=== PATIENT | male | born 1950 | race Caucasian/White ===

== ENCOUNTER 2021-11-03 10:26 | Observation (INO) | payer OTHER ==
--- NOTE | 2021-10-29 09:08 | RAD REPORT ---
EXAM DESCRIPTION: RAD - Chest Pa And Lat (2 Views) - 10/29/2021 9:01 am CLINICAL HISTORY: Pre op pending knee arthroplasty Chest pain. COMPARISON: CHEST PA AND LAT 2 VIEW dated 10/27/2011 FINDINGS: The lungs are emphysematous but clear. The heart is upper limit of normal in size. No disp laced fractures. IMPRESSION: COPD.
[2021-10-29 10:03] LABS: Absolute Lymphocytes (CBC) 0.5 K/uL (0.7-4.9); Hematocrit 41.5 % (39.6-49.0); Lymphocytes % 6.8 % (15.3-44.8); MPV 7.6 fL (7.6-11.3); RBC Red Blood Cell Count 4.77 M/uL (4.33-5.43)
[2021-10-29 10:05] LABS: Protime INR 0.88
[2021-10-29 10:13] LABS: Urine Appearance CLEAR (Clear); Urine Bilirubin NEGATIVE (Negative); Urine Blood NEGATIVE (Negative); Urine Color YELLOW (Yellow); Urine Glucose NEGATIVE (Negative); Urine Microscopic Reflex NO UMIC; Urine Protein NEGATIVE (Negative); Urine Specific Gravity 1.025 (1.005-1.030); Urine Urobilinogen 0.2 mg/dL (0.2-1.0); Urine pH 6.5 (5.0-7.0)
[2021-10-29 10:15] LABS: Albumin 3.4 g/dL (3.4-5.0); Bilirubin Total 0.4 mg/dL (0.2-1.0); Potassium 4.4 mmol/L (3.5-5.1); Protein, Total 6.6 g/dL (6.4-8.2)
--- NOTE | 2021-10-29 15:27 | EKG ---
Test Date: 2021-10-29 Test Time: 09:05:07 [employer]: GITA MEASUREMENT RESULTS: Intervals: Rate: 54 MS: 170 QRSD: 68 QT: 394 QTc: 373 [place]: P: 67 MS: 170 QRS: 15 T: 65 INTERPRETIVE STATEMENTS: Sinus bradycardia Low voltage QRS Borderline ECG No previous ECG available for comparison Electronically Signed On 10-29-21 15:26:45 CDT by Emeterio Fitzgerald
[~2021-11-03 10:26] MED LIST: FENTANYL CITR 100 MCG/2 ML ONE; KETAMINE HCL 500 MG/5 ML VIAL ONE; LIDOCAINE 2% MPF 5 ML VIAL ONE; MIDAZOLAM HCL 2 MG/2 ML INJ ONE; NS 0.9% VIAL 10 ML ONE; propofoL 200 MG/20 ML VIAL IV ONE
[2021-11-03] MEDS ORDERED: GABAPENTIN 100 MG CAP ONE (10:45)
[2021-11-03] MEDS ORDERED: CELECOXIB 100 MG CAPSULE ONE (10:45)
[2021-11-03] MEDS ORDERED: Oxycodone HCl/Acetaminophen 1 TAB TAB ONE (10:46)
[2021-11-03] MEDS ORDERED: Ringers Lactate 1,000 ML IV ONE ×2 (10:46→15:08)
[2021-11-03] MEDS ORDERED: ACETAMINOPHEN 500 MG TAB ONE (10:46)
[2021-11-03] MEDS ORDERED: BUPIVACAINE 0.5% Inj,MDV 50 mL VIAL ONE (11:12)
[2021-11-03] MEDS ORDERED: dexAMETHasone 4 MG/ML VIAL ONE ×2 (11:12→13:45)
[2021-11-03] MEDS ORDERED: BUPIVACAINE 0.25% PF 10 ML VIAL ONE (11:12)
[2021-11-03] MEDS ORDERED: LIDOCAINE 1% MPF 5 ML VIAL ONE (11:12)
[2021-11-03] MEDS ORDERED: HYDROMORPHONE HCL 1 MG/ML INJ ONE (11:13)
[2021-11-03] MEDS: CEFAZOLIN 2 GM IN 0.9% NACL 2 GM/100 ML BAG ONE ×2 (12:24→13:20)
[2021-11-03] MEDS: TRANEXAMIC ACID 1,000 MG/10 ML VIAL IV ONE ×5 (12:24→15:27)
[2021-11-03] MEDS ORDERED: ONDANSETRON 4 MG/2 ML VIAL IV PRN (15:15)
[2021-11-03] MEDS ORDERED: DOCUSATE NA 100 MG CAP PO PRN (15:15)
--- NOTE | 2021-11-03 15:21 | P.BOP ---
Preoperative diagnosis: left knee arthritis Postoperative diagnosis: same Primary procedure: left TKA Estimated blood loss: 100 ccs Anesthesia: General Transferred to: Recovery Room Condition: Good
[2021-11-03] MEDS: MEPERIDINE HCL 25 MG/ML SYR ONE ×2 (16:01→16:40)
--- OUTSIDE RECORDS SUMMARY | 2021-11-03 16:32 | XMS REPORT | Continuity of Care Document ---
:1950 Author Organization [facility] t Address [address] [place] [address] Care Team Providers Name Role Phone NICOLA BLEDSOE Attending Clinician Unavailable Nicola Bledsoe MD Attending Clinician Boubacar Tamez CRNA Attending Clinician Chuck ENRIQUE Attending Clinician Pob, Lab Main Attending Clinician Unavailable Doctor Unassigned, Name Attending Clinician Unavailable Eagle Buckley MD Attending Clinician Class, Pre Op Attending Clinician Unavailable Eagle BUCKLEY Attending Clinician Unavailable MARTHA Attending Clinician Unavailable NICOLA BLEDSOE Admitting Clinician Unavailable Nicola Bledsoe MD Admitting Clinician Payers Payer Name Policy Type Policy Number Effective Date Expiration Date Dylan weathers MEDICARE PART A [id number] 2013 \\T\\ B 00:00:00 [employer] PPO I [id number] 2014 00:00:00 Problems Condition Condition Condition Status Onset Resolution Last Treating Co mments Source Name Details Category Date Date Treatment Clinician Date Arthritis Arthritis Disease Active Uni vers of right of right 6-23 ity of knee knee 00:00: [address] No known No known Disease Unive rs active active ity of problems problems [facility] Allergies, Adverse Reactions, Alerts Allergy Allergy Status Severity Reaction(s) Onset Inactive Treating Comm ents Source Name Type Date Date Clinician NO KNOWN Drug Active Univers ALLERGIE Class ity of S [facility] Social History Social Habit Start Date Stop Date Quantity Comments Source Exposure to Not sure [facility] (event) Branch Tobacco use and 2020-11-04 2020-11-04 Never used Universit y of exposure 00:00:00 00:00:00 [facility] Alcohol intake 2020-11-04 2020-11-04 Current drinker of Un iversity of 00:00:00 00:00:00 alcohol (finding) [facility] Comment 2017-11-08 2017-11-08 Occasional Drinker U niversity of 00:00:00 00:00:00 [facility] Sex Ass[birth year] Universit y of 00:00:00 00:00:00 [facility] Smoking Status Start Date Stop Date Source Former smoker 2020-11-04 00:00:00 2020-11-04 00:00:00 Universi ty of [facility] Never smoker [facility] Medications Ordered Filled Start Stop Current Ordering Indication Dosage Frequency Signature Comments Components Source Medication Medication Date Date Medication? Clinician (SIG) Name Name leah Yes 2{capsu Take 2 Univ ers root 6-24 le} capsules ity of extract 500 21:05: [place] mouth [place] mg Cap 21 daily. Medical Branch acetaminoph Yes 1300mg Take 1,300 Univers en (TYLENOL 6-24 mg by ity of ARTHRITIS 21:05: mouth 3 [place] PAIN) 650 21 (three) Medical mg CR times Branch tablet daily. multivitami Yes 1{tbl} Take 1 Un ilene n, 6-24 tablet by ity of [place]-minerals 21:05: mouth [place] (COMPLETE 21 daily. Medical MULTIVITAMI Branch N) tablet budesonide- Yes 2{puff} Inhale 2 Univers formoterol 6-24 Puffs 2 ity of 160-4.5 21:05: (two) [place] mcg/actuati 21 times Medical on inhaler daily. Branch tiotropium Yes 18ug Inhale 18 Un ilene (SPIRIVA 6-24 mcg daily. ity o f WITH 21:05: [place] HANDIHALER) 21 Medical 18 mcg Branch inhalation losartan 50 Yes 50mg Take 50 mg Univers mg tablet 6-24 by mouth ity of 21:05: daily. [place] 21 Medical Branch hydroCHLORO Yes 12.5mg Take 12.5 Univers thiazide 25 6-24 mg by ity of mg tablet 21:05: mouth [place] 21 daily. Medical Branch tamsulosin Yes .4mg Take 0.4 Uni vers 0.4 mg 24 6-24 mg by ity of hr capsule 21:05: mouth [place] 21 daily. Medical Branch atorvastati Yes 20mg Take 20 mg Univers n 20 mg 6-24 by mouth ity of tablet 21:05: at [place] 21 bedtime. Medical Branch finasteride Yes 5mg Take 5 mg U nivers 5 mg tablet 6-24 by mouth ity of 21:05: daily. [place] [address] Medical Branch Cholecalcif Yes 400U Take 400 Un ilene edgar, 6-24 Units by ity of Vitamin D3, 21:05: mouth [place] (VITAMIN 21 daily. Medical D3) 400 Branch unit capsule vitamin Yes 500ug Take 500 Unive rs B-12 6-24 mcg by ity of (VITAMIN 21:05: mouth [place] B-12) 500 21 daily. Medical mcg tablet Branch fluticasone Yes Inhale. Uni vers -umeclidin- 6-24 ity of vilanter 21:05: [place] (TRELEGY 21 Medical ELLIPTA) Branch 100-62.5-25 mcg DsDv albuterol Yes 2{puff} Inhale 2 U nivers 90 6-24 Puffs ity of mcg/actuati 21:05: every 6 [place] as on inhaler 21 (six) Medical hours as Branch needed for Wheezing or Shortness of Breath. furosemide Yes 20mg Take 20 mg U nivers 20 mg 6-24 by mouth ity of tablet 21:05: daily. [place] Medical Branch spironolact Yes 25mg Take 25 mg Univers one 25 mg 6-24 by mouth ity of tablet 21:05: daily. [place] [address] Medical Branch turmeric Yes 2{capsu Take 2 Univ ers root 6-24 le} capsules ity of extract 500 21:05: by mouth [place] mg Cap 21 daily. Medical Branch acetaminoph Yes 1300mg Take 1,300 Univers en (TYLENOL 6-24 mg by ity of ARTHRITIS 21:05: mouth 3 [place] PAIN) 650 21 (three) Medical mg CR times Branch tablet daily. multivitami Yes 1{tbl} Take 1 Un ilene n, 6-24 tablet by ity of [place]-minerals 21:05: mouth [place] (COMPLETE 21 daily. Medical MULTIVITAMI Branch N) tablet budesonide- Yes 2{puff} Inhale 2 Univers formoterol 6-24 Puffs 2 ity of 160-4.5 21:05: (two) [place] mcg/actuati 21 times Medical on inhaler daily. Branch tiotropium Yes 18ug Inhale 18 Un ilene (SPIRIVA 6-24 mcg daily. ity o f WITH 21:05: [place] HANDIHALER) 21 Medical 18 mcg Branch inhalation losartan 50 Yes 50mg Take 50 mg Univers mg tablet 6-24 by mouth ity of 21:05: daily. [place] Medical Branch hydroCHLORO Yes 12.5mg Take 12.5 Univers thiazide 25 6-24 mg by ity of mg tablet 21:05: mouth [place] 21 daily. Medical Branch tamsulosin Yes .4mg Take 0.4 Uni vers 0.4 mg 24 6-24 mg by ity of hr capsule 21:05: mouth [place] 21 daily. Medical Branch atorvastati Yes 20mg Take 20 mg Univers n 20 mg 6-24 by mouth ity of tablet 21:05: at [place] 21 bedtime. Medical Branch finasteride Yes 5mg Take 5 mg U nivers 5 mg tablet 6-24 by mouth ity of 21:05: daily. [place] 21 Medical Branch Cholecalcif Yes 400U Take 400 Un liene edgar, 6-24 Units by ity of Vitamin D3, 21:05: mouth [place] (VITAMIN 21 daily. Medical D3) 400 Branch unit capsule vitamin Yes 500ug Take 500 Unive rs B-12 6-24 mcg by ity of (VITAMIN 21:05: mouth [place] B-12) 500 21 daily. Medical mcg tablet Branch fluticasone Yes Inhale. Uni vers -umeclidin- 6-24 ity of vilanter 21:05: [place] (TRELEGY 21 Medical ELLIPTA) Branch 100-62.5-25 mcg DsDv albuterol Yes 2{puff} Inhale 2 U nivers 90 6-24 Puffs ity of mcg/actuati 21:05: every 6 [place] on inhaler 21 (six) Medical hours as Branch needed for Wheezing or Shortness of Breath. furosemide Yes 20mg Take 20 mg U nivers 20 mg 6-24 by mouth ity of tablet 21:05: daily. [address] Branch spironolact Yes 25mg Take 25 mg Univers one 25 mg 6-24 by mouth ity of tablet 21:05: daily. [address] docusate Yes 100mg 100 mg, Unive rs (COLACE) 6-24 Oral, ity of capsule 100 01:00: Q12H, [place] mg 00 First dose Medical on Tue Branch 11/05/20 at 2000, Until Discontinu ed, Routine docusate Yes 100mg 100 mg, Unive rs (COLACE) 6-24 Oral, ity of capsule 100 01:00: Q12H, [place] mg 00 First dose Medical on Tue Branch 11/05/20 at 2000, Until Discontinu ed, Routine enoxaparin 2020- No 30mg 30 mg, Univ ers (LOVENOX) 11-06 Subcutaneo ity of injection 01:00: 00:59 us, Q12H, [place] 30 mg 00 :00 56 doses, Medical First dose Branch on Tue11/05/20 at 1999, Last dose on Tue12/03/20 at 0800, Routine enoxaparin 2020- No 30mg 30 mg, Univ ers (LOVENOX) 11-06- Subcutaneo ity of injection 01:00: 00:59 us, Q12H, [place] 30 mg 00 :00 56 doses, Medical First dose Branch on Tue11/05/20 at 1999, Last dose on Tue12/03/20 at 0800, Routine ondansetron Yes 4mg 4 mg, Slow Univers (ZOFRAN 11-05 IV Push, ity of (PF)) 15:07: Q6HPRN, [place] injection 4 40 Starting Medi светлана mg Tue Branch 11/05/20 at 1007, Until Discontinu ed, Routine, Nausea and Vomiting (N/V) ondansetron 2020-0 Yes 4mg 4 mg, Slow Univers (ZOFRAN 6-23 IV Push, ity of (PF)) 15:07: Q6HPRN, [place] injection 4 40 Starting Medi светлана mg Wed Branch 11/05/20 at 1007, Until Discontinu ed, Routine, Nausea and Vomiting (N/V) diphenhydrA 2020-0 Yes 25mg 25 mg, Univ ers MINE 6-23 Oral, ity of (BENADRYL) 15:06: Q4HPRN, [place] tablet 25 37 Starting Medica l mg Wed Branch 11/05/20 at 1006, Until Discontinu ed, Routine, Itching diphenhydrA 2020-0 Yes 25mg 25 mg, Univ ers MINE 6-23 Oral, ity of (BENADRYL) 15:06: Q4HPRN, [place] tablet 25 37 Starting Medica l mg Wed Branch 11/05/20 at 1006, Until Discontinu ed, Routine, Itching HYDROcodone 2020-0 Yes 1{tbl} 1 tablet, Univers -acetaminop 6-23 Oral, ity of hen (NORCO) 15:02: Q4HPRN, [place] 10-325 mg 32 Starting Medica l tablet 1 Wed Branch tablet 11/05/20 at 1002, Until Discontinu ed, Routine, Pain (scale 7-10) HYDROcodone 2020-0 Yes 1{tbl} 1 tablet, Univers -acetaminop 6-23 Oral, ity of hen (NORCO) 15:02: Q4HPRN, [place] 10-325 mg 32 Starting Medica l tablet 1 Wed Branch tablet 11/05/20 at 1002, Until Discontinu ed, Routine, Pain (scale 7-10) HYDROcodone 2020-0 Yes 1{tbl} 1 tablet, Univers -acetaminop 6-23 Oral, ity of hen (NORCO 15:02: Q6HPRN, [place] 5) 5-325 mg 29 Starting Medi светлана tablet 1 Wed Branch tablet 11/05/20 at 1002, Until Discontinu ed, Routine, Pain (scale 4-6) HYDROcodone 2020-0 Yes 1{tbl} 1 tablet, Univers -acetaminop 6-23 Oral, ity of hen (NORCO 15:02: Q6HPRN, [place] 5) 5-325 mg 29 Starting [facility] светлана tablet 1 Tue Branch tablet 11/05/20 at 1002, Until Discontinu ed, Routine, Pain (scale 4-6) ondansetron 2020- No Slow IV Un ilene (ZOFRAN 11-05 Push, ONCE ity o f (PF)) 14:33: 15:04 INTRA [place] injection 00 :20 PROCEDURE, Medi светлана Starting Branch Tue11/05/20 at 0933, Until Tue11/05/20 at 1004, Routine, Intra-op sodium Yes PRN, Univers chloride 11-05 Starting ity of 0.9 % 13:42: Wed [place] irrigation 00 11/05/20 at Med ical solution 0842, Branch Until Discontinu ed, Intra-op sodium Yes PRN, Univers chloride 11-05 Starting ity of 0.9 % 13:42: Wed [place] irrigation 00 11/05/20 at Med ical solution 0842, Branch Until Discontinu ed, Intra-op HYDROmorphO 2020- No Intravenou Univers ne 11-05 06-23 s, ONCE ity of (DILAUDID) 13:20: 15:04 INTRA [place] injection 00 :20 PROCEDURE, Medi светлана Starting Branch Tue11/05/20 at 0820, Until Tue11/05/20 at 1004, Routine, Intra-op dexamethaso 2020- No Intravenou Univers ne 11-05- s, ONCE ity of (DECADRON 12:49: 15:04 INTRA [place] PHOSPHATE) 00 :20 PROCEDURE, Med ical injection Starting Branch Tue11/05/20 at 0749, Until Tue11/05/20 at 1004, Routine, Intra-op ceFAZolin 2020- No IV Univers (ANCEF) 11-05 Piggyback, ity o f injection 12:47: 15:04 ONCE INTRA [place] 00 :20 PROCEDURE, Medical Starting Branch Tue11/05/20 at 0747, Until Tue11/05/20 at 1004, ADRIANNE, Intra-op ePHEDrine 2020- No Slow IV Univ ers 25 mg/5 mL 6-23 06-23 Push, ONCE it y of (5 mg/mL) 12:46: 15:04 INTRA [place] syringe 00 :20 PROCEDURE, Medica l Starting Branch 11/05/20 at 0746, Until 11/05/20 at 1004, Routine, Intra-op lidocaine 2020- No Intravenou U nivers 1% 11-05 s, ONCE ity of (XYLOCAINE) 12:39: 15:04 INTRA [place] 100 mg/10 00 :20 PROCEDURE, Medi светлана mL (1 %) Starting Branch injection 11/05/20 at 0739, Until 11/05/20 at 1004, Routine, Intra-op propofoL IV 2020- No Intravenou Univers infusion 11-05 s, ONCE ity of 12:39: 15:04 INTRA [place] 00 :20 PROCEDURE, Medical Starting Branch 11/05/20 at 0739, Until 11/05/20 at 1004, Routine, Intra-op FENTanyl PF 2020- No Intravenou Univers (SUBLIMAZE 11-05 s, ONCE ity o f (PF)) 12:39: 15:04 INTRA [place] injection 00 :20 PROCEDURE, Medi светлана Starting Branch 11/05/20 at 0739, Until Tue11/05/20 at 1004, Routine, Intra-op lactated 2020- No IV Univers ringers IV 11-05 Infusion, ity of infusion 12:30: 15:04 CONTINUOUS [place] 00 :20 PRN, Medical Starting Branch 11/05/20 at 0730, Until 11/05/20 at 1004, Routine, Intra-op midazolam 2020- No IV Push, Uni vers (VERSED) 11-05 ONCE INTRA ity of injection 12:20: 15:04 PROCEDURE, [place] 00 :20 Starting Medical [facility] Branch 11/05/20 at 0720, Until Tue11/05/20 at 1004, Routine, Intra-op acetaminoph 2020- No 1000mg 1,000 mg, Univers en ADULT 11-05 IV ity of (OFIRMEV) 12:00: 12:27 Infusion, [place] injection 00 :00 Administer Medi светлана 1,000 mg over 15 Branch Minutes, ONCE, 1 dose, 11/05/20 at 0700, Routine, DSU Pre-op
Indication : Perioperat frieda Patient oxyCODONE-a 2020-2020- No 2{tbl} 2 tablet, Univers cetaminophe 11-05 Oral, ity of n 12:00: 12:08 ONCE, 1 [place] (PERCOCET) 00 :00 dose, Wed Medi светлана 5-325 mg 11/05/20 at Branc h per tablet 0700, 2 tablet Routine, DSU Pre-op celecoxib 2020- No 400mg 400 mg, Uni vers (CELEBREX) 11-05 Oral, ity of capsule 400 12:00: 12:08 ONCE, 1 [place] mg 00 :00 dose, [facility] Medical 11/05/20 at Branch 0700, Routine, DSU Pre-op gabapentin 2020- No 300mg 300 mg, Un ilene (NEURONTIN) 11-05 Oral, ity of capsule 300 12:00: 12:08 ONCE, 1 [place] mg 00 :00 dose, [facility] Medical 11/05/20 at Branch 0700, Routine, DSU Pre-op acetaminoph 2020- No 1000mg 1,000 mg, Univers en ADULT 11-05 IV ity of (OFIRMEV) 12:00: 12:27 Infusion, [place] injection 00 :00 Administer Medi светлана 1,000 mg over 15 Branch Minutes, ONCE, 1 dose, 11/05/20 at 0700, Routine, DSU Pre-op
Indication : Perioperat frieda Patient oxyCODONE-a 2020- No 2{tbl} 2 tablet, Univers cetaminophe 11-05 Oral, ity of n 12:00: 12:08 ONCE, 1 [place] (PERCOCET) 00 :00 dose, Wed Medi светлана 5-325 mg 11/05/20 at Branc h per tablet 0700, 2 tablet Routine, DSU Pre-op celecoxib 2020- No 400mg 400 mg, Uni vers (CELEBREX) 11-05 Oral, ity of capsule 400 12:00: 12:08 ONCE, 1 [place] mg 00 :00 dose, Tue Medical 11/05/20 at Branch 0700, Routine, DSU Pre-op gabapentin 2020- No 300mg 300 mg, Un ilene (NEURONTIN) 11-05 Oral, ity of capsule 300 12:00: 12:08 ONCE, 1 [place] mg 00 :00 dose, Tue Medical 11/05/20 at Branch 0700, Routine, DSU Pre-op turmeric Yes 2{capsu Take 2 Univ ers root 6-23 le} capsules ity of extract 500 11:43: by mouth [place] mg Cap 35 daily. Medical Branch acetaminoph Yes 1300mg Take 1,300 Univers en (TYLENOL 6-23 mg by ity of ARTHRITIS 11:43: mouth 3 [place] PAIN) 650 35 (three) Medical mg CR times Branch tablet daily. multivitami Yes 1{tbl} Take 1 Un ilene n, 6-23 tablet by ity of [place]-minerals 11:43: mouth [place] (COMPLETE 35 daily. Medical MULTIVITAMI Branch N) tablet budesonide- Yes 2{puff} Inhale 2 Univers formoterol 6-23 Puffs 2 ity of 160-4.5 11:43: (two) [place] mcg/actuati 35 times Medical on inhaler daily. Branch tiotropium Yes 18ug Inhale 18 Un ilene (SPIRIVA 6-23 mcg daily. ity o f WITH 11:43: [place] HANDIHALER) 35 Medical 18 mcg Branch inhalation losartan 50 Yes 50mg Take 50 mg Univers mg tablet 6-23 by mouth ity of 11:43: daily. [place] 35 Medical Branch hydroCHLORO Yes 12.5mg Take 12.5 Univers thiazide 25 6-23 mg by ity of mg tablet 11:43: mouth [place] 35 daily. Medical Branch tamsulosin Yes .4mg Take 0.4 Uni vers 0.4 mg 24 6-23 mg by ity of hr capsule 11:43: mouth [place] 35 daily. Medical Branch atorvastati Yes 20mg Take 20 mg Univers n 20 mg 6-23 by mouth ity of tablet 11:43: at [place] [address] bedtime. Medical Branch finasteride Yes 5mg Take 5 mg U nivers 5 mg tablet 6-23 by mouth ity of 11:43: daily. [place] [address] Medical Branch Cholecalcif Yes 400U Take 400 Un ilene edgar, 6-23 Units by ity of Vitamin D3, 11:43: mouth [place] (VITAMIN 35 daily. Medical D3) 400 Branch unit capsule vitamin Yes 500ug Take 500 Unive rs B-12 6-23 mcg by ity of (VITAMIN 11:43: mouth [place] B-12) 500 35 daily. Medical mcg tablet Branch fluticasone Yes Inhale. Uni vers -umeclidin- 6-23 ity of vilanter 11:43: [place] (TRELEGY 35 Medical ELLIPTA) Branch 100-62.5-25 mcg DsDv albuterol Yes 2{puff} Inhale 2 U nivers 90 6-23 Puffs ity of mcg/actuati 11:43: every 6 [place] as on inhaler 35 (six) Medical hours as Branch needed for Wheezing or Shortness of Breath. furosemide Yes 20mg Take 20 mg U nivers 20 mg 6-23 by mouth ity of tablet 11:43: daily. [address] Branch spironolact Yes 25mg Take 25 mg Univers one 25 mg 6-23 by mouth ity of tablet 11:43: daily. [address] Branch clopidogrel 2020- No 75mg Take 75 mg Univers 75 mg 6-04 11-22 by mouth ity of tablet 16:56: 00:00 daily. [place] 26 :00 [facility] Branch clopidogrel 2020- No 75mg Take 75 mg Univers 75 mg 6-22 -22 by mouth ity of tablet 16:56: 00:00 daily. [place] 26 :00 Medical Branch turmeric Yes 2{capsu Take 2 Univ ers root 6-16 le} capsules ity of extract 500 13:39: by mouth [place] mg Cap 27 daily. Medical Branch acetaminoph Yes 1300mg Take 1,300 Univers en (TYLENOL 6-16 mg by ity of ARTHRITIS 13:39: mouth 3 [place] PAIN) 650 27 (three) Medical mg CR times Branch tablet daily. multivitami Yes 1{tbl} Take 1 Un ilene n, 6-16 tablet by ity of tx-minerals 13:39: mouth [place] (COMPLETE 27 daily. Medical MULTIVITAMI Branch N) tablet budesonide- Yes 2{puff} Inhale 2 Univers formoterol 6-16 Puffs 2 ity of 160-4.5 13:39: (two) [place] mcg/actuati 27 times Medical on inhaler daily. Branch tiotropium Yes 18ug Inhale 18 Un ilene (SPIRIVA 6-16 mcg daily. ity o f WITH 13:39: [place] HANDIHALER) 27 Medical 18 mcg Branch inhalation losartan 50 Yes 50mg Take 50 mg Univers mg tablet 6-16 by mouth ity of 13:39: daily. [place] [address] Medical Branch hydroCHLORO Yes 12.5mg Take 12.5 Univers thiazide 25 6-16 mg by ity of mg tablet 13:39: mouth [place] 27 daily. Medical Branch tamsulosin Yes .4mg Take 0.4 Uni vers 0.4 mg 24 6-16 mg by ity of hr capsule 13:39: mouth [place] 27 daily. Medical Branch atorvastati Yes 20mg Take 20 mg Univers n 20 mg 6-16 by mouth ity of tablet 13:39: at [place] [address] bedtime. Medical Branch finasteride Yes 5mg Take 5 mg U nivers 5 mg tablet 6-16 by mouth ity of 13:39: daily. [place] [address] Medical Branch clopidogrel Yes 75mg Take 75 mg Univers 75 mg 6-16 by mouth ity of tablet 13:39: daily. [place] [address] Medical Branch Cholecalcif Yes 400U Take 400 Un ilene edgar, 6-16 Units by ity of Vitamin D3, 13:39: mouth [place] (VITAMIN 27 daily. Medical D3) 400 Branch unit capsule vitamin Yes 500ug Take 500 Unive rs B-12 6-16 mcg by ity of (VITAMIN 13:39: mouth [place] B-12) 500 27 daily. Medical mcg tablet Branch fluticasone Yes Inhale. Uni vers -umeclidin- 6-16 ity of vilanter 13:39: [place] (TRELEGY 27 Medical ELLIPTA) Branch 100-62.5-25 mcg DsDv albuterol Yes 2{puff} Inhale 2 U nivers 90 6-16 Puffs ity of mcg/actuati 13:39: every 6 [place] as on inhaler 27 (six) Medical hours as Branch needed for Wheezing or Shortness of Breath. furosemide Yes 20mg Take 20 mg U nivers 20 mg 6-16 by mouth ity of tablet 13:39: daily. [place] [address] Medical Branch spironolact Yes 25mg Take 25 mg Univers one 25 mg 6-16 by mouth ity of tablet 13:39: daily. [place] [address] Medical Branch turmeric Yes 2{capsu Take 2 Univ ers root 6-16 le} capsules ity of extract 500 13:39: by mouth [place] mg Cap 27 daily. Medical Branch acetaminoph Yes 1300mg Take 1,300 Univers en (TYLENOL 6-16 mg by ity of ARTHRITIS 13:39: mouth 3 [place] PAIN) 650 27 (three) Medical mg CR times Branch tablet daily. multivitami Yes 1{tbl} Take 1 Un ilene n, 6-16 tablet by ity of [place]-minerals 13:39: mouth [place] (COMPLETE 27 daily. Medical MULTIVITAMI Branch N) tablet budesonide- Yes 2{puff} Inhale 2 Univers formoterol 6-16 Puffs 2 ity of 160-4.5 13:39: (two) [place] mcg/actuati 27 times Medical on inhaler daily. Branch tiotropium Yes 18ug Inhale 18 Un ilene (SPIRIVA 6-16 mcg daily. ity o f WITH 13:39: [place] HANDIHALER) 27 Medical 18 mcg Branch inhalation losartan 50 Yes 50mg Take 50 mg Univers mg tablet 6-16 by mouth ity of 13:39: daily. [place] [address] Medical Branch hydroCHLORO Yes 12.5mg Take 12.5 Univers thiazide 25 6-16 mg by ity of mg tablet 13:39: mouth [place] 27 daily. Medical Branch tamsulosin Yes .4mg Take 0.4 Uni vers 0.4 mg 24 6-16 mg by ity of hr capsule 13:39: mouth [place] 27 daily. Medical Branch atorvastati Yes 20mg Take 20 mg Univers n 20 mg 6-16 by mouth ity of tablet 13:39: at [place] 27 bedtime. Medical Branch finasteride Yes 5mg Take 5 mg U nivers 5 mg tablet 6-16 by mouth ity of 13:39: daily. [place] [address] Medical Branch clopidogrel Yes 75mg Take 75 mg Univers 75 mg 6-16 by mouth ity of tablet 13:39: daily. [place] [address] Medical Branch Cholecalcif Yes 400U Take 400 Un ilene edgar, 6-16 Units by ity of Vitamin D3, 13:39: mouth [place] (VITAMIN 27 daily. Medical D3) 400 Branch unit capsule vitamin Yes 500ug Take 500 Unive rs B-12 6-16 mcg by ity of (VITAMIN 13:39: mouth [place] B-12) 500 27 daily. Medical mcg tablet Branch fluticasone Yes Inhale. Uni vers -umeclidin- 6-16 ity of vilanter 13:39: [place] (TRELEGY 27 Medical ELLIPTA) Branch 100-62.5-25 mcg DsDv albuterol Yes 2{puff} Inhale 2 U nivers 90 6-16 Puffs ity of mcg/actuati 13:39: every 6 [place] on inhaler 27 (six) Medical hours as Branch needed for Wheezing or Shortness of Breath. furosemide Yes 20mg Take 20 mg U nivers 20 mg 6-16 by mouth ity of tablet 13:39: daily. [address] Branch spironolact Yes 25mg Take 25 mg Univers one 25 mg 6-16 by mouth ity of tablet 13:39: daily. [place] [address] Medical Branch turmeric Yes 2{capsu Take 2 Univ ers root 6-16 le} capsules ity of extract 500 13:39: by mouth [place] mg Cap 27 daily. Medical Branch acetaminoph Yes 1300mg Take 1,300 Univers en (TYLENOL 6-16 mg by ity of ARTHRITIS 13:39: mouth 3 [place] PAIN) 650 27 (three) Medical mg CR times Branch tablet daily. multivitami Yes 1{tbl} Take 1 Un ilene n, 6-16 tablet by ity of [place]-minerals 13:39: mouth [place] (COMPLETE 27 daily. Medical MULTIVITAMI Branch N) tablet budesonide- Yes 2{puff} Inhale 2 Univers formoterol 6-16 Puffs 2 ity of 160-4.5 13:39: (two) [place] mcg/actuati 27 times Medical on inhaler daily. Branch tiotropium Yes 18ug Inhale 18 Un ilene (SPIRIVA 6-16 mcg daily. ity o f WITH 13:39: [place] HANDIHALER) 27 Medical 18 mcg Branch inhalation losartan 50 Yes 50mg Take 50 mg Univers mg tablet 6-16 by mouth ity of 13:39: daily. [place] [address] Medical Branch hydroCHLORO Yes 12.5mg Take 12.5 Univers thiazide 25 6-16 mg by ity of mg tablet 13:39: mouth [place] 27 daily. Medical Branch tamsulosin Yes .4mg Take 0.4 Uni vers 0.4 mg 24 6-16 mg by ity of hr capsule 13:39: mouth [place] 27 daily. Medical Branch atorvastati Yes 20mg Take 20 mg Univers n 20 mg 6-16 by mouth ity of tablet 13:39: at [place] 27 bedtime. Medical Branch finasteride Yes 5mg Take 5 mg U nivers 5 mg tablet 6-16 by mouth ity of 13:39: daily. [place] [address] Medical Branch clopidogrel Yes 75mg Take 75 mg Univers 75 mg 6-16 by mouth ity of tablet 13:39: daily. [place] [address] Medical Branch Cholecalcif Yes 400U Take 400 Un ilene edgar, 6-16 Units by ity of Vitamin D3, 13:39: mouth [place] (VITAMIN 27 daily. Medical D3) 400 Branch unit capsule vitamin Yes 500ug Take 500 Unive rs B-12 6-16 mcg by ity of (VITAMIN 13:39: mouth [place] B-12) 500 27 daily. Medical mcg tablet Branch fluticasone Yes Inhale. Uni vers -umeclidin- 6-16 ity of vilanter 13:39: [place] (TRELEGY 27 Medical ELLIPTA) Branch 100-62.5-25 mcg DsDv albuterol Yes 2{puff} Inhale 2 U nivers 90 6-16 Puffs ity of mcg/actuati 13:39: every 6 [place] as on inhaler 27 (six) Medical hours as Branch needed for Wheezing or Shortness of Breath. furosemide Yes 20mg Take 20 mg U nivers 20 mg 6-16 by mouth ity of tablet 13:39: daily. [address] Branch spironolact Yes 25mg Take 25 mg Univers one 25 mg 6-16 by mouth ity of tablet 13:39: daily. [address] FENTanyl PF Yes Epidural, U nivers (SUBLIMAZE -16 ONCE INTRA ity of (PF)) 12:25: PROCEDURE, [place] injection 00 Starting Medica l Wed Branch 10/29/20 at 0725, Until Discontinu ed, Routine, Intra-op lactated 2020- No 1000mL at 42 Unive rs ringers IV 10-29 mL/hr, ity of infusion 12:15: 12:14 1,000 mL, [place] 1,000 mL 00 :00 IV Medical Infusion, Branch ONCE, 1 dose, 10/29/20 at 0715, Routine, DSU Pre-op gabapentin 2020- No 300mg 300 mg, Un ilene (NEURONTIN) 10-29 Oral, ONCE i ty of capsule 300 12:00: 11:45 TOMORROW, [place] mg 00 :00 1 dose, Medical Wed Branch 10/29/20 at 0700, Routine, DSU Pre-op oxyCODONE-a 2020- No 2{tbl} 2 tablet, Univers cetaminophe 10-29 Oral, ONCE i ty of n 12:00: 11:45 TOMORROW, [place] (PERCOCET) 00 :00 1 dose, Medica l 5-325 mg Wed Branch per tablet 10/29/20 at 2 tablet 0700, Routine, DSU Pre-op celecoxib 2020- No 400mg 400 mg, Uni vers (CELEBREX) 10-29 Oral, ONCE it y of capsule 400 12:00: 11:45 TOMORROW, [place] mg 00 :00 1 dose, Medical Wed Branch 10/29/20 at 0700, Routine, DSU Pre-op turmeric 2017- Yes 2{capsu Take 2 Univ ers root 6-27 le} capsules ity of extract 500 16:10: by mouth [place] mg Cap 44 daily. Medical Branch acetaminoph Yes 1300mg Take 1,300 Univers en (TYLENOL 6-27 mg by ity of ARTHRITIS 16:10: mouth 3 [place] PAIN) 650 44 (three) Medical mg CR times Branch tablet daily. multivitami Yes 1{tbl} Take 1 Un ilene n, 6-27 tablet by ity of [place]-minerals 16:10: mouth [place] (COMPLETE 44 daily. Medical MULTIVITAMI Branch N) tablet budesonide- Yes 2{puff} Inhale 2 Univers formoterol 6-27 Puffs 2 ity of 160-4.5 16:10: (two) [place] mcg/actuati 44 times Medical on inhaler daily. Branch tiotropium Yes 18ug Inhale 18 Un ilene (SPIRIVA 6-27 mcg daily. ity o f WITH 16:10: [place] HANDIHALER) 44 Medical 18 mcg Branch inhalation losartan 50 Yes 50mg Take 50 mg Univers mg tablet 6-27 by mouth ity of 16:10: daily. [place] [address] Medical Branch hydroCHLORO Yes 12.5mg Take 12.5 Univers thiazide 25 6-27 mg by ity of mg tablet 16:10: mouth [place] 44 daily. Medical Branch tamsulosin Yes .4mg Take 0.4 Uni vers 0.4 mg 24 6-27 mg by ity of hr capsule 16:10: mouth [place] 44 daily. Medical Branch atorvastati Yes 20mg Take 20 mg Univers n 20 mg 6-27 by mouth ity of tablet 16:10: at [place] 44 bedtime. Medical Branch finasteride Yes 5mg Take 5 mg U nivers 5 mg tablet 6-27 by mouth ity of 16:10: daily. [place] [address] Medical Branch clopidogrel 2017- Yes 75mg Take 75 mg Univers 75 mg 6-27 by mouth ity of tablet 16:10: daily. [place] [address] Medical Branch Cholecalcif Yes 400U Take 400 Un ilene edgar, 6-27 Units by ity of Vitamin D3, 16:10: mouth [place] (VITAMIN 44 daily. Medical D3) 400 Branch unit capsule vitamin 2018 Yes 500ug Take 500 Unive rs B-12 6-27 mcg by ity of (VITAMIN 16:10: mouth [place] B-12) 500 44 daily. Medical mcg tablet Branch turmeric Yes 2{capsu Take 2 Univ ers root 6-27 le} capsules ity of extract 500 16:10: by [place] mg Cap 44 daily. Medical Branch acetaminoph Yes 1300mg Take 1,300 Univers en (TYLENOL 6-27 mg by ity of ARTHRITIS 16:10: mouth 3 [place] PAIN) 650 44 (three) Medical mg CR times Branch tablet daily. multivitami Yes 1{tbl} Take 1 Un ilene n, 6-27 tablet by ity of [place]-minerals 16:10: mouth [place] (COMPLETE 44 daily. Medical MULTIVITAMI Branch N) tablet budesonide- Yes 2{puff} Inhale 2 Univers formoterol 6-27 Puffs 2 ity of 160-4.5 16:10: (two) [place] mcg/actuati 44 times Medical on inhaler daily. Branch tiotropium Yes 18ug Inhale 18 Un ilene (SPIRIVA 6-27 mcg daily. ity o f WITH 16:10: [place] HANDIHALER) 44 Medical 18 mcg Branch inhalation losartan 50 Yes 50mg Take 50 mg Univers mg tablet 6-27 by mouth ity of 16:10: daily. [place] 44 Medical Branch hydroCHLORO Yes 12.5mg Take 12.5 Univers thiazide 25 6-27 mg by ity of mg tablet 16:10: mouth [place] 44 daily. Medical Branch tamsulosin Yes .4mg Take 0.4 Uni vers 0.4 mg 24 6-27 mg by ity of hr capsule 16:10: mouth [place] 44 daily. Medical Branch atorvastati Yes 20mg Take 20 mg Univers n 20 mg 6-27 by mouth ity of tablet 16:10: at [place] 44 bedtime. Medical Branch finasteride Yes 5mg Take 5 mg U nivers 5 mg tablet 6-27 by mouth ity of 16:10: daily. [place] [address] Medical Branch clopidogrel 0 Yes 75mg Take 75 mg Univers 75 mg 6-27 by mouth ity of tablet 16:10: daily. [place] [address] Medical Branch Cholecalcif 0 Yes 400U Take 400 Un ilene edgar, 6-27 Units by ity of Vitamin D3, 16:10: mouth [place] (VITAMIN 44 daily. Medical D3) 400 Branch unit capsule vitamin 2018 Yes 500ug Take 500 Unive rs B-12 6-27 mcg by ity of (VITAMIN 16:10: mouth [place] B-12) 500 44 daily. Medical mcg tablet Branch turmeric Yes 2{capsu Take 2 Univ ers root 6-27 le} capsules ity of extract 500 16:10: by [place] mg Cap 44 daily. Medical Branch acetaminoph Yes 1300mg Take 1,300 Univers en (TYLENOL 6-27 mg by ity of ARTHRITIS 16:10: mouth 3 [place] PAIN) 650 44 (three) Medical mg CR times Branch tablet daily. multivitami Yes 1{tbl} Take 1 Un ilene n, 6-27 tablet by ity of [place]-minerals 16:10: mouth [place] (COMPLETE 44 daily. Medical MULTIVITAMI Branch N) tablet budesonide- Yes 2{puff} Inhale 2 Univers formoterol 6-27 Puffs 2 ity of 160-4.5 16:10: (two) [place] mcg/actuati 44 times Medical on inhaler daily. Branch tiotropium Yes 18ug Inhale 18 Un ilene (SPIRIVA 6-27 mcg daily. ity o f WITH 16:10: [place] HANDIHALER) 44 Medical 18 mcg Branch inhalation losartan 50 Yes 50mg Take 50 mg Univers mg tablet 6-27 by mouth ity of 16:10: daily. [place] [address] Medical Branch hydroCHLORO 0 Yes 12.5mg Take 12.5 Univers thiazide 25 6-27 mg by ity of mg tablet 16:10: mouth [place] 44 daily. Medical Branch tamsulosin Yes .4mg Take 0.4 Uni vers 0.4 mg 24 6-27 mg by ity of hr capsule 16:10: mouth [place] 44 daily. Medical Branch atorvastati Yes 20mg Take 20 mg Univers n 20 mg 6-27 by mouth ity of tablet 16:10: at [place] 44 bedtime. Medical Branch finasteride Yes 5mg Take 5 mg U nivers 5 mg tablet 6-27 by mouth ity of 16:10: daily. [place] [address] Medical Branch clopidogrel Yes 75mg Take 75 mg Univers 75 mg 6-27 by mouth ity of tablet 16:10: daily. [place] [address] Medical Branch Cholecalcif Yes 400U Take 400 Un ilene edgar, 6-27 Units by ity of Vitamin D3, 16:10: mouth [place] (VITAMIN 44 daily. Medical D3) 400 Branch unit capsule vitamin 2018- Yes 500ug Take 500 Unive rs B-12 6-27 mcg by ity of (VITAMIN 16:10: mouth [place] B-12) 500 44 daily. Medical mcg tablet Branch turmeric Yes 2{capsu Take 2 Univ ers root 6-27 le} capsules ity of extract 500 16:10: by mouth [place] mg Cap 44 daily. Medical Branch acetaminoph Yes 1300mg Take 1,300 Univers en (TYLENOL 6-27 mg by ity of ARTHRITIS 16:10: mouth 3 [place] PAIN) 650 44 (three) Medical mg CR times Branch tablet daily. multivitami Yes 1{tbl} Take 1 Un ilene n, 6-27 tablet by ity of [place]-minerals 16:10: mouth [place] (COMPLETE 44 daily. Medical MULTIVITAMI Branch N) tablet budesonide- Yes 2{puff} Inhale 2 Univers formoterol 6-27 Puffs 2 ity of 160-4.5 16:10: (two) [place] mcg/actuati 44 times Medical on inhaler daily. Branch tiotropium Yes 18ug Inhale 18 Un ilene (SPIRIVA 6-27 mcg daily. ity o f WITH 16:10: [place] HANDIHALER) 44 Medical 18 mcg Branch inhalation losartan 50 Yes 50mg Take 50 mg Univers mg tablet 6-27 by mouth ity of 16:10: daily. [place] [address] Medical Branch hydroCHLORO Yes 12.5mg Take 12.5 Univers thiazide 25 6-27 mg by ity of mg tablet 16:10: mouth [place] 44 daily. Medical Branch tamsulosin Yes .4mg Take 0.4 Uni vers 0.4 mg 24 6-27 mg by ity of hr capsule 16:10: mouth [place] 44 daily. Medical Branch atorvastati Yes 20mg Take 20 mg Univers n 20 mg 6-27 by mouth ity of tablet 16:10: at [place] 44 bedtime. Medical Branch finasteride Yes 5mg Take 5 mg U nivers 5 mg tablet 6-27 by mouth ity of 16:10: daily. [place] [address] Medical Branch clopidogrel Yes 75mg Take 75 mg Univers 75 mg 6-27 by mouth ity of tablet 16:10: daily. [place] [address] Medical Branch Cholecalcif Yes 400U Take 400 Un ilene edgar, 6-27 Units by ity of Vitamin D3, 16:10: mouth [place] (VITAMIN 44 daily. Medical D3) 400 Branch unit capsule vitamin Yes 500ug Take 500 Unive rs B-12 6-27 mcg by ity of (VITAMIN 16:10: mouth [place] B-12) 500 44 daily. Medical mcg tablet Branch Immunizations Ordered Filled Immunization Date Status Comments [facility] e Immunization Name Name Influenza Virus 2020-01-19 Completed Universit y of Vaccine 00:00:00 [facility] Influenza Virus 2020-01-19 Completed Universit y of Vaccine 00:00:00 [facility] Influenza Virus 2020-01-19 Completed Universit y of Vaccine 00:00:00 [facility] Influenza Virus 2019-01-29 Completed Universit y of Vaccine 00:00:00 [facility] Pneumococcal 13 2019-01-29 Completed Universit y of Conjugate, PCV13 00:00:00 [facility] dical (Prevnar 13) [place] Influenza Virus 2019-01-29 Completed Universit y of Vaccine 00:00:00 [facility] Pneumococcal 13 2019-01-29 Completed Universit y of Conjugate, PCV13 00:00:00 [facility] dical (Prevnar 13) [place] Influenza Virus 2019-01-29 Completed Universit y of Vaccine 00:00:00 [facility] Pneumococcal 13 2019-01-29 Completed Universit y of Conjugate, PCV13 00:00:00 [facility] dical (Prevnar 13) [place] TDAP 2017-04-04 Completed University 00:00:00 [facility] TDAP 2017-04-04 Completed University of 00:00:00 [facility] TDAP 2017-04-04 Completed University of 00:00:00 [facility] Influenza High Dose 2015-02-07 Completed Unive rsity of 00:00:00 [facility] Influenza High Dose 2015-02-07 Completed Unive rsity of 00:00:00 [facility] Influenza High Dose 2015-02-07 Completed Unive rsity of 00:00:00 [facility] Zoster(Zostavax)( 2014-05-17 Completed Unive rsity of ingles) 00:00:00 [facility] Zoster(Zostavax)( 2014-05-17 Completed Unive rsity of ingles) 00:00:00 [facility] Zoster(Zostavax)( 2014-05-17 Completed Unive rsity of ingles) 00:00:00 [facility] Vital Signs Vital Name Observation Time Observation Value Comments Source Systolic blood 2020-11-06 16:25:00 129 mm[Hg] Univer sity of pressure [facility] Diastolic blood 2020-11-06 16:25:00 55 mm[Hg] Unive rsity of pressure [facility] Heart rate 2020-11-06 16:25:00 57 /[facility] 2020-11-06 16:25:00 36.56 Tricia [facility] Res[facility] rate 2020-11-06 16:25:00 20 /min [facility] Oxygen saturation in 2020-11-06 16:25:00 95 /min University of Arterial blood by [facility] [place] [facility] Pulse oximetry Branch Body weight 2020-11-04 18:08:00 113.4 kg Universi ty [facility] BMI 2020-11-04 18:08:00 34.87 kg/m2 [facility] Oxygen saturation in 2020-11-05 15:37:00 94 /min University of Arterial blood by [facility] [place] [facility] Pulse oximetry Branch Systolic blood 2020-11-05 15:34:00 133 mm[Hg] Univer sity of pressure [facility] Diastolic blood 2020-11-05 15:34:00 75 mm[Hg] Unive rsity of pressure [facility] Heart rate 2020-11-05 15:34:00 72 /min Universi ty [facility] [place] [facility] Respiratory rate 2020-11-05 15:34:00 19 /min Univ ersity of [place] [facility] Body temperature 2020-11-05 15:08:00 36.72 Tricia Univ ersity of [place] [facility] Body weight 2020-11-04 18:08:00 113.4 kg Universi ty [facility] [place] [facility] BMI 2020-11-04 18:08:00 34.87 kg/m2 Universi ty [facility] [place] [facility] Respiratory rate 2020-11-05 14:52:00 20 /min Univ ersity of [place] [facility] Systolic blood 2020-10-29 11:52:00 155 mm[Hg] Univer sity of pressure [place] [facility] Diastolic blood 2020-10-29 11:52:00 78 mm[Hg] Unive rsity of pressure [place] [facility] Heart rate 2020-10-29 11:52:00 63 /min Universi ty [facility] [place] [facility] Body temperature 2020-10-29 11:52:00 36.83 Tricia Univ ersity of [place] [facility] Respiratory rate 2020-10-29 11:52:00 16 /min Univ ersity of [place] [facility] Oxygen saturation in 2020-10-29 11:52:00 94 /min University of Arterial blood by [employer] Pulse oximetry Branch Body height 2020-10-28 15:45:00 180.3 cm Universi ty [facility] [place] [facility] Body weight 2020-10-28 15:45:00 113.399 kg Universi ty of [place] [facility] BMI 2020-10-28 15:45:00 34.87 kg/m2 Universi ty [facility] [place] [facility] Systolic blood 2020-10-29 11:52:00 155 mm[Hg] Univer sity of pressure [place] [facility] Diastolic blood 2020-10-29 11:52:00 78 mm[Hg] Unive rsity of pressure [place] [facility] Heart rate 2020-10-29 11:52:00 63 /min Universi ty [facility] [place] [facility] Body temperature 2020-10-29 11:52:00 36.83 Tricia Univ ersity of [place] [facility] Respiratory rate 2020-10-29 11:52:00 16 /min Univ ersity of [place] [facility] Oxygen saturation in 2020-10-29 11:52:00 94 /min University of Arterial blood by [employer] Pulse oximetry Branch Body height 2020-10-28 15:45:00 180.3 cm [facility] Body weight 2020-10-28 15:45:00 113.399 kg [facility] BMI 2020-10-28 15:45:00 34.87 kg/m2 [facility] Procedures Procedure Date / Time Performing Clinician Source Performed CBC WITH DIFF 2020-11-06 08:55:00 Raúl Bledsoe [facility] CBC WITH DIFF 2020-11-06 08:55:00 Raúl Bledsoe [facility] INTUBATION 2020-11-05 13:20:38 [facility] NERVE BLOCK 2020-11-05 12:55:52 [facility] TOTAL KNEE ARTHROPLASTY 2020-11-05 12:15:00 [facility] 2020-11-05 12:15:00 [facility] 2020-11-05 12:05:00 Raúl Bledsoe [facility] HB ABO GROUPING 2020-11-05 12:05:00 Raúl Bledsoe [facility] ABORH CONFIRMATION 2020-10-29 13:46:00 Doctor Unasscaro, [facility] HB ABO GROUPING 2020-10-29 11:50:00 Raúl Bledsoe [facility] HB ABO GROUPING 2020-10-29 11:50:00 Raúl Bledsoe [facility] DSU PRE-OP 2020-10-28 05:01:00 Doctor Unassigned, [facility] Name [facility] DSU PRE-OP 2020-10-28 05:01:00 Doctor Unassigned, [facility] Name [facility] EKG-12 LEAD 2020-10-27 17:30:39 Doctor Unasscaro, [facility] Name [facility] XR CHEST 2 VW 2020-10-27 16:52:01 Raúl Bledsoe [facility] XR CHEST 2 VW 2020-10-27 16:52:01 Raúl Bledsoe [facility] CBC WITH DIFF 2020-10-27 16:41:00 Emperatriz Buckley [facility] URINALYSIS 2020-10-27 16:41:00 Emperatriz Buckley [facility] CBC WITH DIFF 2020-10-27 16:41:00 Emperatriz Buckley [facility] COMP. METABOLIC PANEL 2020-10-27 16:41:00 Emperatriz Buckley [facility] ([id number]) Medical Branch URINALYSIS 2020-10-27 16:41:00 Emperatriz Buckley [facility] PROTHROMBIN TIME / INR 2020-10-27 16:41:00 Emperatriz Buckley [facility] ACTIVATED PARTIAL THRMPLAS 2020-10-27 16:41:00 Emperatriz Buckley [facility] NO SHOW OR MISSED 2020-10-27 16:24:34 Doctor Saúl, [facility] APPOINTMENT POLICY [place] [facility] ACKNOWLEDGEMENT [facility] PATIENT FINANCIAL 2020-10-27 16:24:17 Doctor Saúl, [facility] POLICY [place] [facility] NOTICE OF BILLING 2020-10-27 16:24:03 Doctor Saúl, [facility] PRACTICES FOR MEDICARE [place] [facility] PATIENTS CONSENT/REFUSAL FOR 2020-10-27 16:23:48 Doctor Saúl, [facility] DIAGNOSIS AND TREATMENT [place] [facility] ASSIGNMENT OF BENEFITS 2020-10-27 16:23:32 Doctor Saúl, [facility] [place] [facility] ASSIGNMENT OF BENEFITS 2020-10-27 16:23:32 Doctor Saúl, [facility] [place] [facility] PHYSICIAN ORDERS 2020-10-27 05:01:00 Doctor Saúl, [facility] [place] [facility] Encounters Start End Encounter Admission Attending Care Care Encounter Source Date/Time Date/Time Type Type Clinicians Facility Department ID 2021-10-16 [facility] [id number] Common 08:17:01 [facility] 2021-03-16 Outpatient [facility] [id number] Univers 02:53:47 RAÚL foreman [facility] 2021-03-16 Outpatient [facility] [id number] Univers 01:15:51 RAÚL foreman [facility] 2020-11-05 2020-11-06 [facility] [id number] Univers 06:43:00 15:35:00 Encounter Raúl Robertson [id number] [place]2.686 [place] [id number] Medi светлана 081 Branch 2020-11-05 2020-11-05 Surgery [facility] 1.2.840.114 [id number] Univers 07:30:00 10:37:00 Raúl Robertson 350.1.13.10 [place] [id number] [facility] 020 [place] 2020-11-05 2020-11-05 Anesthesia Janie Tamez [facility] 1.2.840 .114 [id number] Univers 07:30:00 10:04:00 Event GretamariolaTd priest 350.1.13.1 0 [place] 4[place] [id number] [facility] 020 [place] 2020-11-04 2020-11-04 Outpatient R [facility] [id number] Univers 15:15:00 15:15:00 [id number] ity of [facility] 2020-11-04 2020-11-[address] [facility] [id number] Univers 15:15:00 15:15:00 RAÚL jennyjacqueline [facility] 2020-10-29 2020-10-29 Anesthesia Sea Tamez2.840.4 [id number] Univers 08:43:02 08:43:02 Event Janie Priest [id number] ity of 3.104.2.7 [place] .3.648436 Medica l .8 Branch 2020-10-29 2020-10-29 [place] [id number] Univers 06:37:00 08:13:00 Encounter Raúl Petersen [id number] ity of 3.104.2.7 [place] .3.798956 Medica l .8 [place] 2020-10-28 2020-10-28 Outpatient R [facility] [id number] Univers 13:15:00 13:15:00 [id number] ity of [facility] 2020-10-28 2020-10-28 [facility] [id number] Univers 13:15:00 13:15:00 RAÚL ity [facility] 2020-10-28 2020-10-28 Travel 1.2.840.1 [id number] [id number] Univers 00:00:00 00:00:00 [id number] 350.1.13.10 ity of 3.104.2.7 4.2.7.3.698 [place] .3.275405 084.8 Medica l .8 [place] 2020-10-27 2020-10-27 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 2 [id number] Univers 11:24:25 11:39:25 Visit Povandana, [facility] Lab Main 59512.1.1 ity of 3.104.2.7 [place] .3.970018 Medica l .8 [place] 2020-10-27 2020-10-27 [facility], 1.2.840.2 [id number] Univers 09:15:00 11:24:00 Encounter Raúl Petersen [id number] ity of 3.104.2.7 [place] .[id number] Medica l .8 [place] 2020-10-27 2020-10-27 Orders Doctor 1.2.840.5 [id number] [facility] 00:00:00 00:00:00 Only Unassigned, 66390.1.1 ity of [place] 3.104.2.7 [place] .3.630309 Medica l .8 Branch 2020-10-27 2020-10-27 Travel 1.2.840.1 [id number] [id number] Univers 00:00:00 00:00:00 [id number] 350.1.13.10 ity of 3.104.2.7 4.2.7.3.698 [place] .3.860472 084.8 Medica l .8 [place] 2020-10-09 2020-10-09 Ancillary Emperatriz Buckley 1.2.840.1 [id number] Univers 13:52:39 15:27:42 Visit Class, [place] [id number] ity of 3.104.2.7 [place] .3.384005 Medica l .8 [place] 2020-10-09 2020-10-09 Outpatient Barbie BUCKLEY, [facility] [id number] Univers 13:00:00 13:00:00 EMPERATRIZ ity of [facility] 2020-07-13 2020-07-13 Outpatient MARTHA [facility] [id number] [place] 00:00:00 00:00:[address] 2020-06-22 2020-06-22 Outpatient [facility] [id number] [place] 00:00:00 00:00:[address] Results Test Description Test Time Test Comments Results Result Comments Source CBC with Differential 2020-11-06 09:14:00 Test Item Value Reference Range Interpretation Comme nts WBC (test code = 6690-2) See_Comment [A utomated message] The system which ge nerated this result transmit daysi reference range: 4.20 - 1 0.70 10*3/?L. The reference r ale was not used to interpr et this result as normal/abnor mal. RBC (test code = 789-8) See_Comment L [Au tomated message] The system which ge nerated this result transmit daysi reference range: 4.26 - 5 .52 10*6/?L. The reference r ale was not used to interpr et this result as normal/abnor mal. HGB (test code = 718-7) 12.2 g/dL 12.2-16.4 HCT (test code = 4544-3) 37.6 % 38.4-49.3 L MCV (test code = 787-2) 92.2 fL 81.7-95.6 MCH (test code = 785-6) 29.9 pg 26.1-32.7 MCHC (test code = 786-4) 32.4 g/dL 31.2-35.0 RDW-SD (test code = 01575-1) 47.2 fL 38.5-51.6 RDW-CV (test code = 788-0) 14.0 % 12.1-15.4 PLT (test code = 777-3) See_Comment [Au tomated message] The system which ge nerated this result transmit daysi reference range: 150 - 32 8 10*3/?L. The reference range was not used to interpret th is result as normal/abnormal . MPV (test code = 84619-4) 9.8 fL 9.8-13.0 NRBC/100 WBC (test code = See_Comment [ Automated message] The [id number]) system which ge nerated this result transmit daysi reference range: 0.0 - 10 .0 /100 WBCs. The reference r ale was not used to interpr et this result as normal/abnor mal. NRBC x10^3 (test code = <0.01 See_Comment [Au tomated message] The [id number]) system which ge nerated this result transmit daysi reference range: 10*3/?L. The reference range was not u sed to interpret this result as normal/abnormal . GRAN MAT (NEUT) % (test code 81.7 % = 770-8) IMM GRAN % (test code = 0.60 % [id number]) LYMPH % (test code = 736-9) 6.6 % MONO % (test code = 5905-5) 10.8 % EOS % (test code = 713-8) 0.2 % BASO % (test code = 706-2) 0.1 % GRAN MAT x10^3(ANC) (test 7.10 10*3/uL 1.99-6.95 H code = 4621648971) IMM GRAN x10^3 (test code = 0.05 10*3/uL 0.00-0.06 [id number]) LYMPH x10^3 (test code = 0.57 10*3/uL 1.09-3.23 L 731-0) MONO x10^3 (test code = 0.94 10*3/uL 0.36-1.02 742-7) EOS x10^3 (test code = <0.03 0.06-0.53 L 711-2) BASO x10^3 (test code = <0.03 0.01-0.09 704-7) Lab Interpretation (test Abnormal code = 95773-8) [facility] with [id number] 09:14:00 Test Item Value Reference Range Interpretation Comments WBC (test code = See_Comment [Automated 9490-2) message] The sy stem which generated this result transmitted reference range : 4.20 - 10.70 10*3/?L. The reference range was not used to interpret this result as normal/abnormal . RBC (test code = See_Comment L [Automated 259-8) message] The sy stem which generated this result transmitted reference range : 4.26 - 5.52 10*6/?L. The reference range was not used to interpret this result as normal/abnormal . HGB (test code = 12.2 g/dL 12.2-16.4 718-7) HCT (test code = 37.6 % 38.4-49.3 L 4544-3) MCV (test code = 92.2 fL 81.7-95.6 787-2) MCH (test code = 29.9 pg 26.1-32.7 785-6) MCHC (test code = 32.4 g/dL 31.2-35.0 786-4) RDW-SD (test code = 47.2 fL 38.5-51.6 42148-6) RDW-CV (test code = 14.0 % 12.1-15.4 788-0) PLT (test code = See_Comment [Automated 777-3) message] The sy stem which generated this result transmitted reference range : 150 - 328 10*3/ ?L. The reference r ale was not used to interpret this result as normal/abnormal . MPV (test code = 9.8 fL 9.8-13.0 37663-9) NRBC/100 WBC (test See_Comment [Automat ed code = [id number]) message] The system which generated this result transmitted reference range : 0.0 - 10.0 /100 WBCs. The refer ence range was not u sed to interpret th is result as normal/abnormal . NRBC x10^3 (test code <0.01 See_Comment [Auto mated = [id number]) message] The s ystem which generated this result transmitted reference range : 10*3/?L. The reference range was not used to interpret this result as normal/abnormal . GRAN MAT (NEUT) % 81.7 % (test code = 770-8) IMM GRAN % (test code 0.60 % = 0469329406) LYMPH % (test code = 6.6 % 736-9) MONO % (test code = 10.8 % 5905-5) EOS % (test code = 0.2 % 713-8) BASO % (test code = 0.1 % 706-2) GRAN MAT x10^3(ANC) 7.10 10*3/uL 1.99-6.95 H (test code = 2858453169) IMM GRAN x10^3 (test 0.05 10*3/uL 0.00-0.06 code = 9238782642) LYMPH x10^3 (test code 0.57 10*3/uL 1.09-3.23 L = 731-0) MONO x10^3 (test code 0.94 10*3/uL 0.36-1.02 = 742-7) EOS x10^3 (test code = <0.03 0.06-0.53 L 711-2) BASO x10^3 (test code <0.03 0.01-0.09 = 704-7) Lab Interpretation Abnormal (test code = 95726-8) [facility] 13:20:38Duc Malcolm CRNA ? ? 11/05/2020 ?8:21 AMIntubationUrgency: elective Airway not difficult General Information and Staff Patient location during procedure: ORResident/INGREDIENT HANDLER: Duc Malcolm CRNAPerformed: resident/INGREDIENT HANDLER Indications and Patient ConditionIndications for airway management: anesthesiaSpontaneous Ventilation: absentSedation level: deepPreoxygenated: yesPatient position: sniffingMILS maintained throughoutMask difficulty assessment: 0 - not attempted Final Airway DetailsFinal airway type: supraglottic airway Successful airway: classic (igel)Size 5 Additional CommentsDry intactUnShannon Medical Center SouthNerve [id number] 12:55:52Td Woods MD ? ? 11/05/2020 ?7:59 AM Nerve Block Procedure: Femoral Nerve Block and Other Peripheral Nerve Patient Location: HoldingLaterality: RightSurgical Anesthesia: no Start Time: 11/05/2020 7:15 AMEnd Time: 11/05/2020 7:56 AMPost Op Pain Management requested by surgeon per surgical: H&P, OR Posting and Progress NoteAnesthesiologist: Td Woods MDPreanesthetic timeout completed prior to procedure: patient identified,IV checked, site marked, risks and benefits discussed, surg ical consent, monitors and equipment checked, pre-op evaluation, timeout performedInformed consent obtained patient wishes to proceed: yesSterile Prep/Drape: YesMonitoring: continuous pulse ox, blood pressure and ECGInjection Technique: single-shotNeedle Type: StimuplexNeedle Gauge: 22 GNeedle Length: 3.5Number of Attempts: 1Motor response present at (mA): 0.3Technique: Stimulating needle, Ultrasoundguided, Negative aspiration and Intermittent aspiration during injectionSensory Effect: AdequateEvents: No paresthesia on incremental injection, Negative Aspiration, Patient tolerated procedure well, Lo светлана anesthetic solution visualized around nerve and No symptoms of intraneural or IV injection Medications Given: Regional:EPI 1:200K Sedation:Midazolam 1 mg Additional Notes:Right Adductor canal block and 5 cc around the tibial nerve placed and seen with ultrasound Total 0f 35 cc 0. 5 % Ropivacaine with 1:200,000 Epi used in both blocks - 30 cc Adductor and 5 cc tibial nerveUnShannon Medical Center SouthType and Screen - ONCE [id number] 12:46:02 Test Item Value Reference Range Interpretation Comments ABO & RH (test code O Positive Performe d at [facility] = 20) Laboratory [facility] [place], [place] [address]Toll Free: [phone] A No. [id number] IAT (test code = Negative Performed a t [facility] 1185) Laboratory [facility] [place], [place] [address]Toll Free: [phone] A No. [id number] [facility] and Screen - ONCE [id number] 12:46:02 Test Item Value Reference Range Interpretation Comments ABO & RH (test code O Positive Performe d at [facility] = 20) Laboratory [facility] [place], [place] [address]Toll Free: [phone] A No. [id number] IAT (test code = Negative Performed a t [facility] 1185) Laboratory [facility] [place], [place] [address]Toll Free: [phone] A No. [id number] [facility] CenterABORH [id number] 13:52:25 Test Item Value Reference Range Interpretation Comments ABO & RH (test code O Positive Performe d at [facility] = 20) Laboratory [facility] [place], [place] [address]Toll Free: [phone] A No. [id number] [facility] and Screen - ONCE [id number] 12:49:48 Test Item Value Reference Range Interpretation Comments ABO & RH (test code O Positive Performe d at [facility] = 20) Laboratory [facility] [address] [place] [address]Kcvy Free: [phone] A No. [id number] IAT (test code = Negative Performed a t [facility] 1185) Laboratory [facility] [place], [place] [id number] Free: [phone] A No. [id number] [facility] CenterType [facility] - ONCE [id number] 12:49:48 Test Item Value Reference Range Interpretation Comments ABO & RH (test code O Positive Performe d at [facility] = 20) Laboratory [facility] [place] [phone] Free: [phone] A No. [id number] IAT (test code = Negative Performed a t [facility] 1185) Laboratory [facility] [place] [address]Ftqk Free: [phone] A No. [id number] [facility] CenterXR CHEST 2 [id number] 20:50:491. 1.5 cm nodule in the left upper lobe. CT scan of the chest isrecommended for further evaluation2.COPD and changes of prior granulomatous infection. CHEST 2 VIEWS: HISTORY:Preop TECHNIQUE:: ?PA and lateral views of the chest are obtained. COMPARISON: None FINDINGS: Approximately 1.5 cm nodule is present in the left upper lobe. In additioncalcified scattered granulomas are seen in both lungs. Lungsare slightly hyperinflated. Heart size is normal. Calcifications areseen in the aortic arch. No pleural effusion is present. Changes ofspondylosis are seen in the thoracic spine. [facility], Radiant Results Inft User - 10/27/2020 3:51 PM CDT CHEST2 VIEWS:HISTORY:PreopTECHNIQUE:: PA and lateral views of the chest are obtained.COMPARISON: NoneFINDINGS:Approximately 1.5 cm nodule is present in the left upper lobe. In additioncalcified scattered granulomas are seen in both lungs.Lungs are slightly hyperinflated. Heart size is normal. Calcifications areseen in the aortic arch. No pleural effusion is present. Changes ofspondylosis are seen in the thoracic spine.IMPRESSION1. 1.5 cm nodule in the left upper lobe. CT scan of the chest isrecommended for further evaluation2. COPD and changes of prior granulomatous infection.[facility]XR [facility]ST 2 [id number] 20:50:491. 1.5 cm nodule in the left upper lobe. CT scan of the chest isrecommended for further evaluation2.COPD and changes of prior granulomatous infection. CHEST 2 VIEWS: HISTORY:Preop TECHNIQUE:: ?PA and lateral views of the chest are obtained. COMPARISON: None FINDINGS: Approximately 1.5 cm nodule is present in the left upper lobe. In additioncalcified scattered granulomas are seen in both lungs. Lungsare slightly hyperinflated. Heart size is normal. Calcifications areseen in the aortic arch. No pleural effusion is present. Changes ofspondylosis are seen in the thoracic spine. [facility], Radiant Results Inft User - 10/27/2020 3:51 PM CDT CHEST2 VIEWS:HISTORY:PreopTECHNIQUE:: PA and lateral views of the chest are obtained.COMPARISON: NoneFINDINGS:Approximately 1.5 cm nodule is present in the left upper lobe. In additioncalcified scattered granulomas are seen in both lungs.Lungs are slightly hyperinflated. Heart size is normal. Calcifications areseen in the aortic arch. No pleural effusion is present. Changes ofspondylosis are seen in the thoracic spine.IMPRESSION1. 1.5 cm nodule in the left upper lobe. CT scan of the chest isrecommended for further evaluation2. COPD and changes of prior granulomatous infection.[facility] CenterCOMP. METABOLIC PANEL ([id number])2020-10-27 18:25:10 Test Item Value Reference Range Interpretation Comments NA (test code = 138 mmol/L 135-145 4578324883) K (test code = 4.4 mmol/L 3.5-5.0 2552865606) CL (test code = 105 mmol/L 98-108 2796111300) CO2 TOTAL (test code = 25 mmol/L 23-31 6840029895) AGAP (test code = 2-16 5636245020) BUN (test code = 19 mg/dL 7-23 7510958844) GLUCOSE (test code = 113 mg/dL 70-110 H 6208685553) CREATININE (test code = 0.96 mg/dL 0.60-1.25 8203050127) TOTAL BILI (test code = 0.5 mg/dL 0.1-1.1 9499691172) CALCIUM (test code = 10.0 mg/dL 8.6-10.6 8487916748) T PROTEIN (test code = 6.6 g/dL 6.3-8.2 0180372179) ALBUMIN (test code = 4.2 g/dL 3.5-5.0 3208797891) ALK PHOS (test code = 102 U/L 34-122 5935436913) ALTv (test code = 37 U/L 5-50 1742-6) AST(SGOT) (test code = 27 U/L 13-40 3526413274) eGFR (test code = mL/min/1.73m2 1918686101) DONALDO (test code = DONALDO) Association of Glomerular Filtration Rate (GFR) and Staging of Kidney Disease* + --+ --+ ------+| GFR (mL/min/1.73 m2) ?| With Kidney Damage ?| ?Without Kidney Damage+ --------+ --------+ +| ?>90 ?| ?Stage one ?| ? Normal ?+ ---+ ---+ -------+| ?60-89 ?| ?Stage two ?| ? Decreased GFR ? + --+ --+ ------+| ?30-59 ?| ?Stage three ?| ? Stage three ? + --+ --+ ------+| ?15-29 ?| ?Stage four ? | ? Stage four ?+ ---+ ---+ -------+| ?<15 (or dialysis) ? ?| ?Stage five ? | ? Stage five ?+ ---+ ---+ -------+ *Each stage assumes the associated GFR level has been in effect for at least three months. ?Stages 1 to 5, with or without kidney disease, indicate chronic kidney disease. Notes: Determination of stages one and two (with eGFR >59mL/min/1.73 m2) requires estimation of kidney damage for at least three months as defined by structural or functional abnormalities of the kidney, manifested by either:Pathological abnormalities or Markers of kidney damage (including abnormalities in the composition of the blood or urine or abnormalities in imaging tests). Lab Interpretation Abnormal (test code = 10225-6) [facility] CenterACTIVATED PARTIAL THRMPLAS [id number] 17:24:38 Test Item Value Reference Range Interpretation Comments APTT Patient (test See_Comment [Automat ed code = 3173-2) message] The system which generated this result transmitted reference range : 23 - 38 Seconds . The reference range was not used to interpr et this result as normal/abnormal . DONALDO (test code = DONALDO) The [facility] patient population mean normal value for aPTT is 30 seconds. Lab Interpretation Normal (test code = 31650-9) [facility] CenterPROTHROMBIN TIME / [id number] 17:22:41 Test Item Value Reference Range Interpretation Comments PROTIME PATIENT (test See_Comment [Auto mated message] code = 5964-2) The system wh ich generated this result transmitted ref erence range: 12.0 - 1 4.7 Seconds. The re ference range was not u sed to interpret this result as normal/abnor mal. INR (test code = 6301-6) Nor mal INR <1.1; Warfarin Therap eutic range 2.0 to 3. 0 or 2.5 to 3.5, dep ending upon the indica tions. Lab Interpretation (test Normal code = 21798-6) [facility] CenterURINALYSIS2021-06-14 17:16:23 Test Item Value Reference Range Interpretation Comments APPEARANCE (test code = Clear Clear 4014330782) COLOR (test code = Yellow Yellow 5863197011) PH (test code = 4.8-8.0 1620493024) SP GRAVITY (test code = 1.003-1.030 7126554601) GLU U QUAL (test code = Normal Normal 2791999411) BLOOD (test code = Negative Negative 1176521565) KETONES (test code = Negative Negative 0834741675) PROTEIN (test code = Negative Negative 2887-8) UROBILIN (test code = Normal Normal 2059183540) BILIRUBIN (test code = Negative Negative 6092328922) NITRITE (test code = Negative Negative 3047074492) LEUK KEESHA (test code = Negative Negative 1429626606) RBC/HPF (test code = <1 See_Comment [Autom ated message] 7653656082) The system [employer] generated this result transmitted ref erence range: 0 - 3 HP F. The reference range was not used to int erpret this result as normal/abnormal . WBC/HPF (test code = <1 See_Comment [Autom ated message] 5666098122) The system [employer] generated this result transmitted ref erence range: 0 - 5 HP F. The reference range was not used to int erpret this result as normal/abnormal . BACTERIA (test code = Negative Negative 7336586946) MUCOUS (test code = Slight Negative LPF A 3372529233) HYAL CAST (test code = See_Comment [Aut omated message] 1691274079) The system [employer] generated this result transmitted ref erence range: <=2 LPF. The reference range was not used to int erpret this result as normal/abnormal . Lab Interpretation (test Abnormal code = 35264-7) [facility] CenterURINALYSIS2021-[facility]-14 17:16:23 Test Item Value Reference Range Interpretation Comments APPEARANCE (test code = Clear Clear 4834562697) COLOR (test code = Yellow Yellow 6449138228) PH (test code = 4.8-8.0 2681258881) SP GRAVITY (test code = 1.003-1.030 6017891990) GLU U QUAL (test code = Normal Normal 7859716968) BLOOD (test code = Negative Negative 0550233249) KETONES (test code = Negative Negative 0343369030) PROTEIN (test code = Negative Negative 2887-8) UROBILIN (test code = Normal Normal 1966611409) BILIRUBIN (test code = Negative Negative 6154392899) NITRITE (test code = Negative Negative 5917306126) LEUK KEESHA (test code = Negative Negative 7060099647) RBC/HPF (test code = <1 See_Comment [Autom ated message] 8272097683) The system [employer] generated this result transmitted ref erence range: 0 - 3 HP F. The reference range was not used to int erpret this result as normal/abnormal . WBC/HPF (test code = <1 See_Comment [Autom ated message] 4967511093) The system [employer] generated this result transmitted ref erence range: 0 - 5 HP F. The reference range was not used to int erpret this result as normal/abnormal . BACTERIA (test code = Negative Negative 2944636829) MUCOUS (test code = Slight Negative LPF A 8034922026) HYAL CAST (test code = See_Comment [Aut omated message] 4332181098) The system [employer] generated this result transmitted ref erence range: <=2 LPF. The reference range was not used to int erpret this result as normal/abnormal . Lab Interpretation (test Abnormal code = 57919-8) [facility] WITH [id number] 16:45:17 Test Item Value Reference Range Interpretation Comments WBC (test code = See_Comment [Automated 6690-2) message] The sy stem which generated this result transmitted reference range : 4.20 - 10.70 10*3/?L. The reference range was not used to interpret this result as normal/abnormal . RBC (test code = See_Comment [Automated 789-8) message] The sy stem which generated this result transmitted reference range : 4.26 - 5.52 10*6/?L. The reference range was not used to interpret this result as normal/abnormal . HGB (test code = 13.8 g/dL 12.2-16.4 718-7) HCT (test code = 42.7 % 38.4-49.3 4544-3) MCV (test code = 90.9 fL 81.7-95.6 787-2) MCH (test code = 29.4 pg 26.1-32.7 785-6) MCHC (test code = 32.3 g/dL 31.2-35.0 786-4) RDW-SD (test code = 45.5 fL 38.5-51.6 43865-6) RDW-CV (test code = 13.8 % 12.1-15.4 788-0) PLT (test code = See_Comment [Automated 777-3) message] The sy stem which generated this result transmitted reference range : 150 - 328 10*3/ ?L. The reference r ale was not used to interpret this result as normal/abnormal . MPV (test code = 9.0 fL 9.8-13.0 L 97288-0) NRBC/100 WBC (test See_Comment [Automat ed code = 6093668551) message] The system which generated this result transmitted reference range : 0.0 - 10.0 /100 WBCs. The refer ence range was not u sed to interpret th is result as normal/abnormal . NRBC x10^3 (test code <0.01 See_Comment [Auto mated = 5506602206) message] The s ystem which generated this result transmitted reference range : 10*3/?L. The reference range was not used to interpret this result as normal/abnormal . GRAN MAT (NEUT) % 71.5 % (test code = 770-8) IMM GRAN % (test code 0.40 % = 9213485056) LYMPH % (test code = 13.2 % 736-9) MONO % (test code = 10.7 % 5905-5) EOS % (test code = 3.8 % 713-8) BASO % (test code = 0.4 % 706-2) GRAN MAT x10^3(ANC) 3.95 10*3/uL 1.99-6.95 (test code = 8540574197) IMM GRAN x10^3 (test <0.03 0.00-0.06 code = 6120648677) LYMPH x10^3 (test code 0.73 10*3/uL 1.09-3.23 L = 731-0) MONO x10^3 (test code 0.59 10*3/uL 0.36-1.02 = 742-7) EOS x10^3 (test code = 0.21 10*3/uL 0.06-0.53 711-2) BASO x10^3 (test code <0.03 0.01-0.09 = 704-7) Lab Interpretation Abnormal (test code = 48675-1) [facility] WITH [id number] 16:45:17 Test Item Value Reference Range Interpretation Comments WBC (test code = See_Comment [Automated 6690-2) message] The sy stem which generated this result transmitted reference range : 4.20 - 10.70 10*3/?L. The reference range was not used to interpret this result as normal/abnormal . RBC (test code = See_Comment [Automated 789-8) message] The sy stem which generated this result transmitted reference range : 4.26 - 5.52 10*6/?L. The reference range was not used to interpret this result as normal/abnormal . HGB (test code = 13.8 g/dL 12.2-16.4 718-7) HCT (test code = 42.7 % 38.4-49.3 4544-3) MCV (test code = 90.9 fL 81.7-95.6 787-2) MCH (test code = 29.4 pg 26.1-32.7 785-6) MCHC (test code = 32.3 g/dL 31.2-35.0 786-4) RDW-SD (test code = 45.5 fL 38.5-51.6 32173-1) RDW-CV (test code = 13.8 % 12.1-15.4 788-0) PLT (test code = See_Comment [Automated 777-3) message] The sy stem which generated this result transmitted reference range : 150 - 328 10*3/ ?L. The reference r ale was not used to interpret this result as normal/abnormal . MPV (test code = 9.0 fL 9.8-13.0 L 71580-7) NRBC/100 WBC (test See_Comment [Automat ed code = 1742653107) message] The system which generated this result transmitted reference range : 0.0 - 10.0 /100 WBCs. The refer ence range was not u sed to interpret th is result as normal/abnormal . NRBC x10^3 (test code <0.01 See_Comment [Auto mated = 6715433452) message] The s ystem which generated this result transmitted reference range : 10*3/?L. The reference range was not used to interpret this result as normal/abnormal . GRAN MAT (NEUT) % 71.5 % (test code = 770-8) IMM GRAN % (test code 0.40 % = 4772577847) LYMPH % (test code = 13.2 % 736-9) MONO % (test code = 10.7 % 5905-5) EOS % (test code = 3.8 % 713-8) BASO % (test code = 0.4 % 706-2) GRAN MAT x10^3(ANC) 3.95 10*3/uL 1.99-6.95 (test code = 8522261674) IMM GRAN x10^3 (test <0.03 0.00-0.06 code = 3516173043) LYMPH x10^3 (test code 0.73 10*3/uL 1.09-3.23 L = 731-0) MONO x10^3 (test code 0.59 10*3/uL 0.36-1.02 = 742-7) EOS x10^3 (test code = 0.21 10*3/uL 0.06-0.53 711-2) BASO x10^3 (test code <0.03 0.01-0.09 = 704-7) Lab Interpretation Abnormal (test code = 09692-7) [facility] CenterProthrombin Time and [id number] 10:18:34 Test Item Value Reference Range Interpretation Comments Prothrombin Time (test code = 10.4 seconds 9.8-13.4 Prothrombin Time) INR (test code = INR) 0.9 ratio 0.6-1.2 Partial Thromboplastin [id number] 10:18:34 Test Item Value Reference Range Interpretation Comments Partial Thromboplastin Time 38.50 seconds 24.39-37.25 H (test code = Partial Thromboplastin Time) Comprehensive Metabolic [id number] 09:44:04 Test Item Value Reference Range Interpretation Comments Sodium Level (test code = Sodium 141.0 mmol/L 135.0-145.0 Level) Potassium Level (test code = 4.5 mmol/L 3.5-5.1 Potassium Level) Chloride Level (test code = 104 mmol/L 98-105 Chloride Level) CO2 (test code = CO2) 25 mmol/L 22-29 Anion Gap (test code = Anion 12 mmol/L 7-16 Gap) BUN (test code = BUN) 17.50 mg/dL 8.00-23.00 Creatinine Level (test code = 1.00 mg/dL 0.70-1.20 Creatinine Level) BUN/Creat Ratio (test code = 18 N BUN/Creat Ratio) Glucose Level (test code = 109 mg/dL 70-115 Glucose Level) Calcium Level (test code = 9.4 mg/dL 8.3-10.5 Calcium Level) Alk Phos (test code = Alk Phos) 109 U/L 40-129 Bilirubin Total (test code = 0.5 mg/dL 0.1-0.9 Bilirubin Total) Albumin Level (test code = 4.2 g/dL 3.5-5.2 Albumin Level) Protein Total (test code = 6.4 g/dL 6.4-8.3 Protein Total) ALT (test code = ALT) 33 U/L 1-41 AST (test code = AST) 24 U/L 1-40 Globulin (test code = Globulin) 2.2 g/dL 2.9-3.1 L A/G Ratio (test code = A/G 1.9 ratio N Ratio) Comprehensive Metabolic [id number] 09:44:04 Test Item Value Reference Range Interpretation Comments Sodium Level (test 141.0 mmol/L 135.0-145.0 code = Sodium Level) Potassium Level 4.5 mmol/L 3.5-5.1 (test code = Potassium Level) Chloride Level (test 104 mmol/L 98-105 code = Chloride Level) CO2 (test code = 25 mmol/L 22-29 CO2) Anion Gap (test code 12 mmol/L 7-16 = Anion Gap) BUN (test code = 17.50 mg/dL 8.00-23.00 BUN) Creatinine Level 1.00 mg/dL 0.70-1.20 (test code = Creatinine Level) BUN/Creat Ratio 18 N (test code = BUN/Creat Ratio) Glucose Level (test 109 mg/dL 70-115 code = Glucose Level) Calcium Level (test 9.4 mg/dL 8.3-10.5 code = Calcium Level) Alk Phos (test code 109 U/L 40-129 = Alk Phos) Bilirubin Total 0.5 mg/dL 0.1-0.9 (test code = Bilirubin Total) Albumin Level (test 4.2 g/dL 3.5-5.2 code = Albumin Level) Protein Total (test 6.4 g/dL 6.4-8.3 code = Protein Total) ALT (test code = 33 U/L 1-41 ALT) AST (test code = 24 U/L 1-40 AST) Globulin (test code 2.2 g/dL 2.9-3.1 L = Globulin) A/G Ratio (test code 1.9 ratio N = A/G Ratio) eGFR AA (test code = >60 N eGFR (e stimated eGFR AA) mL/min/1.73 m2 Glomerular Filtration Rate ) is an estimated va lue, calculated from the patient's serum creatinine usin g the MDRD equation. It is NOT the patient 's actual GFR. The eGFR provides a more clinically usef ul measure of kidn ey disease than se rum creatinine alone.This calculation shanae es sex and race in to account, if the information is provided. If th e race is not provided, and t he patient is -Michelle n, multiply by 1.2 12. If sex is not provided, and t he patient is fema le, multiply by 0.7 42. Results for pat ients <18 years of ag e have not been validated by th e MDRD study and should be interpreted wit h caution. eGFR R esult Interpretation: eGFR > or = 60 is in the Normal RangeeGF R < 60 may mean kid kit diseaseeGFR < 1 5 may mean kidney failure Rang es recommended by the National Kidney Foundation, http://nkdep.ni h.gov Comprehensive Metabolic [id number] 09:44:04 Test Item Value Reference Range Interpretation Comments Sodium Level (test 141.0 mmol/L 135.0-145.0 code = Sodium Level) Potassium Level 4.5 mmol/L 3.5-5.1 (test code = Potassium Level) Chloride Level (test 104 mmol/L 98-105 code = Chloride Level) CO2 (test code = 25 mmol/L 22-29 CO2) Anion Gap (test code 12 mmol/L 7-16 = Anion Gap) BUN (test code = 17.50 mg/dL 8.00-23.00 BUN) Creatinine Level 1.00 mg/dL 0.70-1.20 (test code = Creatinine Level) BUN/Creat Ratio 18 N (test code = BUN/Creat Ratio) Glucose Level (test 109 mg/dL 70-115 code = Glucose Level) Calcium Level (test 9.4 mg/dL 8.3-10.5 code = Calcium Level) Alk Phos (test code 109 U/L 40-129 = Alk Phos) Bilirubin Total 0.5 mg/dL 0.1-0.9 (test code = Bilirubin Total) Albumin Level (test 4.2 g/dL 3.5-5.2 code = Albumin Level) Protein Total (test 6.4 g/dL 6.4-8.3 code = Protein Total) ALT (test code = 33 U/L 1-41 ALT) AST (test code = 24 U/L 1-40 AST) Globulin (test code 2.2 g/dL 2.9-3.1 L = Globulin) A/G Ratio (test code 1.9 ratio N = A/G Ratio) eGFR AA (test code = >60 N eGFR (e stimated eGFR AA) mL/min/1.73 m2 Glomerular Filtration Rate ) is an estimated va lue, calculated from the patient's serum creatinine usin g the MDRD equation. It is NOT the patient 's actual GFR. The eGFR provides a more clinically usef ul measure of kidn ey disease than se rum creatinine alone.This calculation shanae es sex and race in to account, if the information is provided. If th e race is not provided, and t he patient is -Michelle n, multiply by 1.2 12. If sex is not provided, and t he patient is fema le, multiply by 0.7 42. Results for pat ients <18 years of ag e have not been validated by th e MDRD study and should be interpreted wit h caution. eGFR R esult Interpretation: eGFR > or = 60 is in the Normal RangeeGF R < 60 may mean kid kit diseaseeGFR < 1 5 may mean kidney failure Rang es recommended by the National Kidney Foundation, http://nkdep.ni h.gov eGFR Non-AA (test >60.00 N eGFR (spencer mated code = eGFR Non-AA) mL/min/1.73 m2 Glomer ular Filtration Rate ) is an estimated va lue, calculated from the patient's serum creatinine usin g the MDRD equation. It is NOT the patient 's actual GFR. The eGFR provides a more clinically usef ul measure of kidn ey disease than se rum creatinine alone.This calculation shanae es sex and race in to account, if the information is provided. If th e race is not provided, and t he patient is -Michelle n, multiply by 1.2 12. If sex is not provided, and t he patient is fema le, multiply by 0.7 42. Results for pat ients <18 years of ag e have not been validated by th e MDRD study and should be interpreted wit h caution. eGFR R esult Interpretation: eGFR > or = 60 is in the Normal RangeeGF R < 60 may mean kid kit diseaseeGFR < 1 5 may mean kidney failure Rang es recommended by the [employer], http://nkdep.ni h.gov Automated [id number] 09:17:58 Test Item Value Reference Range Interpretation Comments Neutro Auto (test code = Neutro 73.6 % 36.0-70.0 H Auto) Lymph Auto (test code = Lymph Auto) 13.3 % 12.0-44.0 [place] Auto (test code = [place] Auto) 9.5 % 0.0-11.0 Eos, Auto (test code = Eos, Auto) 2.9 % 0.0-7.0 Basophil Auto (test code = Basophil 0.4 % 0.0-2.0 Auto) Neutro Absolute (test code = Neutro 5.5 x10 1.6-7.4 Absolute) Lymph Absolute (test code = Lymph 1.00 x10 .50-4.60 Absolute) [place] Absolute (test code = [place] .71 x10 .00-1.20 Absolute) Eos Absolute (test code = Eos 0.22 x10 0.00-0.74 Absolute) Baso Absolute (test code = Baso 0.03 x10 0.00-0.21 Absolute) IG [id number] 09:17:58 Test Item Value Reference Range Interpretation Comments IG (test code = IG) 0.3 % 0.0-5.0 IG Abs (test code = IG Abs) 0 x10 N Complete Blood Count with [id number] 09:17:57 Test Item Value Reference Range Interpretation Comments WBC (test code = WBC) 7.5 x10 4.4-10.5 RBC (test code = RBC) 5.32 x10 4.10-5.70 Hgb (test code = Hgb) 15.9 g/dL 13.4-17.4 MCV (test code = MCV) 89.70 fL 80.00-100.00 Hct (test code = Hct) 47.7 % 38.7-52.0 MCHC (test code = 33.30 g/dL 32.00-37.50 MCHC) MCH (test code = MCH) 29.9 pg 27.0-32.5 RDW CV (test code = 13.2 % 11.5-14.5 RDW CV) Platelets (test code = 209.0 x10 140.0-440.0 Platelets) MPV (test code = MPV) 9.5 fL N Slide Review (test Auto Auto Result cr eated by code = Slide Review) GL_SJM_ SLIDE_REV_AUTO nRBC (test code = 0 N nRBC) NRBC Abs (test code = 0.00 x10 N NRBC Abs) IPF (test code = IPF) 0 % N"
[2021-11-03] MEDS ORDERED: HYDRALAZINE HCL 20 MG/ML VIAL IV PRN (17:10)
--- NOTE | 2021-11-03 17:10 | P.CNS ---
Date of Consult: 11/03/21 Reason for Consult: Medical management Requesting Physician: Raúl Bledsoe Chief Complaint: Left knee arthroplasty History of Present Illness: 71-year-old male with history of hypertension, COPD on Trelegy elliptica, follows with Dr. Shepherd, CAD status post PCI last was 2009, diastolic CHF on chronic Lasix presented due to worsening left knee pain and electively scheduled for surgery. Patient underwent surgery today which was uneventful. No postop PRBC required. Hospitalist team consulted for medical management. 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 He has some mild wheezing. He any cough, fever or dizziness. Allergies No Known Allergies Allergy (Verified 11/03/21 11:02) Home Medications: Abiraterone Acetate [Zytiga] 500 mg PO DAILY 10/29/21 Albuterol Sulfate 1.25 mg IH PRN 10/29/21 Ascorbic Acid [Vitamin C] 1,000 mg PO DAILY 10/29/21 Atorvastatin Calcium [Lipitor] 10 mg PO BEDTIME 10/29/21 Calcium Carbonate/Vitamin D3 [Calcium 500 + Vit D 200 Caplet] 1 each PO BID 10/29/21 Cholecalciferol (Vitamin D3) [Vitamin D 5,000 Iu Cap] 5,000 unit PO BID 10/29/21 Clopidogrel Bisulfate [Plavix] 75 mg PO DAILY 10/29/21 Cyanocobalamin (Vitamin B-12) [Vitamin B-12] 5,000 mcg PO EVERY 7TH DAY 10/29/21 Fluticasone Propionate [Flovent Diskus] 1 puff IH DAILY 10/29/21 Fluticasone/Umeclidin/Vilanter [Trelegy Ellipta 100-62.5-25] 1 puff IH DAILY 10/29/21 Furosemide [Lasix] 20 mg PO DAILY 10/29/21 Losartan Potassium [Cozaar] 50 mg PO BID 10/29/21 Multivit-Min/FA/Lycopen/Lutein [Men 50 Plus Multivitamin Tab] 1 each PO DAILY 10/29/21 Naproxen Sodium 220 mg PO BID 10/29/21 Spironolactone [Aldactone] 25 mg PO DAILY 10/29/21 Tamsulosin [Flomax] 0.4 mg PO BEDTIME 10/29/21 Turmeric Root Extract [Turmeric Curcumin] 1 cap PO BID 10/29/21 Zinc 50 mg PO DAILY 10/29/21 predniSONE [Deltasone] 5 mg PO DAILY 10/29/21 - Past Medical/Surgical History Diabetic: No -: hypertension -: copd -: sleep apnea -: arthritis -: prostate cancer -: left kidney donated -: angina -: removal left kidney for donation -: cholecystectomy -: right knee replacement -: wisdom teeth -: stents x4 or 5 heart - Family History Father Medical History: Heart disease, Lung disease Notes: emphyzema Mother Medical History: GI disease - Social History Smoking Status: Former smoker Smoking therapy provided: No Alcohol use: Yes CD- Drugs: No Caffeine use: Yes Place of Residence: Home Review of Systems Musculoskeletal: Leg Pain Physical Examination Temp Pulse Resp BP Pulse Ox 97.3 F 63 18 138/65 11/03/21 16:48 11/03/21 16:48 11/03/21 16:48 11/03/21 16:48 General: Alert, In no apparent distress, Oriented x3, Obese HEENT: Atraumatic, Normocephalic Neck: Supple, 2+ carotid pulse no bruit, JVD not distended Respiratory: Diminished, Expiratory wheezes (mild) Cardiovascular: No edema, Normal pulses, Regular rate/rhythm, Normal S1 S2 Gastrointestinal: Normal bowel sounds, Soft and benign, Non-distended Musculoskeletal: No clubbing, No swelling, Other (dsg left knee) Neurological: Normal speech, Sensation intact, Cranial nerves 3-12 intact Physician Review: Patient Assessed, Agree with Above Assessment and Plan Physician Review Additional Text: Impression Status post left knee arthroplasty COPD with mild exacerbation Hypertension History of CADstatus post PCI History of diastolic CHF Plan We will start duo nebs every 6 scheduled doses Continue gentle IV fluid to reduce rate to avoid fluid overload Continue pain management Obtain serial set of cardiac enzymes Obtain CBC for postop hemoglobin, target hemoglobin of greater than 8 since underlining CAD Avoid hypotension Continue anticoagulation per surgical team Monitor H&H and electrolyte Appreciate this consult, will follow along
[2021-11-03 17:31] VITALS: BMI 34.8
[2021-11-03] MEDS: ALBUTEROL 2.5 MG/3 ML NEB SOL NEB SCH (19:59)
[2021-11-03] MEDS: IPRATROPIUM BROM 0.5MG/2.5ML NEB SCH (19:59)
[2021-11-03] MEDS: CEFAZOLIN 1 GM in NA CHLORIDE 0.9% 50 ML IVPB SCH (20:43)
[2021-11-03] MEDS: HYDROCODONE/APAP 7.5/325 MG TAB PO PRN (22:35)
--- NOTE | 2021-11-03 22:57 | OP ---
Date of Procedure: 11/03/2021 Surgeon: Raúl Bledsoe MD Preoperative Diagnosis: Left knee severe degenerative joint disease. Postoperative Diagnosis: Left knee severe degenerative joint disease. Procedure: Left total knee arthroplasty using the [employer] Drive[employer]guard system Estimated Blood Loss: 100 cc. Complications: There were no complications. Indication For Operation: Mr. Quezada is a 71-year-old gentleman, who was seen in the past for his righ t knee. He had the severe arthritis in that knee and underwent total knee arthroplasty and did well. Unfortunately, his left knee despite conservative care is continued to bother him significantly winter ugh that he request total knee arthroplasty and x-ray do show severe arthritic changes of the left kn ee. Risks, benefits, and alternative methods of treatments had been discussed with the patient. He states he understands things as presented and all of his questions have been answered. Description Of Procedure: The patient has a block placed in the holding area and then taken to the o perating room where general anesthesia was easily obtained by anesthesia staff. Following this, a we ll-padded tourniquet was placed on the superior left thigh. The left lower extremity was then preppe d and draped in the usual sterile fashion for arthroplasty. After this, the leg was then elevated ge ntly, exsanguinated, and tourniquet was raised. A standard anterior incision was taken down carefull y to skin and soft tissues with meticulous hemostasis being maintained using Bovie electrocautery. T his leads to the appropriate level, which is gently spread, exposing the extensor mechanism. The sup erior medial portion of the patella was marked and a standard medial parapatellar arthrotomy was then undertaken. As this has been undertaken, the fairly large loose body fell to the knee. After this, the medial meniscus was removed and the knee has been brought into flexion with eversion of the frankel lla. The lateral meniscus was removed. The multiple osteophytes were removed from the patella as we ll as from the femur to allow for better visualization. After this, the intramedullary alignment candy de was used. The distal cut was made. It was incised to size 70. The remainder of the femoral cuts were then made. Attention was then turned to the tibia and the anterior cruciate and posterior cruc iate ligaments were resected. Tibia was brought forward. After this a tibial cut was then made yandy boo the tibial guide in standard fashion. The knee was then trialed and was found to come to full exte nsion and full flexion and stable to varus and valgus stress with good flexion and extension gaps. T he patella was then calipered and cut. The trial patellar button was in place. It did glide concent rically within the groove with no sign of maltracking. The trial components were then removed and th e box was cut for the posterior stabilized component. This was done without difficulty and the tibia was punched and the bone plug was placed and the surfaces were prepped for cementation. After this, all of the components with the exception of the tibial polyethylene are cemented with a trial polyet hylene for the tibia was being used as a spacer while the cement hardens. All unsupported cement was removed. After this, this was then jet lavaged. This was brought through full range of motion to f ound again to come to full extension with full flexion with equal flexion and extension gaps. No sig n of any instability. Patella tracks very well. The final polyethylene was then chosen and the lock ing bar was in place on the tibial tray. Locking bar was closed. It was again irrigated and the ext ensor mechanism was then reapproximated using heavy Ethibond sutures. This was followed by irrigatio n and closure of the skin using Vicryl sutures followed by allegra. /NORBERT Voice ID: [id number] Report ID: [id number]
[2021-11-04] MEDS: IPRATROPIUM BROM 0.5MG/2.5ML NEB SCH ×3 (01:54→14:18)
[2021-11-04] MEDS: ALBUTEROL 2.5 MG/3 ML NEB SOL NEB SCH ×3 (01:55→14:18)
[2021-11-04] MEDS: CEFAZOLIN 1 GM in NA CHLORIDE 0.9% 50 ML IVPB SCH ×2 (05:26→11:55)
[2021-11-04] MEDS ORDERED: ENOXAPARIN 30 MG/0.3 ML SQ SCH (06:00)
[2021-11-04 06:04] LABS: Absolute Lymphocytes (CBC) 0.4 K/uL (0.7-4.9); Hematocrit 35.7 % (39.6-49.0); Lymphocytes % 3.6 % (15.3-44.8); MPV 7.4 fL (7.6-11.3); RBC Red Blood Cell Count 4.03 M/uL (4.33-5.43)
[2021-11-04 06:21] LABS: Albumin 2.7 g/dL (3.4-5.0); Bilirubin Total 0.3 mg/dL (0.2-1.0); Magnesium 2.1 mg/dL (1.8-2.4); Potassium 4.1 mmol/L (3.5-5.1); Protein, Total 5.4 g/dL (6.4-8.2)
[2021-11-04] MEDS: HYDROCODONE/APAP 7.5/325 MG TAB PO PRN ×2 (08:06→11:54)
--- NOTE | 2021-11-04 08:35 | P.CNS ---
Date of Consult: 11/04/21 Reason for Consult: COPD Chief Complaint: Left knee arthroplasty History of Present Illness: Patient is 71 years of age well-known to [facility] history of severe COPD admitted for a left knee replacement doing well possible discharge today he does take trilogy and prednisone 10 at home requesting nebulizers Allergies No Known Allergies Allergy (Verified 11/03/21 11:02) Home Medications: Abiraterone Acetate [Zytiga] 500 mg PO DAILY 10/29/21 Ascorbic Acid [Vitamin C] 1,000 mg PO DAILY 10/29/21 Atorvastatin Calcium [Lipitor] 10 mg PO BEDTIME 10/29/21 Calcium Carbonate/Vitamin D3 [Calcium 500 + Vit D 200 Caplet] 1 each PO BID 10/29/21 Cholecalciferol (Vitamin D3) [Vitamin D 5,000 Iu Cap] 5,000 unit PO BID 10/29/21 Clopidogrel Bisulfate [Plavix] 75 mg PO DAILY 10/29/21 Cyanocobalamin (Vitamin B-12) [Vitamin B-12] 5,000 mcg PO EVERY 7TH DAY 10/29/21 Fluticasone Propionate [Flovent Diskus] 1 puff IH DAILY 10/29/21 Fluticasone/Umeclidin/Vilanter [Trelegy Ellipta 100-62.5-25] 1 puff IH DAILY Furosemide [Lasix] 20 mg PO DAILY 10/29/21 Losartan Potassium [Cozaar] 50 mg PO BID 10/29/21 Multivit-Min/FA/Lycopen/Lutein [Men 50 Plus Multivitamin Tab] 1 each PO DAILY 10/29/21 Naproxen Sodium 220 mg PO BID 10/29/21 Spironolactone [Aldactone] 25 mg PO DAILY 10/29/21 Tamsulosin [Flomax] 0.4 mg PO BEDTIME 10/29/21 Turmeric Root Extract [Turmeric Curcumin] 1 cap PO BID 10/29/21 Zinc 50 mg PO DAILY 10/29/21 predniSONE [Deltasone] 5 mg PO DAILY 10/29/21 Albuterol Sulfate 1.25 mg IH Q6HP PRN 30 Days vial.neb 11/04/21 - Past Medical/Surgical History Diabetic: No -: hypertension -: copd -: sleep apnea -: arthritis -: prostate cancer -: left kidney donated -: angina -: removal left kidney for donation -: cholecystectomy -: right knee replacement -: wisdom teeth -: stents x4 or 5 heart - Family History Father Medical History: Heart disease, Lung disease Notes: emphyzema Mother Medical History: GI disease - Social History Smoking Status: Former smoker Alcohol use: Yes CD- Drugs: No Caffeine use: Yes Place of Residence: Home Review of Systems General: Weakness Respiratory: Shortness of Breath Musculoskeletal: Leg Pain Physical Examination Temp Pulse Resp BP Pulse Ox 97.0 F 52 18 133/57 L 98 11/04/21 04:00 11/04/21 04:00 11/04/21 08:06 11/04/21 04:00 11/04/21 08:06 General: Alert, In no apparent distress, Oriented x3 Respiratory: Clear to auscultation bilaterally, Diminished Cardiovascular: No edema, Normal pulses Laboratory Data (last 24 hrs) 11/04/21 17:15: Magnesium Cancelled 11/04/21 05:55: Sodium 141, Potassium 4.1, BUN 16, Creatinine 1.35 H, Glucose 190 H, Magnesium 2.1, Total Bilirubin 0.3, AST 10 L, ALT 22, Alkaline Phosphatase 92 11/04/21 05:55: WBC 10.1 D, Hgb 12.0 L, Hct 35.7 L, Plt Count 181 D 11/03/21 18:38: Magnesium 2.3 - Problems (1) COPD (chronic obstructive pulmonary disease) Current Visit: Yes Status: Acute Plan: Patient is 71 years of age with a history of severe COPD admitted with left knee replacement doing well takes Trelegy 100 mcg at home in addition to Flovent 100 mcg patient gets his medications from [facility] requesting a nebulizer and use of as needed basis also takes a prednisone history of prostate cancer on treatment labs reviewed stable for discharge vital signs stable Qualifiers: Emphysema type: unspecified
[2021-11-04 08:47] VITALS: O2SAT 91
[2021-11-04] MEDS ORDERED: GUAIFENESIN 600 MG SA TAB PO SCH (12:49)
--- NOTE | 2021-11-04 12:54 | P.PN ---
Subjective Date of Service: 11/04/21 Chief Complaint: Left knee arthroplasty Subjective: C/O voiced (Some mild wheezing overnight. On scheduled duo nebs. Evaluated by pulmonary this morning), Working w/ PT, Doing well Physical Examination - Vital Signs Temperature: 97.1 F Blood Pressure: 119/54 Pulse: 65 Respirations: 30 Pulse Ox (%): 93 - Studies Laboratory Data (last 24 hrs) 11/04/21 17:15: Magnesium Cancelled 11/04/21 05:55: Sodium 141, Potassium 4.1, BUN 16, Creatinine 1.35 H, Glucose 190 H, Magnesium 2.1, Total Bilirubin 0.3, AST 10 L, ALT 22, Alkaline Phosphatase 92 11/04/21 05:55: WBC 10.1 D, Hgb 12.0 L, Hct 35.7 L, Plt Count 181 D 11/03/21 18:38: Magnesium 2.3 Assessment And Plan - Current Problems (Diagnosis) (1) Left knee pain Current Visit: Yes Status: Acute (2) COPD (chronic obstructive pulmonary disease) Current Visit: Yes Status: Acute Qualifiers: Emphysema type: unspecified Physician Review: Patient Assessed, Agree with Above Assessment and Plan Physician Review Additional Text: 11/04/21 12:53 General: Alert, In no apparent distress, Oriented x3, Obese HEENT: Atraumatic, Normocephalic Neck: Supple, 2+ carotid pulse no bruit, JVD not distended Respiratory: Diminished, minimal expiratory wheeze Cardiovascular: No edema, Normal pulses, Regular rate/rhythm, Normal S1 S2 Gastrointestinal: Normal bowel sounds, Soft and benign, Non-distended Musculoskeletal: Burke wrap over left knee Neurological: Normal speech, Sensation intact, Cranial nerves 3-12 intact Physician Review: Patient Assessed, Agree with Above Assessment and Plan Physician Review Additional Text: Impression/plan Status post left knee replacement Hypertension COPD with mild exacerbation Diabetes mellitus Plan Glucose remained controlled Continuously sliding scale with Accu-Cheks we will add guaifenesin for cough symptom relief Appreciate pulmonary evaluation, home prescription for Proventil given Continue scheduled duo nebs while inpatient Continue pain regimen Discharge planning per orthopedics Time Spent Managing PTS Care (In Minutes): 35
--- NOTE | 2021-11-04 14:43 | P.DS ---
Admission Date: 11/03/21 Discharge Date: 11/04/21 Disposition: ROUTINE DISCHARGE Discharge Condition: FAIR Reason for Admission: Left knee arthroplasty - Problems (1) Left knee pain Current Visit: Yes Status: Acute (2) COPD (chronic obstructive pulmonary disease) Current Visit: Yes Status: Acute Qualifiers: Emphysema type: unspecified Brief History of Present Illness: 71-year-old male with history of hypertension, COPD on Trelegy elliptica, follows with Dr. Shepherd, CAD status post PCI last was 2009, diastolic CHF on chronic Lasix presented due to worsening left knee pain and electively scheduled for surgery. Patient underwent surgery today which was uneventful. No postop PRBC required. Hospitalist team consulted for medical management. Patient is in the recovery room, he denies any symptoms cefepime, he is on NAPPER TENDER pump. He has some mild wheezing. He any cough, fever or dizziness. Hospital Course: Patient admitted and underwent left total knee arthroplasty . Procedure was uncomplicated. Patient recovered well. He had mild wheezing immediately postsurgery pain which improved with as needed duo nebs. He was evaluated by pulmonary and recommended Proventil as needed. Postop hemoglobin and follow-up hemoglobin remained stable. Patient is ambulatory with PT. He will be discharged home today and to follow-up with Dr. Bledsoe in 1 week Vital Signs/Physical Exam: Temp Pulse Resp BP Pulse Ox 97.1 F 65 30 H 119/54 L 93 11/04/21 12:54 11/04/21 12:54 11/04/21 12:54 11/04/21 12:54 11/04/21 12:54 General: Alert, In no apparent distress, Oriented x3 HEENT: Atraumatic, Normocephalic Neck: Supple, 2+ carotid pulse no bruit Respiratory: Clear to auscultation bilaterally, Normal air movement Cardiovascular: Normal pulses, Regular rate/rhythm, Normal S1 S2 Gastrointestinal: Normal bowel sounds, Soft and benign, Non-distended Musculoskeletal: Other (Burke wrap over left knee) Neurological: Normal speech, Sensation intact, Cranial nerves 3-12 intact Laboratory Data at Discharge: WBC 10.1 K/uL (4.3-10.9) D 11/04/21 05:55 Hgb 12.0 g/dL (13.6-17.9) L 11/04/21 05:55 Hct 35.7 % (39.6-49.0) L 11/04/21 05:55 Plt Count 181 K/uL (152-406) D 11/04/21 05:55 PT 9.7 SECONDS (9.5-12.5) 10/29/21 08:46 INR 0.88 10/29/21 08:46 APTT 33.1 SECONDS (24.3-36.9) 10/29/21 08:46 Sodium 141 mmol/L (136-145) 11/04/21 05:55 Potassium 4.1 mmol/L (3.5-5.1) 11/04/21 05:55 BUN 16 mg/dL (7-18) 11/04/21 05:55 Creatinine 1.35 mg/dL (0.55-1.3) H 11/04/21 05:55 Glucose 190 mg/dL (74-106) H 11/04/21 05:55 Magnesium Cancelled 11/04/21 17:15 Total Bilirubin 0.3 mg/dL (0.2-1.0) 11/04/21 05:55 AST 10 U/L (15-37) L 11/04/21 05:55 ALT 22 U/L (12-78) 11/04/21 05:55 Alkaline Phosphatase 92 U/L (45-117) 11/04/21 05:55 Home Medications: Abiraterone Acetate [Zytiga] 500 mg PO DAILY 10/29/21 Ascorbic Acid [Vitamin C] 1,000 mg PO DAILY 10/29/21 Atorvastatin Calcium [Lipitor] 10 mg PO BEDTIME 10/29/21 Calcium Carbonate/Vitamin D3 [Calcium 500 + Vit D 200 Caplet] 1 each PO BID 10/29/21 Cholecalciferol (Vitamin D3) [Vitamin D 5,000 Iu Cap] 5,000 unit PO BID 10/29/21 Clopidogrel Bisulfate [Plavix] 75 mg PO DAILY 10/29/21 Cyanocobalamin (Vitamin B-12) [Vitamin B-12] 5,000 mcg PO EVERY 7TH DAY 10/29/21 Fluticasone Propionate [Flovent Diskus] 1 puff IH DAILY 10/29/21 Fluticasone/Umeclidin/Vilanter [Trelegy Ellipta 100-62.5-25] 1 puff IH DAILY 10/29/21 Furosemide [Lasix] 20 mg PO DAILY 10/29/21 Losartan Potassium [Cozaar] 50 mg PO BID 10/29/21 Multivit-Min/FA/Lycopen/Lutein [Men 50 Plus Multivitamin Tab] 1 each PO DAILY 10/29/21 Naproxen Sodium 220 mg PO BID 10/29/21 Spironolactone [Aldactone] 25 mg PO DAILY 10/29/21 Tamsulosin [Flomax] 0.4 mg PO BEDTIME 10/29/21 Turmeric Root Extract [Turmeric Curcumin] 1 cap PO BID 10/29/21 Zinc 50 mg PO DAILY 10/29/21 predniSONE [Deltasone] 5 mg PO DAILY 10/29/21 Albuterol Sulfate 1.25 mg IH Q6HP PRN 30 Days vial.neb 11/04/21 New Medications: Albuterol Sulfate 1.25 mg IH Q6HP PRN 30 Days vial.neb PRN Reason: sob Physician Discharge Instructions: Continue previous home medication Pain medicine per orthopedics Diet: ADA Activity: Ad nasim Followup: Raúl Bledsoe MD [ACTIVE - CAN ADMIT] - 1 Week Time spent managing pt's care (in minutes): 35
[2021-11-04 16:20] VITALS: BP 155/69; TEMP 97.2
== END 2021-11-04 16:50 | disposition home or self-care (01) ==
LOC: OR 10:26 → 2ND 15:16
PROVIDERS: ADMIT Orthopaedic Surgery; ATTEND Orthopaedic Surgery
PROC: 0SRD069 Replacement of Left Knee Joint with Oxidized Zirconium on Polyethylene Synthetic Substitute, Cemented, Open Approach (ICD-10-PCS; principal; 2021-11-03 10:00)
DX: M17.12 Unilateral primary osteoarthritis, left knee (principal); J44.1 Chronic obstructive pulmonary disease with (acute) exacerbation; I11.0 Hypertensive heart disease with heart failure; I50.30 Unspecified diastolic (congestive) heart failure; E11.9 Type 2 diabetes mellitus without complications; I25.10 Atherosclerotic heart disease of native coronary artery without angina pectoris; G47.30 Sleep apnea, unspecified; Z79.02 Long term (current) use of antithrombotics/antiplatelets; Z79.899 Other long term (current) drug therapy; Z96.651 Presence of right artificial knee joint; Z87.891 Personal history of nicotine dependence; Z85.46 Personal history of malignant neoplasm of prostate; Z95.5 Presence of coronary angioplasty implant and graft; Z90.49 Acquired absence of other specified parts of digestive tract; Z90.5 Acquired absence of kidney; Z83.6 Family history of other diseases of the respiratory system; Z82.49 Family history of ischemic heart disease and other diseases of the circulatory system; Z83.79 Family history of other diseases of the digestive system
CPT/HCPCS: 93005; 85025 ×2; 36415 ×2; 86900; 83735 ×2; 86850; 85610; 86901; 82947; 88304; 88311; 85730; 81003; 84484; 80053 ×2; 71046; 97110; 97116 ×2; 97139; 97161; 97530; 94010 ×2; 94640; 27447; U0002; J2704; J1100 ×2; J1650; J2250; J3010; J2175; J1170; J0690 ×4; J7120 ×2; G0378

== ENCOUNTER 2021-11-06 00:11 | Emergency (ER) | payer OTHER ==
--- OUTSIDE RECORDS SUMMARY | 2021-11-06 00:18 | XMS REPORT | Continuity of Care Document ---
:1950 Author Organization [facility] t Address [address] [place] [address] Care Team Providers Name Role Phone NICOLA [...] Expiration Date Dylan weathers MEDICARE PART A [id number] 2013 \\T\\ B 00:00:00 [employer] PPO I [id number] 2014 00:00:00 Problems Condition Condition Condition Status Onset Resolution Last Treating Co mments Source Name Details Category Date Date Treatment Clinician Date Arthritis Arthritis Disease Active Uni vers of right of right 6-23 ity of knee knee 00:00: [address] No known No known Disease Unive rs active active ity of problems problems [facility] Allergies, Adverse Reactions, Alerts Allergy Allergy Status Severity Reaction(s) Onset Inactive Treating Comm ents Source Name Type Date Date Clinician NO KNOWN Drug Active Univers ALLERGIE Class ity of S [facility] Social History Social Habit Start Date Stop Date Quantity Comments Source Exposure to Not sure University [facility]-CoV-2 [facility] (event) Branch Tobacco use and 2020-11-04 2020-11-04 Never used Universit y of exposure 00:00:00 00:00:00 [facility] Alcohol intake 2020-11-04 2020-11-04 Current drinker of Un iversity of 00:00:00 00:00:00 alcohol (finding) [facility] Comment 2017-11-08 2017-11-08 Occasional Drinker U niversity of 00:00:00 00:00:00 [facility] Sex Ass[birth year] At [birth year] Universit y of 00:00:00 00:00:00 [facility] Smoking Status Start Date Stop Date Source Former smoker 2020-11-04 00:00:00 2020-11-04 00:00:00 Universi ty of [facility] Never smoker [facility] Medications Ordered Filled Start Stop Current Ordering [...] 6-24 by mouth ity of 21:05: daily. [place] 21 Medical Branch hydroCHLORO Yes 12.5mg Take [...] 6-24 by mouth ity of 21:05: daily. [place] [address] Medical Branch Cholecalcif Yes 400U Take 400 [...] vers -umeclidin- 6-24 ity of vilanter 21:05: [place] (TRELEGY 21 Medical ELLIPTA) Branch 100-62.5-25 mcg DsDv albuterol Yes 2{puff} Inhale 2 U nivers 90 6-24 Puffs ity of mcg/actuati 21:05: every 6 [place] as on inhaler 21 (six) Medical hours as Branch needed for Wheezing or Shortness of Breath. furosemide Yes 20mg Take 20 mg U nivers 20 mg 6-24 by mouth ity of tablet 21:05: daily. [place] [facility] spironolact Yes 25mg Take 25 mg Univers one 25 mg 6-24 by mouth ity of tablet 21:05: daily. [place] [address] Medical Branch turmeric Yes 2{capsu Take 2 [...] 6-24 by mouth ity of 21:05: daily. [place] [facility] hydroCHLORO Yes 12.5mg Take 12.5 [...] 6-24 by mouth ity of 21:05: daily. [place] 21 Medical Branch Cholecalcif Yes 400U Take [...] vers -umeclidin- 6-24 ity of vilanter 21:05: [place] (TRELEGY 21 Medical ELLIPTA) Branch 100-62.5-25 mcg DsDv albuterol Yes 2{puff} Inhale 2 U nivers 90 6-24 Puffs ity of mcg/actuati 21:05: every 6 [place] as on inhaler 21 (six) Medical hours as Branch needed for Wheezing or Shortness of Breath. furosemide Yes 20mg Take 20 mg U nivers 20 mg 6-24 by mouth ity of tablet 21:05: daily. [address] Branch spironolact Yes 25mg Take 25 mg Univers one 25 mg 6-24 by mouth ity of tablet 21:05: daily. [address] docusate Yes 100mg 100 mg, Unive [...] [place] 5) 5-325 mg 29 Starting [facility] светлана tablet 1 Tue Branch tablet [...] PROCEDURE, [place] 00 :20 Starting Medical [facility] Branch 11/05/20 at 0720, Until Tue11/05/20 at [...] ity of n 12:00: 12:08 ONCE, 1 [place] (PERCOCET) 00 :00 dose, Wed Medi светлана 5-325 mg 11/05/20 at Branc h per tablet 0700, 2 tablet Routine, DSU Pre-op celecoxib 2020- No 400mg 400 mg, Uni vers (CELEBREX) 11-05 Oral, ity of capsule 400 12:00: 12:08 [place]CE, 1 [place] mg 00 :00 dose, [facility] Medical 11/05/20 at Branch 0700, Routine, DSU Pre-op gabapentin 2020- No 300mg 300 mg, Un ilene (NEURONTIN) 11-05 Oral, ity of capsule 300 12:00: 12:08 ONCE, 1 [place] mg 00 :00 dose, [facility] Medical 11/05/20 at Branch 0700, Routine, DSU [...] by mouth ity of tablet 11:43: at [place] [address] bedtime. Medical Branch finasteride Yes 5mg Take 5 mg U nivers 5 mg tablet 6-23 by mouth ity of 11:43: daily. [place] [address] Medical Branch Cholecalcif Yes 400U Take 400 [...] vers -umeclidin- 6-23 ity of vilanter 11:43: [place] (TRELEGY 35 Medical ELLIPTA) Branch 100-62.5-25 mcg DsDv albuterol Yes 2{puff} Inhale 2 U nivers 90 6-23 Puffs ity of mcg/actuati 11:43: every 6 [place] as on inhaler 35 (six) Medical hours as Branch needed for Wheezing or Shortness of Breath. furosemide Yes 20mg Take 20 mg U nivers 20 mg 6-23 by mouth ity of tablet 11:43: daily. [address] Branch spironolact Yes 25mg Take 25 mg Univers one 25 mg 6-23 by mouth ity of tablet 11:43: daily. [address] Branch clopidogrel 2020- No 75mg Take 75 mg Univers 75 mg 6-04 11-22 by mouth ity of tablet 16:56: 00:00 daily. [place] 26 :00 [facility] Branch clopidogrel 2020- No 75mg Take 75 mg Univers 75 mg 6-22 -22 by mouth ity of tablet 16:56: 00:00 daily. [place] 26 :00 Medical Branch turmeric Yes 2{capsu [...] 6-16 by mouth ity of 13:39: daily. [place] [address] Medical Branch hydroCHLORO Yes 12.5mg Take 12.5 Univers thiazide 25 6-16 mg by ity of mg tablet 13:39: mouth [place] 27 daily. Medical Branch tamsulosin Yes .4mg Take 0.4 Uni vers 0.4 mg 24 6-16 mg by ity of hr capsule 13:39: mouth [place] 27 daily. Medical Branch atorvastati Yes 20mg Take 20 mg Univers n 20 mg 6-16 by mouth ity of tablet 13:39: at [place] [address] bedtime. Medical Branch finasteride Yes 5mg Take 5 mg U nivers 5 mg tablet 6-16 by mouth ity of 13:39: daily. [place] [address] Medical Branch clopidogrel Yes 75mg Take 75 mg Univers 75 mg 6-16 by mouth ity of tablet 13:39: daily. [place] [address] Medical Branch Cholecalcif Yes 400U Take 400 [...] vers -umeclidin- 6-16 ity of vilanter 13:39: [place] (TRELEGY 27 Medical ELLIPTA) Branch 100-62.5-25 mcg DsDv albuterol Yes 2{puff} Inhale 2 U nivers 90 6-16 Puffs ity of mcg/actuati 13:39: every 6 [place] as on inhaler 27 (six) Medical hours as Branch needed for Wheezing or Shortness of Breath. furosemide Yes 20mg Take 20 mg U nivers 20 mg 6-16 by mouth ity of tablet 13:39: daily. [place] [address] Medical Branch spironolact Yes 25mg Take 25 mg Univers one 25 mg 6-16 by mouth ity of tablet 13:39: daily. [place] [address] Medical Branch turmeric Yes 2{capsu Take 2 [...] 6-16 by mouth ity of 13:39: daily. [place] [address] Medical Branch hydroCHLORO Yes 12.5mg Take 12.5 [...] 6-16 by mouth ity of 13:39: daily. [place] [address] Medical Branch clopidogrel Yes 75mg Take 75 mg Univers 75 mg 6-16 by mouth ity of tablet 13:39: daily. [place] [address] Medical Branch Cholecalcif Yes 400U Take 400 [...] vers -umeclidin- 6-16 ity of vilanter 13:39: [place] (TRELEGY 27 Medical ELLIPTA) Branch 100-62.5-25 mcg DsDv albuterol Yes 2{puff} Inhale 2 U nivers 90 6-16 Puffs ity of mcg/actuati 13:39: every 6 [place] as on inhaler 27 (six) Medical hours as Branch needed for Wheezing or Shortness of Breath. furosemide Yes 20mg Take 20 mg U nivers 20 mg 6-16 by mouth ity of tablet 13:39: daily. [address] Branch spironolact Yes 25mg Take 25 mg Univers one 25 mg 6-16 by mouth ity of tablet 13:39: daily. [place] [address] Medical Branch turmeric Yes 2{capsu Take 2 [...] 6-16 by mouth ity of 13:39: daily. [place] [address] Medical Branch hydroCHLORO Yes 12.5mg Take 12.5 [...] 6-16 by mouth ity of 13:39: daily. [place] [address] Medical Branch clopidogrel Yes 75mg Take 75 mg Univers 75 mg 6-16 by mouth ity of tablet 13:39: daily. [place] [address] Medical Branch Cholecalcif Yes 400U Take 400 [...] vers -umeclidin- 6-16 ity of vilanter 13:39: [place] (TRELEGY 27 Medical ELLIPTA) Branch 100-62.5-25 mcg DsDv albuterol Yes 2{puff} Inhale 2 U nivers 90 6-16 Puffs ity of mcg/actuati 13:39: every 6 [place] as on inhaler 27 (six) Medical hours as Branch needed for Wheezing or Shortness of Breath. furosemide Yes 20mg Take 20 mg U nivers 20 mg 6-16 by mouth ity of tablet 13:39: daily. [address] Branch spironolact Yes 25mg Take 25 mg Univers one 25 mg 6-16 by mouth ity of tablet 13:39: daily. [address] FENTanyl PF Yes Epidural, U nivers (SUBLIMAZE -16 ONCE INTRA ity of (PF)) 12:25: PROCEDURE, [place] injection 00 Starting Medica l Wed Branch [...] ty of capsule 300 12:00: 11:45 TOMORROW, [place] mg 00 :00 1 dose, Medical Wed Branch 10/29/20 at 0700, Routine, DSU Pre-op oxyCODONE-a 2020- No 2{tbl} 2 tablet, Univers cetaminophe 10-29 Oral, ONCE i ty of n 12:00: 11:45 TOMORROW, [place] (PERCOCET) 00 :00 1 dose, Medica l [...] 6-27 by mouth ity of 16:10: daily. [place] [address] Medical Branch hydroCHLORO Yes 12.5mg Take 12.5 [...] 6-27 by mouth ity of 16:10: daily. [place] [address] Medical Branch clopidogrel 2017- Yes 75mg Take 75 mg Univers 75 mg 6-27 by mouth ity of tablet 16:10: daily. [place] [address] Medical Branch Cholecalcif Yes 400U Take 400 [...] 6-27 by mouth ity of 16:10: daily. [place] 44 Medical Branch hydroCHLORO Yes 12.5mg Take [...] 6-27 by mouth ity of 16:10: daily. [place] [address] Medical Branch clopidogrel 0 Yes 75mg Take 75 mg Univers 75 mg 6-27 by mouth ity of tablet 16:10: daily. [place] [address] Medical Branch Cholecalcif 0 Yes 400U Take [...] 6-27 by mouth ity of 16:10: daily. [place] [address] Medical Branch hydroCHLORO 0 Yes 12.5mg Take [...] 6-27 by mouth ity of 16:10: daily. [place] [address] Medical Branch clopidogrel Yes 75mg Take 75 mg Univers 75 mg 6-27 by mouth ity of tablet 16:10: daily. [place] [address] Medical Branch Cholecalcif Yes 400U Take 400 [...] 6-27 by mouth ity of 16:10: daily. [place] [address] Medical Branch hydroCHLORO Yes 12.5mg Take 12.5 [...] 6-27 by mouth ity of 16:10: daily. [place] [address] Medical Branch clopidogrel Yes 75mg Take 75 mg Univers 75 mg 6-27 by mouth ity of tablet 16:10: daily. [place] [address] Medical Branch Cholecalcif Yes 400U Take 400 [...] 2020-01-19 Completed Universit y of Vaccine 00:00:00 [facility] Influenza Virus 2020-01-19 Completed Universit y of Vaccine 00:00:00 [facility] Influenza Virus 2020-01-19 Completed Universit y of Vaccine 00:00:00 [facility] Influenza Virus 2019-01-29 Completed Universit y of Vaccine 00:00:00 [facility] Pneumococcal 13 2019-01-29 Completed Universit y of Conjugate, PCV13 00:00:00 [facility] dical (Prevnar 13) [place] Influenza Virus 2019-01-29 Completed Universit y of Vaccine 00:00:00 [facility] Pneumococcal 13 2019-01-29 Completed Universit y of Conjugate, PCV13 00:00:00 [facility] dical (Prevnar 13) [place] Influenza Virus 2019-01-29 Completed Universit y of Vaccine 00:00:00 [facility] Pneumococcal 13 2019-01-29 Completed Universit y of Conjugate, PCV13 00:00:00 [facility] dical (Prevnar 13) [place] TDAP 2017-04-04 Completed University 00:00:00 [facility] TDAP 2017-04-04 Completed University of 00:00:00 [facility] TDAP 2017-04-04 Completed University of 00:00:00 [facility] Influenza High Dose 2015-02-07 Completed Unive rsity of 00:00:00 [facility] Influenza High Dose 2015-02-07 Completed Unive rsity of 00:00:00 [facility] Influenza High Dose 2015-02-07 Completed Unive rsity of 00:00:00 [facility] Zoster(Zostavax)( 2014-05-17 Completed Unive rsity of ingles) 00:00:00 [facility] Zoster(Zostavax)( 2014-05-17 Completed Unive rsity of ingles) 00:00:00 [facility] Zoster(Zostavax)( 2014-05-17 Completed Unive rsity of ingles) 00:00:00 [facility] Vital Signs Vital Name Observation Time Observation Value Comments Source Systolic blood 2020-11-06 16:25:00 129 mm[Hg] Univer sity of pressure [facility] Diastolic blood 2020-11-06 16:25:00 55 mm[Hg] Unive rsity of pressure [facility] Heart rate 2020-11-06 16:25:00 57 /min [facility] Body temperature 2020-11-06 16:25:00 36.56 Tricia [facility] 2020-11-06 16:25:00 20 /min [facility] Oxygen saturation in 2020-11-06 16:25:00 95 /min University of Arterial blood by [facility] Pulse oximetry Branch Body weight 2020-11-04 18:08:00 113.4 kg Universi ty [facility] BMI 2020-11-04 18:08:00 34.87 kg/m2 [facility] Oxygen saturation in 2020-11-05 15:37:00 94 /min University of Arterial blood by [facility] Pulse oximetry Branch Systolic blood 2020-11-05 15:34:00 133 mm[Hg] Univer sity of pressure [facility] Diastolic blood 2020-11-05 15:34:00 75 mm[Hg] Unive rsity of pressure [facility] Heart rate 2020-11-05 15:34:00 72 /min Universi ty of [place] [facility] Respiratory rate 2020-11-05 15:34:00 19 /min Univ ersity of [place] [facility] Body temperature 2020-11-05 15:08:00 36.72 Tricia Univ ersity of [place] [facility] Body weight 2020-11-04 18:08:00 113.4 kg Universi ty of [place] [facility] BMI 2020-11-04 18:08:00 34.87 kg/m2 Universi ty of [place] [facility] Respiratory rate 2020-11-05 14:52:00 20 /min Univ ersity of [place] [facility] Systolic blood 2020-10-29 11:52:00 155 mm[Hg] Univer sity of pressure [place] [facility] Diastolic blood 2020-10-29 11:52:00 78 mm[Hg] Unive rsity of pressure [place] [facility] Heart rate 2020-10-29 11:52:00 63 /min Universi ty of [place] [facility] Body temperature 2020-10-29 11:52:00 36.83 Tricia Univ ersity of [place] [facility] Respiratory rate 2020-10-29 11:52:00 16 /min Univ ersity of [place] [facility] Oxygen saturation in 2020-10-29 11:52:00 94 /min University of Arterial blood by [employer] Pulse oximetry Branch Body height 2020-10-28 15:45:00 180.3 cm Universi ty of [place] [facility] Body weight 2020-10-28 15:45:00 113.399 kg Universi ty of [place] [facility] BMI 2020-10-28 15:45:00 34.87 kg/m2 Universi ty of [place] [facility] Systolic blood 2020-10-29 11:52:00 155 mm[Hg] Univer sity of pressure [place] [facility] Diastolic blood 2020-10-29 11:52:00 78 mm[Hg] Unive rsity of pressure [place] [facility] Heart rate 2020-10-29 11:52:00 63 /min Universi ty of [place] [facility] Body temperature 2020-10-29 11:52:00 36.83 Tricia Univ ersity of [place] [facility] Respiratory rate 2020-10-29 11:52:00 16 /min Univ ersity of [place] [facility] Oxygen saturation in 2020-10-29 11:52:00 94 /min University of Arterial blood by [employer] Pulse oximetry Branch Body height 2020-10-28 15:45:00 180.3 cm [facility] Body weight 2020-10-28 15:45:00 113.399 kg [facility] BMI 2020-10-28 15:45:00 34.87 kg/m2 [facility] Procedures Procedure Date / Time Performing Clinician Source Performed CBC WITH DIFF 2020-11-06 08:55:00 Raúl Bledsoe [facility] CBC WITH DIFF 2020-11-06 08:55:00 Raúl Bledsoe [facility] INTUBATION 2020-11-05 13:20:[facility] 2020-11-05 12:55:52 Td [place] [facility] TOTAL KNEE ARTHROPLASTY 2020-11-05 12:15:00 [facility] 2020-11-05 12:15:00 [facility] 2020-11-05 12:05:00 Raúl Bledsoe [facility] HB ABO GROUPING 2020-11-05 12:05:00 Raúl Bledsoe [facility] ABORH CONFIRMATION 2020-10-29 13:46:00 Doctor Unasscaro, [facility] HB ABO GROUPING 2020-10-29 11:50:00 Raúl Bledsoe [facility] HB ABO GROUPING 2020-10-29 11:50:00 Raúl Bledsoe [facility] DSU PRE-OP 2020-10-28 05:01:00 Doctor Unassigned, [facility] Name [facility] DSU PRE-OP 2020-10-28 05:01:00 Doctor Unassigned, [facility] Name [facility] EKG-12 LEAD 2020-10-27 17:30:39 Doctor Unasscaro, [facility] Name [facility] XR CHEST 2 VW 2020-10-27 16:52:01 Raúl Bledsoe [facility] XR CHEST 2 VW 2020-10-27 16:52:01 Raúl Bledsoe [facility] CBC WITH DIFF 2020-10-27 16:41:00 Emperatriz Buckley [facility] URINALYSIS 2020-10-27 16:41:00 Emperatriz Buckley [facility] CBC WITH DIFF 2020-10-27 16:41:00 Emperatriz Buckley [facility] COMP. METABOLIC PANEL 2020-10-27 16:41:00 Emperatriz Buckley [facility] ([id number]) Medical Branch URINALYSIS 2020-10-27 16:41:00 Emperatriz Buckley [facility] PROTHROMBIN TIME / INR 2020-10-27 16:41:00 Emperatriz Buckley [facility] ACTIVATED PARTIAL THRMPLAS 2020-10-27 16:41:00 Emperatriz Buckley [facility] NO SHOW OR MISSED 2020-10-27 16:24:34 Doctor Saúl, [facility] APPOINTMENT POLICY [place] [facility] ACKNOWLEDGEMENT [facility] PATIENT FINANCIAL 2020-10-27 16:24:17 Doctor Saúl, [facility] POLICY [place] [facility] NOTICE OF BILLING 2020-10-27 16:24:03 Doctor Saúl, [facility] PRACTICES FOR MEDICARE [place] [facility] PATIENTS CONSENT/REFUSAL FOR 2020-10-27 16:23:48 Doctor Saúl, [facility] DIAGNOSIS AND TREATMENT [place] [facility] ASSIGNMENT OF BENEFITS 2020-10-27 16:23:32 Doctor Saúl, [facility] ASSIGNMENT OF BENEFITS 2020-10-27 16:23:32 Doctor Saúl, [facility] PHYSICIAN ORDERS 2020-10-27 05:01:00 Doctor Saúl, [facility] [place] [facility] Encounters Start End Encounter Admission Attending Care Care Encounter Source Date/Time Date/Time Type Type Clinicians Facility Department ID 2021-10-16 [facility] [id number] Common 08:17:01 [facility] 2021-03-16 Outpatient R [facility] SOR [id number] Univers 02:53:47 RAÚL foreman [facility] 2021-03-16 Outpatient R [facility] SOR [id number] Univers 01:15:51 RAÚL foreman [facility] 2020-11-05 2020-11-06 [facility] [id number] Univers 06:43:00 15:35:00 Encounter Raúl Robertson [id number] ity of [place] [id number] Medi светлана 081 Branch 2020-11-05 2020-11-05 Surgery [facility] 1.2.840.114 [id number] Univers 07:30:00 10:37:00 Raúl Robertson 350.1.13.10 ity [place]2.[place] [id number] [facility] 020 [place] 2020-11-05 2020-11-05 Anesthesia Janie Tamez [facility] 1.2.840 .114 [id number] Univers 07:30:00 10:04:00 Event GretamariolaTd priest 350.1.13.1 0 ity [place] 4[place] [id number] [facility] 020 [place] 2020-11-04 2020-11-04 Outpatient R [facility] [id number] Univers 15:15:00 15:15:00 [id number] ity of [facility] 2020-11-04 2020-11-04 Outpatient R [facility] [id number] Univers 15:15:00 15:15:00 RAÚL jennyjacqueline [facility] 2020-10-29 2020-10-29 Anesthesia Sea Tamez2.840.2 [id number] Univers 08:43:02 08:43:02 Event Janie Priest [id number] ity of 3.104.2.7 [place] .3.388454 Medica l .8 Branch 2020-10-29 2020-10-29 [place] [id number] Univers 06:37:00 08:13:00 Encounter Raúl Petersen [id number] ity of 3.104.2.7 [place] .3.004242 Medica l .8 [place] 2020-10-28 2020-10-28 Outpatient R [facility] [id number] Univers 13:15:00 13:15:00 [id number] ity of [facility] 2020-10-28 2020-10-28 [facility] [id number] Univers 13:15:00 13:15:00 RAÚL ity [facility] 2020-10-28 2020-10-28 Travel 1.2.840.1 [id number] [id number] Univers 00:00:00 00:00:00 [id number] 350.1.13.10 ity of 3.104.2.7 4.[place].7.3.698 [place] .[id number] 084.8 Medica l .8 [place] 2020-10-27 2020-10-27 [facility] Ladi, 1.2.840.9 [id number] Univers 11:25:01 23:59:00 Encounter Raúl Petersen [id number] ity of 3.104.2.7 [place] .[id number] Medica l .8 [place] 2020-10-27 2020-10-27 Outpatient R [facility] [id number] Univers 12:30:00 12:30:00 [id number] ity of [facility] 2020-10-27 2020-10-27 [facility] [id number] Univers 12:30:00 12:30:00 RAÚL itjacqueline [facility] 2020-10-27 2020-10-27 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 0 [id number] Univers 11:24:25 11:39:25 Visit Povandana, [facility] Lab Main 93165.1.1 ity of 3.104.2.7 [place] .3.766407 Medica l .8 [place] 2020-10-27 2020-10-27 [facility], 1.2.840.5 [id number] Univers 09:15:00 11:24:00 Encounter Raúl Petersen [id number] ity of 3.104.2.7 [place] .[id number] Medica l .8 [place] 2020-10-27 2020-10-27 Orders Doctor 1.2.840.6 [id number] [facility] 00:00:00 00:00:00 Only Unassigned, 70279.1.1 ity of [place] 3.104.2.7 [place] .3.786298 Medica l .8 Branch 2020-10-27 2020-10-27 Travel 1.2.840.1 [id number] Univers 00:00:00 00:00:00 [id number] 350.1.13.10 ity of 3.104.2.7 4.2.7.3.698 [place] .3.117521 084.8 Medica l .8 [place] 2020-10-09 2020-10-09 Ancillary Emperatriz Buckley 1.2.840.1 [id number] Univers 13:52:39 15:27:42 Visit Class, Adc-[place] Pre Op 39623.1.1 ity of 3.104.2.7 [place] .3.545616 Medica l .8 [place] 2020-10-09 2020-10-09 Outpatient Barbie BUCKLEY, [facility] [id number] Univers 13:00:00 13:00:00 EMPERATRIZ ity of [facility] 2020-07-13 2020-07-13 Outpatient MARTHA [facility] [id number] [address] [place] 00:00:00 00:00:[address] 2020-06-22 2020-06-22 Outpatient [facility] [id number] [place] 00:00:00 00:00:[address] Results [...] 32.4 g/dL 31.2-35.0 RDW-SD (test code = 72863-7) 47.2 fL 38.5-51.6 RDW-CV (test code = 788-0) 14.0 % 12.1-15.4 PLT (test code = 777-3) See_Comment [Au tomated message] The system which ge nerated this result transmit daysi reference range: 150 - 32 8 10*3/?L. The reference range was not used to interpret th is result as normal/abnormal . MPV (test code = 11098-7) 9.8 fL 9.8-13.0 NRBC/100 WBC (test code = See_Comment [ Automated message] The [id number]) system which ge nerated this result transmit daysi reference range: 0.0 - 10 .0 /100 WBCs. The reference r ale was not used to interpr et this result as normal/abnor mal. NRBC x10^3 (test code = <0.01 See_Comment [Au tomated message] The [id number]) system which ge nerated this result transmit daysi reference range: 10*3/?L. The reference range was not u sed to interpret this result as normal/abnormal . GRAN MAT (NEUT) % (test code 81.7 % = 770-8) IMM GRAN % (test code = 0.60 % [id number]) LYMPH % (test code = 736-9) 6.6 % MONO % (test code = 5905-5) 10.8 % EOS % (test code = 713-8) 0.2 % BASO % (test code = 706-2) 0.1 % GRAN MAT x10^3(ANC) (test 7.10 10*3/uL 1.99-6.95 H code = 9400398544) IMM GRAN x10^3 (test code = 0.05 10*3/uL 0.00-0.06 [id number]) LYMPH x10^3 (test code = 0.57 10*3/uL 1.09-3.23 L 731-0) MONO x10^3 (test code = 0.94 10*3/uL 0.36-1.02 742-7) EOS x10^3 (test code = <0.03 0.06-0.53 L 711-2) BASO x10^3 (test code = <0.03 0.01-0.09 704-7) Lab Interpretation (test Abnormal code = 06174-7) [facility] with [id number] 09:14:00 Test Item Value Reference Range Interpretation Comments WBC (test code = See_Comment [Automated 7990-2) message] The sy stem which generated this result transmitted reference range : 4.20 - 10.70 10*3/?L. The reference range was not used to interpret this result as normal/abnormal . RBC (test code = See_Comment L [Automated 349-8) message] The sy stem which generated this [...] RDW-SD (test code = 47.2 fL 38.5-51.6 82303-2) RDW-CV (test code = 14.0 % 12.1-15.4 788-0) PLT (test code = See_Comment [Automated 777-3) message] The sy stem which generated this result transmitted reference range : 150 - 328 10*3/ ?L. The reference r ale was not used to interpret this result as normal/abnormal . MPV (test code = 9.8 fL 9.8-13.0 82309-0) NRBC/100 WBC (test See_Comment [Automat ed code = 3155385269) message] The system which generated this result transmitted reference range : 0.0 - 10.0 /100 WBCs. The refer ence range was not u sed to interpret th is result as normal/abnormal . NRBC x10^3 (test code <0.01 See_Comment [Auto mated = 1675880906) message] The s ystem which generated this result transmitted reference range : 10*3/?L. The reference range was not used to interpret this result as normal/abnormal . GRAN MAT (NEUT) % 81.7 % (test code = 770-8) IMM GRAN % (test code 0.60 % = 9898006712) LYMPH % (test code = 6.6 % 736-9) MONO % (test code = 10.8 % 5905-5) EOS % (test code = 0.2 % 713-8) BASO % (test code = 0.1 % 706-2) GRAN MAT x10^3(ANC) 7.10 10*3/uL 1.99-6.95 H (test code = 8436831352) IMM GRAN x10^3 (test 0.05 10*3/uL 0.00-0.06 code = 2715324829) LYMPH x10^3 (test code 0.57 10*3/uL 1.09-3.23 L = 731-0) MONO x10^3 (test code 0.94 10*3/uL 0.36-1.02 = 742-7) EOS x10^3 (test code = <0.03 0.06-0.53 L 711-2) BASO x10^3 (test code <0.03 0.01-0.09 = 704-7) Lab Interpretation Abnormal (test code = 63630-5) [facility] 13:20:38Duc Malcolm CRNA ? ? 11/05/2020 ?8:21 AMIntubationUrgency: elective Airway not difficult General Information and Staff Patient location during procedure: ORResident/LINING STAMPER: Duc Malcolm CRNAPerformed: resident/LINING STAMPER Indications and Patient ConditionIndications for airway management: anesthesiaSpontaneous Ventilation: absentSedation level: deepPreoxygenated: yesPatient position: sniffingMILS maintained throughoutMask difficulty assessment: 0 - not attempted Final Airway DetailsFinal airway type: supraglottic airway Successful airway: classic (igel)Size 5 Additional CommentsDry intactUnSt. Luke's Baptist HospitalNerve [id number] 12:55:52Td Woods MD ? ? 11/05/2020 ?7:59 [...] 30 cc Adductor and 5 cc tibial nerveUnSt. Luke's Baptist HospitalType and Screen - ONCE [id number] 12:46:02 Test Item Value Reference Range Interpretation Comments ABO & RH (test code O Positive Performe d at [facility] = 20) Laboratory [facility] [place], [place] [address]Toll Free: [phone] A No. [id number] IAT (test code = Negative Performed a t [facility] 1185) Laboratory [facility] [place], [place] [address]Toll Free: [phone] A No. [id number] [facility] and Screen - ONCE [id number] 12:46:02 Test Item Value Reference Range Interpretation Comments ABO & RH (test code O Positive Performe d at [facility] = 20) Laboratory [facility] [place], [place] [address]Toll Free: [phone] A No. [id number] IAT (test code = Negative Performed a t [facility] 1185) Laboratory [facility] [place], [place] [address]Toll Free: [phone] A No. [id number] [facility] HospitalABORH [id number] 13:52:25 Test Item Value Reference Range Interpretation Comments ABO & RH (test code O Positive Performe d at [facility] = 20) Laboratory [facility] [place], [place] [address]Toll Free: [phone] A No. [id number] [facility] and Screen - ONCE [id number] 12:49:48 Test Item Value Reference Range Interpretation Comments ABO & RH (test code O Positive Performe d at [facility] = 20) Laboratory [facility] [place] [phone] Free: [phone] A No. [id number] IAT (test code = Negative Performed a t [facility] 1185) Laboratory [facility] [place], [place] [id number] Free: [phone] A No. [id number] [facility] HospitalType and Screen - ONCE [id number] 12:49:48 Test Item Value Reference Range Interpretation Comments ABO & RH (test code O Positive Performe d at [facility] = 20) Laboratory [facility] [place] [phone] Free: [phone] A No. [id number] IAT (test code = Negative Performed a t [facility] 1185) Laboratory [facility] [place] [address]Fqpd Free: [phone] A No. [id number] [facility] HospitalXR CHEST 2 [id number] 20:50:491. 1.5 cm nodule in the left [...] ofspondylosis are seen in the thoracic spine. [facility], Radiant Results Inft User - 10/27/2020 3:51 [...] evaluation2. COPD and changes of prior granulomatous infection.[facility] HospitalXR CHEST 2 [id number] 20:50:491. 1.5 cm nodule in the left [...] ofspondylosis are seen in the thoracic spine. [facility], Radiant Results Inft User - 10/27/2020 3:51 [...] evaluation2. COPD and changes of prior granulomatous infection.[facility] HospitalCOMP. METABOLIC PANEL (30482)2020-10-27 18:25:10 Test Item Value Reference Range Interpretation Comments NA (test code = 138 mmol/L 135-145 8150712741) K (test code = 4.4 mmol/L 3.5-5.0 5008385641) CL (test code = 105 mmol/L 98-108 6947925525) CO2 TOTAL (test code = 25 mmol/L 23-31 5059077367) AGAP (test code = 2-16 3889094586) BUN (test code = 19 mg/dL 7-23 0912563086) GLUCOSE (test code = 113 mg/dL 70-110 H 1272662152) CREATININE (test code = 0.96 mg/dL 0.60-1.25 6568995434) TOTAL BILI (test code = 0.5 mg/dL 0.1-1.6 5056195894) CALCIUM (test code = 10.0 mg/dL 8.6-10.6 5677187077) T PROTEIN (test code = 6.6 g/dL 6.3-8.2 1688452291) ALBUMIN (test code = 4.2 g/dL 3.5-5.0 6132467938) ALK PHOS (test code = 102 U/L 34-122 1751485012) ALTv (test code = 37 U/L 5-50 1742-6) AST(SGOT) (test code = 27 U/L 13-40 2295253043) eGFR (test code = mL/min/1.73m2 3065954887) DONALDO (test code = DONALDO) Association of [...] tests). Lab Interpretation Abnormal (test code = 69551-1) [facility] HospitalACTIVATED PARTIAL THRMPLAS [id number] 17:24:38 Test Item Value Reference Range Interpretation Comments APTT Patient (test See_Comment [Automat ed code = 3173-2) message] The system which generated this result transmitted reference range : 23 - 38 Seconds . The reference range was not used to interpr et this result as normal/abnormal . DONALDO (test code = DONALDO) The [facility] patient population mean normal value for aPTT is 30 seconds. Lab Interpretation Normal (test code = 30946-4) [facility] HospitalPROTHROMBIN TIME / [id number] 17:22:41 Test Item Value Reference Range Interpretation [...] tions. Lab Interpretation (test Normal code = 98245-5) [facility] HospitalURINALYSIS2021-06-14 17:16:23 Test Item Value Reference Range Interpretation Comments APPEARANCE (test code = Clear Clear 7173268696) COLOR (test code = Yellow Yellow 3670296478) PH (test code = 4.8-8.0 3725996558) SP GRAVITY (test code = 1.003-1.030 3054320060) GLU U QUAL (test code = Normal Normal 5343422994) BLOOD (test code = Negative Negative 2006084352) KETONES (test code = Negative Negative 0039429980) PROTEIN (test code = Negative Negative 2887-8) UROBILIN (test code = Normal Normal 2650796413) BILIRUBIN (test code = Negative Negative 7018625979) NITRITE (test code = Negative Negative 4036982706) LEUK KEESHA (test code = Negative Negative 9413919376) RBC/HPF (test code = <1 See_Comment [Autom ated message] 7653146028) The system [employer] generated this result transmitted ref erence range: 0 - 3 HP F. The reference range was not used to int erpret this result as normal/abnormal . WBC/HPF (test code = <1 See_Comment [Autom ated message] 2325286918) The system [employer] generated this result transmitted ref erence range: 0 - 5 HP F. The reference range was not used to int erpret this result as normal/abnormal . BACTERIA (test code = Negative Negative 6745663143) MUCOUS (test code = Slight Negative LPF A 9348300133) HYAL CAST (test code = See_Comment [Aut omated message] 9145848205) The system [employer] generated this result transmitted ref erence range: <=2 LPF. The reference range was not used to int erpret this result as normal/abnormal . Lab Interpretation (test Abnormal code = 91518-2) [facility] HospitalURINALYSIS2021-06-14 17:16:23 Test Item Value Reference Range Interpretation Comments APPEARANCE (test code = Clear Clear 8166818762) COLOR (test code = Yellow Yellow 0919182808) PH (test code = 4.8-8.0 7803380135) SP GRAVITY (test code = 1.003-1.030 9612127597) GLU U QUAL (test code = Normal Normal 0773813068) BLOOD (test code = Negative Negative 1143434629) KETONES (test code = Negative Negative 2588457235) PROTEIN (test code = Negative Negative 2887-8) UROBILIN (test code = Normal Normal 4261599614) BILIRUBIN (test code = Negative Negative 3589604085) NITRITE (test code = Negative Negative 1116470787) LEUK KEESHA (test code = Negative Negative 1185270717) RBC/HPF (test code = <1 See_Comment [Autom ated message] 4436848269) The system [employer] generated this result transmitted ref erence range: 0 - 3 HP F. The reference range was not used to int erpret this result as normal/abnormal . WBC/HPF (test code = <1 See_Comment [Autom ated message] 9570637618) The system [employer] generated this result transmitted ref erence range: 0 - 5 HP F. The reference range was not used to int erpret this result as normal/abnormal . BACTERIA (test code = Negative Negative 7892395938) MUCOUS (test code = Slight Negative LPF A 5199221659) HYAL CAST (test code = See_Comment [Aut omated message] 6709688083) The system [employer] h generated this result transmitted ref erence range: <=2 LPF. The reference range was not used to int erpret this result as normal/abnormal . Lab Interpretation (test Abnormal code = 05635-0) [facility] WITH [id number] 16:45:17 Test Item Value Reference Range Interpretation [...] RDW-SD (test code = 45.5 fL 38.5-51.6 04051-0) RDW-CV (test code = 13.8 % 12.1-15.4 788-0) PLT (test code = See_Comment [Automated 777-3) message] The sy stem which generated this result transmitted reference range : 150 - 328 10*3/ ?L. The reference r ale was not used to interpret this result as normal/abnormal . MPV (test code = 9.0 fL 9.8-13.0 L 68683-0) NRBC/100 WBC (test See_Comment [Automat ed code = 7388955870) message] The system which generated this result transmitted reference range : 0.0 - 10.0 /100 WBCs. The refer ence range was not u sed to interpret th is result as normal/abnormal . NRBC x10^3 (test code <0.01 See_Comment [Auto mated = 7754680078) message] The s ystem which generated this result transmitted reference range : 10*3/?L. The reference range was not used to interpret this result as normal/abnormal . GRAN MAT (NEUT) % 71.5 % (test code = 770-8) IMM GRAN % (test code 0.40 % = 4819234867) LYMPH % (test code = 13.2 % 736-9) MONO % (test code = 10.7 % 5905-5) EOS % (test code = 3.8 % 713-8) BASO % (test code = 0.4 % 706-2) GRAN MAT x10^3(ANC) 3.95 10*3/uL 1.99-6.95 (test code = 5842262129) IMM GRAN x10^3 (test <0.03 0.00-0.06 code = 7946055712) LYMPH x10^3 (test code 0.73 10*3/uL 1.09-3.23 L = 731-0) MONO x10^3 (test code 0.59 10*3/uL 0.36-1.02 = 742-7) EOS x10^3 (test code = 0.21 10*3/uL 0.06-0.53 711-2) BASO x10^3 (test code <0.03 0.01-0.09 = 704-7) Lab Interpretation Abnormal (test code = 66633-8) [facility] WITH [id number] 16:45:17 Test Item Value Reference Range Interpretation [...] RDW-SD (test code = 45.5 fL 38.5-51.6 87423-4) RDW-CV (test code = 13.8 % 12.1-15.4 788-0) PLT (test code = See_Comment [Automated 777-3) message] The sy stem which generated this result transmitted reference range : 150 - 328 10*3/ ?L. The reference r ale was not used to interpret this result as normal/abnormal . MPV (test code = 9.0 fL 9.8-13.0 L 01067-4) NRBC/100 WBC (test See_Comment [Automat ed code = 1667774664) message] The system which generated this result transmitted reference range : 0.0 - 10.0 /100 WBCs. The refer ence range was not u sed to interpret th is result as normal/abnormal . NRBC x10^3 (test code <0.01 See_Comment [Auto mated = 1285434930) message] The s ystem which generated this result transmitted reference range : 10*3/?L. The reference range was not used to interpret this result as normal/abnormal . GRAN MAT (NEUT) % 71.5 % (test code = 770-8) IMM GRAN % (test code 0.40 % = 8387786644) LYMPH % (test code = 13.2 % 736-9) MONO % (test code = 10.7 % 5905-5) EOS % (test code = 3.8 % 713-8) BASO % (test code = 0.4 % 706-2) GRAN MAT x10^3(ANC) 3.95 10*3/uL 1.99-6.95 (test code = 0362890056) IMM GRAN x10^3 (test <0.03 0.00-0.06 code = 0746923991) LYMPH x10^3 (test code 0.73 10*3/uL 1.09-3.23 L = 731-0) MONO x10^3 (test code 0.59 10*3/uL 0.36-1.02 = 742-7) EOS x10^3 (test code = 0.21 10*3/uL 0.06-0.53 711-2) BASO x10^3 (test code <0.03 0.01-0.09 = 704-7) Lab Interpretation Abnormal (test code = 40925-9) [facility] HospitalProthrombin Time and [id number] 10:18:34 Test Item Value Reference Range Interpretation Comments Prothrombin Time (test code = 10.4 seconds 9.8-13.4 Prothrombin Time) INR (test code = INR) 0.9 ratio 0.6-1.2 Partial Thromboplastin [id number] 10:18:34 Test Item Value Reference Range Interpretation Comments Partial Thromboplastin Time 38.50 seconds 24.39-37.25 H (test code = Partial Thromboplastin Time) [facility] [id number] 09:44:04 Test Item Value Reference Range Interpretation [...] A/G 1.9 ratio N Ratio) [facility] [id number] 09:44:04 Test Item Value Reference Range Interpretation [...] [employer], http://nkdep.ni h.gov Comprehensive Metabolic [id number] 09:44:04 Test Item Value Reference Range Interpretation [...] the National [employer], http://nkdep.ni h.gov Automated Iwvttakdhvmv8990-43-92 09:17:58 Test Item Value Reference Range Interpretation Comments Neutro Auto (test code = Neutro 73.6 % 36.0-70.0 H Auto) Lymph Auto (test code = Lymph Auto) 13.3 % 12.0-44.0 Citrus Auto (test code = Citrus Auto) 9.5 % 0.0-11.0 Eos, Auto (test code = Eos, Auto) 2.9 % 0.0-7.0 Basophil Auto (test code = Basophil 0.4 % 0.0-2.0 Auto) Neutro Absolute (test code = Neutro 5.5 x10 1.6-7.4 Absolute) Lymph Absolute (test code = Lymph 1.00 x10 .50-4.60 Absolute) Citrus Absolute (test code = Citrus .71 x10 .00-1.20 Absolute) Eos Absolute (test code = Eos 0.22 x10 0.00-0.74 Absolute) Baso Absolute (test code = Baso 0.03 x10 0.00-0.21 Absolute) IG [id number] 09:17:58 Test Item Value Reference Range Interpretation Comments IG (test code = IG) 0.3 % 0.0-5.0 IG Abs (test code = IG Abs) 0 x10 N Complete Blood Count with [id number] 09:17:57 Test Item Value Reference Range Interpretation [...]
--- NOTE | 2021-11-06 01:34 | ER ---
Nurse's Notes [facility] Norm Name: Patel Quezada Age: 71 yrs Sex: Male : 1950 Arrival Date: 11/06/2021 Time: 00:13 Bed 18 Private MD: Diagnosis: Postprocedural hemorrhage of a musculoskeletal structure following other procedure-left knee;COPD/ Chronic obstructive pulmonary disease, unspecified Presentation: 11/06 00:24 Chief complaint: Patient states: Left knee replacement done here by Dr. Bledsoe on lp1 11/03/21; Reports doing physical therapy today; Has now noticed blood that has soaked through dressing to left knee. Coronavirus screen: At this time, the client does not indicate any symptoms associated with coronavirus-19. Ebola Screen: No symptoms or risks identified at this time. Risk Assessment: Do you want to hurt yourself or someone else? Patient reports no desire to harm self or others. 00:24 Method Of Arrival: Ambulatory lp1 00:45 Initial Sepsis Screen: Does the patient meet any 2 criteria? No. Patient's initial ll3 sepsis screen is negative. Does the patient have a suspected source of infection? No. Patient's initial sepsis screen is negative. Onset of symptoms was November 05, 2021. 00:45 Acuity: JANET 3 ll3 00:45 Activity prior to arrival: Physical therapy in AM. ll3 Triage Assessment: 00:30 General: Appears comfortable, Behavior is calm, cooperative. Pain: Denies pain. Neuro: ll3 Level of Consciousness is awake, alert, obeys commands, Oriented to person, place, time, situation. Respiratory: Respiratory effort is even, unlabored, Respiratory pattern is regular, symmetrical. Derm: Wound noted left knee Red drainage noted Denies pain. Musculoskeletal: Circulation, motion, and sensation intact. Reports Total knee replacement on tuesday. Historical: - Allergies: 00:48 No Known Allergies; ll3 - PMHx: 00:48 COPD; Hypertensive disorder; Hypercholesterolemia; ll3 - PSHx: 00:48 Replacement of total knee joint; Right and Left; Cholecystectomy; Left Kidney removed; ll3 - Immunization history:: Client reports receiving the 2nd dose of the Covid vaccine. - Social history:: Smoking status: Patient denies any tobacco usage or history of. - Family history:: not pertinent. Screenin:52 Abuse screen: Denies threats or abuse. Nutritional screening: No deficits noted. ll3 Tuberculosis screening: No symptoms or risk factors identified. 01:42 Fall Risk No fall in past 12 months (0 pts). No secondary diagnosis (0 pts). No IV (0 ll3 pts). Ambulatory Aid- Crutches/Cane/Walker (15 pts). Gait- Normal/Bed Rest/Wheelchair (0 pts) Mental Status- Oriented to own ability (0 pts). Total Lopez Fall Scale indicates No Risk (0-24 pts). Assessment: 00:30 General: See triage assessment. ll3 01:42 Reassessment: No changes from previously documented assessment. Patient and/or family ll3 updated on plan of care and expected duration. Pain level reassessed. Patient is alert, oriented x 3, equal unlabored respirations, skin warm/dry/pink. Vital Signs: 00:45 BP 144 / 68; Pulse 65; Resp 18; Temp 98.3(O); Pulse Ox 97% on R/A; Weight 113.4 kg (R); ll3 Height 5 ft. 11 in. (180.34 cm) (R); Pain 0/10; 01:42 BP 145 / 59; Pulse 61; Resp 18; Pulse Ox 96% on R/A; ll3 00:45 Body Mass Index 34.87 (113.40 kg, 180.34 cm) ll3 ED Course: 00:13 Patient arrived in ED. as 00:21 Ramos Fair MD is Attending Physician. effie 00:30 Arm band placed on Patient placed in an exam room, on a stretcher, on pulse oximetry. ll3 00:45 Orlando Weeks RN is Primary Nurse. ll3 00:47 Triage completed. ll3 00:52 Patient has correct armband on for positive identification. Bed in low position. Call 3 light in reach. Side rails up X 1. 01:30 Raúl Bledsoe MD is Referral Physician. effie 01:42 No provider procedures requiring assistance completed. Patient did not have IV access ll3 during this emergency room visit. Administered Medications: No medications were administered Medication: 01:42 VIS not applicable for this client. ll3 Outcome: 01:34 Discharge ordered by . effie 01:42 Discharged to home ambulatory. ll3 01:42 Condition: stable 01:42 Discharge instructions given to patient, Instructed on discharge instructions, follow up and referral plans. Demonstrated understanding of instructions, follow-up care. 01:43 Patient left the ED. ll3 Signatures: Ramos Fair MD MD cha Martinez, Amelia as Pena, Laura, RN RN lp1 Orlando Weeks RN RN ll3 Corrections: (The following items were deleted from the chart) 00:50 00:48 PMHx: Chronic obstructive lung disease; ll3 ll3
--- NOTE | 2021-11-06 01:34 | EDPHYS ---
Physician Documentation [facility] Name: Patel Quezada Age: 71 yrs Sex: Male : 1950 Arrival Date: 11/06/2021 Time: 00:13 Bed 18 Private MD: Ramos Burks HPI: 11/06 00:54 This 71 yrs old Male presents to ER via Ambulatory with complaints of Post effie Surgical Bleeding. 00:54 The patient presents with bleeding. The complaints affect the left knee. Context: The effie problem was sustained at home. Onset: The symptoms/episode began/occurred this morning. Modifying factors: The symptoms are alleviated by nothing. the symptoms are aggravated by nothing. Treatment prior to arrival includes: no previous treatment. The patient has not experienced similar symptoms in the past. Historical: - Allergies: 00:48 No Known Allergies; ll3 - PMHx: 00:48 COPD; Hypertensive disorder; Hypercholesterolemia; ll3 - PSHx: 00:48 Replacement of total knee joint; Right and Left; Cholecystectomy; Left Kidney removed; ll3 - Immunization history:: Client reports receiving the 2nd dose of the Covid vaccine. - Social history:: Smoking status: Patient denies any tobacco usage or history of. - Family history:: not pertinent. ROS: 00:54 Constitutional: Negative for fever, chills, and weight loss, Eyes: Negative for injury, effie pain, redness, and discharge, ENT: Negative for injury, pain, and discharge, Neck: Negative for injury, pain, and swelling, Cardiovascular: Negative for chest pain, palpitations, and edema, Respiratory: Negative for shortness of breath, cough, wheezing, and pleuritic chest pain, Abdomen/GI: Negative for abdominal pain, nausea, vomiting, diarrhea, and constipation, Back: Negative for injury and pain, : Negative for injury, bleeding, discharge, and swelling, Skin: Negative for injury, rash, and discoloration, Neuro: Negative for headache, weakness, numbness, tingling, and seizure, Psych: Negative for depression, anxiety, suicide ideation, homicidal ideation, and hallucinations, Allergy/Immunology: Negative for hives, rash, and allergies, Endocrine: Negative for neck swelling, polydipsia, polyuria, polyphagia, and marked weight changes. 00:54 MS/extremity: Positive for bleeding under bandage. Exam: 00:54 Constitutional: This is a well developed, well nourished patient who is awake, alert, effie and in no acute distress. Head/Face: Normocephalic, atraumatic. Eyes: Pupils equal round and reactive to light, extra-ocular motions intact. Lids and lashes normal. Conjunctiva and sclera are non-icteric and not injected. Cornea within normal limits. Periorbital areas with no swelling, redness, or edema. ENT: Nares patent. No nasal discharge, no septal abnormalities noted. Tympanic membranes are normal and external auditory canals are clear. Oropharynx with no redness, swelling, or masses, exudates, or evidence of obstruction, uvula midline. Mucous membranes moist. Neck: Trachea midline, no thyromegaly or masses palpated, and no cervical lymphadenopathy. Supple, full range of motion without nuchal rigidity, or vertebral point tenderness. No Meningismus. Chest/axilla: Normal chest wall appearance and motion. Nontender with no deformity. No lesions are appreciated. Cardiovascular: Regular rate and rhythm with a normal S1 and S2. No gallops, murmurs, or rubs. Normal PMI, no JVD. No pulse deficits. Respiratory: Lungs have equal breath sounds bilaterally, clear to auscultation and percussion. No rales, rhonchi or wheezes noted. No increased work of breathing, no retractions or nasal flaring. Abdomen/GI: Soft, non-tender, with normal bowel sounds. No distension or tympany. No guarding or rebound. No evidence of tenderness throughout. Back: No spinal tenderness. No costovertebral tenderness. Full range of motion. Male : Normal genitalia with no discharge or lesions. Skin: Warm, dry with normal turgor. Normal color with no rashes, no lesions, and no evidence of cellulitis. Neuro: Awake and alert, GCS 15, oriented to person, place, time, and situation. Cranial nerves II-XII grossly intact. Motor strength 5/5 in all extremities. Sensory grossly intact. Cerebellar exam normal. Normal gait. Psych: Awake, alert, with orientation to person, place and time. Behavior, mood, and affect are within normal limits. 00:54 Musculoskeletal/extremity: ROM: full active range of motion, full passive range of motion, Circulation is intact in all extremities. Sensation intact. Compartment Syndrome exam of affected extremity: Joints: All joints appear normal with full range of motion. DVT Exam: negative Homans' sign noted on exam, no appreciated bluish discoloration, pain, swelling, tenderness, erythema, increased warmth, that is mild, of the left leg. Vital Signs: 00:45 BP 144 / 68; Pulse 65; Resp 18; Temp 98.3(O); Pulse Ox 97% on R/A; Weight 113.4 kg (R); ll3 Height 5 ft. 11 in. (180.34 cm) (R); Pain 0/10; 01:42 BP 145 / 59; Pulse 61; Resp 18; Pulse Ox 96% on R/A; ll3 00:45 Body Mass Index 34.87 (113.40 kg, 180.34 cm) ll3 MDM: 00:21 Patient medically screened. effie 00:59 Differential diagnosis: contusion, tendonitis. Data reviewed: vital signs, nurses effie notes. Data interpreted: monitor technician: rate is 65 beats/min, rhythm is regular, Pulse oximetry: on room air is 97 %. Test interpretation: by ED physician or midlevel provider:. Counseling: I had a detailed discussion with the patient and/or guardian regarding: the historical points, exam findings, and any diagnostic results supporting the discharge/admit diagnosis, the need for outpatient follow up, for definitive care, a orthopedic surgeon. Administered Medications: No medications were administered Disposition Summary: 11/06/21 01:34 Discharge Ordered Location: Home effie Problem: new effie Symptoms: have improved effie Condition: Stable effie Diagnosis - Postprocedural hemorrhage of a musculoskeletal structure following other procedure effie - left knee - COPD/ Chronic obstructive pulmonary disease, unspecified effie Followup: effie - With: Private Physician - When: 2 - 3 days - Reason: Recheck today's complaints, Continuance of care, Re-evaluation by your physician Followup: effie - With: Raúl Bledsoe MD - When: 2 - 3 days - Reason: Recheck today's complaints, Continuance of care, Re-evaluation by your physician Discharge Instructions: - Discharge Summary Sheet effie - Chronic Bronchitis, Adult effie - Wound Care, Adult effie - Sutures, [place], or Adhesive Wound Closure, [id number] effie - Chronic Obstructive Pulmonary Disease effie Forms: - Medication Reconciliation Form effie - Thank You Letter effie - Antibiotic Education effie - Prescription Opioid Use effie Signatures: Ramos Fair MD MD cha Loubet, Lynsea RN RN ll3 Corrections: (The following items were deleted from the chart) 00:50 00:48 PMHx: Chronic obstructive lung disease; ll3 ll3
[2021-11-06 03:23] VITALS: TEMP 98.3
[2021-11-06 03:31] VITALS: BP 145/59; O2SAT 96
== END 2021-11-06 01:43 | disposition home or self-care (01) ==
LOC: ER 00:11
DX: M96.831 Postprocedural hemorrhage of a musculoskeletal structure following other procedure (principal); J44.9 Chronic obstructive pulmonary disease, unspecified; Z96.652 Presence of left artificial knee joint; I10 Essential (primary) hypertension
CPT/HCPCS: 99283

== ENCOUNTER 2022-03-28 04:31 | Emergency (ER) | payer OTHER ==
--- OUTSIDE RECORDS SUMMARY | 2022-03-28 04:37 | XMS REPORT | Continuity of Care Document ---
:1950 Author Organization [facility] t Address [address] [place] [address] Dr. Rodriguez. [address] [place] [address] Care Team Providers Name Role Phone Asked, No Pcp Primary Care Physician Unavailable RAÚL BLEDSOE Attending Clinician Unavailable Raúl Bledsoe MD Attending Clinician [phone] Janie Tamez CRNA Attending Clinician Td Woods MD Attending Clinician Pob, [facility] Main Attending Clinician Unavailable Doctor Unassigned, [place] Attending Clinician Unavailable Emperatriz Buckley MD Attending Clinician Class, [facility] Pre Op Attending Clinician Unavailable EMPERATRIZ BUCKLEY Attending Clinician Unavailable FADI THOMAS Attending Clinician Unavailable RAÚL BLEDSOE Admitting Clinician Unavailable Raúl Bledsoe MD Admitting Clinician [phone] Payers Payer Name Policy Type Policy Number Effective Date Expiration Date S ource MEDICARE PART A [id number] 2013 \\T\\ B 00:00:00 [employer] PPO I [id number] 2014 00:00:00 Problems Condition Condition Condition Status Onset Resolution Last Treating Co mments Source Name Details Category Date Date Treatment Clinician Date Arthritis Arthritis Disease Active Uni vers of right of right 11-05 ity of knee knee 00:00: [address] No known No known Disease Unive rs active active ity of problems problems [facility] Allergies, Adverse Reactions, Alerts Allergy Allergy Status Severity Reaction(s) Onset Inactive Treating Comm ents Source Name Type Date Date Clinician NO KNOWN Drug Active Univers ALLERGIE Class ity of S [facility] Social History Social Habit Start Date Stop Date Quantity Comments Source Exposure to Not sure University of SARS-CoV-2 [place] [facility] (event) Branch Tobacco use and 2020-11-04 2020-11-04 Never used Universit y of exposure 00:00:00 00:00:00 [facility] Alcohol intake 2020-11-04 2020-11-04 Current drinker of Un iversity of 00:00:00 00:00:00 alcohol (finding) [facility] edical [place] Alcohol Comment 2017-11-08 2017-11-08 Occasional Drinker U niversity of 00:00:00 00:00:00 [facility] Sex Ass[birth year] At [birth year] [facility] 00:00[facility]00 [facility] Smoking Status Start Date Stop Date Source Tobacco smoking [facility] consumption unknown Former smoker 2020-11-04 00:00:00 2020-11-04 [facility] [place] 00:00:00 [facility] Never smoker [facility] [place] [facility] Medications Ordered Filled Start Stop Current Ordering Indication Dosage Frequency Signature Comments Components Source Medication Medication Date Date Medication? Clinician (SIG) Name Name turmeric Yes 2{capsu Take 2 Univ ers [...] 6-24 by mouth ity of 21:05: daily. [place] [address] Medical Branch hydroCHLORO Yes 12.5mg Take 12.5 [...] by mouth ity of tablet 21:05: at [place] [address] bedtime. Medical Branch finasteride Yes 5mg Take 5 mg U nivers 5 mg tablet 6-24 by mouth ity of 21:05: daily. [place] [address] Medical Branch Cholecalcif Yes 400U Take 400 [...] vers -umeclidin- 6-24 ity of vilanter 21:05: [place] (TRELEGY 21 Medical ELLIPTA) Branch 100-62.5-25 mcg DsDv albuterol Yes 2{puff} Inhale 2 U nivers 90 6-24 Puffs ity of mcg/actuati 21:05: every 6 [place] as on inhaler 21 (six) Medical hours as Branch needed for Wheezing or Shortness of Breath. furosemide Yes 20mg Take 20 mg U nivers 20 mg 6-24 by mouth ity of tablet 21:05: daily. [place] [address] Medical Branch spironolact Yes 25mg Take 25 mg Univers one 25 mg 6-24 by mouth ity of tablet 21:05: daily. [place] [address] Medical Branch turmeric Yes 2{capsu Take 2 [...] 6-24 by mouth ity of 21:05: daily. [place] 21 Medical Branch hydroCHLORO Yes 12.5mg Take [...] 6-24 by mouth ity of 21:05: daily. Medical Branch Cholecalcif Yes 400U Take 400 [...] vers -umeclidin- 6-24 ity of vilanter 21:05: [place] (TRELEGY 21 Medical ELLIPTA) Branch 100-62.5-25 mcg DsDv albuterol Yes 2{puff} Inhale 2 U nivers 90 6-24 Puffs ity of mcg/actuati 21:05: every 6 [place] as on inhaler 21 (six) Medical hours as Branch needed for Wheezing or Shortness of Breath. furosemide Yes 20mg Take 20 mg U nivers 20 mg 6-24 by mouth ity of tablet 21:05: daily. [place] [address] Medical Branch spironolact Yes 25mg Take 25 mg Univers one 25 mg 6-24 by mouth ity of tablet 21:05: daily. [address] Branch docusate Yes 100mg 100 mg, Unive rs (COLACE) 6-24 Oral, ity of capsule 100 01:00: Q12H, [place] mg 00 First dose Medical on Tue Branch 11/05/20 at 1999, Until Discontinu ed, Routine docusate Yes 100mg 100 mg, Unive rs (COLACE) 6-24 Oral, ity of capsule 100 01:00: Q12H, [place] mg 00 First dose Medical on Tue Branch 11/05/20 at 1999, Until Discontinu ed, Routine enoxaparin 2020- No [...] IV Push, ity of (PF)) 15:07: Q6HPRN, [place] injection 4 40 Starting Medi светлана mg Wed Branch 11/05/20 at 1007, Until Discontinu ed, Routine, Nausea and Vomiting (N/V) ondansetron 2020-0 Yes 4mg 4 mg, Slow Univers (ZOFRAN 6-23 IV Push, ity of (PF)) 15:07: Q6HPRN [place] injection 4 40 Starting Medi светлана mg Wed Branch 11/05/20 at 1007, Until Discontinu ed, Routine, Nausea and Vomiting (N/V) diphenhydrA 1-0 Yes 25mg 25 mg, Univ ers MINE 6-23 Oral, ity of (BENADRYL) 15:06: Q4HPRN, [place] tablet 25 37 Starting Medica l mg Wed Branch 11/05/20 at 1006, Until Discontinu ed, Routine, Itching diphenhydrA 1-0 Yes 25mg 25 mg, Univ ers MINE [...] Discontinu ed, Routine, Pain (scale 7-10) HYDROcodone 1-0 Yes 1{tbl} 1 tablet, Univers -acetaminop 6-23 Oral, ity of hen (NORCO 15:02: Q6HPRN, [place] 5) 5-325 mg 29 Starting Medi светлана tablet 1 Wed Branch tablet 11/05/20 at 1002, Until Discontinu ed, Routine, Pain (scale 4-6) HYDROcodone Yes 1{tbl} 1 tablet, Univers -acetaminop 11-05 Oral, ity of hen (NORCO 15:02: Q6HPRN, [place] 5) 5-325 mg 29 Starting Medi светлана tablet 1 Tue [place] tablet 11/05/20 at 1002, Until Discontinu ed, Routine, Pain (scale 4-6) ondansetron 2020- No Slow IV Un ilene (ZOFRAN 11-05 Push, ONCE ity o f (PF)) 14:33: 15:04 INTRA [place] injection 00 :20 PROCEDURE, Medi светлана Starting Branch Tue11/05/20 at 0933, Until Tue11/05/20 at 1004, Routine, Intra-op sodium 0 Yes PRN, Univers chloride 11-05 Starting ity of 0.9 % 13:42: Wed [place] irrigation 00 11/05/20 at Med ical solution 0842, [place] Until Discontinu ed, Intra-op sodium 0 Yes PRN, Univers chloride 11-05 Starting ity of 0.9 % 13:42: Wed [place] irrigation 00 11/05/20 at Med ical solution 0842, [place] Until Discontinu ed, Intra-op HYDROmorphO 2020- No Intravenou Univers ne 11-05 06-23 s, ONCE ity of (DILAUDID) 13:20: 15:04 INTRA [place] injection 00 :20 PROCEDURE, Medi светлана Starting Branch Tue11/05/20 at 0820, Until Tue11/05/20 at 1004, Routine, Intra-op dexamethaso 2020- No Intravenou Univers ne 11-05 06-23 s, ONCE ity of (DECADRON 12:49: 15:04 INTRA [place] PHOSPHATE) 00 :20 PROCEDURE, Med ical injection Starting Branch Tue11/05/20 at 0749, Until Tue11/05/20 at 1004, Routine, Intra-op ceFAZolin 2020- No IV Univers (ANCEF) 11-05 Piggyback, ity o f injection 12:47: 15:04 ONCE INTRA [place] 00 :20 PROCEDURE, Medical Starting Branch 11/05/20 at 0747, Until 11/05/20 at 1004, ADRIANNE, Intra-op ePHEDrine 2020- No Slow IV Univ ers 25 mg/5 mL 11-05 Push, ONCE it y of (5 mg/mL) [...] PROCEDURE, [place] 00 :20 Starting Medical Wed Branch 11/05/20 at 0720, Until 6/23/21 at 1004, Routine, Intra-op acetaminoph 2020- No 1000mg 1,000 mg, Univers en ADULT 11-05 IV ity of ([facility]) 12:00: 12:27 [place]fusion, [place] injection 00 :00 Administer Medi светлана 1,000 mg over 15 Branch Minutes, ONCE, 1 dose, 11/05/20 at 0700, Routine, DSU Pre-op
Indication : Perioperat frieda Patient oxyCODONE-a 2020- No 2{tbl} 2 tablet, Univers cetaminophe 11-05 Oral, ity of n 12:00: 12:08 ONCE, 1 [place] (PERCOCET) 00 :00 dose, Wed Medi светлана 5-325 mg 11/05/20 at Bran h per tablet 0700, 2 tablet Routine, DSU Pre-op celecoxib 2020- No 400mg 400 mg, Uni vers (CELEBREX) 11-05 Oral, ity of capsule 400 12:00: 12:08 ONCE, 1 [place] mg 00 :00 dose, Wed Medical 11/05/20 at Branch 0700, Routine, DSU Pre-op gabapentin 2020- No 300mg 300 mg, Un ilene (NEURONTIN) 11-05 Oral, ity of capsule 300 12:00: 12:08 ONCE, 1 [place] mg 00 :00 dose, Wed Medical 11/05/20 at Branch 0700, Routine, DSU Pre-op acetaminoph 2020- No 1000mg 1,000 mg, Univers en ADULT 11-05 IV ity of ([facility]) 12:00: 12:27 [place]fusion, [place] injection 00 :00 Administer Medi светлана 1,000 mg over 15 Branch Minutes, ONCE, 1 dose, Tue11/05/20 at 0700, Routine, DSU Pre-op
Indication : Perioperat frieda Patient oxyCODONE-a 2020- No 2{tbl} 2 tablet, Univers cetaminophe 11-05 Oral, ity of n 12:00: 12:08 ONCE, 1 [place] (PERCOCET) 00 :00 dose, Wed Medi светлана 5-325 mg 11/05/20 at [facility] h per tablet 0700, 2 tablet Routine, [...] by mouth ity of tablet 11:43: at [place] [address] bedtime. Medical Branch finasteride Yes 5mg Take 5 mg U nivers 5 mg tablet 6-23 by mouth ity of 11:43: daily. [place] [address] Medical Branch Cholecalcif Yes 400U Take 400 [...] vers -umeclidin- 6-23 ity of vilanter 11:43: [place] (TRELEGY 35 Medical ELLIPTA) Branch 100-62.5-25 mcg DsDv albuterol Yes 2{puff} Inhale 2 U nivers 90 6-23 Puffs ity of mcg/actuati 11:43: every 6 [place] as on inhaler 35 (six) Medical hours as Branch needed for Wheezing or Shortness of Breath. furosemide Yes 20mg Take 20 mg U nivers 20 mg 6-23 by mouth ity of tablet 11:43: daily. [address] Branch spironolact Yes 25mg Take 25 mg Univers one 25 mg 6-23 by mouth ity of tablet 11:43: daily. [address] Branch clopidogrel 2020- No 75mg Take 75 mg Univers 75 mg 6-04 11-22 by mouth ity of tablet 16:56: 00:00 daily. [place] :00 [facility] Branch clopidogrel 2020- No 75mg Take 75 mg Univers 75 mg 6-22 by mouth ity of tablet 16:56: 00:00 daily. [place] :00 Medical Branch turmeric Yes 2{capsu Take [...] 6-16 by mouth ity of 13:39: daily. [place] [address] Medical Branch hydroCHLORO Yes 12.5mg Take 12.5 [...] 6-16 by mouth ity of 13:39: daily. [place] [address] Medical Branch clopidogrel Yes 75mg Take 75 mg Univers 75 mg 6-16 by mouth ity of tablet 13:39: daily. [place] [address] Medical Branch Cholecalcif Yes 400U Take 400 [...] vers -umeclidin- 6-16 ity of vilanter 13:39: [place] (TRELEGY 27 Medical ELLIPTA) Branch 100-62.5-25 mcg DsDv albuterol Yes 2{puff} Inhale 2 U nivers 90 6-16 Puffs ity of mcg/actuati 13:39: every 6 [place] as on inhaler 27 (six) Medical hours as Branch needed for Wheezing or Shortness of Breath. furosemide Yes 20mg Take 20 mg U nivers 20 mg 6-16 by mouth ity of tablet 13:39: daily. [place] [address] Medical Branch spironolact Yes 25mg Take 25 mg Univers one 25 mg 6-16 by mouth ity of tablet 13:39: daily. [place] [address] Medical Branch turmeric Yes 2{capsu Take 2 [...] 6-16 by mouth ity of 13:39: daily. [place] [address] Medical Branch hydroCHLORO Yes 12.5mg Take 12.5 Univers thiazide 25 6-16 mg by ity of mg tablet 13:39: mouth [place] [address] daily. Medical Branch tamsulosin Yes .4mg Take 0.4 Uni vers 0.4 mg 24 6-16 mg by ity of hr capsule 13:39: mouth [place] 27 daily. Medical Branch atorvastati Yes 20mg Take 20 mg Univers n 20 mg 6-16 by mouth ity of tablet 13:39: at [place] [address] bedtime. Medical Branch finasteride Yes 5mg Take 5 mg U nivers 5 mg tablet 6-16 by mouth ity of 13:39: daily. [place] [address] Medical Branch clopidogrel Yes 75mg Take 75 mg Univers 75 mg 6-16 by mouth ity of tablet 13:39: daily. [place] [address] Medical Branch Cholecalcif Yes 400U Take 400 [...] vers -umeclidin- 6-16 ity of vilanter 13:39: [place] (TRELEGY 27 Medical ELLIPTA) Branch 100-62.5-25 mcg DsDv albuterol Yes 2{puff} Inhale 2 U nivers 90 6-16 Puffs ity of mcg/actuati 13:39: every 6 [place] as on inhaler 27 (six) Medical hours as Branch needed for Wheezing or Shortness of Breath. furosemide Yes 20mg Take 20 mg U nivers 20 mg 6-16 by mouth ity of tablet 13:39: daily. [place] [address] Medical Branch spironolact Yes 25mg Take 25 mg Univers one 25 mg 6-16 by mouth ity of tablet 13:39: daily. [place] [address] Medical Branch turmeric Yes 2{capsu Take 2 [...] 6-16 by mouth ity of 13:39: daily. [place] [address] Medical Branch hydroCHLORO Yes 12.5mg Take 12.5 [...] 6-16 by mouth ity of 13:39: daily. [place] [address] Medical Branch clopidogrel Yes 75mg Take 75 mg Univers 75 mg 6-16 by mouth ity of tablet 13:39: daily. [place] [address] Medical Branch Cholecalcif Yes 400U Take 400 Un ilene edgar, 6-16 Units by ity of Vitamin D3, 13:39: mouth [place] (VITAMIN 27 daily. Medical D3) 400 Branch unit capsule vitamin Yes 500ug Take 500 Unive rs B-12 6-16 mcg by ity of (VITAMIN 13:39: mouth [place] B-12) 500 27 daily. Medical mcg tablet Branch fluticasone Yes Inhale. Uni vers -umeclidin- 6-16 ity of vilanter 13:39: [place] (TRELEGY 27 Medical ELLIPTA) Branch 100-62.5-25 mcg DsDv albuterol Yes 2{puff} Inhale 2 U nivers 90 6-16 Puffs ity of mcg/actuati 13:39: every 6 [place] as on inhaler 27 (six) Medical hours as Branch needed for Wheezing or Shortness of Breath. furosemide Yes 20mg Take 20 mg U nivers 20 mg 6-16 by mouth ity of tablet 13:39: daily. [address] Branch spironolact Yes 25mg Take 25 mg Univers one 25 mg 6-16 by mouth ity of tablet 13:39: daily. [address] Branch FENTanyl PF Yes Epidural, U nivers (SUBLIMAZE -16 ONCE INTRA ity of (PF)) 12:25: PROCEDURE, [place] injection 00 Starting Medica l Wed Branch [...] ty of capsule 300 12:00: 11:45 TOMORROW, [place] mg 00 :00 1 dose, Medical Wed Branch 10/29/20 at 0700, Routine, DSU Pre-op oxyCODONE-a 2020- No 2{tbl} 2 tablet, Univers cetaminophe 10-29 Oral, ONCE i ty of n 12:00: 11:45 TOMORROW, [place] (PERCOCET) 00 :00 1 dose, Medica l 5-325 mg Wed Branch per tablet 10/29/20 at 2 tablet 0700, Routine, DSU Pre-op celecoxib 2020-0 2020- No 400mg 400 mg, Uni vers [...] Medical 18 mcg Branch inhalation losartan 50 2017- Yes 50mg Take 50 mg Univers mg tablet 6-27 by mouth ity of 16:10: daily. [place] 44 Medical Branch hydroCHLORO 2017- Yes 12.5mg Take 12.5 Univers thiazide 25 [...] 6-27 by mouth ity of 16:10: daily. [place] [address] Medical Branch clopidogrel Yes 75mg Take 75 mg Univers 75 mg 6-27 by mouth ity of tablet 16:10: daily. [place] [address] Medical Branch Cholecalcif 0 Yes 400U Take [...] 6-27 by mouth ity of 16:10: daily. [place] [address] Medical Branch hydroCHLORO Yes 12.5mg Take 12.5 [...] 6-27 by mouth ity of 16:10: daily. [place] [address] Medical Branch clopidogrel Yes 75mg Take 75 mg Univers 75 mg 6-27 by mouth ity of tablet 16:10: daily. [place] [address] Medical Branch Cholecalcif Yes 400U Take 400 [...] 6-27 by mouth ity of 16:10: daily. [place] [address] Medical Branch hydroCHLORO Yes 12.5mg Take 12.5 [...] 6-27 by mouth ity of 16:10: daily. [place] [address] Medical Branch clopidogrel 0 Yes 75mg Take 75 mg Univers 75 mg 6-27 by mouth ity of tablet 16:10: daily. [place] [address] Medical Branch Cholecalcif Yes 400U Take 400 [...] 6-27 by mouth ity of 16:10: daily. [place] [address] Medical Branch hydroCHLORO 2018- Yes 12.5mg Take 12.5 Univers thiazide 25 6-27 mg by ity of mg tablet 16:10: mouth [place] 44 daily. Medical Branch tamsulosin 2018-0 Yes .4mg Take 0.4 Uni vers 0.4 mg 24 6-27 mg by ity of hr capsule 16:10: mouth [place] 44 daily. Medical Branch atorvastati Yes 20mg Take 20 mg Univers n 20 mg 6-27 by mouth ity of tablet 16:10: at [place] 44 bedtime. Medical Branch finasteride 2018-0 Yes 5mg Take 5 mg U nivers 5 mg tablet 6-27 by mouth ity of 16:10: daily. [place] [address] Medical Branch clopidogrel Yes 75mg Take 75 mg Univers 75 mg 6-27 by mouth ity of tablet 16:10: daily. [place] [address] Medical Branch Cholecalcif Yes 400U Take 400 Un ilene edgar, 6-27 Units by ity of Vitamin D3, 16:10: mouth [place] (VITAMIN 44 daily. Medical D3) 400 Branch unit capsule vitamin Yes 500ug Take 500 Unive rs B-12 6-27 mcg by ity of (VITAMIN 16:10: mouth [place] B-12) 500 44 daily. Medical mcg tablet Branch Immunizations Ordered Filled Immunization Date Status Comments [facility] e Immunization Name Name [facility] COVID-19 2020-07-13 Completed [facility] MRNA VACCINATION 00:00:00 [facility] COVID-19 2020-06-22 Completed [facility] MRNA VACCINATION 00:00:00 [facility] Influenza Virus 2020-01-19 Completed Universit y of Vaccine 00:00:00 [facility] Influenza Virus 2020-01-19 Completed Universit y of Vaccine 00:00:00 [facility] Influenza Virus 2020-01-19 Completed Universit y of Vaccine 00:00:00 [facility] Influenza Virus 2019-01-29 Completed Universit y of Vaccine 00:00:00 [facility] Pneumococcal 13 2019-01-29 Completed Universit y of Conjugate, PCV13 00:00:[address] [facility] dical (Prevnar 13) [place] Influenza Virus 2019-01-29 Completed Universit y of Vaccine 00:00:00 [facility] Pneumococcal 13 2019-01-29 Completed Universit y of Conjugate, PCV13 00:00:[address] [facility] dical (Prevnar 13) Branch Influenza Virus 2019-01-29 Completed Universit y of Vaccine 00:00:00 [facility] Pneumococcal 13 2019-01-29 Completed Universit y of Conjugate, PCV13 00:00:[address] [facility] dical (Prevnar 13) Branch TDAP 2017-04-04 Completed University of 00:00:00 [facility] TDAP 2017-04-04 Completed University of 00:00:00 [facility] TDAP 2017-04-04 Completed University of 00:00:00 [facility] Influenza High Dose 2015-02-07 Completed Unive rsity of 00:00:00 [facility] Influenza High Dose 2015-02-07 Completed Unive rsity of 00:00:00 [facility] Influenza High Dose 2015-02-07 Completed Unive rsity of 00:00:00 [facility] Zoster(Zostavax)( 2014-05-17 Completed Unive rsity of ingles) 00:00:00 [facility] Zoster(Zostavax)( 2014-05-17 Completed Unive rsity of ingles) 00:00:00 [facility] Zoster(Zostavax)( 2014-05-17 Completed Unive rsity of ingles) 00:00:00 [facility] Vital Signs Vital Name Observation Time Observation Value Comments Source Systolic blood 2020-11-06 16:25:00 129 mm[Hg] Univer sity of pressure [facility] Diastolic blood 2020-11-06 16:25:00 55 mm[Hg] Unive rsity of pressure [facility] Heart rate 2020-11-06 16:25:00 57 /min [facility] Body temperature 2020-11-06 16:25:00 36.56 Tricia [facility] [place] [facility] 2020-11-06 16:25:00 20 /min [facility] [place] [facility] Oxygen saturation in 2020-11-06 16:25:00 95 /min [facility] Arterial blood by [facility] Pulse oximetry Branch Body weight 2020-11-04 18:08:00 113.4 kg [facility] BMI 2020-11-04 18:08:00 34.87 kg/m2 [facility] Oxygen saturation in 2020-11-05 15:37:00 94 /min University of Arterial blood by [facility] Pulse oximetry Branch Systolic blood 2020-11-05 15:34:00 133 mm[Hg] Univer sity of pressure [place] [facility] Diastolic blood 2020-11-05 15:34:00 75 mm[Hg] Unive rsity of pressure [place] [facility] Heart rate 2020-11-05 15:34:00 72 /min Universi ty of [place] [facility] Respiratory rate 2020-11-05 15:34:00 19 /min Univ ersity of [place] [facility] Body temperature 2020-11-05 15:08:00 36.72 Tricia Univ ersity of [place] [facility] Body weight 2020-11-04 18:08:00 113.4 kg Universi ty of [place] [facility] BMI 2020-11-04 18:08:00 34.87 kg/m2 Universi ty of [place] [facility] Respiratory rate 2020-11-05 14:52:00 20 /min Univ ersity of [place] [facility] Systolic blood 2020-10-29 11:52:00 155 mm[Hg] Univer sity of pressure [place] [facility] Diastolic blood 2020-10-29 11:52:00 78 mm[Hg] Unive rsity of pressure [place] [facility] Heart rate 2020-10-29 11:52:00 63 /min Universi ty of [place] [facility] Body temperature 2020-10-29 11:52:00 36.83 Tricia Univ ersity of [place] [facility] Respiratory rate 2020-10-29 11:52:00 16 /min Univ ersity of [place] [facility] Oxygen saturation in 2020-10-29 11:52:00 94 /min University of Arterial blood by [facility] Pulse oximetry Branch Body height 2020-10-28 15:45:00 180.3 cm Universi ty of [place] [facility] Body weight 2020-10-28 15:45:00 113.399 kg Universi ty of [place] [facility] BMI 2020-10-28 15:45:00 34.87 kg/m2 Universi ty of [place] [facility] Systolic blood 2020-10-29 11:52:00 155 mm[Hg] Univer sity of pressure [place] [facility] Diastolic blood 2020-10-29 11:52:00 78 mm[Hg] Unive rsity of pressure [place] [facility] Heart rate 2020-10-29 11:52:00 63 /min [facility] Body temperature 2020-10-29 11:52:00 36.83 Tricia [facility] Respiratory rate 2020-10-29 11:52:00 16 /min [facility] Oxygen saturation in 2020-10-29 11:52:00 94 /min [facility] blood by [facility] Pulse oximetry Branch Body height 2020-10-28 15:45:00 180.3 cm [facility] Body weight 2020-10-28 15:45:00 113.399 kg [facility] BMI 2020-10-28 15:45:00 34.87 kg/m2 [facility] Procedures Procedure Date / Time Performing Clinician Source Performed CBC WITH DIFF 2020-11-06 08:55:00 Raúl Bledsoe [facility] CBC WITH DIFF 2020-11-06 08:55:00 Raúl Bledsoe [facility] INTUBATION 2020-11-05 13:20:38 Yun [facility] NERVE BLOCK 2020-11-05 12:55:52 Td Woods [facility] TOTAL KNEE ARTHROPLASTY 2020-11-05 12:15:00 Raúl Bledsoe Un [facility] TOTAL KNEE ARTHROPLASTY 2020-11-05 12:15:00 Raúl Bledsoe Un [facility] HB ABO GROUPING 2020-11-05 12:05:00 Raúl Bledsoe [facility] HB ABO GROUPING 2020-11-05 12:05:00 Raúl Bledsoe [facility] ABORH CONFIRMATION 2020-10-29 13:46:00 Doctor Unasscaro, [facility] HB ABO GROUPING 2020-10-29 11:50:00 Raúl Bledsoe [facility] HB ABO GROUPING 2020-10-29 11:50:00 Raúl Bledsoe [facility] DSU PRE-OP 2020-10-28 05:01:00 Doctor Unassigned, [facility] [place] [facility] DSU PRE-OP 2020-10-28 05:01:00 Doctor Saúl [facility] [place] [facility] EKG-12 LEAD 2020-10-27 17:30:39 Doctor Saúl [facility] [place] [facility] XR CHEST 2 VW 2020-10-27 16:52:01 Ladi [facility] XR CHEST 2 VW 2020-10-27 16:52:01 Raúl Bledsoe [facility] CBC WITH DIFF 2020-10-27 16:41:00 Emperatriz Buckley [facility] URINALYSIS 2020-10-27 16:41:00 Emperatriz Buckley [facility] CBC WITH DIFF 2020-10-27 16:41:00 Emperatriz Buckley [facility] COMP. METABOLIC PANEL 2020-10-27 16:41:00 Emperatriz Buckley [facility] ([id number]) Medical [place] URINALYSIS 2020-10-27 16:41:00 Emperatriz Buckley [facility] PROTHROMBIN TIME / INR 2020-10-27 16:41:[address] [facility] ACTIVATED PARTIAL THRMPLAS 2020-10-27 16:41:00 Emperatriz Buckley [facility] NO SHOW OR MISSED 2020-10-27 16:24:34 Doctor H[place], [facility] APPOINTMENT POLICY [place] [facility] h ACKNOWLEDGEMENT [facility] PATIENT FINANCIAL 2020-10-27 16:24:17 Doctor Saúl, [facility] POLICY [place] [facility] NOTICE OF BILLING 2020-10-27 16:24:03 Doctor Gó[place]sharp [place], [facility] PRACTICES FOR MEDICARE [place] [facility] PATIENTS CONSENT/REFUSAL FOR 2020-10-27 16:23:48 Doctor Saúl [facility] DIAGNOSIS AND TREATMENT [place] [facility] Branch ASSIGNMENT OF BENEFITS 2020-10-27 16:23:32 Doctor Hays, [facility] [place] [facility] ASSIGNMENT OF BENEFITS 2020-10-27 16:23:32 Doctor Saúl [facility] PHYSICIAN ORDERS 2020-10-27 05:01:00 Doctor Unassigned, [facility] Name Medical [place] Plan of Care Planned Activity Planned Date Details Comments Source Future Scheduled 2022-03-22 COVID-19 VACCINE (3 - Me [facility] Test 12:45:43 Booster for Pfizer series) [code = COVID-19 VACCINE (3 - Booster for Pfizer series)] Future Scheduled 2022-03-22 INFLUENZA VACCINE Method [facility] Test 12:45:43 [code = INFLUENZA VACCINE] Future Scheduled 2022-03-22 HEPATITIS B VACCINES Met [facility] Test 12:45:43 (1 of 3 - 3-dose series) [code = HEPATITIS B VACCINES (1 of 3 - 3-dose series)] Future Scheduled 2022-03-22 COLONOSCOPY SCREENING [facility] Test 12:45:43 [code = COLONOSCOPY SCREENING] Future Scheduled 2022-03-22 SHINGLES VACCINES (1 Met [facility] Test 12:45:43 of 2) [code = SHINGLES VACCINES (1 of 2)] Future Scheduled 2022-03-22 65+ [facility]AL [facility] 12:45:43 VACCINE (1 - PCV) [code = 65+ PNEUMOCOCCAL VACCINE (1 - PCV)] Encounters Start End Encounter Admission Attending Care Care Encounter Source Date/Time Date/Time Type Type Clinicians Facility Department ID 2022-01-15 Outpatient [facility] [id number] Common 08:53:02 [facility] 2021-12-23 Outpatient [facility] [id number] Common 14:20:03 [facility] 2021-12-16 [facility] [id number] Common 09:26:02 [facility] 2021-11-23 Out[facility] [id number] Common 15:21:02 [facility] 2021-10-16 Outpatient [facility] [id number] Common 08:17:01 [facility] 2021-03-16 Outpatient Barbie [facility]SOE [facility] [id number] Univers 02:53:47 RAÚL foreman [facility] 2021-03-16 Outpatient [facility] [id number] Univers 01:15:51 RA[facility]L [facility] 2020-11-05 2020-11-06 [facility] 1.2.840.114 [id number] Univers 06:43:00 15:35:00 Encounter Raúl [place] 350.1.13.10 [place] [id number] [facility] 081 [place] 2020-11-05 2020-11-05 Surgery [facility] 1.2.840.114 [id number] Univers 07:30:00 10:37:00 Raúl Robertson 350.1.13.10 [place] [id number] [facility] 020 [place] 2020-11-05 2020-11-05 Anesthesia Janie Tamez [facility] 1.2.840 .114 [id number] Univers 07:30:00 10:04:00 Event Td Woods 350.1.13.1 0 [place] [id number] [facility] 020 [place] 2020-11-04 2020-11-04 Outpatient [facility] [id number] Univers 15:15:00 15:15:00 RAÚL foreman [facility] 2020-10-29 2020-10-29 Anesthesia Dashawn 1.2.840.7 [id number] Univers 08:43:02 08:43:02 Event Janei Hamlin 87461.1.1 ity of 3.104.2.7 [place] .3.411940 Medica l .8 [place] 2020-10-29 2020-10-29 [facility] 1.2.840.1 [id number] Univers 06:37:00 08:13:00 Encounter Raúl Petersen 45358.1.1 ity of 3.104.2.7 [place] .3.652952 Medica l .8 [place] 2020-10-28 2020-10-28 [facility] [id number] Univers 13:15:00 13:15:00 RAÚL foreman [facility] 2020-10-28 2020-10-28 Travel 1.2.840.1 1.2.685.404 [id number] Univers 00:00:00 00:00:00 64199.1.1 350.1.13.10 ity of 3.104.2.7 [place].3.698 [place] .3.087092 084.8 Medica l .8 [place] 2020-10-27 2020-10-27 [facility], 1.2.840.6 [id number] Univers 11:25:01 23:59:00 Encounter Raúl Petersen 24774.1.1 ity of 3.104.2.7 [place] .3.732795 Medica l .8 [place] 2020-10-27 2020-10-27 [facility] [id number] Univers 12:30:00 12:30:00 RAÚL foreman [facility] 2020-10-27 2020-10-27 Mathematics Faculty Member Raúl 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 2 [id number] Univers 11:24:25 11:39:25 Visit Leah B[facility] 82977.1.1 ity of 3.104.2.7 [place] .3.077294 Medica l .8 [place] 2020-10-27 2020-10-27 [facility], 1.2.840.7 [id number] Univers 09:15:00 11:24:00 Encounter Raúl Petersen 13567.1.1 ity of 3.104.2.7 [place] .3.277508 Medica l .8 [place] 2020-10-27 2020-10-27 Travel 1.2.840.1 1.2.256.507 [id number] Univers 00:00:00 00:00:00 21216.1.1 350.1.13.10 ity of 3.104.2.7 4[place].7.3.698 [place] .3.658606 084.8 Medica l .8 Branch 2020-10-27 2020-10-27 Orders Doctor 1.2.840.3 [id number] [facility] 00:00:00 00:00:00 Only Unassigned, 79570.1.1 ity of [place] 3.104.2.7 [place] .3.944405 Medica l .8 Branch 2020-10-09 2020-10-09 Ancillary Emperatriz [place] 1.2.840.1 [id number] [facility] 13:52:39 15:27:42 Visit Class, Adc-Tka Pre Op 94000.1.1 ity of 3.104.2.7 [place] .3.477921 Medica l .8 Branch 2020-10-09 2020-10-09 Outpatient Barbie BUCKLEY, [facility] [id number] [facility] 13:00:00 13:00:00 EMPERATRIZ [facility] 2020-07-13 2020-07-13 Outpatient MARTHA, [facility] [id number] [place] [address] 00:00:00 00:00:00 [address] 2020-06-22 2020-06-22 Outpatient [facility] [id number] [place] [address] 00:00:00 00:00:[address] Results [...] 32.4 g/dL 31.2-35.0 RDW-SD (test code = 86880-7) 47.2 fL 38.5-51.6 RDW-CV (test code = 788-0) 14.0 % 12.1-15.4 PLT (test code = 777-3) See_Comment [Au tomated message] The system which ge nerated this result transmit daysi reference range: 150 - 32 8 10*3/?L. The reference range was not used to interpret th is result as normal/abnormal . MPV (test code = 57639-5) 9.8 fL 9.8-13.0 NRBC/100 WBC (test code = See_Comment [ Automated message] The 7395008378) system which ge nerated this result transmit daysi reference range: 0.0 - 10 .0 /100 WBCs. The reference r ale was not used to interpr et this result as normal/abnor mal. NRBC x10^3 (test code = <0.01 See_Comment [Au tomated message] The 9702702676) system which ge nerated this result transmit daysi reference range: 10*3/?L. The reference range was not u sed to interpret this result as normal/abnormal . GRAN MAT (NEUT) % (test code 81.7 % = 770-8) IMM GRAN % (test code = 0.60 % 4198742439) LYMPH % (test code = 736-9) 6.6 % MONO % (test code = 5905-5) 10.8 % EOS % (test code = 713-8) 0.2 % BASO % (test code = 706-2) 0.1 % GRAN MAT x10^3(ANC) (test 7.10 10*3/uL 1.99-6.95 H code = 3963995667) IMM GRAN x10^3 (test code = 0.05 10*3/uL 0.00-0.06 2017341990) LYMPH x10^3 (test code = 0.57 10*3/uL 1.09-3.23 L 731-0) MONO x10^3 (test code = 0.94 10*3/uL 0.36-1.02 742-7) EOS x10^3 (test code = <0.03 0.06-0.53 L 711-2) BASO x10^3 (test code = <0.03 0.01-0.09 704-7) Lab Interpretation (test Abnormal code = 00087-5) [facility] with [id number] 09:14:00 Test Item Value Reference Range Interpretation Comments WBC (test code = See_Comment [Automated 6690-2) message] The sy stem which generated this result transmitted reference range : 4.20 - 10.70 10*3/?L. The reference range was not used to interpret this result as normal/abnormal . RBC (test code = See_Comment L [Automated 789-8) message] The sy stem which [...] RDW-SD (test code = 47.2 fL 38.5-51.6 77756-3) RDW-CV (test code = 14.0 % 12.1-15.4 788-0) PLT (test code = See_Comment [Automated 777-3) message] The sy stem which generated this result transmitted reference range : 150 - 328 10*3/ ?L. The reference r ale was not used to interpret this result as normal/abnormal . MPV (test code = 9.8 fL 9.8-13.0 53355-8) NRBC/100 WBC (test See_Comment [Automat ed code = 6478563381) message] The system which generated this result transmitted reference range : 0.0 - 10.0 /100 WBCs. The refer ence range was not u sed to interpret th is result as normal/abnormal . NRBC x10^3 (test code <0.01 See_Comment [Auto mated = 8214179499) message] The s ystem which generated this result transmitted reference range : 10*3/?L. The reference range was not used to interpret this result as normal/abnormal . GRAN MAT (NEUT) % 81.7 % (test code = 770-8) IMM GRAN % (test code 0.60 % = 6554708468) LYMPH % (test code = 6.6 % 736-9) MONO % (test code = 10.8 % 5905-5) EOS % (test code = 0.2 % 713-8) BASO % (test code = 0.1 % 706-2) GRAN MAT x10^3(ANC) 7.10 10*3/uL 1.99-6.95 H (test code = 5426913038) IMM GRAN x10^3 (test 0.05 10*3/uL 0.00-0.06 code = 3706818550) LYMPH x10^3 (test code 0.57 10*3/uL 1.09-3.23 L = 731-0) MONO x10^3 (test code 0.94 10*3/uL 0.36-1.02 = 742-7) EOS x10^3 (test code = <0.03 0.06-0.53 L 711-2) BASO x10^3 (test code <0.03 0.01-0.09 = 704-7) Lab Interpretation Abnormal (test code = 79044-3) [facility] 13:20:38Duc Malcolm CRNA ? ? 11/05/2020 ?8:21 AMIntubationUrgency: elective Airway not difficult General Information and Staff Patient location during procedure: ORResident/POWER REACTOR SUPERVISOR: Duc Malcolm CRNAPerformed: resident/POWER REACTOR SUPERVISOR Indications and Patient ConditionIndications for airway management: anesthesiaSpontaneous Ventilation: absentSedation level: deepPreoxygenated: yesPatient position: sniffingMILS maintainedthroughoutMask difficulty assessment: 0 - not attempted Final Airway DetailsFinal airway type: supraglottic airway Successful airway: classic (igel)Size [address] Baptist HospitalNerve Hacdt3269-73-20 12:55:52Td Woods MD ? ? 11/05/2020 ?7:59 [...] checked, site marked, risks and benefits discussed, surgical consent, monitors and equipment checked, pre-op evaluation, timeout performedInformed consent obtained patient wishes to proceed: yesSterile Prep/Drape: YesMonitoring: continuous pulse ox, blood pressure and ECGInjection Technique: single-shotNeedle Type: StimuplexNeedle Gauge: 22 GNeedle Length: 3 .5Number of Attempts: 1Motor response present at (mA): 0.3Technique: Stimulating needle, Ultrasound guided, Negative aspiration and Intermittent aspiration during injectionSensory Effect: AdequateEvents: No paresthesia on incremental injection, Negative Aspiration, Patient tolerated procedure well, Local anesthetic solution visualized around nerve and No symptoms of intraneural or IV injection Medications Given: Regional:EPI 1:200K Sedation:Midazolam 1 mg Additional Notes:Right Adductor canal block and 5 cc around the tibial nerve placed and seen with ultrasound Total 0f 35 cc 0. 5 % Ropivacaine with 1:200,000 Epi used in both blocks - 30 cc Adductor and [address] Baptist HospitalType and Screen - ONCE [id number] 12:46:02 Test Item Value Reference Range Interpretation Comments ABO & RH (test code O Positive Performe d at NDMB = 20) [facility] [address] [place] [address]Wlad Free: [phone] A No. [id number] IAT (test code = Negative Performed a t [facility] 1185) Laboratory [facility] [place] [address]Toll Free: [phone] A No. [id number] [facility] and Screen - ONCE [id number] 12:46:02 Test Item Value Reference Range Interpretation Comments ABO & RH (test code O Positive Performe d at [facility] = 20) Laboratory [facility] [address] [place], [place] [address]Toll Free: [phone] A No. [id number] IAT (test code = Negative Performed a t [facility] 1185) Laboratory [facility] Blood [place] [address]Toll Free: [phone] A No. [id number] [facility] CampusABORH [id number] 13:52:25 Test Item Value Reference Range Interpretation Comments ABO & RH (test code O Positive Performe d at [facility] = 20) Laboratory [facility] [place] [address]Toll Free: [phone] A No. [id number] [facility] and Screen - ONCE [id number] 12:49:48 Test Item Value Reference Range Interpretation Comments ABO & RH (test code O Positive Performe d at [facility] = 20) Laboratory [facility] [place] [address]Toll Free: [phone] A No. [id number] IAT (test code = Negative Performed a t [facility] 1185) Laboratory [facility] [address] [place], [place] [address]Toll Free: [phone] A No. [id number] [facility] and Screen - ONCE [id number] 12:49:48 Test Item Value Reference Range Interpretation Comments ABO & RH (test code O Positive Performe d at [facility] = 20) Laboratory [facility] [address] [place], [place] [address]Mkhs Free: [phone] A No. [id number] IAT (test code = Negative Performed a t [facility] 1185) [facility] [address] [place], [place] [address]Yuzo Free: [phone] A No. [id number] [facility] CampusXR CHEST 2 [id number] 20:50:491. 1.5 cm nodule in the left [...] ofspondylosis are seen in the thoracic spine. [facility], Radiant Results Inft User - 10/27/2020 3:51 PM CDT CHEST 2 VIEWS:HISTORY:PreopTECHNIQUE:: PA and lateral views of the [...] evaluation2. COPD and changes of prior granulomatous infection.[facility] CHEST 2 [id number] 20:50:491. 1.5 cm nodule in the left [...] ofspondylosis are seen in the thoracic spine. [facility], Radiant Results Inft User - 10/27/2020 3:51 PM CDT CHEST 2 VIEWS:HISTORY:PreopTECHNIQUE:: PA and lateral views of the [...] evaluation2. COPD and changes of prior granulomatous infection.[facility] CampusCOMP. METABOLIC PANEL (76145)2020-10-27 18:25:10 Test Item Value Reference Range Interpretation Comments NA (test code = 138 mmol/L 135-145 0667452350) K (test code = 4.4 mmol/L 3.5-5.0 8927205239) CL (test code = 105 mmol/L 98-108 3283071535) CO2 TOTAL (test code = 25 mmol/L 23-31 4547980486) AGAP (test code = 2-16 1837515565) BUN (test code = 19 mg/dL 7-23 4673801805) GLUCOSE (test code = 113 mg/dL 70-110 H 2592942411) CREATININE (test code = 0.96 mg/dL 0.60-1.25 6375155563) TOTAL BILI (test code = 0.5 mg/dL 0.1-1.1 0305017511) CALCIUM (test code = 10.0 mg/dL 8.6-10.6 7345543095) T PROTEIN (test code = 6.6 g/dL 6.3-8.2 7775593538) ALBUMIN (test code = 4.2 g/dL 3.5-5.0 7755596544) ALK PHOS (test code = 102 U/L 34-122 1028546354) ALTv (test code = 37 U/L 5-50 1742-6) AST(SGOT) (test code = 27 U/L 13-40 9547075617) eGFR (test code = mL/min/1.73m2 7610262505) DONALDO (test code = DONALDO) Association of [...] tests). Lab Interpretation Abnormal (test code = 68741-7) [facility] CampusACTIVATED PARTIAL THRMPLAS [id number] 17:24:38 Test Item Value Reference Range Interpretation Comments APTT Patient (test See_Comment [Automat ed code = 3173-2) message] The system which generated this result transmitted reference range : 23 - 38 Seconds . The reference range was not used to interpr et this result as normal/abnormal . DONALDO (test code = DONALDO) The [facility] patient population mean normal value for aPTT is 30 seconds. Lab Interpretation Normal (test code = 95477-9) [facility] CampusPROTHROMBIN TIME / [id number] 17:22:41 Test Item Value Reference Range Interpretation Comments PROTIME PATIENT (test See_Comment [Auto mated message] code = 5964-2) The system [employer] generated this result transmitted ref erence range: 12.0 - 1 4.7 Seconds. The re ference range was not u sed to interpret this result as normal/abnor mal. INR (test code = 6301-6) Nor mal INR <1.1; Warfarin Therap eutic range 2.0 to 3. 0 or 2.5 to 3.5, dep ending upon the indica tions. Lab Interpretation (test Normal code = 88193-4) [facility] CampusURINALYSIS2021-06-14 17:16:23 Test Item Value Reference Range Interpretation Comments APPEARANCE (test code = Clear Clear 2278806924) COLOR (test code = Yellow Yellow 4300757744) PH (test code = 4.8-8.0 4976842395) SP GRAVITY (test code = 1.003-1.030 4391837068) GLU U QUAL (test code = Normal Normal 7406018489) BLOOD (test code = Negative Negative 4917555285) KETONES (test code = Negative Negative 8012562630) PROTEIN (test code = Negative Negative 2887-8) UROBILIN (test code = Normal Normal 0321020189) BILIRUBIN (test code = Negative Negative 8954301301) NITRITE (test code = Negative Negative 7216525521) LEUK KEESHA (test code = Negative Negative 2661645582) RBC/HPF (test code = <1 See_Comment [Autom ated message] 4984853485) The system PromoJam generated this result transmitted ref erence range: 0 - 3 HP F. The reference range was not used to int erpret this result as normal/abnormal . WBC/HPF (test code = <1 See_Comment [Autom ated message] 3070196722) The system [employer] generated this result transmitted ref erence range: 0 - 5 HP F. The reference range was not used to int erpret this result as normal/abnormal . BACTERIA (test code = Negative Negative 9074041179) MUCOUS (test code = Slight Negative LPF A 6719855912) HYAL CAST (test code = See_Comment [Aut omated message] 4096209626) The system [employer] generated this result transmitted ref erence range: <=2 LPF. The reference range was not used to int erpret this result as normal/abnormal . Lab Interpretation (test Abnormal code = 46117-0) [facility]URINALYSIS2021-06-14 17:16:23 Test Item Value Reference Range Interpretation Comments APPEARANCE (test code = Clear Clear 5026991545) COLOR (test code = Yellow Yellow 4661600113) PH (test code = 4.8-8.0 5288524109) SP GRAVITY (test code = 1.003-1.030 6163692647) GLU U QUAL (test code = Normal Normal 4515786175) BLOOD (test code = Negative Negative 2333562436) KETONES (test code = Negative Negative 4999717795) PROTEIN (test code = Negative Negative 2887-8) UROBILIN (test code = Normal Normal 9879164307) BILIRUBIN (test code = Negative Negative 1652041383) NITRITE (test code = Negative Negative 7223828527) LEUK KEESHA (test code = Negative Negative 8162008428) RBC/HPF (test code = <1 See_Comment [Autom ated message] 9598847337) The system [employer] generated this result transmitted ref erence range: 0 - 3 HP F. The reference range was not used to int erpret this result as normal/abnormal . WBC/HPF (test code = <1 See_Comment [Autom ated message] 9272403050) The system [employer] generated this result transmitted ref erence range: 0 - 5 HP F. The reference range was not used to int erpret this result as normal/abnormal . BACTERIA (test code = Negative Negative 3178778230) MUCOUS (test code = Slight Negative LPF A 6774338483) HYAL CAST (test code = See_Comment [Aut omated message] 6926626732) The system [employer] generated this result transmitted ref erence range: <=2 LPF. The reference range was not used to int erpret this result as normal/abnormal . Lab Interpretation (test Abnormal code = 66997-5) [facility]CB WITH [id number] 16:45:17 Test Item Value Reference Range Interpretation [...] RDW-SD (test code = 45.5 fL 38.5-51.6 90669-9) RDW-CV (test code = 13.8 % 12.1-15.4 788-0) PLT (test code = See_Comment [Automated 777-3) message] The sy stem which generated this result transmitted reference range : 150 - 328 10*3/ ?L. The reference r ale was not used to interpret this result as normal/abnormal . MPV (test code = 9.0 fL 9.8-13.0 L 36901-5) NRBC/100 WBC (test See_Comment [Automat ed code = 6164436532) message] The system which generated this result transmitted reference range : 0.0 - 10.0 /100 WBCs. The refer ence range was not u sed to interpret th is result as normal/abnormal . NRBC x10^3 (test code <0.01 See_Comment [Auto mated = 4349785885) message] The s ystem which generated this result transmitted reference range : 10*3/?L. The reference range was not used to interpret this result as normal/abnormal . GRAN MAT (NEUT) % 71.5 % (test code = 266-8) IMM GRAN % (test code 0.40 % = 9261069298) LYMPH % (test code = 13.2 % 736-9) MONO % (test code = 10.7 % 5905-5) EOS % (test code = 3.8 % 713-8) BASO % (test code = 0.4 % 706-2) GRAN MAT x10^3(ANC) 3.95 10*3/uL 1.99-6.95 (test code = 1833492818) IMM GRAN x10^3 (test <0.03 0.00-0.06 code = 0703781807) LYMPH x10^3 (test code 0.73 10*3/uL 1.09-3.23 L = 731-0) MONO x10^3 (test code 0.59 10*3/uL 0.36-1.02 = 742-7) EOS x10^3 (test code = 0.21 10*3/uL 0.06-0.53 711-2) BASO x10^3 (test code <0.03 0.01-0.09 = 704-7) Lab Interpretation Abnormal (test code = 28126-5) [facility] WITH [id number] 16:45:17 Test Item Value Reference Range Interpretation Comments WBC (test code = See_Comment [Automated 1890-2) message] The sy stem which generated this result transmitted reference range : 4.20 - 10.70 10*3/?L. The reference range was not used to interpret this result as normal/abnormal . RBC (test code = See_Comment [Automated 586-8) message] The sy stem which generated this [...] RDW-SD (test code = 45.5 fL 38.5-51.6 84006-2) RDW-CV (test code = 13.8 % 12.1-15.4 788-0) PLT (test code = See_Comment [Automated 777-3) message] The sy stem which generated this result transmitted reference range : 150 - 328 10*3/ ?L. The reference r ale was not used to interpret this result as normal/abnormal . MPV (test code = 9.0 fL 9.8-13.0 L 47804-3) NRBC/100 WBC (test See_Comment [Automat ed code = 0966027043) message] The system which generated this result transmitted reference range : 0.0 - 10.0 /100 WBCs. The refer ence range was not u sed to interpret th is result as normal/abnormal . NRBC x10^3 (test code <0.01 See_Comment [Auto mated = 1686826665) message] The s ystem which generated this result transmitted reference range : 10*3/?L. The reference range was not used to interpret this result as normal/abnormal . GRAN MAT (NEUT) % 71.5 % (test code = 770-8) IMM GRAN % (test code 0.40 % = 6002655481) LYMPH % (test code = 13.2 % 736-9) MONO % (test code = 10.7 % 5905-5) EOS % (test code = 3.8 % 713-8) BASO % (test code = 0.4 % 706-2) GRAN MAT x10^3(ANC) 3.95 10*3/uL 1.99-6.95 (test code = 2390727475) IMM GRAN x10^3 (test <0.03 0.00-0.06 code = 3058424269) LYMPH x10^3 (test code 0.73 10*3/uL 1.09-3.23 L = 731-0) MONO x10^3 (test code 0.59 10*3/uL 0.36-1.02 = 742-7) EOS x10^3 (test code = 0.21 10*3/uL 0.06-0.53 711-2) BASO x10^3 (test code <0.03 0.01-0.09 = 704-7) Lab Interpretation Abnormal (test code = 47347-3) [facility] CampusProthrombin Time and [id number] 10:18:34 Test Item Value Reference Range Interpretation Comments Prothrombin Time (test code = 10.4 seconds 9.8-13.4 Prothrombin Time) INR (test code = INR) 0.9 ratio 0.6-1.2 Partial Thromboplastin [id number] 10:18:34 Test Item Value Reference Range Interpretation Comments Partial Thromboplastin Time 38.50 seconds 24.39-37.25 H (test code = Partial Thromboplastin Time) [facility] [id number] 09:44:04 Test Item Value Reference Range Interpretation [...] A/G 1.9 ratio N Ratio) [facility] [id number] 09:44:04 Test Item Value Reference Range Interpretation [...] ag e have not been validated by e MDRD study and should be interpreted wit h caution. eGFR R esult Interpretation: eGFR > or = 60 is in the Normal RangeeGF R < 60 may mean kid kit diseaseeGFR < 1 5 may mean kidney failure Rang es recommended by the [employer], http://nkdep.ni h.gov Comprehensive [facility] [id number] 09:44:04 Test Item Value Reference Range Interpretation [...] ag e have not been validated by [facility] MDRD study and should be interpreted wit [...] ag e have not been validated by [facility] MDRD study and should be interpreted wit h caution. eGFR R esult Interpretation: eGFR > or = 60 is in the Normal RangeeGF R < 60 may mean kid kit diseaseeGFR < 1 5 may mean kidney failure Rang es recommended by the [employer], http://nkdep.ni h.gov Automated [id number] 09:17:58 Test Item Value Reference Range Interpretation Comments Neutro Auto (test code = Neutro 73.6 % 36.0-70.0 H Auto) Lymph Auto (test code = Lymph Auto) 13.3 % 12.0-44.0 Cecil Auto (test code = Cecil Auto) 9.5 % 0.0-11.0 Eos, Auto (test code = Eos, Auto) 2.9 % 0.0-7.0 Basophil Auto (test code = Basophil 0.4 % 0.0-2.0 Auto) Neutro Absolute (test code = Neutro 5.5 x10 1.6-7.4 Absolute) Lymph Absolute (test code = Lymph 1.00 x10 .50-4.60 Absolute) Cecil Absolute (test code = Cecil .71 x10 .00-1.20 Absolute) Eos Absolute (test code = Eos 0.22 x10 0.00-0.74 Absolute) Baso Absolute (test code = Baso 0.03 x10 0.00-0.21 Absolute) IG [id number] 09:17:58 Test Item Value Reference Range Interpretation Comments IG (test code = IG) 0.3 % 0.0-5.0 IG Abs (test code = IG Abs) 0 x10 N Complete Blood Count with [id number] 09:17:57 Test Item Value Reference Range Interpretation [...]
[2022-03-28 05:37] LABS: Urine Blood 3+ (Negative); Urine Glucose Negative (Negative); Urine Protein 2+ (Negative); Urine Specific Gravity 1.025 (1.005-1.030); Urine pH 6.5 (5.0-7.0)
[2022-03-28 05:55] LABS: Specific Gravity 1.019 (1.005-1.030); Urine Bacteria <20 /HPF (<20); Urine Bilirubin NEGATIVE (Negative); Urine Blood 3+ (OVER) (Negative); Urine Clarity Turbid (Clear); Urine Color Light-Orange (Yellow); Urine Glucose NEGATIVE (Negative); Urine Protein TRACE (Negative); Urine RBC >50 /HPF (None Seen); Urine Urobilinogen Normal (Normal); Urine pH 6.5 (5.0-7.0)
--- NOTE | 2022-03-28 06:10 | ER ---
Nurse's Notes [facility] Name: Patel Quezada Age: 72 yrs Sex: Male : 1950 Arrival Date: 03/28/2022 Time: 04:34 Bed 14 Private MD: Diagnosis: Gross hematuria Presentation: 03/28 04:49 Chief complaint: Patient states: he woke up this morning to urinate and there was blood bb in his urine and again before he came to the ED. Coronavirus screen: Client presents with at least one sign or symptom that may indicate coronavirus-19. Ebola Screen: No symptoms or risks identified at this time. Initial Sepsis Screen: Does the patient meet any 2 criteria? No. Patient's initial sepsis screen is negative. Does the patient have a suspected source of infection? No. Patient's initial sepsis screen is negative. Risk Assessment: Do you want to hurt yourself or someone else? Patient reports no desire to harm self or others. Onset of symptoms was March 28, 2022. 04:49 Method Of Arrival: Ambulatory bb 04:49 Acuity: JANET 3 bb Triage Assessment: 05:00 General: Appears in no apparent distress. Behavior is appropriate for age. Pain: Denies ke1 pain. Historical: - Allergies: 04:52 No Known Allergies; bb - Home Meds: 04:52 Trelegy Ellipta inhalation [Active]; Proair [Active]; Zytiga oral [Active]; Prednisone bb Oral [Active]; trelstar [Active]; turmeric (bulk) miscellaneous [Active]; Naproxen Oral [Active]; multivitamin oral [Active]; losartan oral [Active]; tamsulosin oral [Active]; atorvastatin oral [Active]; Plavix Oral [Active]; Furosemide Oral [Active]; calcium 500 / Vitamin D 200 [Active]; Spironolactone Oral [Active]; B12 [Active]; D3 [Active]; C [Active]; Zinc Sulfate Oral [Active]; - PMHx: 04:52 COPD; Hypercholesterolemia; Hypertensive disorder; Prostate Cancer; bb - PSHx: 04:52 Cholecystectomy; Left kidney removed; Replacement of total knee joint; Right and Left; bb - Immunization history:: Pfizer x 4. - Social history:: Smoking status: Patient/guardian denies using tobacco, but has a distant history of tobacco abuse. Screenin:00 Abuse screen: Denies threats or abuse. Nutritional screening: No deficits noted. ke1 Tuberculosis screening: No symptoms or risk factors identified. Fall Risk None identified. Assessment: 06:00 Reassessment: No changes from previously documented assessment. Patient is alert, ke1 oriented x 3, equal unlabored respirations, skin warm/dry/pink. Vital Signs: 04:49 BP 144 / 79; Pulse 92; Resp 89; Temp 98.1(O); Pulse Ox 92% on R/A; Weight 110.68 kg bb (R); Height 5 ft. 11 in. (180.34 cm) (R); Pain 0/10; 06:17 BP 136 / 62; Pulse 84; Resp 17; Temp 98; Pulse Ox 94% on R/A; ke1 04:49 Body Mass Index 34.03 (110.68 kg, 180.34 cm) ED Course: 04:34 Patient arrived in ED. bp1 04:36 Jordan Gould DO is Attending Physician. ms3 04:51 Triage completed. bb 04:52 Arm band placed on Patient placed in an exam room, on a stretcher, on pulse oximetry. bb 04:57 Ventura Caruso, LAURYN is Primary Nurse. ke1 05:00 Bed in low position. Call light in reach. Side rails up X 1. ke1 05:34 Urinalysis Sent. ke1 06:09 Javier Nunez MD is Referral Physician. ms3 06:18 No provider procedures requiring assistance completed. Patient did not have IV access ke1 during this emergency room visit. Administered Medications: No medications were administered Medication: 06:18 VIS not applicable for this client. ke1 Outcome: 06:09 Discharge ordered by . ms3 06:18 Discharged to home ambulatory. ke1 06:18 Condition: good 06:18 Discharge instructions given to patient. 06:18 Patient left the ED. ke1 Signatures: Dorota Cox RN RN bb Jordan Gould DO DO ms3 Concepción Ernandez bp1 Ventura Caruso RN RN ke1
--- NOTE | 2022-03-28 06:10 | EDPHYS ---
Physician Documentation [facility] Name: Patel Quezada Age: 72 yrs Sex: Male : 1950 Arrival Date: 03/28/2022 Time: 04:34 Bed 14 Private MD: ED Physician Jordan Gould HPI: 03/28 04:54 This 72 yrs old Male presents to ER via Ambulatory with complaints of Blood in Urine. ms3 04:54 The patient presents with urinary symptoms, Hematuria. Onset: The symptoms/episode ms3 began/occurred just prior to arrival. Modifying factors: The symptoms are alleviated by nothing, the symptoms are aggravated by nothing. Associated signs and symptoms: Pertinent positives: hematuria, Pertinent negatives: abdominal pain, diarrhea, dysuria, fever. Severity of symptoms: At their worst the symptoms were moderate, in the emergency department the symptoms are unchanged, a " 0" out of "10". Historical: - Allergies: 04:52 No Known Allergies; bb - Home Meds: 04:52 Trelegy Ellipta inhalation [Active]; Proair [Active]; Zytiga oral [Active]; Prednisone bb Oral [Active]; trelstar [Active]; turmeric (bulk) miscellaneous [Active]; Naproxen Oral [Active]; multivitamin oral [Active]; losartan oral [Active]; tamsulosin oral [Active]; atorvastatin oral [Active]; Plavix Oral [Active]; Furosemide Oral [Active]; calcium 500 / Vitamin D 200 [Active]; Spironolactone Oral [Active]; B12 [Active]; D3 [Active]; C [Active]; Zinc Sulfate Oral [Active]; - PMHx: 04:52 COPD; Hypercholesterolemia; Hypertensive disorder; Prostate Cancer; bb - PSHx: 04:52 Cholecystectomy; Left kidney removed; Replacement of total knee joint; Right and Left; bb - Immunization history:: Pfizer x 4. - Social history:: Smoking status: Patient/guardian denies using tobacco, but has a distant history of tobacco abuse. ROS: 04:54 Constitutional: Negative for fever, and chills. Neck: Negative for injury, pain, and ms3 swelling, Cardiovascular: Negative for chest pain, and palpitations. Respiratory: Negative for shortness of breath, cough, wheezing, and pleuritic chest pain, Abdomen/GI: Negative for abdominal pain, nausea, vomiting, diarrhea, and constipation. 04:54 : Positive for hematuria, Negative for urinary frequency, burning with urination, penile discharge, penile pain, testicular pain 04:54 All other systems are negative. Exam: 04:54 Constitutional: This is a well developed, well nourished patient who is awake, alert, ms3 and in no acute distress. Head/Face: Normocephalic, atraumatic. Neck: Trachea midline, no cervical lymphadenopathy. Supple, full range of motion without nuchal rigidity, or vertebral point tenderness. No Meningismus. Chest/axilla: Normal chest wall appearance and motion. Nontender with no deformity. Cardiovascular: Regular rate and rhythm with a normal S1 and S2. No gallops, murmurs, or rubs. Normal PMI, no JVD. No pulse deficits. Respiratory: Lungs have equal breath sounds bilaterally, clear to auscultation and percussion. No rales, rhonchi or wheezes noted. No increased work of breathing, no retractions or nasal flaring. Abdomen/GI: Soft, non-tender, with normal bowel sounds. No distension or tympany. No guarding or rebound. No evidence of tenderness throughout. Skin: Warm, dry with normal turgor. Normal color with no rashes, no lesions, and no evidence of cellulitis. MS/ Extremity: Pulses equal, no cyanosis. Neurovascular intact. Full, normal range of motion. Vital Signs: 04:49 BP 144 / 79; Pulse 92; Resp 89; Temp 98.1(O); Pulse Ox 92% on R/A; Weight 110.68 kg bb (R); Height 5 ft. 11 in. (180.34 cm) (R); Pain 0/10; 06:17 BP 136 / 62; Pulse 84; Resp 17; Temp 98; Pulse Ox 94% on R/A; ke1 04:49 Body Mass Index 34.03 (110.68 kg, 180.34 cm) bb MDM: 04:53 Patient medically screened. ms3 04:54 Differential diagnosis: UTI, urinary retention, Hematuria. ms3 06:10 Data reviewed: vital signs, nurses notes, lab test result(s), and as a result, I will ms3 discharge patient. Counseling: I had a detailed discussion with the patient and/or guardian regarding: the historical points, exam findings, and any diagnostic results supporting the discharge/admit diagnosis, lab results, the need for outpatient follow up, to return to the emergency department if symptoms worsen or persist or if there are any questions or concerns that arise at home. Special discussion: I discussed with the patient/guardian in detail that at this point there is no indication for admission to the hospital. It is understood, however, that if the symptoms persist or worsen the patient needs to return immediately for re-evaluation. ED course: Discussed urinalysis results with patient. Patient to follow-up with his urologist in 2 to 3 days. Patient understands agrees with plan. All questions were answered. Patient's hematuria improved while in the emergency department. Discussed return precautions to include urinary retention, worsening symptoms, or any other concerns.. 03/28 04:54 Order name: Urinalysis; Complete Time: 06:02 ms3 03/28 05:37 Order name: Urine Dipstick-Ancillary; Complete Time: 05:52 EDMS 03/28 04:54 Order name: Urine Dipstick-Ancillary (obtain specimen); Complete Time: 05:34 ms3 Administered Medications: No medications were administered Disposition Summary: 03/28/22 06:09 Discharge Ordered Location: Home ms3 Condition: Stable ms3 Diagnosis - Gross hematuria ms3 Followup: ms3 - With: Javier Nunez MD - When: 2 - 3 days - Reason: Discharge Instructions: - Discharge Summary Sheet ms3 - Hematuria, Adult ms3 Forms: - Medication Reconciliation Form ms3 - Thank You Letter ms3 - Antibiotic Education ms3 - Prescription Opioid Use ms3 Signatures: Dispatcher [employer] Dorota Ayers, RN RN Jordan Perez DO DO ms3
[2022-03-28 06:24] VITALS: BP 136/62; TEMP 98; O2SAT 94
== END 2022-03-28 06:18 | disposition home or self-care (01) ==
LOC: ER 04:31
DX: R31.0 Gross hematuria (principal); I10 Essential (primary) hypertension; J44.9 Chronic obstructive pulmonary disease, unspecified; Z79.01 Long term (current) use of anticoagulants
CPT/HCPCS: 81001; 81003; 99283

== ENCOUNTER 2022-06-23 13:43 | Inpatient (IN) | payer OTHER ==
--- OUTSIDE RECORDS SUMMARY | 2022-06-23 13:49 | XMS REPORT | Continuity of Care Document ---
:1950 Author Organization [facility] t Address [address] [place] [address] Care Team Providers Name Role Phone Asked, No Pcp Primary Care Physician Unavailable RAÚL BLEDSOE Attending Clinician Unavailable Raúl Bledsoe MD Attending Clinician [phone] Janie Tamez CRNA Attending Clinician Td Woods MD Attending Clinician Po, [facility] Main Attending Clinician Unavailable Doctor Unassigned, Ragland Attending Clinician Unavailable Emperatriz Buckley MD Attending Clinician Class, [facility] Pre Op Attending Clinician Unavailable EMPERATRIZ BUCKLEY Attending Clinician Unavailable FADI THOMAS Attending Clinician Unavailable RAÚL BLEDSOE Admitting Clinician Unavailable Raúl Bledsoe MD Admitting Clinician Payers Payer Name Policy Type Policy Number Effective Date Expiration Date S ource MEDICARE PART A [id number] 2013 \\T\\ B 00:00:00 [employer] PPO I [id number] 2014 00:00:00 Problems Condition Condition Condition Status Onset Resolution Last Treating Co mments Source Name Details Category Date Date Treatment Clinician Date Arthritis Arthritis Disease Active Uni vers of right of right 6- ity of knee knee 00:00: [address] No known No known Disease Unive rs active active ity of problems problems [facility] Age Age Problem Common related related Spirit osteoporos osteoporos - [facility] is is [facility] Obesity Obesity Problem Common Spirit - [facility] Essential Essential Problem Com mon hypertensi (primary) Spi rit on hypertensi - [facility] on [facility] Age-relate Age-relate Problem C ommon d d Spirit osteoporos osteoporos - [facility] is is without [facility] pathologic Medica [facility] al Center fracture Malignant CA of Problem Common tumor of prostate [facility] prostate - [facility] [id number] S/P Problem Common radiation Spirit therapy - [facility] [id number] Gross Problem Common hematuria Spirit [facility] [id number] [place], [place] [id number] joint, Spirit knee, left - [facility] [id number] Primary Problem Comm on osteoarthr Spirit itis of [facility] left knee [facility] [id number] 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 - [facility] replacemen [facility] [id number] Androgen Problem Comm on deprivatio Spirit n therapy - [facility] Allergies, Adverse Reactions, Alerts Allergy Allergy Status Severity Reaction(s) Onset Inactive Treating Comm ents Source Name Type Date Date Clinician NO KNOWN Drug Active Univers ALLERGIE Class ity of S [facility] Social History Social Habit Start Date Stop Date Quantity Comments Source Exposure to Not sure University of SARS-CoV-2 [facility] (event) Branch History of Common Spirit - Tobacco Use [facility] Tobacco use and 2020-11-04 2020-11-04 Never used Universit y of exposure 00:00:00 00:00:00 [facility] Alcohol intake 2020-11-04 2020-11-04 Current drinker of Un iversity of 00:00:00 00:00:00 alcohol (finding) [facility] Alcohol Comment 2017-11-08 2017-11-08 Occasional Drinker U niversity of 00:00:00 00:00:00 [facility] Sex Ass[birth year] At [birth year] Religion 00:00:00 00:00:00 Hospital Smoking Status Start Date Stop Date Source Tobacco smoking Religion Hospit al consumption unknown Former Smoker 2022-06-16 00:00:00 2022-06-16 [facility] Never smoker [facility] Branch Medications Ordered Filled Start Stop Current Ordering Indication Dosage Frequency Signature Comments Components Source Medication Medication Date Date Medication? Clinician (SIG) Name Name HYDROcodone HYDROcodone No 1{table HYDROcodon -Acetaminop -Acetaminop 6-22 t_as_ne e-Acetamin hen 7.5-325 hen 7.5-325 00:00: eded} ophen MG MG 00 7.5-325 MG Xarelto 10 Xarelto 10 No 1{table QD Xarelto 10 MG MG 6-08 t} MG 00:00: 00 turmeric Yes 2{capsu Take 2 Univ ers [...] 6-24 by mouth ity of 21:05: daily. [place] [address] Medical Branch Cholecalcif Yes 400U Take 400 [...] by mouth ity of tablet 21:05: daily. [place] [address] Medical Branch spironolact Yes 25mg Take 25 mg Univers one 25 mg 6-24 by mouth ity of tablet 21:05: daily. [place] [address] Medical Branch turmeric Yes 2{capsu Take 2 [...] mcg daily. ity o f WITH 21:05: [place] HANDIHALER) 21 Medical 18 mcg Branch inhalation [...] by mouth ity of tablet 21:05: at [place] 21 bedtime. Medical Branch finasteride Yes 5mg Take 5 mg U nivers 5 mg tablet 6-24 by mouth ity of 21:05: daily. [place] [facility] Branch Cholecalcif Yes 400U Take 400 [...] for Wheezing or Shortness of Breath. furosemide 0 Yes 20mg Take 20 mg U nivers 20 mg 6-24 by mouth ity of tablet 21:05: daily. [address] Branch spironolact 0 Yes 25mg Take 25 mg Univers one 25 mg 6-24 by mouth ity of tablet 21:05: daily. [address] Branch docusate 0 Yes 100mg 100 mg, Unive rs (COLACE) [...] Medical First dose Branch on Tue11/05/20 at 2000, Last dose on Tue12/03/20 at 0800, Routine enoxaparin 2020- No 30mg 30 mg, Univ ers (LOVENOX) 11-06 Subcutaneo ity of injection 01:00: 00:59 [place], Q12H, [place] 30 mg 00 :00 56 doses, Medical First dose Branch on Tue11/05/20 at 1999, Last dose on Tue12/03/20 at 0800, Routine ondansetron 0 Yes 4mg 4 mg, Slow Univers (ZOFRAN [...] 15:04 INTRA [place] injection 00 :20 PROCEDURE, [facility] светлана Starting Branch 11/05/20 at 0933, Until Tue11/05/20 at 1004, Routine, [...] HYDROmorphO 2020- No Intravenou Univers ne 11-05 s, ONCE ity of (DILAUDID) 13:20: 15:04 INTRA [place] injection 00 :20 PROCEDURE, [facility] Starting Branch Tue11/05/20 at 0820, Until Tue11/05/20 at 1004, Routine, Intra-op dexamethaso 2020- No Intravenou Univers ne 11-05 s, ONCE ity of (DECADRON 12:49: 15:04 [...] 00 :20 PROCEDURE, Medica l Starting Branch 11/05/21 at 0746, Until 11/05/20 at 1004, Routine, Intra-op lidocaine 2020- No Intravenou U nivers 1% 11-05 s, ONCE ity of (XYLOCAINE) 12:39: 15:04 [place]TRA [place] mg/10 00 :20 PROCEDURE, Medi светлана mL (1 %) Starting Branch injection 11/05/20 at 0739, Until Tue11/05/20 at 1004, Routine, Intra-op propofoL IV 2020- No Intravenou Univers infusion 11-05 s, ONCE ity of 12:39: 15:04 INTRA [place] 00 :20 PROCEDURE, Medical Starting Branch 11/05/20 at 0739, Until Tue11/05/20 at 1004, Routine, Intra-op FENTanyl PF 2020- [...] Medical Wed Branch 11/05/20 at 0720, Until 11/05/20 at 1004, Routine, Intra-op acetaminoph 2020- No [...] 1 [place] mg 00 :00 dose, [facility] Medical 11/05/20 at Branch 0700, Routine, DSU Pre-op gabapentin No 300mg 300 mg, Un ilene (NEURONTIN) 11-05 Oral, ity of capsule 300 12:00: 12:08 ONCE, 1 [place] mg 00 :00 dose, [facility] Medical 11/05/20 at Branch 0700, Routine, DSU Pre-op acetaminoph No 1000mg 1,000 mg, Univers en ADULT 11-05 IV ity of (OFIRMEV) 12:00: 12:27 Infusion, [place] injection 00 :00 Administer Medi светлана 1,000 mg over 15 Branch Minutes, ONCE, 1 dose, 11/05/20 at 0700, Routine, DSU Pre-op
Indication : Perioperat frieda Patient oxyCODONE-a No 2{tbl} 2 tablet, Univers cetaminophe 11-05 Oral, ity of n 12:00: 12:08 ONCE, 1 [place] (PERCOCET) 00 :00 dose, Wed Medi светлана 5-325 mg 11/05/20 at Branc h per tablet 0700, 2 tablet Routine, DSU Pre-op celecoxib No 400mg 400 mg, Uni vers (CELEBREX) 11-05 Oral, ity of capsule 400 12:00: 12:08 ONCE, 1 [place] mg 00 :00 dose, [facility] Medical 11/05/20 at Branch 0700, Routine, DSU Pre-op gabapentin 2020- No 300mg 300 mg, Un ilene (NEURONTIN) 6- 06-23 Oral, ity of capsule 300 12:00: 12:08 [...] by mouth ity of tablet 11:43: at [place] 35 bedtime. Medical Branch finasteride Yes 5mg Take 5 mg U nivers 5 mg tablet 6-23 by mouth ity of 11:43: daily. [address] Branch Cholecalcif Yes 400U Take 400 Un ilene edgar, 6-23 Units by ity of Vitamin D3, 11:43: mouth [place] (VITAMIN 35 daily. Medical D3) 400 Branch [...] by mouth ity of tablet 11:43: daily. [address] Branch spironolact Yes 25mg Take 25 mg Univers one 25 mg 6-23 by mouth ity of tablet 11:43: daily. [address] clopidogrel 2020- No 75mg Take 75 mg Univers 75 mg 6-04 11-22 by mouth ity of tablet 16:56: 00:00 daily. [place] 26 :00 [facility] clopidogrel 2020- No 75mg Take 75 mg Univers 75 mg -04 11-22 by mouth ity of tablet 16:56: 00:00 daily. [place] 26 :00 [facility] Branch turmeric Yes 2{capsu Take 2 Univ [...] mcg daily. ity o f WITH 13:39: [place] HANDIHALER) Medical 18 mcg Branch inhalation losartan 50 Yes 50mg Take 50 mg Univers mg tablet 6-16 by mouth ity of 13:39: daily. [place] [address] Medical Branch hydroCHLORO Yes 12.5mg Take 12.5 Univers thiazide 25 6-16 mg by ity of mg tablet 13:39: mouth [place] 27 daily. Medical Branch tamsulosin Yes .4mg Take 0.4 Uni vers 0.4 mg 24 6-16 mg by ity of hr capsule 13:39: mouth [place] daily. Medical Branch atorvastati Yes 20mg Take 20 mg Univers n 20 mg 6-16 by mouth ity of tablet 13:39: at [place] bedtime. Medical Branch finasteride Yes 5mg Take 5 mg U nivers 5 mg tablet 6-16 by mouth ity of 13:39: daily. [place] [address] Medical Branch clopidogrel Yes 75mg Take 75 mg Univers 75 mg 6-16 by mouth ity of tablet 13:39: daily. [place] [address] Medical Branch Cholecalcif Yes 400U Take 400 [...] by mouth ity of tablet 13:39: daily. [place] [address] Medical Branch spironolact Yes 25mg Take 25 mg Univers one 25 mg 6-16 by mouth ity of tablet 13:39: daily. [place] [address] Medical Branch turmeric Yes 2{capsu Take 2 [...] 6-16 by mouth ity of 13:39: daily. [place] [address] Medical Branch hydroCHLORO Yes 12.5mg Take 12.5 [...] 6-16 by mouth ity of 13:39: daily. [address] Branch clopidogrel Yes 75mg Take 75 mg Univers 75 mg 6-16 by mouth ity of tablet 13:39: daily. [place] [address] Medical Branch Cholecalcif Yes 400U Take 400 [...] by mouth ity of tablet 13:39: daily. [address] Branch spironolact Yes 25mg Take 25 mg Univers one 25 mg 6-16 by mouth ity of tablet 13:39: daily. [address] Branch turmeric Yes 2{capsu Take 2 Univ [...] mcg daily. ity o f WITH 13:39: [place] HANDIHALER) 27 Medical 18 mcg Branch inhalation losartan 50 Yes 50mg Take 50 mg Univers mg tablet 6-16 by mouth ity of 13:39: daily. [place] [address] Medical Branch hydroCHLORO Yes 12.5mg Take 12.5 Univers thiazide 25 6-16 mg by ity of mg tablet 13:39: mouth [place] 27 daily. Medical Branch tamsulosin Yes .4mg Take 0.4 Uni vers 0.4 mg 24 6-16 mg by ity of hr capsule 13:39: mouth [place] [address] daily. Medical Branch atorvastati Yes 20mg Take 20 mg Univers n 20 mg 6-16 by mouth ity of tablet 13:39: at [place] [address] bedtime. Medical Branch finasteride Yes 5mg Take 5 mg U nivers 5 mg tablet 6-16 by mouth ity of 13:39: daily. [place] [address] Medical Branch clopidogrel Yes 75mg Take 75 mg Univers 75 mg 6-16 by mouth ity of tablet 13:39: daily. [place] [address] Medical Branch Cholecalcif Yes 400U Take 400 [...] by mouth ity of tablet 13:39: daily. [address] Branch spironolact Yes 25mg Take 25 mg Univers one 25 mg 6-16 by mouth ity of tablet 13:39: daily. [address] FENTanyl PF Yes Epidural, U nivers (SUBLIMAZE -16 ONCE INTRA ity of (PF)) 12:25: PROCEDURE, [place] injection 00 Starting Medica l [facility] Branch 10/29/20 at 0725, Until Discontinu ed, Routine, Intra-op lactated 2020- No 1000mL at 42 Unive rs ringers IV 10-29 mL/hr, ity of infusion 12:15: 12:14 1,000 mL, [place] 1,000 mL 00 :00 IV Medical Infusion, Branch ONCE, 1 dose, [facility] 10/29/20 at 0715, Routine, DSU Pre-op gabapentin 2020- No 300mg 300 mg, Un ilene (NEURONTIN) 10-29 Oral, ONCE i ty of capsule 300 12:00: 11:45 TOMORROW, [place] mg 00 :00 1 dose, Medical Wed Branch 10/29/20 at 0700, Routine, DSU Pre-op oxyCODONE-a 2020- No 2{tbl} 2 tablet, Univers cetaminophe 10-29 Oral, ONCE i ty of n 12:00: 11:45 TOMORROW, [place] (PERCOCET) 00 :00 1 dose, Medica l 5-325 mg Wed Branch per tablet 10/29/20 at 2 tablet 0700, Routine, DSU Pre-op celecoxib 2020- No 400mg 400 mg, Uni vers (CELEBREX) 10-29 Oral, ONCE it y of capsule 400 12:00: 11:45 TOMORROW, [place] mg 00 :00 1 dose, Medical Wed Branch 10/29/20 at 0700, Routine, DSU Pre-op turmeric Yes 2{capsu [...] 6-27 by mouth ity of 16:10: daily. [place] [address] Medical Branch hydroCHLORO Yes 12.5mg Take 12.5 Univers thiazide 25 6-27 mg by ity of mg tablet 16:10: mouth [place] 44 daily. Medical Branch tamsulosin Yes .4mg Take 0.4 Uni vers 0.4 mg 24 6-27 mg by ity of hr capsule 16:10: mouth [place] 44 daily. Medical Branch atorvastati Yes 20mg Take 20 mg Univers n 20 mg 6-27 by mouth ity of tablet 16:10: at [place] 44 bedtime. Medical Branch finasteride Yes 5mg Take 5 mg U nivers 5 mg tablet 6-27 by mouth ity of 16:10: daily. [place] [address] Medical Branch clopidogrel Yes 75mg Take 75 mg Univers 75 mg 6-27 by mouth ity of tablet 16:10: daily. [place] [address] Medical Branch Cholecalcif Yes 400U Take 400 [...] 6-27 by mouth ity of 16:10: daily. [place] [address] Medical Branch hydroCHLORO Yes 12.5mg Take 12.5 Univers thiazide 25 6-27 mg by ity of mg tablet 16:10: mouth [place] 44 daily. Medical Branch tamsulosin Yes .4mg Take 0.4 Uni vers 0.4 mg 24 6-27 mg by ity of hr capsule 16:10: mouth [place] 44 daily. Medical Branch atorvastati 0 Yes 20mg Take 20 mg Univers n 20 mg 6-27 by mouth ity of tablet 16:10: at [place] 44 bedtime. Medical Branch finasteride 0 Yes 5mg Take 5 mg U nivers 5 mg tablet 6-27 by mouth ity of 16:10: daily. [place] [address] Medical Branch clopidogrel 2017-0 Yes 75mg Take 75 mg Univers 75 mg 6-27 by mouth ity of tablet 16:10: daily. [place] [address] Medical Branch Cholecalcif Yes 400U Take 400 [...] by ity of hr capsule 16:10: mouth [place] 44 daily. Medical Branch atorvastati Yes 20mg Take 20 mg Univers n 20 mg 6-27 by mouth ity of tablet 16:10: at [place] 44 bedtime. Medical Branch finasteride 2018-0 Yes 5mg Take 5 mg U nivers 5 mg tablet 6-27 by mouth ity of 16:10: daily. [place] [address] Medical Branch clopidogrel Yes 75mg Take 75 mg Univers 75 mg 6-27 by mouth ity of tablet 16:10: daily. [place] [address] Medical Branch Cholecalcif 0 Yes 400U Take [...] 6-27 by mouth ity of 16:10: daily. [place] [address] Medical Branch hydroCHLORO Yes 12.5mg Take 12.5 [...] by mouth ity of tablet 16:10: at [place] [address] bedtime. Medical Branch finasteride Yes 5mg Take 5 mg U nivers 5 mg tablet 6-27 by mouth ity of 16:10: daily. [place] [address] Medical Branch clopidogrel Yes 75mg Take 75 mg Univers 75 mg 6-27 by mouth ity of tablet 16:10: daily. [place] [address] Medical Branch Cholecalcif Yes 400U Take 400 Un ilene edgar, 6-27 Units by ity of Vitamin D3, 16:10: mouth [place] (VITAMIN 44 daily. Medical D3) 400 Branch unit capsule vitamin Yes 500ug Take 500 Unive rs B-12 6-27 mcg by ity of (VITAMIN 16:10: mouth [place] B-12) 500 44 daily. Medical mcg tablet Branch Calcium Calcium No Calcium hydroCHLORO hydroCHLORO No hydroCHLOR thiazide thiazide Othiazide B12 Folate B12 Folate No B12 Folate Spironolact Spironolact No Spironolac one one tone Naproxen Naproxen No Naproxen ProAir HFA ProAir HFA No ProAir HFA predniSONE predniSONE No predniSONE Trelegy Trelegy No Trelegy Ellipta Ellipta Ellipta Vitamin D3 Vitamin D3 No Vitamin D3 Atorvastati Atorvastati No Atorvastat n Calcium n Calcium in Calcium Trelstar Trelstar No Trelstar Vitamin C Vitamin C No Vitamin C Turmeric Turmeric No Turmeric Tamsulosin Tamsulosin No Tamsulosin HCl HCl HCl Clopidogrel Clopidogrel No Clopidogre Bisulfate Bisulfate l Bisulfate Zytiga Zytiga No Zytiga Zinc Zinc No Zinc Losartan Losartan No Losartan Potassium Potassium Potassium Furosemide Furosemide No Furosemide Immunizations Ordered Filled Immunization Date Status Comments Sour e Immunization Name Name MirificeID-19 2020-07-13 Completed Religion MRNA VACCINATION 00:00:00 [facility] COVID-19 2020-07-13 Completed Religion MRNA VACCINATION 00:00:00 [facility] COVID-19 2020-06-22 Completed Religion MRNA VACCINATION 00:00:00 [facility] COVID-19 2020-06-22 Completed Religion MRNA VACCINATION 00:00:00 [facility] Influenza Virus 2020-01-19 Completed Universit y of Vaccine 00:00:00 [facility] Influenza Virus 2020-01-19 Completed Universit y of Vaccine 00:00:00 [facility] Influenza Virus 2020-01-19 Completed Universit y of Vaccine 00:00:00 [facility] Influenza Virus 2019-01-29 Completed Universit y of Vaccine 00:00:00 [facility] Pneumococcal 13 2019-01-29 Completed Universit y of Conjugate, PCV13 00:00:00 [facility] dical (Prevnar 13) Branch Influenza Virus 2019-01-29 Completed Universit y of Vaccine 00:00:00 [facility] Pneumococcal 13 2019-01-29 Completed Universit y of Conjugate, PCV13 00:00:00 [facility] dical (Prevnar 13) Branch Influenza Virus 2019-01-29 Completed Universit y of Vaccine 00:00:00 [facility] Pneumococcal 13 2019-01-29 Completed Universit y of Conjugate, PCV13 00:00:00 [facility] dical (Prevnar 13) [place] TDAP 2017-04-04 Completed University of 00:00:00 [facility] TDAP 2017-04-04 Completed University of 00:00:00 [facility] TDAP 2017-04-04 Completed University of 00:00:00 [facility] Influenza High Dose 2015-02-07 Completed Unive rsity of 00:00:00 [facility] Influenza High Dose 2015-02-07 Completed Unive rsity of 00:00:00 [facility] Influenza High Dose 2015-02-07 Completed Unive rsity of 00:00:00 [facility] Zoster(Zostavax)( 2014-05-17 Completed Unive rsity of ingles) 00:00:00 [facility] Zoster(Zostavax)( 2014-05-17 Completed Unive rsity of ingles) 00:00:00 [facility] Zoster(Zostavax)( 2014-05-17 Completed Unive rsity of ingles) 00:00:00 [facility] Vital Signs Vital Name Observation Time Observation Value Comments Source height 2022-06-16 15:15:00 71 [in_i] [facility] weight 2022-06-16 15:15:00 258 [lb_av] [facility] temperature 2022-06-16 15:15:00 97.8 [degF] [facility] - [facility] bmi 2022-06-16 15:15:00 35.98 kg/m2 [facility] - [facility] oximetry 2022-06-16 15:15:00 93 % [facility] - [facility] respiratory rate 2022-06-16 15:15:00 18 /min Comm on Spirit - [facility] blood pressure 2022-06-16 15:15:00 155 mm[Hg] [facility] - systolic [facility] blood pressure 2022-06-16 15:15:00 72 mm[Hg] [facility] - diastolic [facility] Systolic blood 2020-11-06 16:25:00 129 mm[Hg] Univer sity of [facility] Diastolic blood 2020-11-06 16:25:00 55 mm[Hg] Unive rsity of [facility] Heart rate 2020-11-06 16:25:00 57 /min Universi ty [facility] Body temperature 2020-11-06 16:25:00 36.56 Tricia Univ ersity of [facility] Respiratory rate 2020-11-06 16:25:00 20 /min Univ ersity of [facility] Oxygen saturation in 2020-11-06 16:25:00 95 /min University of Arterial blood by [facility] Pulse oximetry Branch Body weight 2020-11-04 18:08:00 113.4 kg Universi ty [facility] BMI 2020-11-04 18:08:00 34.87 kg/m2 Universi ty [facility] Oxygen saturation in 2020-11-05 15:37:00 94 /min University of Arterial blood by [facility] Pulse oximetry Branch Systolic blood 2020-11-05 15:34:00 133 mm[Hg] Univer sity of [facility] Diastolic blood 2020-11-05 15:34:00 75 mm[Hg] Unive rsity of [facility] Heart rate 2020-11-05 15:34:00 72 /min Universi ty [facility] Respiratory rate 2020-11-05 15:34:00 19 /min Univ ersity of [facility] Body temperature 2020-11-05 15:08:00 36.72 Tricia Univ ersity of [place] [facility] Body weight 2020-11-04 18:08:00 113.4 kg Universi ty [facility] [place] [facility] BMI 2020-11-04 18:08:00 34.87 kg/m2 Universi ty of [place] [facility] Respiratory rate 2020-11-05 14:52:00 20 /min Univ ersity of [place] [facility] Systolic blood 2020-10-29 11:52:00 155 mm[Hg] Univer sity of pressure [place] [facility] Diastolic blood 2020-10-29 11:52:00 78 mm[Hg] Unive rsity of pressure [place] [facility] Heart rate 2020-10-29 11:52:00 63 /min Universi ty of [place] [facility] Body temperature 2020-10-29 11:52:00 36.83 Tricia Univ ersity of [place] [facility] Respiratory rate 2020-10-29 11:52:00 16 /min Univ ersity of [place] [facility] Oxygen saturation in 2020-10-29 11:52:00 94 /min University of Arterial blood by [place] [employer] светлана Pulse oximetry Branch Body height 2020-10-28 15:45:00 180.3 cm Universi ty [facility] [place] [facility] Body weight 2020-10-28 15:45:00 113.399 kg Universi ty [facility] [place] [facility] BMI 2020-10-28 15:45:00 34.87 kg/m2 Universi ty [facility] [place] [facility] Systolic blood 2020-10-29 11:52:00 155 mm[Hg] Univer sity of pressure [place] [facility] Diastolic blood 2020-10-29 11:52:00 78 mm[Hg] Unive rsity of pressure [place] [facility] Heart rate 2020-10-29 11:52:00 63 /min Universi ty of [place] [facility] Body temperature 2020-10-29 11:52:00 36.83 Tricia Univ ersity of [place] [facility] Respiratory rate 2020-10-29 11:52:00 16 /min Univ ersity of [place] [facility] Oxygen saturation in 2020-10-29 11:52:00 94 /min University of Arterial blood by [employer] светлана Pulse oximetry Branch Body height 2020-10-28 15:45:00 180.3 cm Universi ty of [place] [facility] Body weight 2020-10-28 15:45:00 113.399 kg [facility] BMI 2020-10-28 15:45:00 34.87 kg/m2 [facility] Procedures Procedure Date / Time Performing Clinician Source Performed CBC WITH DIFF 2020-11-06 08:55:00 Raúl Bledsoe [facility] CBC WITH DIFF 2020-11-06 08:55:00 Raúl Bledsoe [facility] INTUBATION 2020-11-05 13:20:38 Duc [place] o [facility] NERVE BLOCK 2020-11-05 12:55:52 Td Woods [facility] TOTAL KNEE ARTHROPLASTY 2020-11-05 12:15:00 [facility] 2020-11-05 12:15:00 [facility] HB ABO GROUPING 2020-11-05 12:05:00 Raúl Bledsoe [facility] HB ABO GROUPING 2020-11-05 12:05:00 Raúl Bledsoe [facility] ABORH CONFIRMATION 2020-10-29 13:46:00 Doctor Unasscaro, [facility] HB ABO GROUPING 2020-10-29 11:50:00 Raúl Bledsoe [facility] HB ABO GROUPING 2020-10-29 11:50:00 Raúl Bledsoe [facility] DSU PRE-OP 2020-10-28 05:01:00 Doctor Unasscaro, [facility] Name [facility] DSU PRE-OP 2020-10-28 05:01:00 Doctor Unassigned, [facility] Name [facility] EKG-12 LEAD 2020-10-27 17:30:39 Doctor Unasscaro, [facility] XR CHEST 2 VW 2020-10-27 16:52:01 Raúl Bledsoe [facility] XR CHEST 2 VW 2020-10-27 16:52:01 Raúl Bledsoe [facility] CBC WITH DIFF 2020-10-27 16:41:00 Emperatriz Buckley [facility] URINALYSIS 2020-10-27 16:41:00 Emperatriz Buckley [facility] CBC WITH DIFF 2020-10-27 16:41:00 Emperatriz Buckley [facility] COMP. METABOLIC PANEL 2020-10-27 16:41:00 Emperatriz Buckley [facility] ([id number]) Medical Branch URINALYSIS 2020-10-27 16:41:00 Emperatriz Buckley [facility] PROTHROMBIN TIME / INR 2020-10-27 16:41:00 Emperatriz Buckley [facility] ACTIVATED PARTIAL THRMPLAS 2020-10-27 16:41:00 Emperatriz Buckley [facility] NO SHOW OR MISSED 2020-10-27 16:24:34 Doctor Saúl, [facility] APPOINTMENT POLICY [facility] ACKNOWLEDGEMENT [facility] PATIENT FINANCIAL 2020-10-27 16:24:17 [facility] NOTICE OF BILLING 2020-10-27 16:24:03 Doctor Saúl, [facility] PRACTICES FOR MEDICARE [facility] PATIENTS CONSENT/REFUSAL FOR 2020-10-27 16:23:48 Doctor Saúl, [facility] DIAGNOSIS AND TREATMENT [facility] ASSIGNMENT OF BENEFITS 2020-10-27 16:23:32 [facility] ASSIGNMENT OF BENEFITS 2020-10-27 16:23:32 Doctor Theresasscaro, [facility] Name Medical Branch PHYSICIAN ORDERS 2020-10-27 05:01:00 Doctor Saúl, [facility] Plan of Care Planned Activity Planned Date Details Comments Source Future Scheduled 2022-05-02 INFLUENZA VACCINE [facility] Test 17:50:02 [code = INFLUENZA VACCINE] Future Scheduled 2022-05-02 COLONOSCOPY SCREENING [facility] Test 17:50:02 [code = COLONOSCOPY SCREENING] Future Scheduled 2022-05-02 SHINGLES VACCINES ([address] [facility] Hospital Test 17:50:02 of 2) [code = SHINGLES VACCINES (1 of 2)] Future Scheduled 2022-05-02 65+ PNEUMOCOCCAL Method[facility] Hospital Test 17:50:02 VACCINE (1 - PCV) [code = 65+ PNEUMOCOCCAL VACCINE (1 - PCV)] Future Scheduled 2022-05-02 COVID-19 VACCINE (3 - [facility] Test 17:50:02 Booster for Pfizer series) [code = COVID-19 VACCINE (3 - Booster for Pfizer series)] Future Scheduled 2022-03-22 COLONOSCOPY SCREENING [facility] Test 12:45:43 [code = COLONOSCOPY SCREENING] Future Scheduled 2022-03-22 SHINGLES VACCINES ([address] [facility] Test 12:45:43 of 2) [code = SHINGLES VACCINES (1 of 2)] Future Scheduled 2022-03-22 65+ PNEUMOCOCCAL Methodi [facility] Test 12:45:43 VACCINE (1 - PCV) [code = 65+ PNEUMOCOCCAL VACCINE (1 - PCV)] Future Scheduled 2022-03-22 COVID-19 VACCINE (3 - [facility] Test 12:45:43 Booster for Pfizer series) [code = COVID-19 VACCINE (3 - Booster for Pfizer series)] Future Scheduled 2022-03-22 INFLUENZA VACCINE Method [facility] Test 12:45:43 [code = INFLUENZA VACCINE] Future Scheduled 2022-03-22 HEPATITIS B VACCINES Met [facility] Test 12:45:43 (1 of 3 - 3-dose series) [code = HEPATITIS B VACCINES (1 of 3 - 3-dose series)] Encounters Start End Encounter Admission Attending Care Care Encounter Source Date/Time Date/Time Type Type Clinicians Facility Department ID 2022-06-16 Outpatient [facility] [id number] Common 14:32:00 [facility] 2022-01-15 Outpatient [facility] [id number] Common 08:53:02 [facility] 2021-12-23 Outpatient [facility] [id number] Common 14:20:03 [facility] 2021-12-16 Outpatient [facility] [id number] Common 09:26:02 [facility] 2021-11-23 Outpatient [facility] [id number] Common 15:21:02 [facility] 2021-10-16 Outpatient [facility] [id number] Common 08:17:01 [facility] 2021-03-16 [facility] [id number] Univers 02:53:47 RAÚL foreman [facility] 2021-03-16 Outpatient Barbie [facility] [id number] Univers 01:15:51 RAÚL foreman [facility] 2022-06-16 2022-06-16 OFFICE STL[facility] [id number] Co mmon 00:00:00 00:00:00 VISIT NEW [facility] it PT LEVEL 4 [facility] 2020-11-05 2020-11-06 [facility] 1.2.840.114 [id number] Univers 06:43:00 15:35:00 Encounter Raúl [place] 350.1.13.10 [id number] [place] [id number] Branch 2020-11-05 2020-11-05 Surgery [facility] 1.2.840.114 [id number] Univers 07:30:00 10:37:00 Raúl Robertson 350.1.13.10 [place] [id number] [place] [address] Branch 2020-11-05 2020-11-05 Anesthesia Janie Tamez [facility] 1.2.840 .114 [id number] Univers 07:30:00 10:04:00 Event Lisettecem Tdjonathan [place] 350.1.13.1 0 [place] [id number] [place] [address] Branch 2020-11-04 2020-11-04 [facility] [id number] Univers 15:15:00 15:15:00 RAÚL ahsan [facility] 2020-10-29 2020-10-29 Anesthesia Sea Tamez2.840.0 [id number] Univers 08:43:02 08:43:02 Event Janie Hamlin 49776.1.1 ity of 3.104.2.7 [place] .3.993388 Medica l .8 [place] 2020-10-29 2020-10-29 Formerly [facility], 1.2.840.3 [id number] Univers 06:37:00 08:13:00 Encounter Raúl Petersen 87590.1.1 ity of 3.104.2.7 [place] .3.237682 Medica l .8 [place] 2020-10-28 2020-10-28 [facility] [id number] Univers 13:15:00 13:15:00 RAÚL foreman [facility] 2020-10-28 2020-10-28 Travel 1.2.840.1 1.2.192.970 [id number] Univers 00:00:00 00:00:00 58603.1.1 350.1.13.10 ity of 3.104.2.[place].698 [place].584[place] 084.8 Medica l .8 [place] 2020-10-27 2020-10-27 Formerly [facility], 1.2.840.5 [id number] Univers 11:25:01 23:59:00 Encounter Raúl Petersen 59287.1.1 ity of 3.104.2.7 [place] .3.434647 Medica l .8 [place] 2020-10-27 2020-10-27 [facility] [id number] Univers 12:30:00 12:30:00 RAÚL foreman [facility] 2020-10-27 2020-10-27 Assessment Nurse Practitioner Raúl 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 6 [id number] Univers 11:24:25 11:39:25 Visit Povandana, Adc Lab Main 32545.1.1 ity of 3.104.2.7 [place] .3.297828 Medica l .8 [place] 2020-10-27 2020-10-27 Formerly [facility], 1.2.840.1 [id number] Univers 09:15:00 11:24:00 Encounter Raúl Petersen 99079.1.1 ity of 3.104.2.7 [place] .3.680153 Medica l .8 [place] 2020-10-27 2020-10-27 Travel 1.2.840.1 1.2.119.070 [id number] Univers 00:00:00 00:00:00 70383.1.1 350.1.13.10 ity of 3.104.2.[place] 4[place].3.698 [place] .3.787829 084.8 Medica l .8 [place] 2020-10-27 2020-10-27 Orders Doctor 1.2.840.5 [id number] Univers 00:00:00 00:00:00 Only Unassigned, 21072.1.1 ity of [place] 3.104.2.7 [place] .3.834737 Medica l .8 [place] 2020-10-09 2020-10-09 Ancillary Emperatriz Buckley 1.2.840.1 [id number] Univers 13:52:39 15:27:42 Visit Class, Adc-[place] Pre Op 90288.1.1 ity of 3.104.2.7 [place] .3.350983 Medica l .8 [place] 2020-10-09 2020-10-09 Outpatient Barbie [facility] [id number] Univers 13:00:00 13:00:00 EMPERATRIZ itjacqueline of [facility] 2020-07-13 2020-07-13 Outpatient MARTHA [facility] [id number] [place] 00:00:00 00:00:00 [address] 2020-06-22 2020-06-22 Outpatient [facility] [id number] [address] [place] [address] 00:00:00 00:00:[address] Results [...] L [Au tomated message] The system which Avieon nerated this result transmit daysi reference range: [...] 32.4 g/dL 31.2-35.0 RDW-SD (test code = 17662-2) 47.2 fL 38.5-51.6 RDW-CV (test code = 788-0) 14.0 % 12.1-15.4 PLT (test code = 777-3) See_Comment [Au tomated message] The system which Avieon nerated this result transmit daysi reference range: 150 - 32 8 10*3/?L. The reference range was not used to interpret th is result as normal/abnormal . MPV (test code = 95132-9) 9.8 fL 9.8-13.0 NRBC/100 WBC (test code = See_Comment [ Automated message] The 5536233895) system which Avieon nerated this result transmit daysi reference range: 0.0 - 10 .0 /100 WBCs. The reference r ale was not used to interpr et this result as normal/abnor mal. NRBC x10^3 (test code = <0.01 See_Comment [Au tomated message] The 1010566940) system which Avieon nerated this result transmit daysi reference range: 10*3/?L. The reference range was not u sed to interpret this result as normal/abnormal . GRAN MAT (NEUT) % (test code 81.7 % = 770-8) IMM GRAN % (test code = 0.60 % 3288187323) LYMPH % (test code = 736-9) 6.6 % MONO % (test code = 5905-5) 10.8 % EOS % (test code = 713-8) 0.2 % BASO % (test code = 706-2) 0.1 % GRAN MAT x10^3(ANC) (test 7.10 10*3/uL 1.99-6.95 H code = 3647843607) IMM GRAN x10^3 (test code = 0.05 10*3/uL 0.00-0.06 4441935224) LYMPH x10^3 (test code = 0.57 10*3/uL 1.09-3.23 L 731-0) MONO x10^3 (test code = 0.94 10*3/uL 0.36-1.02 742-7) EOS x10^3 (test code = <0.03 0.06-0.53 L 711-2) BASO x10^3 (test code = <0.03 0.01-0.09 704-7) Lab Interpretation (test Abnormal code = 21136-7) [facility] with Btievddaazrp0458-43-96 09:14:00 Test Item Value Reference Range Interpretation Comments WBC (test code = See_Comment [Automated 5590-2) message] The sy stem which generated this result transmitted reference range : 4.20 - 10.70 10*3/?L. The reference range was not used to interpret this result as normal/abnormal . RBC (test code = See_Comment L [Automated 019-8) message] The sy stem which generated this [...] RDW-SD (test code = 47.2 fL 38.5-51.6 19698-4) RDW-CV (test code = 14.0 % 12.1-15.4 788-0) PLT (test code = See_Comment [Automated 777-3) message] The sy stem which generated this result transmitted reference range : 150 - 328 10*3/ ?L. The reference r ale was not used to interpret this result as normal/abnormal . MPV (test code = 9.8 fL 9.8-13.0 04065-9) NRBC/100 WBC (test See_Comment [Automat ed code = 4955211340) message] The system which generated this result transmitted reference range : 0.0 - 10.0 /100 WBCs. The refer ence range was not u sed to interpret th is result as normal/abnormal . NRBC x10^3 (test code <0.01 See_Comment [Auto mated = 2841020122) message] The s ystem which generated this result transmitted reference range : 10*3/?L. The reference range was not used to interpret this result as normal/abnormal . GRAN MAT (NEUT) % 81.7 % (test code = 770-8) IMM GRAN % (test code 0.60 % = 8443533743) LYMPH % (test code = 6.6 % 736-9) MONO % (test code = 10.8 % 5905-5) EOS % (test code = 0.2 % 713-8) BASO % (test code = 0.1 % 706-2) GRAN MAT x10^3(ANC) 7.10 10*3/uL 1.99-6.95 H (test code = 7369420053) IMM GRAN x10^3 (test 0.05 10*3/uL 0.00-0.06 code = 9560565403) LYMPH x10^3 (test code 0.57 10*3/uL 1.09-3.23 L = 731-0) MONO x10^3 (test code 0.94 10*3/uL 0.36-1.02 = 742-7) EOS x10^3 (test code = <0.03 0.06-0.53 L 711-2) BASO x10^3 (test code <0.03 0.01-0.09 = 704-7) Lab Interpretation Abnormal (test code = 21089-2) [facility] 13:20:38Duc Malcolm CRNA ? ? 11/05/2020 ?8:21 AMIntubationUrgency: elective Airway not difficult General Information and Staff Patient location during procedure: ORResident/MIGRANT LEADER: Duc Malcolm CRNAPerformed: resident/MIGRANT LEADER Indications and Patient ConditionIndications for airway management: anesthesiaSpontaneous Ventilation: absentSedation level: deepPreoxygenated: yesPatient position: sniffingMILS maintainedthroughoutMask difficulty assessment: 0 - not attempted Final Airway DetailsFinal airway type: supraglottic airway Successful airway: classic (igel)Size 5 Additional CommentsDry intactUnOakBend Medical CenterNerve Owzzd7546-37-37 12:55:52Td Woods MD ? ? 11/05/2020 ?7:59 [...] 30 cc Adductor and 5 cc tibial nerveUnOakBend Medical CenterType and Screen - ONCE Hjarmmy1551-79-47 12:46:02 Test Item Value Reference Range Interpretation Comments ABO & RH (test code O Positive Performe d at [facility] = 20) Laboratory [facility] [place] [facility] Blood Bank[address] [place], [place] [address]ll Free: [phone] A No. [id number] IAT (test code = Negative Performed a t [facility] 1185) Laboratory [facility] [place] [facility] Blood [place] [address]Toll Free: [phone] A No. [id number] [facility] and Screen - ONCE Eyiopoh9824-62-47 12:46:02 Test Item Value Reference Range Interpretation Comments ABO & RH (test code O Positive Performe d at [facility] = 20) Laboratory [facility] [place] [facility] Blood [address] [place], [place] [address]Toll Free: [phone] A No. [id number] IAT (test code = Negative Performed a t [facility] 1185) Laboratory [facility] [place] [facility] [address] [place], [place] [address]Toll Free: [phone] A No. [id number] [facility] WorthABORH [id number] 13:52:25 Test Item Value Reference Range Interpretation Comments ABO & RH (test code O Positive Performe d at [facility] = 20) Laboratory [facility] [place] [facility] [address] [place], [place] [address]Toll Free: [phone] A No. [id number] [facility] and Screen - ONCE [id number] 12:49:48 Test Item Value Reference Range Interpretation Comments ABO & RH (test code O Positive Performe d at [facility] = 20) Laboratory [facility] [place] [facility] Blood Bank[address] [place] [address]Gynq Free: [phone] A No. [id number] IAT (test code = Negative Performed a t [facility] 1185) Laboratory [facility] [place] [facility] Blood Bank[address] [place] [address]Bspw Free: [phone] A No. [id number] [facility] and Screen - ONCE [id number] 12:49:48 Test Item Value Reference Range Interpretation Comments ABO & RH (test code O Positive Performe d at [facility] = 20) Laboratory [facility] [place] [facility] Blood [address] [place] [address]Ohcr Free: [phone] A No. [id number] IAT (test code = Negative Performed a t [facility] 1185) Laboratory [facility] [place] [facility] Blood [address] [address]Phlj Free: [phone] A No. [id number] [facility] WorthXR CHEST 2 [id number] 20:50:491. 1.5 cm nodule in the left [...] ofspondylosis are seen in the thoracic spine. [facility] Results Inft User - 10/27/2020 3:51 [...] evaluation2. COPD and changes of prior granulomatous infection.[facility] CHEST 2 [id number] 20:50:491. 1.5 cm nodule in the left [...] ofspondylosis are seen in the thoracic spine. [facility] Results Inft User - 10/27/2020 3:51 [...] evaluation2. COPD and changes of prior granulomatous infection.[facility] WorthCOMP. METABOLIC PANEL (10406)2020-10-27 18:25:10 Test Item Value Reference Range Interpretation Comments NA (test code = 138 mmol/L 135-145 0394643494) K (test code = 4.4 mmol/L 3.5-5.0 2065147113) CL (test code = 105 mmol/L 98-108 3254014303) CO2 TOTAL (test code = 25 mmol/L 23-31 3968647969) AGAP (test code = 2-16 7066561376) BUN (test code = 19 mg/dL 7-23 3253954078) GLUCOSE (test code = 113 mg/dL 70-110 H 3142111624) CREATININE (test code = 0.96 mg/dL 0.60-1.25 8348698995) TOTAL BILI (test code = 0.5 mg/dL 0.1-1.6 7691167550) CALCIUM (test code = 10.0 mg/dL 8.6-10.6 8241419647) T PROTEIN (test code = 6.6 g/dL 6.3-8.2 9256695550) ALBUMIN (test code = 4.2 g/dL 3.5-5.0 0292620261) ALK PHOS (test code = 102 U/L 34-122 8854705997) ALTv (test code = 37 U/L 5-50 1741-6) AST(SGOT) (test code = 27 U/L 13-40 2046972523) eGFR (test code = mL/min/1.73m2 5078385433) DONALDO (test code = DONALDO) Association of [...] tests). Lab Interpretation Abnormal (test code = 15537-6) [facility]IV[facility] PARTIAL THRMPLAS [id number] 17:24:38 Test Item Value Reference Range Interpretation Comments APTT Patient (test See_Comment [Automat ed code = 3173-2) message] The system which generated this result transmitted reference range : 23 - 38 Seconds . The reference range was not used to interpr et this result as normal/abnormal . DONALDO (test code = DONALDO) The [facility] patient population mean normal value for aPTT is 30 seconds. Lab Interpretation Normal (test code = 77282-3) [facility] WorthPROTHROMBIN TIME / [id number] 17:22:41 Test Item Value Reference Range Interpretation [...] tions. Lab Interpretation (test Normal code = 65247-3) [facility] WorthURINALYSIS2021-06-14 17:16:23 Test Item Value Reference Range Interpretation Comments APPEARANCE (test code = Clear Clear 6124853942) COLOR (test code = Yellow Yellow 3839287201) PH (test code = 4.8-8.0 8968551098) SP GRAVITY (test code = 1.003-1.030 9437748047) GLU U QUAL (test code = Normal Normal 8294959146) BLOOD (test code = Negative Negative 9792539893) KETONES (test code = Negative Negative 7034157375) PROTEIN (test code = Negative Negative 2887-8) UROBILIN (test code = Normal Normal 5409099754) BILIRUBIN (test code = Negative Negative 5593328591) NITRITE (test code = Negative Negative 9529155369) LEUK KEESHA (test code = Negative Negative 5271900557) RBC/HPF (test code = <1 See_Comment [Autom ated message] 8909683843) The system Joosy generated this result transmitted ref erence range: 0 - 3 HP F. The reference range was not used to int erpret this result as normal/abnormal . WBC/HPF (test code = <1 See_Comment [Autom ated message] 5132519021) The system Joosy generated this result transmitted ref erence range: 0 - 5 HP F. The reference range was not used to int erpret this result as normal/abnormal . BACTERIA (test code = Negative Negative 5419521847) MUCOUS (test code = Slight Negative LPF A 5436163950) HYAL CAST (test code = See_Comment [Aut omated message] 4137956550) The system Joosy generated this result transmitted ref erence range: <=2 LPF. The reference range was not used to int erpret this result as normal/abnormal . Lab Interpretation (test Abnormal code = 97988-4) [facility]AL[facility]IS2021-06-14 17:16:23 Test Item Value Reference Range Interpretation Comments APPEARANCE (test code = Clear Clear 0293706901) COLOR (test code = Yellow Yellow 2646756701) PH (test code = 4.8-8.0 6919705195) SP GRAVITY (test code = 1.003-1.030 3121066468) GLU U QUAL (test code = Normal Normal 3585064220) BLOOD (test code = Negative Negative 6990091958) KETONES (test code = Negative Negative 9334052616) PROTEIN (test code = Negative Negative 2887-8) UROBILIN (test code = Normal Normal 8838858671) BILIRUBIN (test code = Negative Negative 8911514908) NITRITE (test code = Negative Negative 1864218490) LEUK KEESHA (test code = Negative Negative 6055879372) RBC/HPF (test code = <1 See_Comment [Autom ated message] 1945545181) The system Joosy generated this result transmitted ref erence range: 0 - 3 HP F. The reference range was not used to int erpret this result as normal/abnormal . WBC/HPF (test code = <1 See_Comment [Autom ated message] 0979956109) The system Joosy generated this result transmitted ref erence range: 0 - 5 HP F. The reference range was not used to int erpret this result as normal/abnormal . BACTERIA (test code = Negative Negative 8537971160) MUCOUS (test code = Slight Negative LPF A 5438454730) HYAL CAST (test code = See_Comment [Aut omated message] 7341463954) The system whic h generated this result transmitted ref erence range: <=2 LPF. The reference range was not used to int erpret this result as normal/abnormal . Lab Interpretation (test Abnormal code = 71415-7) [facility] WITH [id number] 16:45:17 Test Item Value Reference Range Interpretation Comments WBC (test code = See_Comment [Automated 3590-2) message] The sy stem which generated this [...] RDW-SD (test code = 45.5 fL 38.5-51.6 64120-4) RDW-CV (test code = 13.8 % 12.1-15.4 788-0) PLT (test code = See_Comment [Automated 777-3) message] The sy stem which generated this result transmitted reference range : 150 - 328 10*3/ ?L. The reference r ale was not used to interpret this result as normal/abnormal . MPV (test code = 9.0 fL 9.8-13.0 L 81710-4) NRBC/100 WBC (test See_Comment [Automat ed code = 5327024625) message] The system which generated this result transmitted reference range : 0.0 - 10.0 /100 WBCs. The refer ence range was not u sed to interpret th is result as normal/abnormal . NRBC x10^3 (test code <0.01 See_Comment [Auto mated = 0768809020) message] The s ystem which generated this result transmitted reference range : 10*3/?L. The reference range was not used to interpret this result as normal/abnormal . GRAN MAT (NEUT) % 71.5 % (test code = 770-8) IMM GRAN % (test code 0.40 % = 8091189684) LYMPH % (test code = 13.2 % 736-9) MONO % (test code = 10.7 % 5905-5) EOS % (test code = 3.8 % 713-8) BASO % (test code = 0.4 % 706-2) GRAN MAT x10^3(ANC) 3.95 10*3/uL 1.99-6.95 (test code = 4492522972) IMM GRAN x10^3 (test <0.03 0.00-0.06 code = 9324136117) LYMPH x10^3 (test code 0.73 10*3/uL 1.09-3.23 L = 731-0) MONO x10^3 (test code 0.59 10*3/uL 0.36-1.02 = 742-7) EOS x10^3 (test code = 0.21 10*3/uL 0.06-0.53 711-2) BASO x10^3 (test code <0.03 0.01-0.09 = 704-7) Lab Interpretation Abnormal (test code = 05810-2) [facility] WITH [id number] 16:45:17 Test Item Value Reference Range Interpretation Comments WBC (test code = See_Comment [Automated 5007-2) message] The sy stem which generated this [...] RDW-SD (test code = 45.5 fL 38.5-51.6 16561-2) RDW-CV (test code = 13.8 % 12.1-15.4 788-0) PLT (test code = See_Comment [Automated 777-3) message] The sy stem which generated this result transmitted reference range : 150 - 328 10*3/ ?L. The reference r ale was not used to interpret this result as normal/abnormal . MPV (test code = 9.0 fL 9.8-13.0 L 20340-5) NRBC/100 WBC (test See_Comment [Automat ed code = 3173491830) message] The system which generated this result transmitted reference range : 0.0 - 10.0 /100 WBCs. The refer ence range was not u sed to interpret th is result as normal/abnormal . NRBC x10^3 (test code <0.01 See_Comment [Auto mated = 7381200819) message] The s ystem which generated this result transmitted reference range : 10*3/?L. The reference range was not used to interpret this result as normal/abnormal . GRAN MAT (NEUT) % 71.5 % (test code = 770-8) IMM GRAN % (test code 0.40 % = 9195117276) LYMPH % (test code = 13.2 % 736-9) MONO % (test code = 10.7 % 5905-5) EOS % (test code = 3.8 % 713-8) BASO % (test code = 0.4 % 706-2) GRAN MAT x10^3(ANC) 3.95 10*3/uL 1.99-6.95 (test code = 7078637725) IMM GRAN x10^3 (test <0.03 0.00-0.06 code = 5119612879) LYMPH x10^3 (test code 0.73 10*3/uL 1.09-3.23 L = 731-0) MONO x10^3 (test code 0.59 10*3/uL 0.36-1.02 = 742-7) EOS x10^3 (test code = 0.21 10*3/uL 0.06-0.53 711-2) BASO x10^3 (test code <0.03 0.01-0.09 = 704-7) Lab Interpretation Abnormal (test code = 93837-9) [facility]th[facility] Time and [id number] 10:18:34 Test Item Value Reference Range Interpretation Comments Prothrombin Time (test code = 10.4 seconds 9.8-13.4 Prothrombin Time) INR (test code = INR) 0.9 ratio 0.6-1.2 Partial Thromboplastin [id number] 10:18:34 Test Item Value Reference Range Interpretation Comments Partial Thromboplastin Time 38.50 seconds 24.39-37.25 H (test code = Partial Thromboplastin Time) [facility] [id number] 09:44:04 Test Item Value Reference Range Interpretation [...] A/G 1.9 ratio N Ratio) Comprehensive [facility] [id number] 09:44:04 Test Item Value Reference Range Interpretation [...] [employer], http://nkdep.ni h.gov Comprehensive Metabolic [id number] 09:44:04 Test Item Value Reference Range Interpretation [...] the [employer], http://nkdep.ni h.gov Automated Kubkbcainfyd3098-51-98 09:17:58 Test Item Value Reference Range Interpretation Comments Neutro Auto (test code = Neutro 73.6 % 36.0-70.0 H Auto) Lymph Auto (test code = Lymph Auto) 13.3 % 12.0-44.0 Eaton Auto (test code = Eaton Auto) 9.5 % 0.0-11.0 Eos, Auto (test code = Eos, Auto) 2.9 % 0.0-7.0 Basophil Auto (test code = Basophil 0.4 % 0.0-2.0 Auto) Neutro Absolute (test code = Neutro 5.5 x10 1.6-7.4 Absolute) Lymph Absolute (test code = Lymph 1.00 x10 .50-4.60 Absolute) Eaton Absolute (test code = Eaton .71 x10 .00-1.20 Absolute) Eos Absolute (test code = Eos 0.22 x10 0.00-0.74 Absolute) Baso Absolute (test code = Baso 0.03 x10 0.00-0.21 Absolute) IG [id number] 09:17:58 Test Item Value Reference Range Interpretation Comments IG (test code = IG) 0.3 % 0.0-5.0 IG Abs (test code = IG Abs) 0 x10 N Complete Blood Count with [id number] 09:17:57 Test Item Value Reference Range Interpretation [...]
--- NOTE | 2022-06-23 14:14 | RAD REPORT ---
EXAM DESCRIPTION: RAD - Chest Single View - 06/23/2022 2:05 pm CLINICAL HISTORY: COPD Chest pain. COMPARISON: Chest Pa And Lat (2 Views) dated 10/29/2021; CHEST PA AND LAT 2 VIEW dated 10/27/2011 FINDINGS: Portable technique limits examination quality. Mild bilateral pulmonary opacities are seen, greater in the left lower lobe. Infection is the favored etiology. The heart is upper limit normal in size.
[2022-06-23] MEDS ORDERED: dexAMETHasone 10 MG/ML VIAL ONE (14:46)
[2022-06-23] MEDS ORDERED: IPRATROPIUM BROM 0.5MG/2.5ML ONE (14:46)
[2022-06-23] MEDS ORDERED: ALBUTEROL 2.5 MG/3 ML NEB SOL ONE (14:46)
[2022-06-23] MEDS ORDERED: HYDROCODONE/CHLORPHEN 5 ML/OSYR ONE (14:46)
[2022-06-23 14:59] LABS: Absolute Lymphocytes (CBC) 0.5 K/uL (0.7-4.9); Hematocrit 36.1 % (39.6-49.0); Lymphocytes % 6.9 % (15.3-44.8); MCV 88.1 fL (80-100); MPV 7.8 fL (7.6-11.3); RBC Red Blood Cell Count 4.09 M/uL (4.33-5.43)
[2022-06-23 15:01] LABS: Protime INR 1.21
[2022-06-23 15:21] LABS: Magnesium 2.3 mg/dL (1.6-2.4); Potassium 3.5 mmol/L (3.5-5.1)
[2022-06-23 15:34] LABS: SARS-COV-2 RT PCR NEGATIVE (NEGATIVE)
--- NOTE | 2022-06-23 16:01 | EDPHYS ---
Physician Documentation [facility] Name: Patel Quezada Age: 72 yrs Sex: Male : 1950 Arrival Date: 06/23/2022 Time: 13:44 Bed 7 Private MD: [facility] ED Physician Jordan Gould HPI: 06/23 13:57 This 72 yrs old Male presents to ER via Ambulatory with complaints of Shortness Of pm1 Breath. 13:57 The patient has shortness of breath at rest, and the patient has a history of COPD. pm1 Onset: The symptoms/episode began/occurred 1 week(s) ago. 13:57 Duration: The symptoms are continuous, and are steadily getting worse. The patient's pm1 shortness of breath is aggravated by nothing, is alleviated by nothing. Associated signs and symptoms: Pertinent positives: productive cough, change in sputum color, Pertinent negatives: chest pain, fever, nausea, vomiting. Severity of symptoms: in the emergency department the symptoms are worse. The patient has experienced similar episodes in the past, chronically, but today's symptoms are worse, requiring multiple uses of his breathing treatment. Typically Q4 hours but reports using once per hour for the past few days. The patient has not recently seen a physician, see Dr Gonzales for his COPD. 13:57 Patient reports pulse ox at home 88% with home machine. He does not use home O2. pm1 Historical: - Allergies: 13:57 No Known Allergies; aa5 - PMHx: 13:57 COPD; Hypercholesterolemia; Hypertensive disorder; Prostate Cancer; aa5 - PSHx: 13:57 Cholecystectomy; Left kidney removed; Replacement of total knee joint; Right and Left; aa5 heart stents; - Immunization history:: Adult Immunizations unknown. - Social history:: Smoking status: Patient/guardian denies using tobacco. ROS: 13:57 Constitutional: Negative for fever, chills, and weight loss, Cardiovascular: Negative pm1 for chest pain, palpitations, and edema. 13:57 Abdomen/GI: Negative for abdominal pain, nausea, vomiting, diarrhea, and constipation, Back: Negative for injury and pain, MS/Extremity: Negative for injury and deformity, Skin: Negative for injury, rash, and discoloration, Neuro: Negative for headache, weakness, numbness, tingling, and seizure. 13:57 Respiratory: Positive for cough, with yellow sputum, shortness of breath. 13:57 All other systems are negative. Exam: 13:57 Constitutional: This is a well developed, well nourished patient who is awake, alert, pm1 and in no acute distress. Head/Face: Normocephalic, atraumatic. 13:57 Back: No spinal tenderness. No costovertebral tenderness. Full range of motion. Skin: Warm, dry with normal turgor. Normal color with no rashes, no lesions, and no evidence of cellulitis. MS/ Extremity: Pulses equal, no cyanosis. Neurovascular intact. Full, normal range of motion. 13:57 Eyes: Exam is negative for acute changes, Extraocular movements: no acute changes, Conjunctiva: no acute changes, no injection. 13:57 ENT: Mouth: is normal, Lips: normal, moist, Oral mucosa: normal, pink and intact, moist. 13:57 Cardiovascular: Exam negative for acute changes, Rate: normal, Rhythm: regular, Pulses: no pulse deficits are appreciated, Heart sounds: normal, normal S1and S2. 13:57 Respiratory: mild respiratory distress is noted, Breath sounds: bronchial sounds, that are mild, are heard diffusely. 13:57 Abdomen/GI: Exam negative for acute changes, Inspection: abdomen appears normal, Palpation: abdomen is soft and non-tender, in all quadrants. 13:57 Neuro: Exam negative for acute changes, Orientation: is normal, Mentation: is normal, Motor: is normal, moves all fours. Vital Signs: 13:48 BP 152 / 75; Pulse 84; Resp 32 S; Temp 98.4(O); Pulse Ox 96% on R/A; Weight 113.4 kg aa5 (R); Height 5 ft. 11 in. (180.34 cm) (R); 14:50 BP 129 / 60; Pulse 64; Resp 17 S; Pulse Ox 100% on R/A; Pain 0/10; kc6 15:41 BP 143 / 61; Pulse 72; Resp 36 S; Pulse Ox 98% ; kc6 16:45 BP 137 / 59; Pulse 77; Resp 32 S; Pulse Ox 96% on 2 lpm NC; kc6 17:20 BP 139 / 69; Pulse 73; Resp 17 S; Pulse Ox 94% on 2 lpm NC; kc6 13:48 Body Mass Index 34.87 (113.40 kg, 180.34 cm) aa5 MDM: 13:46 Patient medically screened. pm1 14:01 Data reviewed: vital signs. pm1 15:59 Management of patient was discussed with the following: Hospitalist: Doc. Will see pm1 the patient in the ER. Inpatient to Dr Magallon. 06/23 13:52 Order name: Basic Metabolic Panel; Complete Time: 15:26 pm06/23 13:52 Order name: CBC with Diff; Complete Time: 15:15 pm06/23 13:52 Order name: Magnesium; Complete Time: 15:26 pm06/23 13:52 Order name: NT PRO-BNP; Complete Time: 15:26 pm06/23 13:52 Order name: PT-INR; Complete Time: 15:15 pm06/23 13:52 Order name: Troponin HS; Complete Time: 15:26 pm06/23 13:57 Order name: COVID-19/FLU A+B; Complete Time: 15:36 pm06/23 15:58 Order name: Blood Culture Adult (2) pm1 06/23 16:31 Order name: Magnesium EDMS 06/23 16:31 Order name: Phosphorus EDMS 06/23 16:31 Order name: Urinalysis EDMS 06/23 16:31 Order name: Basic Metabolic Panel EDMS 06/23 16:31 Order name: Basic Metabolic Panel EDMS 06/23 16:31 Order name: CBC with Automated Diff EDMS 06/23 13:52 Order name: XRAY Chest (1 view); Complete Time: 14:18 pm06/23 13:52 Order name: EKG; Complete Time: 13:53 pm06/23 13:52 Order name: Cardiac monitoring; Complete Time: 14:36 pm06/23 13:52 Order name: EKG - Nurse/Tech; Complete Time: 14:39 pm06/23 13:52 Order name: IV Saline Lock; Complete Time: 14:39 pm06/23 13:52 Order name: Labs collected and sent; Complete Time: 14:39 pm06/23 13:52 Order name: O2 Per Protocol; Complete Time: 14:36 pm06/23 13:52 Order name: O2 Sat Monitoring; Complete Time: 14:36 pm1 06/23 16:27 Order name: Echo with Doppler EDMS 06/23 16:31 Order name: Heart Healthy EDMS 02 16:31 Order name: CBC with Automated Diff EDMS EC:43 Rate is 66 beats/min. Rhythm is regular, Sinus Rhythm with PACs. QRS Wilson is Normal. WA pm1 interval is normal. QRS interval is normal. QT interval is normal. No Q waves. T waves are Normal. No ST changes noted. Clinical impression: Sinus rhythm with premature atrial complexes. Administered Medications: 14:48 Drug: Decadron - Dexamethasone 10 mg Route: IVP; Site: right antecubital; kc6 16:08 Follow up: Response: No adverse reaction 6 14:48 Drug: Albuterol - atroVENT (ipratropium) (3:1) (2.5 mg - 0.5 mg) 3 ml Route: Nebulizer; 6 16:08 Follow up: Response: No adverse reaction; Wheezing diminished 6 14:48 Drug: Tussionex Pennkinetic ER (chlorpheniramine-hydrocodone) Suspension 5 ml Route: PO;6 16:08 Follow up: Response: No adverse reaction kc6 17:08 Drug: Rocephin (cefTRIAXone) 1 grams Route: IV; Rate: calculated rate; Site: left kc6 antecubital; 17:13 Follow up: Response: No adverse reaction; IV Status: Completed infusion; IV Intake: [id number] 17:08 Drug: AZITHromycin 500 mg Route: IVPB; Infused Over: 1 hrs; Site: right forearm; [facility] 17:14 Follow up: Response: No adverse reaction; IV Status: Infusion continued upon admission; [facility] IV Intake: 250ml Disposition: 18:53 Co-signature as Attending Physician, Jordan MORGAN was immediately available on-site ms3 in the Emergency Department for consultation in the care of the patient. Disposition Summary: 06/23/22 16:00 Hospitalization Ordered Hospitalization Status: Inpatient Admission pm1 Provider: Pierre Magallon pm1 Location: Telemetry/MedSur (Inpatient) pm1 Condition: Stable pm1 Problem: new pm1 Symptoms: have improved pm1 Bed/Room Type: Standard pm1 Room Assignment: 216(06/23/22 16:50) Diagnosis - Pneumonia, unspecified organism pm1 - COPD/ Chronic obstructive pulmonary disease with (acute) exacerbation pm1 Forms: - Medication Reconciliation Form pm1 - SBAR form pm1 Signatures: Dispatcher [employer] Malissa Gonzalez RN RN dw Kellen Rodriguez RN RN aa5 Hao Boothe, PODIATRIST ORTHOPEDIC PODIATRIST ORTHOPEDIC pm1 Jordan Gould DO DO ms3 Jannie Matamoros RN RN kc6 Corrections: (The following items were deleted from the chart) 16:50 16:00 pm1 dw
--- NOTE | 2022-06-23 16:01 | ER ---
Nurse's Notes [facility] Norm Name: Patel Quezada Age: 72 yrs Sex: Male : 1950 Arrival Date: 06/23/2022 Time: 13:44 Bed 7 Private MD: Diaz Cox Diagnosis: Pneumonia, unspecified organism;COPD/ Chronic obstructive pulmonary disease with (acute) exacerbation Presentation: 06/23 13:48 Chief complaint: Patient states: SOB and productive cough x 1 week ago. Tachypnea and aa5 moderate SOB noted during triage. 13:48 Onset of symptoms was June 2022. aa5 13:48 Acuity: JANET 2 aa5 13:48 Method Of Arrival: Ambulatory aa5 13:48 Coronavirus screen: cough unrelated to allergies. Ebola Screen: Patient denies travel aa5 to an Ebola-affected area in the 21 days before illness onset. Initial Sepsis Screen: Does the patient meet any 2 criteria? RR > 20 per min. Does the patient have a suspected source of infection? Yes: Productive cough/pneumonia. Risk Assessment: Do you want to hurt yourself or someone else? Patient reports no desire to harm self or others. Historical: - Allergies: 13:57 No Known Allergies; aa5 - PMHx: 13:57 COPD; Hypercholesterolemia; Hypertensive disorder; Prostate Cancer; aa5 - PSHx: 13:57 Cholecystectomy; Left kidney removed; Replacement of total knee joint; Right and Left; aa5 heart stents; - Immunization history:: Adult Immunizations unknown. - Social history:: Smoking status: Patient/guardian denies using tobacco. Screenin:[facility] ED Fall Risk Assessment (Adult) History of falling in the last 3 months, kc6 including since admission No falls in past 3 months (0 pts) Confusion or Disorientation No (0 pts) Intoxicated or Sedated No (0 pts) Impaired Gait No (0 pts) Mobility Assist Device Used No (0 pt) Altered Elimination No (0 pt) Score/Fall Risk Level 0 - 2 = Low Risk Oriented to surroundings, Maintained a safe environment, Educated pt \T\ family on fall prevention, incl call for assistance when getting out of bed, Assessed \T\ reinforced patient's understanding of fall precautions, Hourly rounding (assess needs \T\ fall precautionary measures) done. Abuse screen: Denies threats or abuse. Denies injuries from another. Nutritional screening: No deficits noted. Tuberculosis screening: No symptoms or risk factors identified. Assessment: 14:40 General: Appears in no apparent distress. comfortable, Behavior is calm, cooperative, kc6 appropriate for age. Pain: Denies pain. Neuro: Paredes Agitation-Sedation Scale (RASS): 0 - Alert and Calm Level of Consciousness is awake, alert, obeys commands, Oriented to person, place, time, situation, Appropriate for age. Cardiovascular: Heart tones S1 S2 present Capillary refill < 3 seconds Rhythm is sinus rhythm Chest pain is denied. Respiratory: Airway is patent Trachea midline Respiratory effort is even, unlabored, Respiratory pattern is regular, symmetrical, Breath sounds with wheezes bilaterally. Respiratory: Reports shortness of breath at rest cough that is productive. GI: No signs and/or symptoms were reported involving the gastrointestinal system. : No signs and/or symptoms were reported regarding the genitourinary system. EENT: No signs and/or symptoms were reported regarding the EENT system. Derm: No signs and/or symptoms reported regarding the dermatologic system. Skin is intact, Skin is pink, warm \T\ dry. Musculoskeletal: No signs and/or symptoms reported regarding the musculoskeletal system. Circulation, motion, and sensation intact. Capillary refill < 3 seconds, Range of motion: intact in all extremities. 15:40 Reassessment: Patient appears in no apparent distress at this time. No changes from kc6 previously documented assessment. Patient and/or family updated on plan of care and expected duration. Pain level reassessed. Patient is alert, oriented x 3, equal unlabored respirations, skin warm/dry/pink. 16:40 Reassessment: Patient appears in no apparent distress at this time. No changes from kc6 previously documented assessment. Patient and/or family updated on plan of care and expected duration. Pain level reassessed. Patient is alert, oriented x 3, equal unlabored respirations, skin warm/dry/pink. 17:20 Reassessment: Patient appears in no apparent distress at this time. No changes from kc6 previously documented assessment. Patient and/or family updated on plan of care and expected duration. Pain level reassessed. Patient is alert, oriented x 3, equal unlabored respirations, skin warm/dry/pink. Vital Signs: 13:48 BP 152 / 75; Pulse 84; Resp 32 S; Temp 98.4(O); Pulse Ox 96% on R/A; Weight 113.4 kg aa5 (R); Height 5 ft. 11 in. (180.34 cm) (R); 14:50 BP 129 / 60; Pulse 64; Resp 17 S; Pulse Ox 100% on R/A; Pain 0/10; kc6 15:41 BP 143 / 61; Pulse 72; Resp 36 S; Pulse Ox 98% ; kc6 16:45 BP 137 / 59; Pulse 77; Resp 32 S; Pulse Ox 96% on 2 lpm NC; kc6 17:20 BP 139 / 69; Pulse 73; Resp 17 S; Pulse Ox 94% on 2 lpm NC; kc6 13:48 Body Mass Index 34.87 (113.40 kg, 180.34 cm) aa5 ED Course: 13:44 Patient arrived in ED. as 13:45 Diaz Cox is Private Physician. as 13:45 Hao Boothe NP is PHCP. pm1 13:45 Jordan Gould DO is Attending Physician. pm1 13:48 Arm band placed on Patient placed in an exam room, on a stretcher. aa5 13:56 Triage completed. aa5 14:06 XRAY Chest (1 view) In Process Unspecified. EDMS 14:33 Jannie Matamoros, LAURYN is Primary Nurse. kc6 14:40 Inserted saline lock: 20 gauge in right forearm, using aseptic technique. Blood bp collected. 14:50 Patient has correct armband on for positive identification. Placed in gown. Bed in low kc6 position. Call light in reach. Side rails up X2. 16:00 Pierre Magallon MD is Hospitalizing Provider. pm1 17:08 Inserted saline lock: 20 gauge in left antecubital area, using aseptic technique. Blood kc6 collected. 17:12 No provider procedures requiring assistance completed. Patient admitted, IV remains in kc6 place. 17:15 Blood Culture Adult (2) Sent. kc6 Administered Medications: 14:48 Drug: Decadron - Dexamethasone 10 mg Route: IVP; Site: right antecubital; kc6 16:08 Follow up: Response: No adverse reaction kc6 14:48 Drug: Albuterol - atroVENT (ipratropium) (3:1) (2.5 mg - 0.5 mg) 3 ml Route: Nebulizer; kc6 16:08 Follow up: Response: No adverse reaction; Wheezing diminished kc6 14:48 Drug: Tussionex Pennkinetic ER (chlorpheniramine-hydrocodone) Suspension 5 ml Route: PO;kc6 16:08 Follow up: Response: No adverse reaction kc6 17:08 Drug: Rocephin (cefTRIAXone) 1 grams Route: IV; Rate: calculated rate; Site: left kc6 antecubital; 17:13 Follow up: Response: No adverse reaction; IV Status: Completed infusion; IV Intake: [id number] 17:08 Drug: AZITHromycin 500 mg Route: IVPB; Infused Over: 1 hrs; Site: right forearm; kc6 17:14 Follow up: Response: No adverse reaction; IV Status: Infusion continued upon admission; kc6 IV Intake: 250ml Medication: 17:13 VIS not applicable for this client. kc6 Intake: 17:13 IV: 10ml; Total: 10ml. kc6 17:14 IV: 250ml; Total: 260ml. kc6 Outcome: 16:00 Decision to Hospitalize by Provider. pm1 17:12 Admitted to Med/surg accompanied by tech, via wheelchair, room 216, with oxygen, with kc6 chart, Report called to LAURYN Mallory 17:12 Condition: stable 17:12 Instructed on the need for admit. 17:21 Patient left the ED. kc6 Signatures: Dispatcher [employer] Patricia Collins Audri, RN RN aa5 Hao Boothe, [employer] MANAGER pm1 Duc Casper RN RN bp Campbell, Kaitlyn, RN RN kc6
[2022-06-23] MEDS ORDERED: ACETAMINOPHEN 325 MG TABLET PO PRN (16:25)
[2022-06-23] MEDS ORDERED: FUROSEMIDE 40 MG/4 ML VIAL IV ONE (16:25)
[2022-06-23] MEDS ORDERED: TRAMADOL HCL 50 MG TAB PO PRN (16:25)
[2022-06-23] MEDS ORDERED: AZITHROMYCIN IV 500 MG in NA CHLORIDE 0.9% 250 ML IVPB ONE (16:29)
[2022-06-23] MEDS ORDERED: ONDANSETRON 4 MG/2 ML VIAL IV PRN (16:29)
[2022-06-23] MEDS ORDERED: HYDRALAZINE HCL 20 MG/ML VIAL IV PRN (16:32)
--- NOTE | 2022-06-23 16:37 | P.HP ---
Certification for Inpatient Patient admitted to: Inpatient With expected LOS: >2 Midnights Patient will require the following post-hospital care: None Practitioner: I am a practitioner with admitting privileges, knowledge of patient current condition, hospital course, and medical plan of care. Services: Services provided to patient in accordance with Admission requirements found in Title 42 Section 412.3 of the Code of Federal Regulations Patient History Date of Service: 06/23/22 Reason for admission: Shortness of breath. History of Present Illness: Patient is a 72-year-old male with a past medical history significant for COPD, HLD, hypertension, prostate cancer, BPH who presents with complaint of shortness of breath that has been ongoing for the past 1 week. Patient reported associated signs and symptoms of chronic cough, fever and wheezing. Patient reported that symptoms did not respond to his home bronchodilators. Patient denies any other signs and symptoms. Symptoms are aggravated or relieved by nothing. Patient decided to present to the hospital due to worsening symptoms. Allergies No Known Allergies Allergy (Verified 11/03/21 11:02) Home Medications: Abiraterone Acetate [Zytiga] 500 mg PO DAILY 10/29/21 Ascorbic Acid [Vitamin C] 1,000 mg PO DAILY 10/29/21 Atorvastatin Calcium [Lipitor] 10 mg PO BEDTIME 10/29/21 Calcium Carbonate/Vitamin D3 [Calcium 500 + Vit D 200 Caplet] 1 each PO BID 10/29/21 Cholecalciferol (Vitamin D3) [Vitamin D 5,000 Iu Cap] 5,000 unit PO BID 10/29/21 Clopidogrel Bisulfate [Plavix] 75 mg PO DAILY 10/29/21 Cyanocobalamin (Vitamin B-12) [Vitamin B-12] 5,000 mcg PO EVERY 7TH DAY 10/29/21 Fluticasone Propionate [Flovent Diskus] 1 puff IH DAILY 10/29/21 Fluticasone/Umeclidin/Vilanter [Trelegy Ellipta 100-62.5-25] 1 puff IH DAILY 10/29/21 Furosemide [Lasix] 20 mg PO DAILY 10/29/21 Losartan Potassium [Cozaar] 50 mg PO BID 10/29/21 Multivit-Min/FA/Lycopen/Lutein [Men 50 Plus Multivitamin Tab] 1 each PO DAILY 10/29/21 Naproxen Sodium 220 mg PO BID 10/29/21 Spironolactone [Aldactone] 25 mg PO DAILY 10/29/21 Tamsulosin [Flomax] 0.4 mg PO BEDTIME 10/29/21 Turmeric Root Extract [Turmeric Curcumin] 1 cap PO BID 10/29/21 Zinc 50 mg PO DAILY 10/29/21 predniSONE [Deltasone] 5 mg PO DAILY 10/29/21 Albuterol Sulfate 1.25 mg IH Q6HP PRN 30 Days vial.neb 11/04/21 - Past Medical/Surgical History -: HLD -: HTN -: prostrate Cancer -: BPH Past Surgical History: Reviewed- Non-Contributory - Family History Family History: Reviewed- Non-Contributory - Social History Smoking Status: Former smoker Alcohol use: Yes CD- Drugs: No Caffeine use: Yes Place of Residence: Home Review of Systems General: Fever Eyes: Unremarkable ENT: Unremarkable Respiratory: Cough, Shortness of Breath, Wheezing Cardiovascular: Unremarkable Gastrointestinal: Unremarkable Genitourinary: Unremarkable Musculoskeletal: Unremarkable Integumentary: Unremarkable Neurological: Other Lymphatics: Unremarkable Physical Examination - Physical Exam General: Alert, Oriented x3, Cooperative, Mild distress HEENT: Atraumatic, PERRLA, Mucous membr. moist/pink, EOMI, Sclerae nonicteric Neck: Supple, 2+ carotid pulse no bruit, No LAD, Without JVD or thyroid abnormality Respiratory: Expiratory wheezes, Inspiratory wheezes Cardiovascular: Regular rate/rhythm, Normal S1 S2 Capillary refill: <2 Seconds Gastrointestinal: Normal bowel sounds, Soft and benign, Distended Musculoskeletal: No clubbing, No swelling, No contractures, No tenderness Integumentary: No rashes, No breakdown, No significant lesion, No tenderness/swelling Neurological: Normal speech, Normal tone, Normal affect Lymphatics: No axilla or inguinal lymphadenopathy - Studies Laboratory Data (last 24 hrs) 06/23/22 14:40: PT 13.3 H, INR 1.21 06/23/22 14:40: WBC 7.20, Hgb 12.2 L, Hct 36.1 L, Plt Count 221 06/23/22 14:40: Sodium 141, Potassium 3.5, BUN 20 H, Creatinine 0.98, Glucose 141 H, Magnesium 2.3 Assessment and Plan - Plan -- Acute on chronic COPD exacerbation. Patient placed on steroids, neb treatment with albuterol\Atrovent and O2 therapy as needed. --Pneumonia. Blood cultures pending. Continue antibiotics and current treatment regimen. --Hypertension. Poorly controlled. Continue home medications and hydralazine as needed. -- BPH. Continue home medication. --History of prostrate cancer. Status unknown. Patient follows up with an outpatient urologist. --Class II obesity. Likely secondary to excess calories intake. Patient counseled on weight reduction, diet and exercise therapy. --HLD. Continue statin. --Anemia of chronic disease. H&H stable. We will continue to monitor hemoglobin and transfuse if less than 7.0. --Elevated BNP. Patient on home Lasix. Echocardiogram pending to assess cardiac structures and function. Continue Lasix. --CKD 2. Stable. We will continue to monitor renal functions. --DVT prophylaxis with Lovenox subQ. Discharge Plan: Home Plan to discharge in: Greater than 2 days - Advance Directives Does patient have a Living Will: No Does patient have a Durable POA for Healthcare: No - Code Status/Comfort Care Code Status Assessed: Yes Code Status: Full Code Physician Review: Patient Assessed, Agree with Above Assessment and Plan Critical Care: No
[2022-06-23] MEDS: CEFTRIAXONE 1,000 MG in NA CHLORIDE 0.9% 50 ML IVPB SCH (17:00)
[2022-06-23] MEDS: ENOXAPARIN 40 MG/0.4 ML SQ SCH (17:00)
[2022-06-23] MEDS: METHYLPREDNISOLONE 40 MG INJ IV SCH (17:00)
[2022-06-23] MEDS ORDERED: CEFTRIAXONE 1000 MG/VIAL ONE (17:02)
[2022-06-23] MEDS ORDERED: AZITHROMYCIN 500 MG INJ IVPB ONE (17:03)
[2022-06-23] MEDS ORDERED: NA CHLORIDE 0.9% 250 ML ONE (17:03)
[2022-06-23 17:44] LABS: Phosphorus 1.2 mg/dL (2.5-4.9)
[2022-06-23 17:57] VITALS: BMI 34.8
[2022-06-23] MEDS: ALBUTEROL 2.5 MG/3 ML NEB SOL NEB SCH (19:03)
[2022-06-23] MEDS: IPRATROPIUM BROM 0.5MG/2.5ML NEB SCH (19:03)
[2022-06-23] MEDS: TAMSULOSIN 0.4 MG SR CAP PO SCH (20:29)
[2022-06-23] MEDS: ATORVASTATIN 10 MG TAB PO SCH (20:29)
[2022-06-23] MEDS: POTASS/SODIUM PHOSPHATE 1 PKT POWD.PACK PO SCH ×3 (20:29→23:56)
[2022-06-23] MEDS: LOSARTAN POTASSIUM 50 MG TABLET PO SCH (20:29)
[2022-06-23] MEDS: TURMERIC ROOT EXTRACT 500 MG PO SCH (20:30)
[2022-06-24] MEDS: METHYLPREDNISOLONE 40 MG INJ IV SCH ×3 (00:05→17:08)
[2022-06-24] MEDS: IPRATROPIUM BROM 0.5MG/2.5ML NEB SCH ×4 (02:00→19:35)
[2022-06-24] MEDS: ALBUTEROL 2.5 MG/3 ML NEB SOL NEB SCH ×4 (02:00→19:35)
[2022-06-24 03:46] LABS: Absolute Lymphocytes (CBC) 0.3 K/uL (0.7-4.9); Hematocrit 34.4 % (39.6-49.0); Lymphocytes % 4.5 % (15.3-44.8); MCV 88.3 fL (80-100); MPV 7.9 fL (7.6-11.3); RBC Red Blood Cell Count 3.89 M/uL (4.33-5.43)
[2022-06-24 03:58] LABS: Potassium 4.2 mmol/L (3.5-5.1)
[2022-06-24 04:26] LABS: Phosphorus 1.9 mg/dL (2.5-4.9)
[2022-06-24 05:13] LABS: Blood Morphology Comment NOT SEEN (NOT SEEN); Platelet Estimate ADEQ
[2022-06-24] MEDS ORDERED: POTASS/SODIUM PHOSPHATE 1 PKT POWD.PACK PO ONE (05:54)
[2022-06-24] MEDS: POTASS/SODIUM PHOSPHATE 1 PKT POWD.PACK PO SCH ×3 (07:43→09:32)
[2022-06-24] MEDS: BENZONATATE 100 MG CAP PO PRN (08:43)
[2022-06-24] MEDS: ASCORBIC ACID 500 MG TABLET PO SCH (08:44)
[2022-06-24] MEDS: ASPIRIN 81 MG CHEWABLE TABLET PO SCH (08:44)
[2022-06-24] MEDS: MULTIVIT W/ MINERAL TAB PO SCH (08:44)
[2022-06-24] MEDS: CLOPIDOGREL 75 MG TABLET PO SCH (08:45)
[2022-06-24] MEDS: LOSARTAN POTASSIUM 50 MG TABLET PO SCH ×2 (08:45→21:11)
[2022-06-24] MEDS: CEFTRIAXONE 1,000 MG in NA CHLORIDE 0.9% 50 ML IVPB SCH (08:45)
[2022-06-24] MEDS: FUROSEMIDE 20 MG/ 2ML VIAL IV SCH (08:46)
[2022-06-24] MEDS: ENOXAPARIN 40 MG/0.4 ML SQ SCH (08:46)
[2022-06-24] MEDS: SPIRONOLACTONE 25 MG TABLET PO SCH (08:46)
[2022-06-24] MEDS: ZINC SULFATE 220 MG CAP PO SCH (08:46)
[2022-06-24] MEDS ORDERED: HOME MED 1 EA UNK (Ascorbic Acid [Vitamin C] 1,000 MG Tablet) PO SCH (09:00)
[2022-06-24] MEDS: TURMERIC ROOT EXTRACT 500 MG PO SCH ×2 (09:00→21:00)
[2022-06-24] MEDS ORDERED: [UNRECOGNIZED DRUG - OTHER] PO SCH (09:00)
[2022-06-24] MEDS: CALCIUM CARB 500MG/VIT D 200 IU TAB PO SCH ×3 (09:00→21:11)
[2022-06-24] MEDS ORDERED: HOME MED 1 EA UNK (Zinc [Zinc] 50 MG Tablet) PO SCH (09:00)
[2022-06-24] MEDS: VITAMIN D 5,000 UNIT CAP PO SCH ×3 (09:00→21:11)
[2022-06-24] MEDS: ABIRATERONE ACETATE 500 MG PO SCH (09:00)
[2022-06-24] MEDS: FLUTICASONE PROPIONATE 100 MCG IH SCH (09:00)
[2022-06-24] MEDS: HOME MED 1 EA UNK (Fluticasone/Umeclidin/Vilanter [Trelegy Ellipta 100-62.5-25] Blst.W.Dev IH SCH (09:00)
[2022-06-24 12:51] LABS: Specific Gravity 1.018 (1.005-1.030); Urine Bacteria None Seen /HPF (<20); Urine Bilirubin NEGATIVE (Negative); Urine Blood Negative (Negative); Urine Clarity Clear (Clear); Urine Color Light-Yellow (Yellow); Urine Glucose NEGATIVE (Negative); Urine Mucus Slight /HPF (None Seen); Urine Protein TRACE (Negative); Urine RBC <5 /HPF (None Seen); Urine Urobilinogen Normal (Normal)
[2022-06-24] MEDS: TAMSULOSIN 0.4 MG SR CAP PO SCH (21:11)
[2022-06-24] MEDS: ATORVASTATIN 10 MG TAB PO SCH (21:11)
[2022-06-25] MEDS: METHYLPREDNISOLONE 40 MG INJ IV SCH ×2 (01:13→10:32)
[2022-06-25] MEDS: ALBUTEROL 2.5 MG/3 ML NEB SOL NEB SCH ×2 (01:55→07:49)
[2022-06-25] MEDS: IPRATROPIUM BROM 0.5MG/2.5ML NEB SCH ×2 (01:55→07:49)
[2022-06-25 03:53] LABS: Potassium 4.3 mmol/L (3.5-5.1)
[2022-06-25] MEDS: BENZONATATE 100 MG CAP PO PRN (04:26)
--- NOTE | 2022-06-25 05:35 | P.PN ---
Subjective Date of Service: 06/24/22 patient states his respiratory status has improved. Will repeat chest x-ray in the morning. Echocardiogram is pending as well. Continue with steroids and inhaler therapy. Arrange for discharge home over the next 24-48 hours. Review of Systems 10-point ROS is otherwise unremarkable Physical Examination - Vital Signs Temperature: 97.2 F Blood Pressure: 134/55 Pulse: 70 Respirations: 18 Pulse Ox (%): 93 - Physical Exam General: Alert, In no apparent distress, Oriented x3 HEENT: Atraumatic, PERRLA, EOMI Neck: Supple, JVD not distended Respiratory: Diminished, Expiratory wheezes Cardiovascular: Regular rate/rhythm, Normal S1 S2 Gastrointestinal: Normal bowel sounds, No tenderness Musculoskeletal: No tenderness Integumentary: No rashes Neurological: Normal speech, Normal tone, Normal affect Lymphatics: No axilla or inguinal lymphadenopathy - Studies Medications List Reviewed: Yes Assessment & Plan - Problems (Diagnosis) (1) Bilateral pneumonia Current Visit: Yes Status: Acute (2) Elevated brain natriuretic peptide (BNP) level Current Visit: Yes Status: Acute (3) COPD (chronic obstructive pulmonary disease) Current Visit: No Status: Acute Qualifiers: Emphysema type: unspecified - Plan -nebs, steroids, and antibiotics -O2 per protocol. -echocardiogram -outpatient pulmonary function testing -repeat chest x-ray -pulmonary consultation Discharge Plan: Home Plan to discharge in: Greater than 2 days - Advance Directives Does patient have a Living Will: No Does patient have a Durable POA for Healthcare: No - Code Status/Comfort Care Code Status: Full Code Physician Review: Patient Assessed, Agree with Above Assessment and Plan Critical Care: No Time Spent Managing PTS Care (In Minutes): 35
--- NOTE | 2022-06-25 06:20 | ECHO ---
HEIGHT: 5 ft 11 in WEIGHT: 250 lb 0.067 oz DATE OF STUDY: 06/24/[address]: Ronaldo Branch 2-DIMENSIONAL: YES M.MODE: YES DOPPLER: YES COLOR FLOW: YES TDS: YES PORTABLE: YES DEFINITY: BUBBLE STUDY: DIAGNOSIS: ELEVATED BNP/ ROULE OUT CONGESTIVE HEART FAILURE CARDIAC HISTORY: CATHERIZATION: SURGERY: PROSTHETIC VALVE: PACEMAKER: MEASUREMENTS (cm) DIASTOLIC (NORMALS) SYSTOLIC (NORMALS) IVSd 1.2 (0.6-1.2) LA Diam (1.9-4.0) LVEF 72% LVIDd 4.5 (3.5-5.7) LVIDs 2.7 (2.0-3.5) %FS 41% LVPWd 1.2 (0.6-1.2) Ao Diam 3.6 (2.0-3.7) 2 DIMENSIONAL ASSESSMENT: RIGHT ATRIUM: NORMAL LEFT ATRIUM: NOT WELL SEEN RIGHT VENTRICLE: NORMAL LEFT VENTRICLE: APPEARS NORMAL TRICUSPID VALVE: NORMAL MITRAL VALVE: NORMAL PULMONIC VALVE: NORMAL AORTIC VALVE: NORMAL PERICARDIAL EFFUSION: NONE AORTIC ROOT: NORMAL LEFT VENTRICULAR WALL MOTION: NORMAL DOPPLER/COLOR FLOW: SEE BELOW COMMENTS: 1. POOR WINDOWS 2. OVERALL LEFT VENTRICULAR EJECTION FRACTION IS NORMAL, GREATER THAN 60% 3. DILATED INFERIOR VENA CAVA AT 2.4 CENTIMETERS 4. MILD MITRAL REGURGITATION TECHNOLOGIST: JUNIOR HAMMOND
--- NOTE | 2022-06-25 07:34 | RAD REPORT ---
EXAM DESCRIPTION: Ruddy Single View06/25/2022 6:57 am CLINICAL HISTORY: Pneumonia COMPARISON: June FINDINGS: Partial resolution and right and no significant change in the left pulmonary opacities pro bably pneumonia Heart is normal size
[2022-06-25 08:17] VITALS: O2SAT 93
[2022-06-25 08:21] VITALS: BP 138/68; TEMP 97.4
[2022-06-25] MEDS: POTASS/SODIUM PHOSPHATE 1 PKT POWD.PACK PO SCH ×3 (09:00→10:32)
[2022-06-25] MEDS: HOME MED 1 EA UNK (Fluticasone/Umeclidin/Vilanter [Trelegy Ellipta 100-62.5-25] Blst.W.Dev IH SCH (09:00)
[2022-06-25] MEDS: FLUTICASONE PROPIONATE 100 MCG IH SCH (09:00)
[2022-06-25] MEDS: ABIRATERONE ACETATE 500 MG PO SCH (09:00)
[2022-06-25] MEDS: TURMERIC ROOT EXTRACT 500 MG PO SCH (09:00)
[2022-06-25] MEDS: SPIRONOLACTONE 25 MG TABLET PO SCH (10:30)
[2022-06-25] MEDS: ASCORBIC ACID 500 MG TABLET PO SCH (10:30)
[2022-06-25] MEDS: ASPIRIN 81 MG CHEWABLE TABLET PO SCH (10:30)
[2022-06-25] MEDS: CLOPIDOGREL 75 MG TABLET PO SCH (10:30)
[2022-06-25] MEDS: CEFTRIAXONE 1,000 MG in NA CHLORIDE 0.9% 50 ML IVPB SCH (10:31)
[2022-06-25] MEDS: ZINC SULFATE 220 MG CAP PO SCH (10:31)
[2022-06-25] MEDS: CALCIUM CARB 500MG/VIT D 200 IU TAB PO SCH (10:31)
[2022-06-25] MEDS: LOSARTAN POTASSIUM 50 MG TABLET PO SCH (10:31)
[2022-06-25] MEDS: VITAMIN D 5,000 UNIT CAP PO SCH (10:31)
[2022-06-25] MEDS: FUROSEMIDE 20 MG/ 2ML VIAL IV SCH (10:32)
[2022-06-25] MEDS: MULTIVIT W/ MINERAL TAB PO SCH (10:32)
[2022-06-25] MEDS: ENOXAPARIN 40 MG/0.4 ML SQ SCH (10:32)
--- NOTE | 2022-06-29 17:36 | EKG ---
Test Date: 2022-06-23 Test Time: 14:34:19 Photo Producer: BP MEASUREMENT RESULTS: Intervals: Rate: 66 WV: 154 QRSD: 74 QT: 414 QTc: 434 Poneto: P: 68 WV: 154 QRS: 5 T: 41 INTERPRETIVE STATEMENTS: Sinus rhythm with premature atrial complexes Cannot rule out Anterior infarct, age undetermined Abnormal ECG Compared to ECG 10/29/2021 09:05:07 Atrial premature complex(es) now present Myocardial infarct finding now present Sinus bradycardia no longer present Electronically Signed On 06-29-22 17:21:37 PHYSICIAN RECRUITER by Emeterio Fitzgerald
[2022-06-30] MEDS ORDERED: HOME MED 1 EA UNK (Cyanocobalamin (Vitamin B-12) [Vitamin B-12] 5,000 MCG Capsule) PO SCH (09:00)
== END 2022-06-25 12:23 | disposition home or self-care (01) | DRG 190 ==
LOC: ER 13:43 → ERHOLD 16:22 → 2ND 17:14
PROVIDERS: ADMIT Hospitalist; ATTEND Hospitalist
DX: J43.9 Emphysema, unspecified (principal); J18.9 Pneumonia, unspecified organism; E78.5 Hyperlipidemia, unspecified; I12.9 Hypertensive chronic kidney disease with stage 1 through stage 4 chronic kidney disease, or unspecified chronic kidney disease; N18.2 Chronic kidney disease, stage 2 (mild); D63.8 Anemia in other chronic diseases classified elsewhere; N40.0 Benign prostatic hyperplasia without lower urinary tract symptoms; E66.09 Other obesity due to excess calories; R79.89 Other specified abnormal findings of blood chemistry; Z95.5 Presence of coronary angioplasty implant and graft; Z90.5 Acquired absence of kidney; Z68.34 Body mass index [BMI] 34.0-34.9, adult; Z85.46 Personal history of malignant neoplasm of prostate; Z90.49 Acquired absence of other specified parts of digestive tract; Z79.52 Long term (current) use of systemic steroids; Z96.653 Presence of artificial knee joint, bilateral; Z79.899 Other long term (current) drug therapy; Z87.891 Personal history of nicotine dependence; Z20.822 Contact with and (suspected) exposure to COVID-19
CPT/HCPCS: 0240U; 36415; 71045; 80048; 81001; 83735; 83880; 84100; 84484; 85025; 85610; 87040; 93005; 93306; 94640; 94660; 94760; 99285; J0456; J1100; J1650; J1940; J2920; J7050; J7613; J7644

== ENCOUNTER 2022-11-01 07:47 | Day surgery (SDC) | payer OTHER ==
--- NOTE | 2022-10-29 09:49 | RAD REPORT ---
EXAM DESCRIPTION: RAD - Chest Pa And Lat (2 Views) - 10/29/2022 9:38 am CLINICAL HISTORY: pre op pending Sub q mass removal Hypertension, diabetes COMPARISON: Chest Single View dated 06/25/2022; Chest Single View dated 06/23/2022; Chest Pa And Lat (2 Views) dated 10/29/2021; CHEST PA AND LAT 2 VIEW dated 10/27/2011 FINDINGS: Lines: None. Lungs: No evidence of edema or pneumonia. Pleural: No significant pleural effusions or pneumothorax. Cardiac: The heart size is within normal limits. Mediastinum: Within normal limits. Bones: No acute fractures. Bridging osteophytes in the spine. Other: None IMPRESSION: No acute cardiopulmonary disease.
[2022-11-01] MEDS ORDERED: NA CHLORIDE 0.9% 1,000 ML ONE (08:05)
[2022-11-01] MEDS ORDERED: MIDAZOLAM HCL 2 MG/2 ML INJ ONE (08:42)
[2022-11-01] MEDS ORDERED: LIDOCAINE 2% MPF 5 ML VIAL ONE (08:42)
[2022-11-01] MEDS ORDERED: FENTANYL CITR 100 MCG/2 ML ONE (08:42)
[2022-11-01] MEDS ORDERED: propofoL 200 MG/20 ML VIAL IV ONE (08:42)
[2022-11-01] MEDS ORDERED: dexAMETHasone 4 MG/ML VIAL ONE (08:42)
[2022-11-01] MEDS ORDERED: ONDANSETRON 4 MG/2 ML VIAL ONE (08:43)
[2022-11-01] MEDS: CEFAZOLIN SODIUM 1 GM/VIAL ONE ×2 (08:54→09:14)
[2022-11-01] MEDS ORDERED: EPHEDRINE SULF 50 MG/ML VIAL ONE (10:09)
[2022-11-01] MEDS ORDERED: CEFAZOLIN SODIUM 1 GM/VIAL ONE (10:16)
[2022-11-01 10:55] VITALS: TEMP 97.5
[2022-11-01 11:00] VITALS: BP 146/66; O2SAT 95
--- NOTE | 2022-11-01 11:32 | OP ---
Date of Procedure: 11/01/2022 Surgeon: Carlo Cotto MD Preoperative Diagnosis: Tender upper back subcutaneous mass. Postoperative Diagnosis: Tender upper back subcutaneous mass. Procedure: Excisional biopsy of tender right upper back subcutaneous mass 4 x 4 cm. Anesthesia: General plus local. Complications: None. Findings: Deep subcutaneous mass. Indications: This is the case of a 72-year-old patient comes to us with an enlarging mass in the rig ht upper back. Patient wants that excised. The benefits, alternatives, and risks of excision were f ully explained, which include, but not limited to infection, bleeding, damage to adjacent structures, anesthesia complication, recurrence, AK, and even . He also understands this may not relieve t he symptoms. He might need more than one surgical intervention. He understood, signed a consent. T he area of concern was marked by me and the patient in the holding room. Procedure In Detail: The patient was brought to the operating room, placed in supine position. Anes thesia was done without complication. Patient was placed in lateral decubitus position with proper p rotection. Right upper back was prepped and draped in a sterile fashion. Incision was made over the area. Incision was carried down to subcutaneous tissue. We noticed this mass to be deep in the sub cutaneous tissue, right against the fascia of the muscle, but does not penetrate the muscle. The mas s was completely excised in 1 unit. Area was irrigated. Hemostasis was obtained. Then, we proceede d to close this in layers. The deep layers with the part of the fascia were closed with 0 chromic, m id layers with 0 chromic, and then 3-0 chromic in the subcutaneous tissue, and then skin with 3-0 nyl on. Patient tolerated the procedure well. Patient was sent to recovery in stable condition. Sponge coun t and instrument count were correct. HM/MODL Voice ID: [id number] Report ID: [id number]
--- NOTE | 2022-11-01 11:59 | DS ---
Date of Discharge: 11/01/2022 Diagnosis: Tender right upper back subcutaneous mass. Procedure: Excisional biopsy of right upper back subcutaneous mass. Condition: Stable. Disposition: Home. Activity: As tolerated. No heavy lifting. Followup: Follow up in my office in 1 week. Call for appointment [phone]. Discharge Instructions: Keep area dry for 48 hours and may shower and then cover the suture line wit h triple antibiotics. SAVANNAH/NORBERT Voice ID: [id number] Report ID: [id number]
== END 2022-11-01 11:36 | disposition home or self-care (01) ==
LOC: OR 07:47
PROVIDERS: ATTEND Surgery
PROC: 0HB6XZZ Excision of Back Skin, External Approach (ICD-10-PCS; principal; 2022-11-01 09:45)
DX: L72.0 Epidermal cyst (principal)
CPT/HCPCS: 82947 ×2; 88304; 71046; 11404; J2704; J1100; J2001; J2250; J3010; J2405; J7030; J0690

== ENCOUNTER 2024-03-19 10:12 | Inpatient (IN) | payer OTHER ==
[2024-03-19 10:51] LABS: Absolute Lymphocytes (CBC) 0.4 K/uL (0.7-4.9); Absolute Monocytes 0.3 K/uL (0.1-1.3); Absolute Neutrophil 9.7 K/uL (1.8-8.0); Basophils % 0.2 % (0-1.3); Eosinophils % 0.4 % (0-4.4); Hematocrit 43.5 % (39.6-49.0); Hemoglobin 14.4 g/dL (13.6-17.9); MCH 30.1 pg (27.0-35.0); MCHC 33.2 g/dL (32.0-36.0); MCV 90.6 fL (80-100); MPV 7.7 fL (7.6-11.3); Monocytes % 2.9 % (3.3-12.3); Neutrophils % 92.5 % (41.7-73.7); Nucleated Red Blood Cells % 0.1 % (0-0); Platelets 238 thou/uL (152-406); Red Cell Distribution Width 15.5 % (12.1-15.2)
[2024-03-19 10:56] LABS: PT Prothrombin Time 12.8 SECONDS (9.4-12.5); Protime INR 1.15
[2024-03-19] MEDS ORDERED: Levofloxacin500mg IV 500 MG/100 ML BAG IV ONE (11:10)
[2024-03-19] MEDS ORDERED: FAMOTIDINE 20 MG/2 ML VIAL IV ONE (11:10)
[2024-03-19] MEDS ORDERED: LEVALBUTEROL 1.25 MG/3 ML NEB ONE (11:10)
[2024-03-19] MEDS ORDERED: IPRATROPIUM BROM 0.5MG/2.5ML ONE (11:10)
[2024-03-19] MEDS ORDERED: METHYLPREDNISOLONE 125 MG INJ ONE (11:10)
[2024-03-19] MEDS ORDERED: Magnesium Sulfate 2gm IVPB 2 G/50 ML BAG IV ONE (11:11)
[2024-03-19] MEDS ORDERED: NA CHLORIDE 0.9% 2,000 ML ONE ×2 (11:11→12:19)
[2024-03-19 11:14] LABS: Albumin 3.3 g/dL (3.4-5.0); Anion Gap 10.1 mEq/L (5.0-15.0); Bilirubin Direct 0.4 mg/dL (0-0.2); Bilirubin Indirect, Calculated 0.8 mg/dL (0.2-0.8); Bilirubin Total 1.2 mg/dL (0.2-1.0); Globulin 3.2 g/dL (2.3-3.5); Magnesium 1.7 mg/dL (1.6-2.4); Potassium 4.1 mEq/L (3.5-5.1); Protein, Total 6.5 g/dL (6.4-8.2); Troponin High Sensitivity 4.8 pg/mL (<58.9)
--- NOTE | 2024-03-19 12:02 | ER ---
Nurse's Notes [facility] Norm Name: Patel Quezada Age: 74 yrs Sex: Male : 1950 Arrival Date: 03/19/2024 Time: 10:12 Bed 17 Private MD: Diagnosis: COPD/ Chronic obstructive pulmonary disease with (acute) exacerbation;Hypotension, unspecified;Pneumonia due to other specified bacteria;Severe sepsis with septic shock Presentation: 03/19 10:20 Chief complaint: EMS states: Toned out for shortness of breath since this morning, jl7 reports fever last night. Coronavirus screen: Client presents with at least one sign or symptom that may indicate coronavirus-19. Ebola Screen: No symptoms or risks identified at this time. Initial Sepsis Screen: Does the patient meet any 2 criteria? RR > 20 per min. HR > 90 bpm. Yes Does the patient have a suspected source of infection? No. Patient's initial sepsis screen is negative. Risk Assessment: Do you want to hurt yourself or someone else? Patient reports no desire to harm self or others. Onset of symptoms was March 19, 2024. 10:20 Method Of Arrival: EMS: [facility] 10:20 Acuity: JANET 2 jl7 Historical: - Allergies: 10:21 No Known Allergies; jl7 - PMHx: 10:21 COPD; Hypercholesterolemia; Hypertensive disorder; Prostate Cancer; jl7 - PSHx: 10:21 Cholecystectomy; Heart Stents; Left kidney removed; Replacement of total knee joint; jl7 Right and Left; - Immunization history:: Adult Immunizations unknown. - Infectious Disease History:: Denies. - Social history:: Smoking status: Patient denies any tobacco usage or history of. Screenin:30 [facility] ED Fall Risk Assessment (Adult) History of falling in the last 3 months, cm10 including since admission No falls in past 3 months (0 pts) Confusion or Disorientation No (0 pts) Intoxicated or Sedated No (0 pts) Impaired Gait No (0 pts) Mobility Assist Device Used No (0 pt) Altered Elimination No (0 pt) Score/Fall Risk Level 0 - 2 = Low Risk Oriented to surroundings, Maintained a safe environment, Hourly rounding (assess needs \T\ fall precautionary measures) done. Abuse screen: Denies threats or abuse. Denies injuries from another. Nutritional screening: No deficits noted. Tuberculosis screening: No symptoms or risk factors identified. Assessment: 10:21 Reassessment: RT at bedside placing BiPap at this time. jl7 11:30 Pain: Complains of pain in back. Cardiovascular: No deficits noted. Patient's skin is cm10 warm and dry. Respiratory: No deficits noted. Airway is patent Respiratory effort is labored, Respiratory pattern is tachypnea Breath sounds are diminished bilaterally. 11:30 General: Appears distressed, uncomfortable, Behavior is cooperative. cm10 12:45 General: Pt placed on NC at 4.5L. cm10 14:01 Reassessment: Patient appears in no apparent distress at this time. Patient and/or cm10 family updated on plan of care and expected duration. Pain level reassessed. Patient is alert, oriented x 3, equal unlabored respirations, skin warm/dry/pink. Patient states feeling better. Patient states symptoms have improved. Vital Signs: 10:19 BP 93 / 48; Pulse 112; Resp 27; Temp 99.1; Pulse Ox 89% ; Weight 119.29 kg; jl7 10:46 BP 95 / 64; Pulse 108; Resp 26; Pulse Ox 99% on BiPAP; jl7 11:00 BP 60 / 41; Pulse 100; Resp 35; Pulse Ox 97% on BiPAP; MAP 45 mmHg; cm10 11:15 BP 86 / 53; Pulse 94; Resp 34; Pulse Ox 97% on BiPAP; MAP 60 mmHg; cm10 11:30 BP 93 / 53; Pulse 93; Resp 30; Pulse Ox 100% on BiPAP; cm10 11:45 BP 95 / 51; Pulse 93; Resp 27; Pulse Ox 100% on BiPAP; cm10 12:00 BP 88 / 62; Pulse 94; Resp 31; Pulse Ox 95% on BiPAP; cm10 12:15 BP 87 / 48; Pulse 96; Resp 28; Pulse Ox 98% on BiPAP; cm10 12:30 BP 100 / 59; Pulse 85; Resp 33; Pulse Ox 99% on BiPAP; cm10 12:45 BP 83 / 41; Pulse 79; Resp 26; Pulse Ox 98% on BiPAP; cm10 13:00 BP 88 / 47; Pulse 67; Resp 28; Pulse Ox 97% on 4.5 lpm NC; cm10 13:15 BP 104 / 46; Pulse 94; Resp 22; Pulse Ox 95% on 4.5 lpm NC; cm10 13:45 BP 93 / 51; Pulse 88; Resp 22; Pulse Ox 95% on 4.5 lpm NC; cm10 ED Course: 10:15 Patient arrived in ED. effie 10:15 Ramos Fair MD is Attending Physician. effie 10:19 Ugo Yanes, RN is Primary Nurse. jl7 10:21 Triage completed. jl7 10:24 First set of blood cultures drawn by me. jl7 10:33 Inserted saline lock: 20 gauge in left antecubital area, using aseptic technique. Blood jl7 collected. 10:33 Initial lab(s) drawn, by me, sent to lab. Second set of blood cultures drawn by me. jl7 10:58 XRAY Chest (1 view) In Process Unspecified. EDMS 11:13 Notified ED physician of a critical lab result(s). Lactate 2.7. ss 11:14 EKG done, by ED staff, reviewed by Ramos Fair MD. zm 11:30 Patient has correct armband on for positive identification. Placed in gown. Bed in low cm10 position. Call light in reach. Side rails up X2. Provided Education on: ER process and procedures.. 11:56 Accessed peripheral vein via ultrasound, utilizing dynamic ultrasound technique Clean \T\ cm10 dry. Dressing intact. Good blood return. Flushes easily. 20G right forearm. Missed attempt(s): 20 gauge in right hand. 22 gauge in left hand. Bleeding controlled, band aid applied, catheter tip intact. 11:59 Pierre Magallon MD is Hospitalizing Provider. effie 12:10 Arm band placed on Patient placed in an exam room, on a stretcher, on oxygen, on cm10 satellite project site monitor, on pulse oximetry. 12:19 Primary Nurse role handed off by Ugo Yanes, LAURYN jl7 12:32 Lisbet Cotto, LAURYN is Primary Nurse. cm10 12:56 Attempted to call report. No ready at this time. cm10 13:25 Report given to LAURYN Le in ICU. cm10 14:02 No provider procedures requiring assistance completed. Patient admitted, IV remains in cm10 place. Administered Medications: 11:20 CANCELLED (Duplicate Order): cefepime1 grams IVPB at 200 ml/hr once over 30 mins; (mix effie in NS 100 mL) 11:26 Drug: Levalbuterol Inhalation 3.75 mg Inhalation once Route: Inhalation; cm10 11:26 Drug: Ipratropium Inhalation Aerosol 0.5 mg Inhalation once Route: Inhalation; cm10 11:26 Drug: Famotidine IVP 20 mg IVP once; dilute with 10 mL 0.9% NaCl; give over 2 minutes cm10 Route: IVP; Site: left antecubital; 12:11 Follow up: Response: No adverse reaction cm10 11:26 Drug: NS 0.9% IV 1000 ml IV at 1000 ml once; to be given as a bolus over 60 minutes cm10 Route: IV; Rate: 1000 ml; Site: left antecubital; 12:34 Follow up: IV Status: Completed infusion; IV Intake: 1000ml cm10 11:26 Drug: NS 0.9% IV 1000 ml IV at 1000 ml once; to be given as a bolus over 60 minutes cm10 Route: IV; Rate: 1000 ml; Site: left antecubital; 12:34 Follow up: Response: No adverse reaction; IV Status: Completed infusion; IV Intake: cm10 1000ml 11:27 Drug: MethylPrednisoLONE IVP 125 mg IVP once Route: IVP; Site: left antecubital; cm10 12:11 Follow up: Response: No adverse reaction cm10 11:37 Drug: levofloxacin IVPB 500 mg 100 ml IVPB once over 60 mins Volume: 100 ml; Route: cm10 IVPB; Infused Over: 60 mins; Site: left antecubital; 12:52 Follow up: Response: No adverse reaction; IV Status: Completed infusion; IV Intake: cm10 100ml 11:55 Drug: Magnesium Sulfate IVPB 2 grams IVPB once over 2 hrs Route: IVPB; Infused Over: 2 cm10 hrs; Site: right forearm; 12:53 Follow up: Response: No adverse reaction; IV Status: Completed infusion; IV Intake: cm10 1000ml 12:45 Drug: Ketorolac IVP 30 mg IVP once Route: IVP; Site: left antecubital; cm10 13:03 Follow up: Response: No adverse reaction 10 12:52 Drug: NS 0.9% IV 1000 ml IV at 1000 ml once; to be given as a bolus over 60 minutes cm10 Route: IV; Rate: 1000 ml; Site: left antecubital; 13:58 Follow up: Response: No adverse reaction; IV Status: Completed infusion; IV Intake: cm10 1000ml 12:53 Drug: NS 0.9% IV 1000 ml IV at 125 ml/hr continuous Route: IV; Rate: 125 ml/hr; Site: cm10 right forearm; 13:58 Follow up: Response: No adverse reaction; IV Status: Infusion continued upon admission cm10 12:53 Drug: Meropenem IV 1 grams IV at per protocol once; (mix in NS 100 mL) Route: IV; Rate: cm10 per protocol; Site: right forearm; 13:18 Follow up: Response: No adverse reaction; IV Status: Completed infusion; IV Intake: cm10 100ml Medication: 14:02 VIS not applicable for this client. cm10 Intake: 12:34 IV: 1000ml; Total: 1000ml. cm10 12:34 IV: 1000ml; Total: 2000ml. cm10 12:52 IV: 100ml; Total: 2100ml. cm10 12:53 IV: 1000ml; Total: 3100ml. cm10 13:18 IV: 100ml; Total: 3200ml. cm10 13:58 IV: 1000ml; Total: 4200ml. cm10 Outcome: 12:02 Decision to Hospitalize by Provider. effie 14:01 Admitted to ICU accompanied by nurse, accompanied by tech, via stretcher, room 1, with cm10 oxygen, on monitor, 14:01 Condition: stable 14:01 Instructed on the need for admit, 14:11 Patient left the ED. cm10 Signatures: Dispatcher [employer] EDRamos Finn MD MD cha Blanchard, Shelby, RN RN ss Leal, Jahala, RN RN jl7 Martinez, Zaina zm Martinez, Clarissa, RN RN cm10 Corrections: (The following items were deleted from the chart) 13:01 11:30 Pain: Complains of pain in back cm10 cm10
--- NOTE | 2024-03-19 12:02 | EDPHYS ---
Physician Documentation [facility] Name: Patel Quezada Age: 74 yrs Sex: Male : 1950 Arrival Date: 03/19/2024 Time: 10:12 Bed 17 Private MD: ED Physician Ramos Fair HPI: 03/19 11:51 This 74 yrs old Male presents to ER via EMS with complaints of sob , copd effie began last night. 11:51 The patient has shortness of breath at rest. Onset: The symptoms/episode began/occurred effie 1 day(s) ago. Duration: The symptoms are continuous, and are steadily getting worse. The patient's shortness of breath is aggravated by coughing, prone position, supine position. The patient presents to the emergency department with wheezing, Current therapy: albuterol inhaler, albuterol nebs, that began without any particular precipitating event, the patient was reported to have audible wheezing, non-productive cough, trouble breathing. Modifying factors: The symptoms are alleviated by nothing, the symptoms are aggravated by nothing. The patient or guardian reports airway noise, cough, difficulty breathing. Historical: - Allergies: 10:21 No Known Allergies; jl7 - PMHx: 10:21 COPD; Hypercholesterolemia; Hypertensive disorder; Prostate Cancer; jl7 - PSHx: 10:21 Cholecystectomy; Heart Stents; Left kidney removed; Replacement of total knee joint; jl7 Right and Left; - Immunization history:: Adult Immunizations unknown. - Infectious Disease History:: Denies. - Social history:: Smoking status: Patient denies any tobacco usage or history of. ROS: 11:53 Constitutional: Negative for fever, chills, and weight loss, Eyes: Negative for injury, effie pain, redness, and discharge, ENT: Negative for injury, pain, and discharge, Neck: Negative for injury, pain, and swelling, Abdomen/GI: Negative for abdominal pain, nausea, vomiting, diarrhea, and constipation, Back: Negative for injury and pain, : Negative for injury, bleeding, discharge, and swelling, MS/Extremity: Negative for injury and deformity, Skin: Negative for injury, rash, and discoloration, Neuro: Negative for headache, weakness, numbness, tingling, and seizure, Psych: Negative for depression, anxiety, suicide ideation, homicidal ideation, and hallucinations, Allergy/Immunology: Negative for hives, rash, and allergies, Endocrine: Negative for neck swelling, polydipsia, polyuria, polyphagia, and marked weight changes, Hematologic/Lymphatic: Negative for swollen nodes, abnormal bleeding, and unusual bruising, 11:53 Constitutional: Positive for body aches, chills, fatigue, fever, malaise, 11:53 Cardiovascular: Positive for palpitations, :53 Respiratory: Positive for cough, shortness of breath, wheezing, expiratory, 11:53 MS/extremity: Negative for acute changes, swelling, tenderness, Exam: 11:53 Constitutional: This is a well developed, well nourished patient who is awake, alert, effie and in no acute distress. Head/Face: Normocephalic, atraumatic. Eyes: Pupils equal round and reactive to light, extra-ocular motions intact. Lids and lashes normal. Conjunctiva and sclera are non-icteric and not injected. Cornea within normal limits. Periorbital areas with no swelling, redness, or edema. ENT: Nares patent. No nasal discharge, no septal abnormalities noted. Tympanic membranes are normal and external auditory canals are clear. Oropharynx with no redness, swelling, or masses, exudates, or evidence of obstruction, uvula midline. Mucous membranes moist. Neck: Trachea midline, no thyromegaly or masses palpated, and no cervical lymphadenopathy. Supple, full range of motion without nuchal rigidity, or vertebral point tenderness. No Meningismus. Chest/axilla: Normal chest wall appearance and motion. Nontender with no deformity. No lesions are appreciated. Cardiovascular: Regular rate and rhythm with a normal S1 and S2. No gallops, murmurs, or rubs. Normal PMI, no JVD. No pulse deficits. Abdomen/GI: Soft, non-tender, with normal bowel sounds. No distension or tympany. No guarding or rebound. No evidence of tenderness throughout. Back: No spinal tenderness. No costovertebral tenderness. Full range of motion. Male : Normal genitalia with no discharge or lesions. Skin: Warm, dry with normal turgor. Normal color with no rashes, no lesions, and no evidence of cellulitis. MS/ Extremity: Pulses equal, no cyanosis. Neurovascular intact. Full, normal range of motion. Neuro: Awake and alert, GCS 15, oriented to person, place, time, and situation. Cranial nerves II-XII grossly intact. Motor strength 5/5 in all extremities. Sensory grossly intact. Cerebellar exam normal. Normal gait. Psych: Awake, alert, with orientation to person, place and time. Behavior, mood, and affect are within normal limits. 11:53 Respiratory: mild respiratory distress is noted, Respirations: labored breathing, that is moderate, Breath sounds: bronchial sounds, decreased breath sounds, that are moderate, are heard in the right middle lobe, right lower lobe, right posterior upper lobe, right posterior middle lobe and right posterior lower lobe, Respiratory rate: 26 12:03 ECG was reviewed by the Attending Physician. [facility] Vital Signs: 10:19 BP 93 / 48; Pulse 112; Resp 27; Temp 99.1; Pulse Ox 89% ; Weight 119.29 kg; jl7 10:46 BP 95 / 64; Pulse 108; Resp 26; Pulse Ox 99% on BiPAP; jl7 11:00 BP 60 / 41; Pulse 100; Resp 35; Pulse Ox 97% on BiPAP; MAP 45 mmHg; cm10 11:15 BP 86 / 53; Pulse 94; Resp 34; Pulse Ox 97% on BiPAP; MAP 60 mmHg; cm10 11:30 BP 93 / 53; Pulse 93; Resp 30; Pulse Ox 100% on BiPAP; cm10 11:45 BP 95 / 51; Pulse 93; Resp 27; Pulse Ox 100% on BiPAP; cm10 12:00 BP 88 / 62; Pulse 94; Resp 31; Pulse Ox 95% on BiPAP; cm10 12:15 BP 87 / 48; Pulse 96; Resp 28; Pulse Ox 98% on BiPAP; cm10 12:30 BP 100 / 59; Pulse 85; Resp 33; Pulse Ox 99% on BiPAP; cm10 12:45 BP 83 / 41; Pulse 79; Resp 26; Pulse Ox 98% on BiPAP; cm10 13:00 BP 88 / 47; Pulse 67; Resp 28; Pulse Ox 97% on 4.5 lpm NC; cm10 13:15 BP 104 / 46; Pulse 94; Resp 22; Pulse Ox 95% on 4.5 lpm NC; cm10 13:45 BP 93 / 51; Pulse 88; Resp 22; Pulse Ox 95% on 4.5 lpm NC; cm10 MDM: 10:15 Medical Screening Exam initiated effie 10:18 Medical Screening Exam initiated effie 11:55 Differential diagnosis: Anxiety Reaction asthma, Bronchitis CHF exacerbation, Chronic effie Obstructive Pulmonary Disease acute asthma, exercise-induced asthma, reactive airway, CHF, URI, Myocardial Infarction pneumonia, pulmonary edema, Pulmonary Embolism reactive airway disease. Antibiotic administration: Maxipime and Levaquin given. Immunization status: Pneumococcal vaccine: within last 5 years. Influenza vaccine: within last 5 years. Data reviewed: vital signs, nurses notes, EMS record, lab test result(s), EKG, radiologic studies, plain films. Consideration of Admission/Observation Escalation of care including admission/observation considered. I considered the following discharge prescriptions or medication management in the emergency department Medications were administered in the Emergency Department. See MAR. Independent interpretation of the following test(s) in the Emergency Department EKG: See my EKG interpretation above. Test considered but Not performed: CT: no ct chest. 03/19 10:17 Order name: Basic Metabolic Panel; Complete Time: 11:49 [facility] 03/19 10:17 Order name: CBC with Diff [facility] 03/19 10:17 Order name: LFT's; Complete Time: 11:49 [facility] 03/19 10:17 Order name: Magnesium; Complete Time: 11:49 [facility] 03/19 10:17 Order name: NT PRO-BNP; Complete Time: 11:49 [facility] 03/19 10:17 Order name: PT-INR [facility] 03/19 10:17 Order name: Troponin HS; Complete Time: 11:49 [facility] 03/19 10:17 Order name: Blood Culture Adult (2) [facility] 03/19 10:17 Order name: Lactate w/ 2H reflex if indic.; Complete Time: 11:49 [facility] 03/19 11:53 Order name: Flu [facility] 03/19 11:53 Order name: SARS RAPID [facility] 03/19 12:47 Order name: Basic Metabolic Panel EDIL 03/19 12:47 Order name: Basic Metabolic Panel EDMS 03/19 12:47 Order name: Basic Metabolic Panel EDMS 03/19 12:47 Order name: Basic Metabolic Panel EDMS 03/19 12:47 Order name: CBC with Automated Diff EDMS 03/19 12:47 Order name: CBC with Automated Diff EDMS 03/19 12:47 Order name: CBC with Automated Diff EDMS 03/19 12:47 Order name: CBC with Automated Diff EDMS 03/19 12:47 Order name: Lactate w/ 2H reflex if indic. EDMS 03/19 12:47 Order name: Lactate w/ 2H reflex if indic. EDMS 03/19 12:47 Order name: Lactate w/ 2H reflex if indic. EDMS 03/19 12:47 Order name: Lactate w/ 2H reflex if indic. EDMS 03/19 12:47 Order name: Magnesium EDMS 03/19 12:47 Order name: Magnesium EDMS 03/19 12:47 Order name: Magnesium EDMS 03/19 12:47 Order name: Magnesium EDMS 03/19 12:47 Order name: Phosphorus EDMS 03/19 12:47 Order name: Phosphorus EDMS 03/19 12:47 Order name: Phosphorus EDMS 03/19 12:47 Order name: Phosphorus EDMS 03/19 12:47 Order name: Lactate w/ 2H reflex if indic. EDMS 03/19 12:47 Order name: Lactate w/ 2H reflex if indic. EDMS 03/19 12:47 Order name: Lactate w/ 2H reflex if indic. EDMS 03/19 12:53 Order name: Lipid Profile EDMS 03/19 12:53 Order name: Lipid Profile EDMS 03/19 12:53 Order name: Lipid Profile EDMS 03/19 12:53 Order name: Troponin High Sensitivity EDMS 03/19 12:53 Order name: Blood Culture EDMS 03/19 12:53 Order name: Sputum Culture EDMS 03/19 13:13 Order name: Ghost Lactate-NO COLLECT Timer EDIL 03/19 13:18 Order name: CBC Smear Scan EDIL 03/19 10:17 Order name: XRAY Chest (1 view) [facility] 03/19 12:47 Order name: Echo with Doppler EDIL 03/19 10:17 Order name: Cardiac monitoring; Complete Time: 10:46 [facility] 03/19 10:17 Order name: EKG - Nurse/Tech; Complete Time: 11:14 [facility] 03/19 10:17 Order name: IV Saline Lock; Complete Time: 10:46 [facility] 03/19 10:17 Order name: Labs collected and sent; Complete Time: 10:46 [facility] 03/19 10:17 Order name: O2 Per Protocol; Complete Time: 10:46 [facility] 03/19 10:17 Order name: O2 Sat Monitoring; Complete Time: 10:46 [facility] 03/19 10:29 Order name: IV Saline Lock - Large Bore; Complete Time: 10:45 effie EC:03 Rate is 98 beats/min. Rhythm is regular. QRS [place] is Normal. [place] interval is normal. QRS effie interval is normal. QT interval is normal. No Q waves. T waves are Normal. No ST changes noted. Clinical impression: NSR w/ Non-specific ST/T Changes and No evidence of ischemia. Interpreted by me. Reviewed by me. Administered Medications: 11:20 CANCELLED (Duplicate Order): cefepime1 grams IVPB at 200 ml/hr once over 30 mins; (mix effie in NS 100 mL) 11:26 Drug: Levalbuterol Inhalation 3.75 mg Inhalation once Route: Inhalation; cm10 11:26 Drug: Ipratropium Inhalation Aerosol 0.5 mg Inhalation once Route: Inhalation; cm10 11:26 Drug: Famotidine IVP 20 mg IVP once; dilute with 10 mL 0.9% NaCl; give over 2 minutes cm10 Route: IVP; Site: left antecubital; 12:11 Follow up: Response: No adverse reaction cm10 11:26 Drug: NS 0.9% IV 1000 ml IV at 1000 ml once; to be given as a bolus over 60 minutes cm10 Route: IV; Rate: 1000 ml; Site: left antecubital; 12:34 Follow up: IV Status: Completed infusion; IV Intake: 1000ml cm10 11:26 Drug: NS 0.9% IV 1000 ml IV at 1000 ml once; to be given as a bolus over 60 minutes cm10 Route: IV; Rate: 1000 ml; Site: left antecubital; 12:34 Follow up: Response: No adverse reaction; IV Status: Completed infusion; IV Intake: cm10 1000ml 11:27 Drug: MethylPrednisoLONE IVP 125 mg IVP once Route: IVP; Site: left antecubital; cm10 12:11 Follow up: Response: No adverse reaction cm10 11:37 Drug: levofloxacin IVPB 500 mg 100 ml IVPB once over 60 mins Volume: 100 ml; Route: cm10 IVPB; Infused Over: 60 mins; Site: left antecubital; 12:52 Follow up: Response: No adverse reaction; IV Status: Completed infusion; IV Intake: cm10 100ml 11:55 Drug: Magnesium Sulfate IVPB 2 grams IVPB once over 2 hrs Route: IVPB; Infused Over: 2 cm10 hrs; Site: right forearm; 12:53 Follow up: Response: No adverse reaction; IV Status: Completed infusion; IV Intake: cm10 1000ml 12:45 Drug: Ketorolac IVP 30 mg IVP once Route: IVP; Site: left antecubital; cm10 13:03 Follow up: Response: No adverse reaction cm10 12:52 Drug: NS 0.9% IV 1000 ml IV at 1000 ml once; to be given as a bolus over 60 minutes cm10 Route: IV; Rate: 1000 ml; Site: left antecubital; 13:58 Follow up: Response: No adverse reaction; IV Status: Completed infusion; IV Intake: cm10 1000ml 12:53 Drug: NS 0.9% IV 1000 ml IV at 125 ml/hr continuous Route: IV; Rate: 125 ml/hr; Site: cm10 right forearm; 13:58 Follow up: Response: No adverse reaction; IV Status: Infusion continued upon admission cm10 12:53 Drug: Meropenem IV 1 grams IV at per protocol once; (mix in NS 100 mL) Route: IV; Rate: cm10 per protocol; Site: right forearm; 13:18 Follow up: Response: No adverse reaction; IV Status: Completed infusion; IV Intake: cm10 100ml Disposition Summary: 03/19/24 12:02 Hospitalization Ordered Notes: Hospitalization Status: Inpatient Admission effie Provider: Pierre Magallon cha Location: Intensive Care Unit effie Condition: Fair effie Problem: new effie Symptoms: have improved effie Bed/Room Type: Standard [facility] Room Assignment: 1-(03/19/24 12:52) bd Diagnosis - COPD/ Chronic obstructive pulmonary disease with (acute) exacerbation effie - Hypotension, unspecified effie - Pneumonia due to other specified bacteria effie - Severe sepsis with septic shock effie Forms: - Medication Reconciliation Form effie - SBAR form effie - Leadership Thank You Letter effie Signatures: Dispatcher [employer] Patsy Blue Corey, MD MD cha Waters, Shelly, [employer]-C [employer]-Rociow Ugo Yanes RN RN jl7 Lisbet Cotto RN RN cm10 Corrections: (The following items were deleted from the chart) 10:18 10:18 BASIC METABOLIC PANEL+C.LAB.BRZ ordered. EDMS EDMS 10:18 10:18 CBC+H.LAB.BRZ ordered. EDMS EDMS 10:18 10:18 HEPATIC FUNCTION+C.LAB.BRZ ordered. EDMS EDMS 10:18 10:18 MAGNESIUM+C.LAB.BRZ ordered. EDMS EDMS 10:18 10:18 PROBNP+C.LAB.BRZ ordered. EDMS EDMS 10:18 10:18 PROTIME (+INR)+COAG.LAB.BRZ ordered. EDMS EDMS 10:18 10:18 Troponin High Sensitivity+C.LAB.BRZ ordered. EDMS EDMS 10:18 10:18 BLOOD CULTURE*+BA.LAB.BRZ ordered. EDMS EDMS 10:18 10:18 Chest Single View+RAD.RAD.BRZ ordered. EDMS EDMS 10:18 10:18 BiPap ([employer] Only)+RC.RAD.BRZ ordered. EDMS EDMS 10:18 10:18 LACTATE+C.LAB.BRZ ordered. EDMS EDMS 11:20 11:11 Cefepime IVPB 1 grams IVPB at 200 ml/hr once over 30 mins; (mix in NS 100 mL) effie ordered. effie 11:53 11:53 Influenza Screen (A \T\ B)+BA.LAB.BRZ ordered. EDMS EDMS 11:53 11:53 SARS-COV-2 Antigen Rapid+I.LAB.BRZ ordered. EDMS EDMS 12:52 12:02 effie bd
[2024-03-19] MEDS ORDERED: Meropenem 1000 MG/VIAL IV ONE (12:18)
[2024-03-19] MEDS ORDERED: NA CHLORIDE 0.9% 100 ML ONE (12:19)
[2024-03-19] MEDS ORDERED: KETOROLAC 30 MG/ML INJ ONE (12:34)
[2024-03-19] MEDS ORDERED: ACETAMINOPHEN 325 MG TABLET PO PRN (12:37)
[2024-03-19] MEDS ORDERED: SODIUM CHLORIDE 0.9% 10ML INJ IV PRN (12:37)
--- NOTE | 2024-03-19 12:37 | P.HP ---
Certification for Inpatient Patient admitted to: Inpatient With expected LOS: >2 Midnights <Marielle Wiggins Israel - Last Filed: 03/19/24 12:56> Patient History Date of Service: 03/19/24 Reason for admission: Acute respiratory failure with severe sepsis second to pneumonia History of Present Illness: Mr. Quezada is a 74-year-old male with a past medical history of hypertension, hyperlipidemia, coronary artery disease, COPD, sleep apnea, and BPH with prostate cancer. He states he was in his usual state of health last p.m. and this morning awoke with significant right-sided chest pain, shortness of breath, nonproductive cough, fever, malaise, and fatigue. Initial vitals 93/48, 112, 27, 99.1, 89% on room air. Patient was placed on BiPAP. Chest x-ray shows "Patchy bilateral airspace opacities as above worse on the right. Pneumonia should be considered. Given the poor inspiratory effort and superimposition of soft tissues, consider additional formal AP and lateral chest radiographs for better evaluation." Patient's respiratory status has stabilized on BiPAP, continued shallow, rapid respirations. Patient still requiring O2. Patient is still coughing. Patient denies chills or tremor. He will be admitted to ICU for acute respiratory failure secondary to pneumonia with septic shock and lactic acidosis, BLAS with hypotension and peripheral edema, pleuritic pain, COPD exacerbation, and sciatica. - Past Medical/Surgical History Diabetic: No -: HLD -: HTN -: prostrate Cancer -: BPH -: Sleep Apnea -: COPD -: cardiac stents -: cholecystectomy -: donated left kidney Psychosocial/ Personal History: Lives at home. at bedside. - Family History Family History: Reviewed- Non-Contributory - Social History Smoking Status: Former smoker Alcohol use: Yes CD- Drugs: No Caffeine use: Yes Place of Residence: Home <WigginsMarielle Wood - Last Filed: 03/19/24 12:56> Date of Service: 03/19/24 <Pierre Magallon - Last Filed: 03/20/24 16:52> Allergies No Known Allergies Allergy (Verified 11/01/22 12:00) Home Medications: Abiraterone Acetate [Zytiga] 500 mg PO DAILY 10/29/21 Ascorbic Acid [Vitamin C] 1,000 mg PO DAILY 10/29/21 Atorvastatin Calcium [Lipitor*] 10 mg PO BEDTIME 10/29/21 Calcium Carbonate/Vitamin D3 [Calcium 500-Vit D3 200 Caplet] 1 each PO BID 10/29/21 Cholecalciferol (Vitamin D3) [Vitamin D 5,000 IU Cap*] 5,000 unit PO BID 10/29/21 Clopidogrel Bisulfate [Plavix*] 75 mg PO DAILY 10/29/21 Cyanocobalamin (Vitamin B-12) [Vitamin B-12] 5,000 mcg PO EVERY 7TH DAY 10/29/21 Furosemide [Lasix*] 20 mg PO DAILY 10/29/21 Losartan Potassium [Cozaar*] 50 mg PO BID 10/29/21 Mv-Min/Folic/K1/Lycopen/Lutein [Men 50 Plus Multivitamin Tab] 1 each PO DAILY 10/29/21 Naproxen Sodium 220 mg PO BID 10/29/21 Spironolactone [Aldactone*] 25 mg PO DAILY 10/29/21 Tamsulosin [Flomax*] 0.4 mg PO BEDTIME 10/29/21 Turmeric Root Extract [Turmeric Curcumin] 1 cap PO BID 10/29/21 Zinc 50 mg PO DAILY 10/29/21 predniSONE [Prednisone*] 5 mg PO DAILY 10/29/21 Albuterol Sulfate 1.25 mg IH Q6HP PRN 30 Days vial.neb 11/04/21 Budesonide/Glycopyr/Formoterol [Breztri Aerosphere Inhaler] 2 puff IH BID 10/29/22 Metformin ER [Glucophage ER] 500 mg PO DAILY 10/29/22 Fluticasone/Umeclidin/Vilanter [Trelegy Ellipta 200-62.5-25] 1 puff IH DAILY 03/19/24 Review of Systems 10-point ROS is otherwise unremarkable General: Fever, Weakness, Malaise, As per HPI Eyes: Unremarkable ENT: Unremarkable Respiratory: Cough, Shortness of Breath, SOB with Excertion, Pleuritic Pain, As per HPI Cardiovascular: Chest Pain Gastrointestinal: Unremarkable Genitourinary: Unremarkable Musculoskeletal: Back Pain, Leg Pain Integumentary: Unremarkable Neurological: Weakness Lymphatics: Unremarkable <Wiggins,Marielle Israel - Last Filed: 03/19/24 12:56> Physical Examination - Vital Signs Blood Pressure: 87/48 Pulse: 94 Respirations: 31 Pulse Ox (%): 95 (bipap) - Physical Exam General: Alert, Oriented x3, Mild distress, Moderate distress, Obese HEENT: Atraumatic, Normocephalic Neck: Supple Respiratory: Diminished, Other (shallow with paroxysm of right sided pleuritic pain) Cardiovascular: Regular rate/rhythm, Edema Capillary refill: <2 Seconds Gastrointestinal: Hypoactive, No masses, No rebound, No guarding, Distended Musculoskeletal: No clubbing Integumentary: Other (mild pallor) Neurological: Normal speech, Sensation intact, Other (paroxysms of spasm to left buttock) Lymphatics: No axilla or inguinal lymphadenopathy External genitalia: Deferred Rectal: Deferred Other Physical/Emotional Findings: at bedside - Studies Laboratory Data (last 24 hrs) 03/19/24 03/19/24 03/19/24 10:33 10:33 10:33 WBC 10.50 Hgb 14.4 Hct 43.5 Plt Count 238 PT 12.8 H INR 1.15 Sodium 135 L Potassium 4.1 BUN 27 H Creatinine 1.79 H Glucose 139 H Magnesium 1.7 Total Bilirubin 1.2 H AST 27 ALT 38 Alkaline Phosphatase 96 <Marielle Wigginslen - Last Filed: 03/19/24 12:56> Assessment and Plan - Plan Acute resp failure 2nd to Severe sepsis 2nd to Extensive right pneumonia/COPD exacerbation Hypotension 2nd to septic shock with Lactic acidosis with BLAS with mild diffuse edema Pleuritic chest pain Sciatica Plan: 1. Continue IV antibiotics (Merrem & Levaquin) 2. Sputum and blood cultures 3. Repeat chest x-ray 4. Will proceed with CT scanning of the chest if pneumonia is not improved to evaluate for postobstructive pneumonia 5. Respiratory isolation not needed 6. Neb treatments every 4 to 6 hours as needed 7. O2 per protocol/Bipap 8. Monitor and trend labs including CBC, CMP, and lactate as needed 9. Gentle IVF, PICC now for abx (and prn need for pressors) 10. pain control with blood pressure support prn GI and DVT prophylaxis Plan to discharge in: Greater than 2 days - Advance Directives Does patient have a Living Will: No Does patient have a Durable POA for Healthcare: No - Code Status/Comfort Care Code Status Assessed: Yes (Full) Critical Care: Yes (35 min) Time Spent Managing Pts Care (In Minutes): 65 <Marielle Wiggins - Last Filed: 03/19/24 12:56> Date of Service: 03/19/24 Patient was seen and examined. Events of the last 24 hours have been noted. Spoke with with VIN regarding patient's clinical picture after evaluating and examining the patient independently. I performed a substantial part of the MDM during this patient's care today. I personally made or approved the documented management plan and acknowledge its risk of complications. I agree with the findings and documentation provided in the VIN's notes. Patient admitted with pneumonia. Patient with extensive infiltrate on the right lung field. Continue with IV antibiotic therapy and neb treatments. Pulmonary consultation. <Pierre Magallon - Last Filed: 03/20/24 16:52>
[2024-03-19] MEDS: Levofloxacin 750mg IV 750 MG/150 ML BAG IV SCH (13:00)
[2024-03-19] MEDS: IPRATROPIUM BROM 0.5MG/2.5ML NEB SCH (13:00)
[2024-03-19] MEDS: Meropenem 1,000 MG in NA CHLORIDE 0.9% 100 ML IV SCH ×2 (13:00→22:04)
--- NOTE | 2024-03-19 13:16 | RAD REPORT ---
EXAMINATION: ONE VIEW CHEST XR CLINICAL INDICATION: Male, 74 years old.,COPD;Cough;Congestion TECHNIQUE: Frontal chest projection is submitted. Examination is limited by patient positioning and t echnique. COMPARISON: 10/29/2022 FINDINGS: Decreased inspiratory effort limits evaluation. Patchy predominantly peripheral, as well as mild bib asilar airspace opacities. Superimposition of soft tissues especially on the right somewhat limits evaluation. The heart is normal in size. Mediastinal contours are unremarkable. IMPRESSION: Patchy bilateral airspace opacities as above worse on the right. Pneumonia should be considered. Give n the poor inspiratory effort and superimposition of soft tissues, consider additional formal AP and lateral chest radiographs for better evaluation.
[2024-03-19 13:17] LABS: Platelet Estimate ADEQ; White Blood Cell Scan OK (OK)
[2024-03-19 13:18] LABS: Blood Morphology Comment NOT SEEN (NOT SEEN)
[2024-03-19 13:19] LABS: SARS-CoV-2 Antigen CONTROL BLUE LINE VIS/BG OK; SARS-CoV-2 Antigen Rapid Res Negative (Negative)
[2024-03-19 14:40] LABS: PTT, Activated Partial Thromb 30.7 SECONDS (24.3-36.9)
[2024-03-19] MEDS: NA CHLORIDE 0.9% 1,000 ML IV SCH ×2 (14:53→23:29)
[2024-03-19] MEDS: Levofloxacin 250mg IV 250 MG/50 ML BAG IV ONE (14:53)
[2024-03-19] MEDS: HEPARIN/D5W 25,000 UNIT/500 ML BAG IV SCH (15:22)
[2024-03-19] MEDS: FUROSEMIDE 20 MG TABLET PO SCH (16:40)
[2024-03-19] MEDS: METHYLPREDNISOLONE 125 MG INJ IV SCH (17:30)
[2024-03-19] MEDS: TAMSULOSIN 0.4 MG SR CAP PO ONE (17:31)
[2024-03-19] MEDS: ARFORMOTEROL TARTRATE 15 MCG/2 ML VIAL.NEB NEB SCH (20:03)
[2024-03-19] MEDS: ATORVASTATIN 10 MG TAB PO SCH (22:03)
[2024-03-19] MEDS: PANTOPRAZOLE 40 MG INJ IVP SCH (22:03)
[2024-03-19] MEDS: Mupirocin NASAL 2 APPL/1 GM TUBE NAS SCH (22:04)
[2024-03-19] MEDS: GABAPENTIN 300 MG CAP PO SCH (22:04)
--- NOTE | 2024-03-20 01:50 | RAD REPORT ---
EXAM DESCRIPTION: XR CHEST 1 VIEW 03/20/2024 12:22 AM PREDATORY HUNTER CLINICAL HISTORY: 74 years, Male, PICC line placement. COMPARISON: XR Chest 03/19/2024. FINDINGS: 1 view of the chest (AP portable projection) was obtained. No prior films are available at this ita e for comparison. There is mild hyperinflation. Mediastinum: The cardiomediastinal silhouette appears normal in size and shape. There is a left upper extremity PICC line tip of the catheter within the cavoatrial junction in good position Lungs: There is a focal area of airspace opacity within the right upper mid lung zone. Heart: The heart is normal in size. Thoracic aorta: The thoracic aorta demonstrate minimal intimal calcification. Pulmonary vasculature: The pulmonary vasculature is normal in distribution. Pleura: The costophrenic angles demonstrate to be sharp. Osseous structures: The bony structures demonstrate to be within normal limits. Other: External EKG leads within the [id number] limits diagnosis. IMPRESSION: Left upper extremity PICC line in good position. Focal area of airspace opacity right upper mid lung zone. Follow-up is recommended until resolution. Electronically signed by: Chema Franco MD 03/20/2024 12:46 AM PREDATORY HUNTER Due to temporary technical issues with the PACS/Breaker reporting system, reports are being claudia d by the in-house radiologist without review as a courtesy to ensure prompt reporting the interpreting radiologist is fully responsible for the content of the report. Transcribed Date/Time: 03/20/2024 1:50 AM
[2024-03-20 06:00] LABS: Absolute Lymphocytes (CBC) 0.3 K/uL (0.7-4.9); Absolute Monocytes 0.3 K/uL (0.1-1.3); Absolute Neutrophil 10.2 K/uL (1.8-8.0); Basophils % 0.1 % (0-1.3); Hematocrit 36.7 % (39.6-49.0); Hemoglobin 12.4 g/dL (13.6-17.9); Lymphocytes % 2.7 % (15.3-44.8); MCH 30.5 pg (27.0-35.0); MCHC 33.7 g/dL (32.0-36.0); MCV 90.6 fL (80-100); Monocytes % 2.5 % (3.3-12.3); Neutrophils % 94.7 % (41.7-73.7); Platelets 168 thou/uL (152-406); RBC Red Blood Cell Count 4.05 M/uL (4.33-5.43); Red Cell Distribution Width 15.7 % (12.1-15.2)
[2024-03-20 06:11] LABS: Anion Gap 8.5 mEq/L (5.0-15.0); Magnesium 2.2 mg/dL (1.6-2.4); Phosphorus 2.4 mg/dL (2.5-4.9); Potassium 5.5 mEq/L (3.5-5.1)
--- NOTE | 2024-03-20 07:20 | RAD REPORT ---
Procedure: Chest Single View HISTORY: Chest pain COMPARISON: March 20, 2024 FINDINGS: Right upper lobe consolidation without significant change Heart remains mildly enlarged No significant pleural effusion noted. The heart is normal size. IMPRESSION: No significant change in a right upper lobe consolidation consistent with pneumonia
[2024-03-20] MEDS: SODIUM ZIRCONIUM CYCLOSILICATE 10 GM/PKT PO ONE (07:57)
[2024-03-20] MEDS: CLOPIDOGREL 75 MG TABLET PO SCH (07:57)
[2024-03-20] MEDS: GUAIFENESIN/CODEINE 5ML UCUP PO PRN (07:58)
[2024-03-20] MEDS: ALBUTEROL 2.5 MG/3 ML NEB SOL NEB ONE (08:00)
[2024-03-20] MEDS: D5W 1,000 ML with NA BICARB 8.4% 100 MEQ IV SCH (11:12)
[2024-03-20 11:50] LABS: Albumin 2.1 g/dL (3.4-5.0); Albumin/Globulin Ratio 0.7 (1.1-1.8); Anion Gap 8.9 mEq/L (5.0-15.0); Bilirubin Total 0.4 mg/dL (0.2-1.0); Potassium 3.9 mEq/L (3.5-5.1); Protein, Total 5.1 g/dL (6.4-8.2)
--- NOTE | 2024-03-20 12:21 | EKG ---
Test Date: 2024-03-19 Test Time: 11:10:49 Field Associate: PHILLIP MEASUREMENT RESULTS: Intervals: Rate: 98 TX: 162 QRSD: 64 QT: 318 QTc: 405 Vandemere: P: 65 TX: 162 QRS: 46 T: 75 INTERPRETIVE STATEMENTS: Normal sinus rhythm Normal ECG Compared to ECG 06/23/2022 14:34:19 Atrial premature complex(es) no longer present Myocardial infarct finding no longer present Electronically Signed On 03-20-24 12:17:23 FEEDMOBILE DRIVER by Jaden Bueno
[2024-03-20] MEDS: Levofloxacin 750mg IV 750 MG/150 ML BAG IV SCH (13:49)
[2024-03-20 15:40] LABS: Arterial Blood Carboxyhemoglob 0.8 % (0-1.5); Blood Gas Oxyhemoglobin 72.1 % (94-97); Blood Gas THB 12.7 g/dl (12-18)
[2024-03-20] MEDS: Meropenem 1,000 MG in NA CHLORIDE 0.9% 100 ML IV SCH (16:45)
--- NOTE | 2024-03-20 16:56 | P.PN ---
Subjective Date of Service: 03/20/24 Patient continues to improve and patient denies any new complaints. However, still with persistent coughing and shortness of breath. Chest x-ray with no significant changes. Procalcitonin elevated. Patient with a metabolic acidosis related to lactic acidosis from hypoxemia. Patient given IV fluid with bicarb. D-dimer elevated. Will get CT PE protocol in the morning. Continue heparin drip. Review of Systems 10-point ROS is otherwise unremarkable Physical Examination - Vital Signs Temperature: 97.4 F Blood Pressure: 118/58 Pulse: 83 Respirations: 31 Pulse Ox (%): 97 - Physical Exam General: Alert, In no apparent distress, Oriented x3 HEENT: Atraumatic, PERRLA, EOMI Neck: Supple, JVD not distended Respiratory: Diminished, Rhonchi/gurgles Cardiovascular: Regular rate/rhythm, Normal S1 S2, No murmurs Gastrointestinal: Normal bowel sounds, Soft and benign, Non-distended, No tenderness Musculoskeletal: No clubbing, No swelling, No tenderness Neurological: Sensation intact, Cranial nerves 3-12 intact Other Physical/Emotional Findings: at bedside - Studies Medications List Reviewed: Yes Assessment & Plan - Problems (Diagnosis) (1) Consolidation of right lower lobe of lung Current Visit: Yes Status: Acute (2) COPD with acute exacerbation Current Visit: Yes Status: Acute (3) CHF (congestive heart failure) Current Visit: Yes Status: Acute (4) Elevated d-dimer Current Visit: Yes Status: Acute (5) BLAS (acute kidney injury) Current Visit: Yes Status: Acute - Plan Plan: 1. Continue with IV antibiotics 2. Awaiting sputum and blood culture 3. Repeat chest x-ray 4. CT scan of the chest to evaluate for postobstructive pneumonia as well as pulmonary embolism 5. Pulmonary consultation 6. Continue with nebs as needed 7. O2 per protocol 8. Continue with gentle hydration; monitor lactic acid level. Patient with a metabolic acidosis and will start bicarb drip 9. Continue monitoring renal function 10. GI and DVT prophylaxis Discharge Plan: Home Plan to discharge in: Greater than 2 days - Advance Directives Does patient have a Living Will: No Does patient have a Durable POA for Healthcare: No - Code Status/Comfort Care Code Status Assessed: Yes Code Status: Full Code Critical Care: Yes Time Spent Managing PTS Care (In Minutes): 35
[2024-03-20] MEDS ORDERED: NA CHLORIDE 0.9% 1,000 ML IV SCH (19:00)
[2024-03-20] MEDS: DOCUSATE NA 100 MG CAP PO SCH (20:34)
[2024-03-20] MEDS: TAMSULOSIN 0.4 MG SR CAP PO SCH (20:34)
[2024-03-20] MEDS: BENZONATATE 100 MG CAP PO PRN (22:06)
[2024-03-21 06:11] LABS: Absolute Lymphocytes (CBC) 0.3 K/uL (0.7-4.9); Absolute Monocytes 0.4 K/uL (0.1-1.3); Absolute Neutrophil 11.9 K/uL (1.8-8.0); Basophils % 0.1 % (0-1.3); Hematocrit 34.6 % (39.6-49.0); Hemoglobin 11.5 g/dL (13.6-17.9); Lymphocytes % 2.3 % (15.3-44.8); MCHC 33.2 g/dL (32.0-36.0); MCV 90.3 fL (80-100); MPV 8.5 fL (7.6-11.3); Neutrophils % 94.6 % (41.7-73.7); Platelets 161 thou/uL (152-406); RBC Red Blood Cell Count 3.83 M/uL (4.33-5.43); Red Cell Distribution Width 15.7 % (12.1-15.2)
[2024-03-21 06:32] LABS: Anion Gap 7.1 mEq/L (5.0-15.0); Magnesium 2.3 mg/dL (1.6-2.4); Potassium 4.1 mEq/L (3.5-5.1)
[2024-03-21 06:47] LABS: Phosphorus 1.1 mg/dL (2.5-4.9)
[2024-03-21] MEDS: POTASS/SODIUM PHOSPHATE 1 PKT POWD.PACK PO SCH (08:11)
[2024-03-21] MEDS: predniSONE 10 MG TAB PO SCH ×2 (08:12→19:57)
[2024-03-21] MEDS: CLOPIDOGREL 75 MG TABLET PO SCH (08:13)
[2024-03-21] MEDS: ENOXAPARIN 40 MG/0.4 ML SQ SCH (08:13)
[2024-03-21] MEDS: FUROSEMIDE 20 MG TABLET PO SCH (08:13)
[2024-03-21] MEDS: LOSARTAN POTASSIUM 50 MG TABLET PO SCH (08:16)
[2024-03-21] MEDS: METFORMIN ER 500 MG TAB PO SCH (08:55)
[2024-03-21] MEDS: CALCIUM CARB 500MG/VIT D 200 IU TAB PO SCH (08:55)
[2024-03-21] MEDS: LACTULOSE 20 GM/30 ML UCUP PO PRN (08:56)
[2024-03-21] MEDS ORDERED: METFORMIN ER 500 MG TAB PO SCH (09:00)
[2024-03-21] MEDS: ABIRATERONE ACETATE 500 MG PO SCH (09:00)
[2024-03-21] MEDS: HOME MED 1 EA UNK (Fluticasone/Umeclidin/Vilanter [Trelegy Ellipta 200-62.5-25] Blst.W.Dev IH SCH (09:00)
--- NOTE | 2024-03-21 09:09 | ECHO ---
HEIGHT: 5 ft 11 in WEIGHT: 274 lb 0 oz DATE OF STUDY: 03/20/[address]: Marielle Wiggins PUBLICATION MANAGER-BC 2-DIMENSIONAL: YES M.MODE: YES DOPPLER: YES COLOR FLOW: YES TDS: NO PORTABLE: YES DEFINITY: NO BUBBLE STUDY: NO DIAGNOSIS: EDEMA, CHEST PAIN CARDIAC HISTORY: CATHERIZATION: NO SURGERY: NO PROSTHETIC VALVE: NO PACEMAKER: NO MEASUREMENTS (cm) DIASTOLIC (NORMALS) SYSTOLIC (NORMALS) IVSd 1.1 (0.6-1.2) LA Diam 4.2 (1.9-4.0) LVEF 60-65% LVIDd 4.0 (3.5-5.7) LVIDs 2.8 (2.0-3.5) %FS 31% LVPWd 1.2 (0.6-1.2) Ao Diam 3.6 (2.0-3.7) 2 DIMENSIONAL ASSESSMENT: RIGHT ATRIUM: NORMAL LEFT ATRIUM: NORMAL RIGHT VENTRICLE: NORMAL LEFT VENTRICLE: NORMAL TRICUSPID VALVE: NORMAL MITRAL VALVE: NORMAL PULMONIC VALVE: NORMAL AORTIC VALVE: NORMAL PERICARDIAL EFFUSION: NONE AORTIC ROOT: NORMAL LEFT VENTRICULAR WALL MOTION: NORMAL. DOPPLER/COLOR FLOW: NORMAL. COMMENTS: 1. NORMAL LEFT VENTRICULAR SYSTOLIC FUNCTION. LEFT VENTRICULAR EJECTION FRACTION 60-65%. NORMAL WALL MOTION. 1. NORMAL DIASTOLIC FUNCTION. 2. MILDLY ELEVATED FILLING PRESSURE. RIGHT ATRIAL PRESSURE 5-10 mmHg. TECHNOLOGIST: SUZAN YANES
--- NOTE | 2024-03-21 09:16 | P.PN ---
Date of Service: 03/21/24 Subjective feeling much better, has ipap from home, comfortable overnight with use. On 6L NC and very tachypneic, will request he wear his ipap during the day Review of Systems 10-point ROS is otherwise unremarkable General: Fever, Weakness, Malaise, As per HPI Eyes: Unremarkable ENT: Unremarkable Respiratory: Cough, Shortness of Breath, SOB with Excertion, improved but continued Pleuritic Pain, As per HPI, wheezing Cardiovascular: Chest Pain Gastrointestinal: Unremarkable Genitourinary: Unremarkable Musculoskeletal: Back Pain, Leg Pain Integumentary: Unremarkable Neurological: Weakness Lymphatics: Unremarkable <Marielle Wiggins - Last Filed: 03/19/24 12:56> Physical Examination - Vital Signs Blood Pressure: 87/48 Pulse: 94 Respirations: 31 Pulse Ox (%): 95 (bipap) - Physical Exam General: Alert, Oriented x3, Mild distress, Moderate distress, Obese HEENT: Atraumatic, Normocephalic Neck: Supple Respiratory: tachypnea, moderate exp wheezing, continued increased work of breathing (mild continued right sided pleuritic pain) Cardiovascular: Regular rate/rhythm, Edema without increase/decrease Capillary refill: <2 Seconds Gastrointestinal: Hypoactive, No masses, No rebound, No guarding, Distended Musculoskeletal: No clubbing Integumentary: Other (mild pallor) Neurological: Normal speech, Sensation intact Lymphatics: No axilla or inguinal lymphadenopathy External genitalia: Deferred Rectal: Deferred Other Physical/Emotional Findings: at bedside - Studies Laboratory Data (last 24 hrs) 03/19/24 03/19/24 03/19/24 10:33 10:33 10:33 WBC 10.50 Hgb 14.4 Hct 43.5 Plt Count 238 PT 12.8 H INR 1.15 Sodium 135 L Potassium 4.1 BUN 27 H Creatinine 1.79 H Glucose 139 H Magnesium 1.7 Total Bilirubin 1.2 H AST 27 ALT 38 Alkaline Phosphatase 96 Assessment and Plan - Plan Acute resp failure 2nd to Severe sepsis 2nd to Extensive right pneumonia/COPD exacerbation Hypotension 2nd to septic shock with Lactic acidosis with BLAS with mild diffuse edema Pleuritic chest pain Sciatica Plan: 1. Continue IV antibiotics (Merrem & Levaquin) 2. Sputum and blood cultures 3. Repeat chest x-ray , repeated 03/20/24 - not much change 4. Will proceed with CT scanning of the chest if pneumonia is not improved to evaluate for postobstructive pneumonia - cancelled per pulmonology 5. Respiratory isolation not needed 6. Neb treatments every 4 to 6 hours as needed, Brovana BID, atrovent q6h 7. O2 per protocol/Bipap/ipap 8. Monitor and trend labs including CBC, CMP, and lactate as needed, pt was placed on bicarb drip for LA, improved 9. Gentle IVF, PICC now for abx (and prn need for pressors) 10. pain control with blood pressure support prn GI and DVT prophylaxis 03/21/24 continued wheezing, increased work of breathing, ipap helpful CT and heparin drip cancelled per pulmonology Solu-medrol 40mg iv q 8h metformin restarted per pulmonology - LA resolved, creatinine improved (down from 1.79 to 1.21) Lasix 20mg IV BID reordered with holding parameters for BP will send urine strep pneumo antigen continue ICU care pt continues on Levaquin, Merrem stopped per pulmonology. Rocephin ordered Plan to discharge in: Greater than 2 days - Advance Directives Does patient have a Living Will: No Does patient have a Durable POA for Healthcare: No - Code Status/Comfort Care Code Status Assessed: Yes (Full)
[2024-03-21] MEDS: INSULIN REGULAR (HUMAN) 100 UNIT/ML SQ SCH (10:37)
--- NOTE | 2024-03-21 11:45 | P.CNS ---
Date of Consult: 03/21/24 Reason for Consult: Severe pneumonia Chief Complaint: Acute respiratory failure with severe sepsis second to pneumonia History of Present Illness: Patient is 74 years of age well-known to me with a history of sleep apnea severe COPD prostate cancer problems on Tuesday with worsening pain on the right side dyspnea ended up here with respiratory distress extensive infiltrate on the right side currently on BiPAP is alert responsive little short of breath Allergies No Known Allergies Allergy (Verified 11/01/22 12:00) Home Medications: Abiraterone Acetate [Zytiga] 500 mg PO DAILY 10/29/21 Ascorbic Acid [Vitamin C] 1,000 mg PO DAILY 10/29/21 Atorvastatin Calcium [Lipitor*] 10 mg PO BEDTIME 10/29/21 Calcium Carbonate/Vitamin D3 [Calcium 500-Vit D3 200 Caplet] 1 each PO BID 10/29/21 Cholecalciferol (Vitamin D3) [Vitamin D 5,000 IU Cap*] 5,000 unit PO BID 10/29/21 Clopidogrel Bisulfate [Plavix*] 75 mg PO DAILY 10/29/21 Cyanocobalamin (Vitamin B-12) [Vitamin B-12] 5,000 mcg PO EVERY 7TH DAY 10/29/21 Furosemide [Lasix*] 20 mg PO DAILY 10/29/21 Losartan Potassium [Cozaar*] 50 mg PO BID 10/29/21 Mv-Min/Folic/K1/Lycopen/Lutein [Men 50 Plus Multivitamin Tab] 1 each PO DAILY 10/29/21 Naproxen Sodium 220 mg PO BID 10/29/21 Spironolactone [Aldactone*] 25 mg PO DAILY 10/29/21 Tamsulosin [Flomax*] 0.4 mg PO BEDTIME 10/29/21 Turmeric Root Extract [Turmeric Curcumin] 1 cap PO BID 10/29/21 Zinc 50 mg PO DAILY 10/29/21 predniSONE [Prednisone*] 5 mg PO DAILY 10/29/21 Albuterol Sulfate 1.25 mg IH Q6HP PRN 30 Days vial.neb 11/04/21 Budesonide/Glycopyr/Formoterol [Breztri Aerosphere Inhaler] 2 puff IH BID 10/29/22 Metformin ER [Glucophage ER] 500 mg PO DAILY 10/29/22 Fluticasone/Umeclidin/Vilanter [Trelegy Ellipta 200-62.5-25] 1 puff IH DAILY 03/19/24 - Past Medical/Surgical History Diabetic: No -: HLD -: HTN -: prostrate Cancer -: BPH -: Sleep Apnea -: COPD -: multiple Heart stents. -: cardiac stents -: cholecystectomy -: donated left kidney -: neptali Knee replacement Psychosocial/ Personal History: Lives at home. at bedside. - Social History Smoking Status: Former smoker Alcohol use: No CD- Drugs: No Caffeine use: Yes Place of Residence: Home Review of Systems 10-point ROS is otherwise unremarkable General: Fever, Weakness Respiratory: Cough, Shortness of Breath Physical Examination Temp Pulse Resp BP Pulse Ox 97.5 F 69 29 H 124/70 98 03/21/24 08:00 03/21/24 10:00 03/21/24 10:00 03/21/24 10:00 03/21/24 10:00 General: Alert, Oriented x3, Acute distress Neck: Supple Respiratory: Crackles/rales (Crackles on the right side) Cardiovascular: No edema, Regular rate/rhythm, Normal S1 S2 Gastrointestinal: Normal bowel sounds, Non-distended - Problems (1) Severe pneumonia Current Visit: Yes Status: Acute Plan: Patient is 74 years of age with a history of severe COPD sleep apnea prostate cancer admitted with severe community-acquired pneumonia patient is hypoxic requiring BiPAP with chemistries all reviewed changed to p.o. prednisone as he does take 5 mg of prednisone daily continue with bronchodilators DC IV fluid x- ray shows a worsening DC meropenem continue with levofloxacin so far blood cultures show no growth chest x-rays lab work all reviewed medication list reconciled DC CT pulmonary angiogram
[2024-03-21] MEDS ORDERED: Levofloxacin 750mg IV 750 MG/150 ML BAG IV SCH (15:00)
[2024-03-21] MEDS ORDERED: METHYLPREDNISOLONE 40 MG INJ IV SCH (17:00)
[2024-03-21] MEDS: FUROSEMIDE 20 MG/ 2ML VIAL IV SCH (17:34)
[2024-03-21] MEDS: ATORVASTATIN 10 MG TAB PO SCH (19:56)
[2024-03-21] MEDS ORDERED: TAMSULOSIN 0.4 MG SR CAP PO SCH (21:00)
[2024-03-22 05:09] LABS: Absolute Lymphocytes (CBC) 0.4 K/uL (0.7-4.9); Absolute Monocytes 0.7 K/uL (0.1-1.3); Absolute Neutrophil 14.3 K/uL (1.8-8.0); Basophils % 0.1 % (0-1.3); Hemoglobin 11.2 g/dL (13.6-17.9); Lymphocytes % 2.6 % (15.3-44.8); MCH 30.3 pg (27.0-35.0); MPV 8.2 fL (7.6-11.3); Monocytes % 4.6 % (3.3-12.3); Platelets 185 thou/uL (152-406); RBC Red Blood Cell Count 3.71 M/uL (4.33-5.43)
[2024-03-22 05:10] LABS: Neutrophils % 92.7 % (41.7-73.7)
[2024-03-22 05:17] LABS: Anion Gap 6.1 mEq/L (5.0-15.0); Magnesium 2.1 mg/dL (1.6-2.4); Potassium 4.1 mEq/L (3.5-5.1)
[2024-03-22 05:19] LABS: Phosphorus 1.5 mg/dL (2.5-4.9)
[2024-03-22] MEDS: SODIUM PHOSPHATE 30 MM in NA CHLORIDE 0.9% 500 ML IV ONE (05:34)
--- NOTE | 2024-03-22 07:53 | P.PN ---
Subjective Date of Service: 03/22/24 Chief Complaint: Sever ecommunity acquired pneumonia No change still has a significant cough with desaturation Hypoxic Review of Systems General: Weakness Respiratory: Cough, Shortness of Breath Physical Examination - Vital Signs Temperature: 97.2 F Blood Pressure: 120/66 Pulse: 70 Respirations: 33 Pulse Ox (%): 96 - Physical Exam General: Alert, Mild distress Neck: Supple Respiratory: Crackles/rales (R side) Cardiovascular: No edema, Normal pulses Other Physical/Emotional Findings: at bedside - Studies Medications List Reviewed: Yes Assessment And Plan - Current Problems (Diagnosis) (1) Severe pneumonia Current Visit: Yes Status: Acute Plan: Admitted with severe CAP. All cutures neg. Can DC Rocephin, likely pneumococcus. WBC elevated from steroid use ? PCT ordered. Use Vapotherm/ Avoid inhaled steroidsBP stable avoid high dose IV steroids. Pt does take pred 5 mg daily
--- NOTE | 2024-03-22 08:00 | P.PN ---
Subjective Date of Service: 03/22/24 Chief Complaint: Acute respiratory failure with severe sepsis second to pneumonia Subjective: Improving (resp rate improved, + wheezing but more air movement in general) <Marielle Wiggins - Last Filed: 03/22/24 07:48> Date of Service: 03/22/24 <MARY Poole - Last Filed: 03/22/24 14:05> Review of Systems 10-point ROS is otherwise unremarkable General: As per HPI Eyes: Unremarkable ENT: Unremarkable Respiratory: Cough, Shortness of Breath, Pleuritic Pain Cardiovascular: Unremarkable Gastrointestinal: Constipation Genitourinary: Unremarkable Musculoskeletal: Unremarkable Integumentary: Unremarkable Neurological: Unremarkable Lymphatics: Unremarkable <Marielle Wigginslen - Last Filed: 03/22/24 07:48> Physical Examination - Vital Signs Temperature: 97.2 F Blood Pressure: 120/66 Pulse: 70 Respirations: 33 Pulse Ox (%): 96 - Physical Exam General: Alert, In no apparent distress, Oriented x3, Obese HEENT: Atraumatic, Normocephalic Neck: Supple Respiratory: Crackles/rales (right middle), Expiratory wheezes Cardiovascular: Edema (minimal, no IVF at this time) Capillary refill: <2 Seconds Gastrointestinal: Normal bowel sounds, Soft and benign Musculoskeletal: No clubbing, No swelling Integumentary: No rashes Neurological: Normal speech, Normal tone, Normal affect Lymphatics: No axilla or inguinal lymphadenopathy External genitalia: Deferred Rectal: Deferred Other Physical/Emotional Findings: at bedside - Studies Medications List Reviewed: Yes <Marielle Wiggins - Last Filed: 03/22/24 07:48> Assessment And Plan - Plan Acute resp failure 2nd to Severe sepsis 2nd to Extensive right pneumonia/COPD exacerbation Hypotension 2nd to septic shock with Lactic acidosis with BLAS with mild diffuse edema Pleuritic chest pain Sciatica Plan: 1. Continue IV antibiotics Levaquin and Rocephin 2. Ipap at HS and prn 3. Repeat chest x-ray yesterday (mildly worse than admission), will recheck 03/23 4. Will proceed with CT scanning of the chest if pneumonia is not improved to evaluate for postobstructive pneumonia - cancelled 5. Respiratory isolation not needed 6. Neb treatments every 4 to 6 hours as needed, Brovana BID, and atrovent q 6h 7. O2 per protocol/Bipap 8. Monitor and trend labs including CBC, CMP, and lactate as needed 9. PICC now for abx, Hold IVF, started prednisone 03/21/24 10. pain control 03/22/24 Creatinine improved to baseline, acidosis resolved, myalgias improved, continue ICU level x 1 more day Continue IV abx, po steroids, recheck CXR tomorrow Hypophosphatemia with replacement yesterday at 1.1, this am at 1.5 GI and DVT prophylaxis Discharge Plan: Home Plan to discharge in: 48 Hours - Code Status/Comfort Care Code Status Assessed: Yes (Full) Time Spent Managing PTS Care (In Minutes): 29 <Marielle Wiggins - Last Filed: 03/22/24 07:48> - Plan Acute hypoxic respiratory failure secondary to #1 and 2 Community-acquired right lobar pneumonia Acute exacerbation of COPD due to #2 Patient is slowly improving, currently on nasal oxygen 5 L/min, still tachypnea with respiratory rate of 30, left IV levofloxacin, oral prednisone 10 mg, IV furosemide, comanaged with health education coordinator, will consider CT or follow-up chest x- ray in a couple of days <MARY Poole - Last Filed: 03/22/24 14:05>
[2024-03-22] MEDS: POTASS/SODIUM PHOSPHATE 1 PKT POWD.PACK PO SCH (08:08)
[2024-03-22] MEDS: LACTULOSE 20 GM/30 ML UCUP PO SCH (08:09)
--- NOTE | 2024-03-22 08:29 | RAD REPORT ---
EXAMINATION: ONE VIEW CHEST XR CLINICAL INDICATION: pneumonia TECHNIQUE: Frontal chest projection is submitted. Examination is limited by patient positioning and t echnique. COMPARISON: 03/20/2024 FINDINGS: Moderate improvement in right upper lobe infiltrate/pneumonia pattern since prior study. The lungs ar e emphysematous. The heart is upper limit of normal in size. No displaced fractures identified. IMPRESSION: Significant improvement in right upper lobe pneumonia pattern. Mild infiltrate persists in the region .
[2024-03-22] MEDS ORDERED: CEFTRIAXONE 2,000 MG in NA CHLORIDE 0.9% 100 ML IV SCH (09:00)
[2024-03-23 05:12] VITALS: BMI 38.3
[2024-03-23 06:11] LABS: Absolute Lymphocytes (CBC) 0.7 K/uL (0.7-4.9); Absolute Monocytes 0.9 K/uL (0.1-1.3); Absolute Neutrophil 10.4 K/uL (1.8-8.0); Basophils % 0.1 % (0-1.3); Eosinophils % 0.1 % (0-4.4); Hematocrit 37.1 % (39.6-49.0); Lymphocytes % 5.8 % (15.3-44.8); MCH 29.5 pg (27.0-35.0); MCHC 32.4 g/dL (32.0-36.0); MCV 90.9 fL (80-100); MPV 8.3 fL (7.6-11.3); Monocytes % 7.5 % (3.3-12.3); Neutrophils % 86.5 % (41.7-73.7); Platelets 176 thou/uL (152-406); RBC Red Blood Cell Count 4.08 M/uL (4.33-5.43); Red Cell Distribution Width 15.6 % (12.1-15.2)
[2024-03-23 06:23] LABS: Anion Gap 5.4 mEq/L (5.0-15.0); Phosphorus 3.1 mg/dL (2.5-4.9); Potassium 4.4 mEq/L (3.5-5.1)
--- NOTE | 2024-03-23 07:49 | RAD REPORT ---
EXAMINATION: ONE VIEW CHEST XR CLINICAL INDICATION: pneumonia TECHNIQUE: Frontal chest projection is submitted. Examination is limited by patient positioning and t echnique. COMPARISON: 03/22/2024 FINDINGS: Mild bilateral bony opacities are present, unchanged. The heart is upper limit of normal in size. No displaced fractures identified. IMPRESSION: Stable chest since 03/22/2024 prior study.
[2024-03-23 08:13] LABS: Band Neutrophils 1 % (0-1); Blood Morphology Comment NOT SEEN (NOT SEEN); Differential Total Cells Count 100; Lymphocytes 4 % (15-42); Monocytes 7 % (0-10); Platelet Estimate ADEQ; Platelets Clumped NOTED; Segmented Neutrophils 88 % (40-80)
--- NOTE | 2024-03-23 14:16 | RAD REPORT ---
EXAMINATION: CTA CHEST PE CLINICAL INDICATION: Chest pain TECHNIQUE: 100 cc 370 Isovue administered intravenously. This examination was performed according to an angiographic protocol with 3D post-processing. This involves 3D reconstructions, MIPs, volume rendered images and/or shaded surface rendering. One or more of the following dose reduction techniqu es were used: Automated exposure control, adjustment of the mA and/or kV according to patient size, and/or iterative reconstruction. Unless otherwise specified, incidental findings do not require dedic ated imaging follow-up. [id number]. COMPARISON: No prior exam. FINDINGS: Poor opacification of the pulmonary arteries. An aortic aneurysm not noted. Small right pleural effusion. Minimal pericardial effusion. 10 cm right upper lobe consolidation. Mild lingular atelectasis.. Calcified lung granulomas. Mild mediastinal and right hilar lymphadenopathy IMPRESSION: The exam is nondiagnostic to detect for a pulmonary embolus due to the poor opacification of the pulm onary arteries. 10 cm right upper lobe consolidation probably a combination of pneumonia and atelectasis. This should be followed until it has cleared to help exclude a postobstructive process/underlying mass. Mild mediastinal and right hilar lymphadenopathy
--- NOTE | 2024-03-23 18:53 | P.PN ---
Date of Service: 03/23/24 Subjective feeling much better, has ipap from home, comfortable overnight with use. Review of Systems 10-point ROS is otherwise unremarkable General: Fever, Weakness, Malaise, As per HPI Eyes: Unremarkable ENT: Unremarkable Respiratory: Cough, Shortness of Breath, SOB with Exertion, As per HPI, wheezing, harsh cough Cardiovascular: Chest Pain Gastrointestinal: Unremarkable Genitourinary: Unremarkable Musculoskeletal: Back Pain, Leg Pain Integumentary: Unremarkable Neurological: Weakness Lymphatics: Unremarkable Physical Examination - Vital Signs reviewed - Physical Exam General: Alert, Oriented x3, Mild distress, Moderate distress, Obese HEENT: Atraumatic, Normocephalic Neck: Supple Respiratory: tachypnea, moderate exp wheezing, continued increased work of breathing (mild continued right sided pleuritic pain) Cardiovascular: Regular rate/rhythm, Edema without increase/decrease Capillary refill: <2 Seconds Gastrointestinal: Hypoactive, No masses, No rebound, No guarding, Distended Musculoskeletal: No clubbing Integumentary: Other Neurological: Normal speech, Sensation intact Lymphatics: No axilla or inguinal lymphadenopathy External genitalia: Deferred Rectal: Deferred Other Physical/Emotional Findings: at bedside - Studies Laboratory Data (last 24 hrs) 03/19/24 03/19/24 03/19/24 10:33 10:33 10:33 WBC 10.50 Hgb 14.4 Hct 43.5 Plt Count 238 PT 12.8 H INR 1.15 Sodium 135 L Potassium 4.1 BUN 27 H Creatinine 1.79 H Glucose 139 H Magnesium 1.7 Total Bilirubin 1.2 H AST 27 ALT 38 Alkaline Phosphatase 96 Assessment and Plan - Plan Acute resp failure 2nd to Severe sepsis 2nd to Extensive right pneumonia/COPD exacerbation Hypotension 2nd to septic shock with Lactic acidosis with BLAS with mild diffuse edema Pleuritic chest pain Sciatica Plan: 1. Continue IV antibiotics (Merrem & Levaquin) 2. Sputum and blood cultures 3. Repeat chest x-ray , repeated 03/20/24 - not much change 4. Will proceed with CT scanning of the chest if pneumonia is not improved to evaluate for postobstructive pneumonia - cancelled per pulmonology 5. Respiratory isolation not needed 6. Neb treatments every 4 to 6 hours as needed, Brovana BID, atrovent q6h 7. O2 per protocol/Bipap/ipap 8. Monitor and trend labs including CBC, CMP, and lactate as needed, pt was placed on bicarb drip for LA, improved 9. Gentle IVF, PICC now for abx (and prn need for pressors) 10. pain control with blood pressure support prn GI and DVT prophylaxis 03/21/24 continued wheezing, increased work of breathing, ipap helpful CT and heparin drip cancelled per pulmonology Solu-medrol 40mg iv q 8h metformin restarted per pulmonology - LA resolved, creatinine improved (down from 1.79 to 1.21) Lasix 20mg IV BID reordered with holding parameters for BP will send urine strep pneumo antigen continue ICU care pt continues on Levaquin, Merrem stopped per pulmonology. Rocephin ordered 03/23/24 continued cough and wheezing but doing much better WBC down from 17 to 12 no fever O2 requirement down to 5L CT PE negative for PE, + 10cm pneumonia combined with atelectasis Continues on Levaquin IV Plan to discharge in: Greater than 2 days - Advance Directives Does patient have a Living Will: No Does patient have a Durable POA for Healthcare: No - Code Status/Comfort Care Code Status Assessed: Yes (Full) <Marielle Wiggins - Last Filed: 03/23/24 18:47> CTA of the chest demonstrated resolving right upper lobe lobar pneumonia, no evidence of PE. Patient continued to improved on Levaquin and a low-dose prednisone. Patient was seen by me independently. I reviewed PROCESS LEAD note. I agree with her assessment and plan. <MARY Poole - Last Filed: 03/24/24 06:00>
[2024-03-24] MEDS: MORPHINE 2 MG/ML SYR IV PRN (06:15)
[2024-03-24] MEDS: ALBUTEROL 2.5 MG/3 ML NEB SOL NEB PRN (07:23)
--- NOTE | 2024-03-24 09:33 | P.PN ---
Date of Service: 03/24/24 Subjective feeling much better, has ipap from home, comfortable overnight with use. Review of Systems 10-point ROS is otherwise unremarkable General: Fever, Weakness, Malaise, As per HPI Eyes: Unremarkable ENT: Unremarkable Respiratory: Cough, Shortness of Breath, SOB with Exertion, As per HPI, wheezing, harsh cough Cardiovascular: Chest Pain Gastrointestinal: Unremarkable Genitourinary: Unremarkable Musculoskeletal: Back Pain, Leg Pain Integumentary: Unremarkable Neurological: Weakness Lymphatics: Unremarkable Physical Examination - Vital Signs reviewed - Physical Exam General: Alert, Oriented x3, Mild distress, Moderate distress, Obese HEENT: Atraumatic, Normocephalic Neck: Supple Respiratory: tachypnea, moderate exp wheezing, continued increased work of breathing (mild continued right sided pleuritic pain) Cardiovascular: Regular rate/rhythm, Edema without increase/decrease Capillary refill: <2 Seconds Gastrointestinal: Hypoactive, No masses, No rebound, No guarding, Distended Musculoskeletal: No clubbing Integumentary: Other Neurological: Normal speech, Sensation intact Lymphatics: No axilla or inguinal lymphadenopathy External genitalia: Deferred Rectal: Deferred Other Physical/Emotional Findings: at bedside - Studies Laboratory Data (last 24 hrs) 03/19/24 03/19/24 03/19/24 10:33 10:33 10:33 WBC 10.50 Hgb 14.4 Hct 43.5 Plt Count 238 PT 12.8 H INR 1.15 Sodium 135 L Potassium 4.1 BUN 27 H Creatinine 1.79 H Glucose 139 H Magnesium 1.7 Total Bilirubin 1.2 H AST 27 ALT 38 Alkaline Phosphatase 96 Assessment and Plan - Plan Acute resp failure 2nd to Severe sepsis 2nd to Extensive right pneumonia/COPD exacerbation Hypotension 2nd to septic shock with Lactic acidosis with BLAS with mild diffuse edema Pleuritic chest pain Sciatica Plan: 1. Continue IV antibiotics (Merrem & Levaquin), changed to Levaquin alone 2. Sputum and blood cultures - normal cali 3. Repeat chest x-ray , repeated 03/20/24 - not much change, CT chest with and without, negative for PE, 10cm infiltrate with pneumonia + atelectasis 4. Will proceed with CT scanning of the chest if pneumonia is not improved to evaluate for postobstructive pneumonia - cancelled per pulmonology, completed 5. Respiratory isolation not needed 6. Neb treatments every 4 to 6 hours as needed, Brovana BID, atrovent q6h 7. O2 per protocol/Bipap/ipap, using only his own ipap at HS, on 5L humidified O2 8. Monitor and trend labs including CBC, CMP, and lactate as needed, pt was placed on bicarb drip for LA, improved, resolved 9. Gentle IVF, PICC now for abx (and prn need for pressors), resolved 10. pain control with blood pressure support prn GI and DVT prophylaxis 03/21/24 continued wheezing, increased work of breathing, ipap helpful CT and heparin drip cancelled per pulmonology Solu-medrol 40mg iv q 8h metformin restarted per pulmonology - LA resolved, creatinine improved (down from 1.79 to 1.21) Lasix 20mg IV BID reordered with holding parameters for BP will send urine strep pneumo antigen continue ICU care pt continues on Levaquin, Merrem stopped per pulmonology. Rocephin ordered 03/23/24 continued cough and wheezing but doing much better WBC down from 17 to 12 no fever O2 requirement down to 5L CT PE negative for PE, + 10cm pneumonia combined with atelectasis Continues on Levaquin IV 03/24/24 continued wheezing this am, IS with 2000ml volume feeling much better, no distress. Did awaken with sciatica to left lateral leg, will start gabapentin continue to try to wean O2 Continue Levaquin IV, will transition to po on discharge Plan to discharge in: Greater than 1 day - Advance Directives Does patient have a Living Will: No Does patient have a Durable POA for Healthcare: No - Code Status/Comfort Care Code Status Assessed: Yes (Full)
[2024-03-24] MEDS: GABAPENTIN 100 MG CAP PO SCH (13:07)
[2024-03-25 06:27] LABS: Absolute Eosinophils 0.3 K/uL (0-0.5); Absolute Lymphocytes (CBC) 0.8 K/uL (0.7-4.9); Absolute Monocytes 1.1 K/uL (0.1-1.3); Absolute Neutrophil 6.2 K/uL (1.8-8.0); Basophils % 0.3 % (0-1.3); Eosinophils % 3.8 % (0-4.4); Hematocrit 37.9 % (39.6-49.0); Hemoglobin 12.7 g/dL (13.6-17.9); Lymphocytes % 8.9 % (15.3-44.8); MCHC 33.5 g/dL (32.0-36.0); MCV 89.6 fL (80-100); MPV 7.9 fL (7.6-11.3); Monocytes % 13.2 % (3.3-12.3); Neutrophils % 73.8 % (41.7-73.7); Nucleated Red Blood Cells % 0.1 % (0-0); Platelets 212 thou/uL (152-406); RBC Red Blood Cell Count 4.22 M/uL (4.33-5.43); Red Cell Distribution Width 16.1 % (12.1-15.2)
[2024-03-25 06:47] LABS: Albumin 2.3 g/dL (3.4-5.0); Albumin/Globulin Ratio 0.7 (1.1-1.8); Anion Gap 5.9 mEq/L (5.0-15.0); Bilirubin Total 0.5 mg/dL (0.2-1.0); Globulin 3.4 g/dL (2.3-3.5); Potassium 3.9 mEq/L (3.5-5.1); Protein, Total 5.7 g/dL (6.4-8.2)
--- NOTE | 2024-03-25 10:09 | P.PN ---
Subjective Date of Service: 03/23/24 Chief Complaint: Severe community-acquired pneumonia respiratory failure And is doing much better cough and congestion has improved white count is declined requiring 4 to 5 L of oxygen denies any chest pain Review of Systems General: Weakness Respiratory: Cough, Shortness of Breath Physical Examination - Vital Signs Temperature: 97.8 F Blood Pressure: 137/63 Pulse: 67 Respirations: 16 Pulse Ox (%): 95 - Physical Exam General: Alert, Oriented x3 Respiratory: Diminished, Crackles/rales (Because on the right side), Expiratory wheezes Cardiovascular: No edema, Regular rate/rhythm Other Physical/Emotional Findings: at bedside - Studies Microbiology Data (last 24 hrs): 03/19/24 10:24 Blood - Blood Aerobic Blood Culture - Final No growth in 5 days. 03/19/24 10:24 Blood - Blood Anaerobic Blood Culture - Final No growth in 5 days. 03/19/24 10:33 Blood - Blood Aerobic Blood Culture - Final No growth in 5 days. 03/19/24 10:33 Blood - Blood Anaerobic Blood Culture - Final No growth in 5 days. Medications List Reviewed: Yes Assessment And Plan - Current Problems (Diagnosis) (1) Severe pneumonia Current Visit: Yes Status: Acute Plan: Patient is 74 years of age admitted with respiratory distress respiratory failure severe community-acquired pneumonia he also has severe COPD currently doing well white count is declining changed to p.o. levofloxacin in a day or so count may have been elevated from the steroids chest x-ray has improved has some interstitial changes on the right side stable for transfer to the floor ambulate physical therapy and inhaled steroids
--- NOTE | 2024-03-25 10:12 | P.PN ---
Subjective Date of Service: 03/25/24 Chief Complaint: Severe community-acquired pneumonia respiratory failure Patient is doing much better cough and congestion has improved ambulating Review of Systems General: Weakness Respiratory: Shortness of Breath Physical Examination - Vital Signs Temperature: 97.8 F Blood Pressure: 137/63 Pulse: 67 Respirations: 16 Pulse Ox (%): 95 - Physical Exam General: Alert, Oriented x3 HEENT: Atraumatic Neck: Supple Respiratory: Diminished Cardiovascular: No edema, Regular rate/rhythm Other Physical/Emotional Findings: at bedside - Studies Microbiology Data (last 24 hrs): 03/19/24 10:24 Blood - Blood Aerobic Blood Culture - Final No growth in 5 days. 03/19/24 10:24 Blood - Blood Anaerobic Blood Culture - Final No growth in 5 days. 03/19/24 10:33 Blood - Blood Aerobic Blood Culture - Final No growth in 5 days. 03/19/24 10:33 Blood - Blood Anaerobic Blood Culture - Final No growth in 5 days. Medications List Reviewed: Yes Assessment And Plan - Current Problems (Diagnosis) (1) Severe pneumonia Current Visit: Yes Status: Acute Plan: Is doing much better cough congestion has improved changed to p.o. levofloxacin ambulate check daily room air pulse ox flutter valve ambulate discharge planning
--- NOTE | 2024-03-25 10:51 | P.PN ---
Date of Service: 03/25/24 Subjective feeling much better, has ipap from home, comfortable overnight with use, comfortable with 4L O2 via N/C Review of Systems 10-point ROS is otherwise unremarkable General: Fever, Weakness, Malaise, As per HPI Eyes: Unremarkable ENT: Unremarkable Respiratory: Cough, Shortness of Breath, SOB with Exertion, As per HPI, wheezing, harsh cough - feeling better Cardiovascular: Chest Pain Gastrointestinal: Unremarkable Genitourinary: Unremarkable Musculoskeletal: Back Pain, Leg Pain Integumentary: Unremarkable Neurological: Weakness Lymphatics: Unremarkable Physical Examination - Vital Signs reviewed - Physical Exam General: Alert, Oriented x3, Obese HEENT: Atraumatic, Normocephalic Neck: Supple Respiratory: minimal increased work of breathing, diminished right lobes, much better, 90% on 4L O2 via N/C, working with IS Cardiovascular: Regular rate/rhythm, Edema without increase/decrease Capillary refill: <2 Seconds Gastrointestinal: Hypoactive, No masses, No rebound, No guarding Musculoskeletal: No clubbing Integumentary: Other Neurological: Normal speech, Sensation intact Lymphatics: No axilla or inguinal lymphadenopathy External genitalia: Deferred Rectal: Deferred Other Physical/Emotional Findings: feeling good - Studies Laboratory Data (last 24 hrs) 03/19/24 03/19/24 03/19/24 10:33 10:33 10:33 WBC 10.50 Hgb 14.4 Hct 43.5 Plt Count 238 PT 12.8 H INR 1.15 Sodium 135 L Potassium 4.1 BUN 27 H Creatinine 1.79 H Glucose 139 H Magnesium 1.7 Total Bilirubin 1.2 H AST 27 ALT 38 Alkaline Phosphatase 96 Assessment and Plan - Plan Acute resp failure 2nd to Severe sepsis 2nd to Extensive right pneumonia/COPD exacerbation Hypotension 2nd to septic shock with Lactic acidosis with BLAS with mild diffuse edema Pleuritic chest pain Sciatica Plan: 1. Continue IV antibiotics (Merrem & Levaquin), changed to Levaquin alone, 03/25/24 Levaquin 750mg po daily 2. Sputum and blood cultures - normal cali 3. Repeat chest x-ray , repeated 03/20/24 - not much change, CT chest with and without, negative for PE, 10cm infiltrate with pneumonia + atelectasis 4. Will proceed with CT scanning of the chest if pneumonia is not improved to evaluate for postobstructive pneumonia - cancelled per pulmonology, completed 5. Respiratory isolation not needed 6. Neb treatments every 4 to 6 hours as needed, Brovana BID, atrovent q6h 7. O2 per protocol/Bipap/ipap, using only his own ipap at HS, on 5L humidified O2 - 03/19/24 90% on 4L via N/C 8. Monitor and trend labs including CBC, CMP, and lactate as needed, pt was placed on bicarb drip for LA, improved, resolved 9. Gentle IVF, PICC now for abx (and prn need for pressors), resolved 10. pain control with blood pressure support prn GI and DVT prophylaxis 03/21/24 continued wheezing, increased work of breathing, ipap helpful CT and heparin drip cancelled per pulmonology Solu-medrol 40mg iv q 8h metformin restarted per pulmonology - LA resolved, creatinine improved (down from 1.79 to 1.21) Lasix 20mg IV BID reordered with holding parameters for BP will send urine strep pneumo antigen continue ICU care pt continues on Levaquin, Merrem stopped per pulmonology. Rocephin ordered 03/23/24 continued cough and wheezing but doing much better WBC down from 17 to 12 no fever O2 requirement down to 5L CT PE negative for PE, + 10cm pneumonia combined with atelectasis Continues on Levaquin IV 03/24/24 continued wheezing this am, IS with 2000ml volume feeling much better, no distress. Did awaken with sciatica to left lateral leg, will start gabapentin continue to try to wean O2 Continue Levaquin IV, will transition to po on discharge 03/25/24 no wheezing this am, still diminished on right SpO2 90% on 4L O2 Will need home O2 for COPD exacerbation and pneumonia plan to discharge soon Plan to discharge in: Greater than 1 day - Advance Directives Does patient have a Living Will: No Does patient have a Durable POA for Healthcare: No - Code Status/Comfort Care Code Status Assessed: Yes (Full) <Marielle Wiggins - Last Filed: 03/25/24 10:38> Acute hypoxic respiratory failure due to #2 and 3 Severe community-acquired pneumonia complicated by septic shock by unknown etiology Acute exacerbation COPD Presumed left lumbar radiculopathy Gradually improving on levofloxacin day 8, off steroid, nasal cannula. Plan to discharge home with likely home oxygen in a couple of days. <MARY Poole - Last Filed: 03/25/24 15:53>
[2024-03-26] MEDS: ALBUTEROL 2.5 MG/3 ML NEB SOL NEB PRN (00:58)
[2024-03-26 05:26] LABS: Absolute Eosinophils 0.4 K/uL (0-0.5); Absolute Monocytes 0.8 K/uL (0.1-1.3); Absolute Neutrophil 5.7 K/uL (1.8-8.0); Basophils % 0.2 % (0-1.3); Eosinophils % 4.6 % (0-4.4); Hematocrit 34.3 % (39.6-49.0); Hemoglobin 11.6 g/dL (13.6-17.9); Lymphocytes % 12.2 % (15.3-44.8); MCH 30.2 pg (27.0-35.0); MCHC 33.7 g/dL (32.0-36.0); MCV 89.5 fL (80-100); MPV 8.1 fL (7.6-11.3); Monocytes % 10.1 % (3.3-12.3); Platelets 187 thou/uL (152-406); RBC Red Blood Cell Count 3.84 M/uL (4.33-5.43); Red Cell Distribution Width 15.8 % (12.1-15.2)
[2024-03-26 05:30] LABS: Neutrophils % 72.9 % (41.7-73.7)
[2024-03-26 05:46] LABS: Albumin 2.3 g/dL (3.4-5.0); Albumin/Globulin Ratio 0.8 (1.1-1.8); Anion Gap 5.1 mEq/L (5.0-15.0); Bilirubin Total 0.4 mg/dL (0.2-1.0); Globulin 2.9 g/dL (2.3-3.5); Potassium 4.1 mEq/L (3.5-5.1); Protein, Total 5.2 g/dL (6.4-8.2)
[2024-03-26] MEDS: levoFLOXacin 750 MG TAB PO SCH (09:38)
--- NOTE | 2024-03-26 09:54 | P.PN ---
Date of Service: 03/26/24 Subjective 90%, 5L O2 via N/C, shortness of breath with exertion Room air sats prior to discharge, will repeat chest x-ray in a.m. Review of Systems 10-point ROS i as per HPI s otherwise unremarkable Physical Examination - Vital Signs reviewed - Physical Exam General: Alert, Oriented x3, Obese HEENT: Atraumatic, Normocephalic Neck: Supple Respiratory: Dyspnea with exertion, diminished right lobes, O2 per nasal cannula Cardiovascular: Regular rate/rhythm, Edema without increase/decrease Capillary refill: <2 Seconds Gastrointestinal: Hypoactive, No masses, No rebound, No guarding Musculoskeletal: No clubbing Integumentary: Other Neurological: Normal speech, alert and oriented x 3, no focal left Assessment and Plan - Plan Acute resp failure 2nd to Severe sepsis 2nd to Extensive right pneumonia/COPD exacerbation Hypotension 2nd to septic shock with Lactic acidosis with BLAS with mild diffuse edema Pleuritic chest pain Sciatica Plan: 1. Continue IV antibiotics (Merrem & Levaquin), changed to Levaquin alone, 03/25/24 Levaquin 750mg po daily total dose is 10 days 2. Sputum and blood cultures - normal cali 3. Repeat chest x-ray , repeated 03/20/24 - not much change, CT chest with and without, negative for PE, 10cm infiltrate with pneumonia + atelectasis 4. Will proceed with CT scanning of the chest if pneumonia is not improved to evaluate for postobstructive pneumonia - cancelled per pulmonology, completed 5. Respiratory isolation not needed 6. Neb treatments every 4 to 6 hours as needed, Brovana BID, atrovent q6h 7. O2 per protocol/Bipap/ipap, using only his own ipap at HS, on 5L humidified O2 - 03/19/24 90% on 4L via N/C 8. Monitor and trend labs including CBC, CMP, and lactate as needed, pt was placed on bicarb drip for LA, improved, resolved 9. Gentle IVF, PICC now for abx (and prn need for pressors), resolved 10. pain control with blood pressure support prn 11. Room air sats for discharge GI and DVT prophylaxis Plan to discharge in: Greater than 1 day - Advance Directives Does patient have a Living Will: No Does patient have a Durable POA for Healthcare: No , Patient 35 minutes - Code Status/Comfort Care Code Status Assessed: Yes (Full)
[2024-03-27 05:52] LABS: Absolute Eosinophils 0.3 K/uL (0-0.5); Absolute Lymphocytes (CBC) 0.9 K/uL (0.7-4.9); Absolute Monocytes 0.7 K/uL (0.1-1.3); Absolute Neutrophil 7.1 K/uL (1.8-8.0); Basophils % 0.2 % (0-1.3); Eosinophils % 2.9 % (0-4.4); Hematocrit 37.5 % (39.6-49.0); Hemoglobin 12.4 g/dL (13.6-17.9); Lymphocytes % 9.6 % (15.3-44.8); MCH 29.7 pg (27.0-35.0); MCV 89.8 fL (80-100); Monocytes % 7.7 % (3.3-12.3); Neutrophils % 79.6 % (41.7-73.7); Platelets 235 thou/uL (152-406); RBC Red Blood Cell Count 4.17 M/uL (4.33-5.43); Red Cell Distribution Width 16.2 % (12.1-15.2)
[2024-03-27 06:03] LABS: Anion Gap 5.2 mEq/L (5.0-15.0); Magnesium 2.1 mg/dL (1.6-2.4); Potassium 4.2 mEq/L (3.5-5.1)
--- NOTE | 2024-03-27 07:11 | RAD REPORT ---
EXAM: Chest Pa And Lat (2 Views) HISTORY: PNA COMPARISON: 03/23/2024 FINDINGS: LUNGS/PLEURA: Mild improved aeration of the airspace disease in the right upper lobe. Faint residual opacities remaining. MEDIASTINUM: The mediastinal silhouette is within normal limits. CARDIAC: The cardiac silhouette is within normal limits. UPPER ABDOMEN: No significant abnormality. BONES: No acute fracture. LINES/TUBES/OTHER: N/A IMPRESSION: Partial clearing of the right upper lobe pneumonia.
--- NOTE | 2024-03-27 08:56 | EKG ---
Test Date: 2024-03-24 Test Time: 15:59:23 Photographer Finish: KARYN MEASUREMENT RESULTS: Intervals: Rate: 88 NJ: 144 QRSD: 68 QT: 348 QTc: 421 [place]: P: 34 NJ: 144 QRS: -3 T: 49 INTERPRETIVE STATEMENTS: Sinus rhythm with premature atrial complexes Low voltage QRS Borderline ECG Compared to ECG 03/19/2024 11:10:49 Atrial premature complex(es) now present Low QRS voltage now present Electronically Signed On 03-27-24 08:54:10 [employer] by Jaden Bueno
[2024-03-27 09:29] LABS: Band Neutrophils 1 % (0-1); Blood Morphology Comment NOT SEEN (NOT SEEN); Differential Total Cells Count 100; Lymphocytes 18 % (15-42); Metamyelocytes 3 % (0-0); Monocytes 3 % (0-10); Platelet Estimate ADEQ; Segmented Neutrophils 75 % (40-80); Toxic Granulation 1+
--- NOTE | 2024-03-27 21:09 | P.PN ---
Date of Service: 03/27/24 Subjective 94% 4L O2 via N/C, shortness of breath with exertion plan to discharge home w home 02 Review of Systems 10-point ROS negative unless listed in HPI otherwise unremarkable Physical Examination - Vital Signs reviewed - Physical Exam General: Alert, Oriented x3, Obese HEENT: Atraumatic, Normocephalic Neck: Supple Respiratory: Dyspnea with exertion, diminished right lobes, O2 per nasal cannula Cardiovascular: Regular rate/rhythm, Edema without increase/decrease Capillary refill: <2 Seconds Gastrointestinal: +bowel sounds, nontender Musculoskeletal: No clubbing, generalized weakness Neurological: Normal speech, alert and oriented x 3, no focal deficits Assessment and Plan - Plan Acute hypoxic, hypercarbic resp failure secondary to pneumonia Severe sepsis 2nd to Extensive right pneumonia/COPD exacerbation-improving Hypotension 2nd to septic shock with Lactic acidosis with BLAS with mild diffuse edema-resolved Pleuritic chest pain Sciatica Plan: 1. Continue IV antibiotics (Merrem & Levaquin), changed to Levaquin alone, 03/25/24 Levaquin 750mg po daily total dose is 10 days 2. Sputum and blood cultures - normal cali 3. Repeat chest x-ray , repeated 03/20/24 - not much change, CT chest with and without, negative for PE, 10cm infiltrate with pneumonia + atelectasis 4. Will proceed with CT scanning of the chest if pneumonia is not improved to evaluate for postobstructive pneumonia - cancelled per pulmonology, completed 5. Respiratory isolation not needed 6. Neb treatments every 4 to 6 hours as needed, Brovana BID, atrovent q6h 7. O2 per protocol/Bipap/ipap, using only his own ipap at HS, on 5L humidified O2 - 03/19/24 90% on 4L via N/C 8. Monitor and trend labs including CBC, CMP, and lactate as needed, pt was placed on bicarb drip for LA, improved, resolved 9. Gentle IVF, PICC now for abx (and prn need for pressors), resolved 10. pain control with blood pressure support prn 11. Room air sats for discharge 12. repeat CXR slightly improved GI and DVT prophylaxis Plan to discharge in: Greater than 1 day - Advance Directives Does patient have a Living Will: No Does patient have a Durable POA for Healthcare: No , Patient 25 minutes - Code Status/Comfort Care Code Status Assessed: Yes (Full)
[2024-03-28 05:19] LABS: Absolute Eosinophils 0.2 K/uL (0-0.5); Absolute Lymphocytes (CBC) 0.7 K/uL (0.7-4.9); Absolute Monocytes 0.5 K/uL (0.1-1.3); Absolute Neutrophil 6.5 K/uL (1.8-8.0); Basophils % 0.2 % (0-1.3); Eosinophils % 2.3 % (0-4.4); Hematocrit 34.5 % (39.6-49.0); Hemoglobin 11.6 g/dL (13.6-17.9); Lymphocytes % 8.4 % (15.3-44.8); MCH 30.3 pg (27.0-35.0); MCHC 33.7 g/dL (32.0-36.0); MCV 89.8 fL (80-100); MPV 7.8 fL (7.6-11.3); Monocytes % 6.7 % (3.3-12.3); Neutrophils % 82.4 % (41.7-73.7); Nucleated Red Blood Cells % 0.1 % (0-0); Platelets 213 thou/uL (152-406); RBC Red Blood Cell Count 3.84 M/uL (4.33-5.43); Red Cell Distribution Width 15.4 % (12.1-15.2)
[2024-03-28 05:42] LABS: Anion Gap 7.9 mEq/L (5.0-15.0); Potassium 3.9 mEq/L (3.5-5.1)
[2024-03-28 08:41] VITALS: BP 118/60; TEMP 98
--- NOTE | 2024-03-28 08:42 | P.DS ---
Admission Date: 03/19/24 Discharge Date: 03/28/24 Disposition: ROUTINE DISCHARGE Discharge Condition: FAIR Reason for Admission: Severe community-acquired pneumonia respiratory failure Brief History of Present Illness: Mr. Quezada is a 74-year-old male with a past medical history of hypertension, hyperlipidemia, coronary artery disease, COPD, sleep apnea, and BPH with prostate cancer. He states he was in his usual state of health last p.m. and this morning awoke with significant right-sided chest pain, shortness of breath, nonproductive cough, fever, malaise, and fatigue. Initial vitals 93/48, 112, 27, 99.1, 89% on room air. Patient was placed on BiPAP. Chest x-ray shows "Patchy bilateral airspace opacities as above worse on the right. Pneumonia should be considered. Given the poor inspiratory effort and superimposition of soft tissues, consider additional formal AP and lateral chest radiographs for better evaluation." Patient's respiratory status has stabilized on BiPAP, continued shallow, rapid respirations. Patient still requiring O2. Patient is still coughing. Patient denies chills or tremor. He will be admitted to ICU for acute respiratory failure secondary to pneumonia with septic shock and lactic acidosis, BLAS with hypotension and peripheral edema, pleuritic pain, COPD exacerbation, and sciatica. - Physical Exam General: Alert, Oriented x3, Obese HEENT: Atraumatic, Normocephalic Neck: Supple Respiratory: Dyspnea with exertion, diminished right lobes, O2 per nasal cannula Cardiovascular: Regular rate/rhythm, Edema without increase/decrease Capillary refill: <2 Seconds Gastrointestinal: +bowel sounds, nontender Musculoskeletal: No clubbing, generalized weakness Neurological: Normal speech, alert and oriented x 3, no focal deficits Hospital Course: Mr. Quezada is a 74-year-old male with a past medical history of hypertension, hyperlipidemia, coronary artery disease, COPD, sleep apnea, and BPH with prostate cancer. He states awoke with significant right-sided chest pain, shortness of breath, nonproductive cough, fever, malaise, and fatigue. Initial vitals 93/48, 112, 27, 99.1, 89% on room air. Patient was placed on BiPAP. Chest x-ray shows "Patchy bilateral airspace opacities as above worse on the right suggest pneumonia pneumonia . Given the poor inspiratory effort and superimposition of soft tissues, consider additional formal AP and lateral chest radiographs for better evaluation." Patient's respiratory status has stabilized on BiPAP, pneumonia/symptoms improved with steroids, IV antibiotics, oxygen, oxygen weaned from 5 L to 2 L, ambulating, tolerating diet, patient still requiring O2. He was evaluated by pulmonology, oxygen saturations weaned to 2 L, will discharge with home O2. Will need to follow-up with pulmonology after discharge Assessment Respiratory failure secondary to COPD exacerbationmRight lower lobe pneumonia- treated with IV antibiotics while inpatient. Merrem Levaquin, discharged home on Levaquin p.o. repeat chest x-ray improved Sepsis, with lactic acidosis, secondary to pneumonia, improved with IV fluids, Pleuritic chest pain improved with as needed analgesics Sciatica improved with as needed analgesia Discharged home with home O2 GOAL: Clear understanding of disease process INSTRUCTIONS: Physician Discharge Instructions: -Follow-up with Dr. Gonzales after discharge -Follow-up with PCP in 1 to 2 weeks -Please call Dr. Magallon at [phone] if any questions regarding hospital stay -Please call nursing station at [phone] if any nursing or medication questions -Return to the emergency room if symptoms worsen Diet: ADA, low sodium Activity: Fall precautions Vital Signs/Physical Exam: Temp Pulse Resp BP Pulse Ox 98.0 F 73 22 H 118/60 96 03/28/24 08:00 03/28/24 08:00 03/28/24 08:00 03/28/24 08:00 03/28/24 08:00 Other Physical/Emotional Findings: at bedside Laboratory Data at Discharge: WBC 7.90 thou/uL (4.3-10.9) 03/28/24 04:45 Hgb 11.6 g/dL (13.6-17.9) L 03/28/24 04:45 Hct 34.5 % (39.6-49.0) L 03/28/24 04:45 Plt Count 213 thou/uL (152-406) 03/28/24 04:45 PT 12.8 SECONDS (9.4-12.5) H 03/19/24 10:33 INR 1.15 03/19/24 10:33 APTT 55.7 SECONDS (24.3-36.9) H 03/21/24 05:03 Sodium 139 mEq/L (136-145) 03/28/24 04:45 Potassium 3.9 mEq/L (3.5-5.1) 03/28/24 04:45 BUN 21 mg/dL (7-18) H 03/28/24 04:45 Creatinine 1.26 mg/dL (0.70-1.30) 03/28/24 04:45 Glucose 103 mg/dL (74-106) 03/28/24 04:45 Phosphorus 3.1 mg/dL (2.5-4.9) 03/23/24 05:56 Magnesium 2.0 mg/dL (1.6-2.4) 03/28/24 04:45 Total Bilirubin 0.4 mg/dL (0.2-1.0) 03/26/24 05:00 AST 29 U/L (15-37) 03/26/24 05:00 ALT 60 U/L (16-61) 03/26/24 05:00 Alkaline Phosphatase 83 U/L (45-117) 03/26/24 05:00 Triglycerides 96 mg/dL (<150) 03/20/24 20:52 Cholesterol 93 mg/dL (<200) 03/20/24 20:52 HDL Cholesterol 25 mg/dL (40-60) L 03/20/24 20:52 Cholesterol/HDL Ratio 3.72 03/20/24 20:52 Home Medications: Abiraterone Acetate [Zytiga] 500 mg PO DAILY 10/29/21 Ascorbic Acid [Vitamin C] 1,000 mg PO DAILY 10/29/21 Atorvastatin Calcium [Lipitor*] 10 mg PO BEDTIME 10/29/21 Calcium Carbonate/Vitamin D3 [Calcium 500-Vit D3 200 Caplet] 1 each PO BID 10/29/21 Cholecalciferol (Vitamin D3) [Vitamin D 5,000 IU Cap*] 5,000 unit PO BID 10/29/21 Clopidogrel Bisulfate [Plavix*] 75 mg PO DAILY 10/29/21 Cyanocobalamin (Vitamin B-12) [Vitamin B-12] 5,000 mcg PO EVERY 7TH DAY 10/29/21 Furosemide [Lasix*] 20 mg PO DAILY 10/29/21 Losartan Potassium [Cozaar*] 50 mg PO BID 10/29/21 Mv-Min/Folic/K1/Lycopen/Lutein [Men 50 Plus Multivitamin Tab] 1 each PO DAILY 10/29/21 Naproxen Sodium 220 mg PO BID 10/29/21 Spironolactone [Aldactone*] 25 mg PO DAILY 10/29/21 Tamsulosin [Flomax*] 0.4 mg PO BEDTIME 10/29/21 Albuterol Sulfate 1.25 mg IH Q6HP PRN 30 Days vial.neb 11/04/21 Metformin ER [Glucophage ER*] 500 mg PO DAILY 10/29/22 Umeclidinium Brm/Vilanterol Tr [Anoro Ellipta 62.5-25 Mcg INH] 1 each IH DAILY 30 Days #30 aero 03/25/24 New Medications: Umeclidinium Brm/Vilanterol Tr [Anoro Ellipta 62.5-25 Mcg INH] 1 each IH DAILY 30 Days #30 aero Physician Discharge Instructions: [facility] Help Desk Administrator Patient to stop all inhaled steroids Anoro has been faxed Call Preeti Mijares at [phone] for questions or concerns after discharge. Expect a call within 1-2 business days of discharge. Alternate: Debora Tiwari at Mr. Quezada is a 74-year-old male with a past medical history of hypertension, hyperlipidemia, coronary artery disease, COPD, sleep apnea, and BPH with prostate cancer. He states he was in his usual state of health last p.m. and this morning awoke with significant right-sided chest pain, shortness of breath, nonproductive cough, fever, malaise, and fatigue. Initial vitals 93/48, 112, 27, 99.1, 89% on room air. Patient was placed on BiPAP. Chest x-ray shows "Patchy bilateral airspace opacities as above worse on the right. Pneumonia should be considered. Given the poor inspiratory effort and superimposition of soft tissues, consider additional formal AP and lateral chest radiographs for better evaluation." Patient's respiratory status has stabilized on BiPAP, continued shallow, rapid respirations. Symptoms improved with steroids, IV antibiotics, oxygen, oxygen weaned from 5 L to 2 L, ambulating, tolerating diet, patient still requiring O2. He was evaluated by pulmonology, oxygen saturations weaned to 2 L, will discharge with home O2. Will need to follow-up with pulmonology after discharge Discharged home on Levaquin 751 daily for 3 days Discharge home with home O2 Dr. Shepherd sent home with prescriptions of Anoro to [place] [employer] [facility] Respiratory failure secondary to COPD exacerbationmRight lower lobe pneumonia- treated with IV antibiotics while inpatient. Merrem Levaquin, discharged home on Levaquin p.o. repeat chest x-ray improved Sepsis, with lactic acidosis, secondary to pneumonia, improved with IV fluids, Pleuritic chest pain improved with as needed analgesics Sciatica improved with as needed analgesia GOAL: Clear understanding of disease process INSTRUCTIONS: Physician Discharge Instructions: -Follow-up with Dr. Shepherd after discharge -Follow-up with PCP in 1 to 2 weeks -Please call Dr. Magallon at [phone] if any questions regarding hospital stay -Please call nursing station at [phone] if any nursing or medication quest ions -Return to the emergency room if symptoms worsen Diet: ADA, low sodium Activity: Fall precautions Home/Portable Oxygen Referral sent 03/28/24 to: [facility] [address] [place] [id number] Diet: AHA Activity: Fall precautions Followup: Archie Gonzales MD [ACTIVE - CAN ADMIT] - 1-2 Weeks [facility] [Primary Care Provider] - 1-2 Weeks Time spent managing pt's care (in minutes): 45
[2024-03-28] MEDS: POTASSIUM CL SA 10 MEQ TAB PO ONE (08:47)
[2024-03-28 10:26] VITALS: O2SAT 92
--- NOTE | 2024-03-28 12:07 | P.PN ---
Subjective Date of Service: 03/28/24 Chief Complaint: Severe community-acquired pneumonia respiratory failure Patient is doing much better his shortness of breath has improved denies any new complaint Review of Systems General: Weakness Respiratory: Shortness of Breath Physical Examination - Vital Signs Temperature: 98.0 F Blood Pressure: 118/60 Pulse: 73 Respirations: 22 Pulse Ox (%): 96 - Physical Exam General: Alert, Oriented x3 Respiratory: Clear to auscultation bilaterally, Diminished Cardiovascular: No edema, Regular rate/rhythm Other Physical/Emotional Findings: at bedside - Studies Medications List Reviewed: Yes Assessment And Plan - Current Problems (Diagnosis) (1) Severe pneumonia Current Visit: Yes Status: Resolved Plan: Is doing much better cough congestion has improved changed to p.o. levofloxacin ambulate check daily room air pulse ox flutter valve ambulate discharge planning (2) COPD with acute exacerbation Current Visit: Yes Status: Acute Plan: Patient has improved as far as pneumonia is concerned chest x-ray shows a significant improvement patient to be discharged on Anoro avoid inhaled steroids low-dose prednisone of 10 mg daily does not need any more antibiotic with me in 2 weeks he will qualify for home O2 due to his underlying severe COPD
== END 2024-03-28 14:30 | disposition home or self-care (01) | DRG 871 ==
LOC: ER 10:12 → ERHOLD 12:37 → 3RD-ICU 14:00 → 2ND 03-23 10:00
PROVIDERS: ADMIT Hospitalist; ATTEND Hospitalist
PROC: 4A033R1 Measurement of Arterial Saturation, Peripheral, Percutaneous Approach (ICD-10-PCS; principal; 2024-03-19)
PROC: 02HV33Z Insertion of Infusion Device into Superior Vena Cava, Percutaneous Approach (ICD-10-PCS; 2024-03-19)
PROC: 5A09457 Assistance with Respiratory Ventilation, 24-96 Consecutive Hours, Continuous Positive Airway Pressure (ICD-10-PCS; 2024-03-19)
DX: A41.9 Sepsis, unspecified organism (principal); J15.8 Pneumonia due to other specified bacteria; R65.21 Severe sepsis with septic shock; J96.01 Acute respiratory failure with hypoxia; J96.02 Acute respiratory failure with hypercapnia; J44.1 Chronic obstructive pulmonary disease with (acute) exacerbation; J44.0 Chronic obstructive pulmonary disease with (acute) lower respiratory infection; N17.9 Acute kidney failure, unspecified; E87.20 Acidosis, unspecified; E78.00 Pure hypercholesterolemia, unspecified; E78.5 Hyperlipidemia, unspecified; M54.30 Sciatica, unspecified side; I10 Essential (primary) hypertension; N40.0 Benign prostatic hyperplasia without lower urinary tract symptoms; E66.9 Obesity, unspecified; I25.10 Atherosclerotic heart disease of native coronary artery without angina pectoris; Z95.5 Presence of coronary angioplasty implant and graft; Z85.46 Personal history of malignant neoplasm of prostate; Z90.49 Acquired absence of other specified parts of digestive tract; Z11.52 Encounter for screening for COVID-19; Z79.02 Long term (current) use of antithrombotics/antiplatelets; Z79.52 Long term (current) use of systemic steroids; Z79.84 Long term (current) use of oral hypoglycemic drugs; Z68.38 Body mass index [BMI] 38.0-38.9, adult; Z87.891 Personal history of nicotine dependence; Z79.899 Other long term (current) drug therapy; Z96.653 Presence of artificial knee joint, bilateral
CPT/HCPCS: 36415; 36569; 36600; 71045; 71046; 71275; 80048; 80053; 80061; 80076; 82805; 82947; 83605; 83735; 83880; 84100; 84145; 84484; 85025; 85379; 85610; 85730; 87040; 87070; 87205; 87804; 87811; 93005; 93306; 94010; 94660; 94760; 99285; J0696; J1650; J1940; J2185; J2270; J2470; J2919; J3475; J7030; J7512; J7605; J7613; J7614; J7644; Q9967

== ENCOUNTER 2024-04-13 01:00 | Inpatient (IN) | payer OTHER ==
[2024-04-13] MEDS ORDERED: ALBUTEROL 2.5 MG/3 ML NEB SOL ONE ×3 (01:42→05:26)
[2024-04-13] MEDS ORDERED: IPRATROPIUM BROM 0.5MG/2.5ML ONE (01:43)
[2024-04-13] MEDS ORDERED: METHYLPREDNISOLONE 125 MG INJ ONE (01:43)
[2024-04-13] MEDS ORDERED: GUAIFENESIN/DM 5 ML UCUP ONE (01:56)
[2024-04-13 02:00] LABS: Absolute Eosinophils 0.5 K/uL (0-0.5); Absolute Lymphocytes (CBC) 0.9 K/uL (0.7-4.9); Absolute Monocytes 0.6 K/uL (0.1-1.3); Absolute Neutrophil 3.5 K/uL (1.8-8.0); Basophils % 0.5 % (0-1.3); Eosinophils % 9.1 % (0-4.4); Hematocrit 38.1 % (39.6-49.0); Hemoglobin 12.2 g/dL (13.6-17.9); Lymphocytes % 16.6 % (15.3-44.8); MCH 29.2 pg (27.0-35.0); MCHC 32.1 g/dL (32.0-36.0); MCV 90.9 fL (80-100); MPV 7.7 fL (7.6-11.3); Monocytes % 11.3 % (3.3-12.3); Neutrophils % 62.5 % (41.7-73.7); Platelets 280 thou/uL (152-406); RBC Red Blood Cell Count 4.18 M/uL (4.33-5.43); Red Cell Distribution Width 16.5 % (12.1-15.2)
[2024-04-13 02:03] LABS: PTT, Activated Partial Thromb 34.9 SECONDS (24.3-36.9); Protime INR 0.98
[2024-04-13 02:10] LABS: ALT/SGPT 27 U/L (16-61); AST/SGOT 16 U/L (15-37); Albumin 3.2 g/dL (3.4-5.0); Albumin/Globulin Ratio 0.9 (1.1-1.8); Alkaline Phosphatase 106 U/L (45-117); Anion Gap 9.7 mEq/L (5.0-15.0); BUN Blood Urea Nitrogen 17 mg/dL (7-18); Bicarbonate 27 mEq/L (21-32); Bilirubin Total 0.2 mg/dL (0.2-1.0); Creatine Phosphokinase 79 U/L (39-308); Globulin 3.5 g/dL (2.3-3.5); Glomerular Filtration Rate 62 ml/min (=/>90); Glucose Level 157 mg/dL (74-106); Lipase 112 U/L (13-75); Magnesium 2.1 mg/dL (1.6-2.4); NT PRO-BNP 352 pg/mL (<450); Potassium 3.7 mEq/L (3.5-5.1); Protein, Total 6.7 g/dL (6.4-8.2); Sodium Level 141 mEq/L (136-145); Troponin High Sensitivity 8.4 pg/mL (<58.9)
[2024-04-13 02:11] LABS: Bilirubin Direct < 0.2 mg/dL (0-0.2)
[2024-04-13] MEDS ORDERED: AZITHROMYCIN 500 MG INJ IVPB ONE (02:15)
[2024-04-13] MEDS ORDERED: CEFTRIAXONE 1000 MG/VIAL ONE (02:15)
[2024-04-13] MEDS ORDERED: NA CHLORIDE 0.9% 250 ML ONE (02:16)
[2024-04-13] MEDS ORDERED: NA CHLORIDE 0.9% 50 ML ONE (02:19)
[2024-04-13 02:48] LABS: SARS-CoV-2 Antigen CONTROL BLUE LINE VIS/BG OK; SARS-CoV-2 Antigen Rapid Res Negative (Negative)
--- NOTE | 2024-04-13 03:48 | RAD REPORT ---
EXAM: CT Angiography Chest With Intravenous Contrast CLINICAL HISTORY: The patient is 74 years old and is Male; CHEST PAIN TECHNIQUE: Axial computed tomographic angiography images of the chest with intravenous contrast. Sagittal and coronal reformatted images were created and reviewed. This CT exam was performed using one or more of the following dose reduction techniques: automated exposure control, adjustmen t of the mA and/or kV according to patient size, and/or use of iterative reconstruction technique. MIP reconstructed images were created and reviewed. COMPARISON: No relevant prior studies available. FINDINGS: Pulmonary arteries: Unremarkable. No pulmonary embolism. Aorta: No acute findings. No thoracic aortic aneurysm. Lungs: Calcified granulomas in the lungs. Scarring/atelectasis in the right lung. No mass. Pleural space: Unremarkable. No significant effusion. No pneumothorax. Heart: Unremarkable. No cardiomegaly. No significant pericardial effusion. No evidence of R V dysfunction. Bones/joints: No acute fracture. No dislocation. Soft tissues: Unremarkable. Lymph nodes: Unremarkable. No enlarged lymph nodes. IMPRESSION: No acute finding in the chest. No evidence of pulmonary embolism. Electronically signed by: Martinez Calderon MD 04/13/2024 03:43 AM [facility] 8 Due to temporary technical issues with the PACS/[employer] reporting system, reports are being claudia d by the in-house radiologist without review as a courtesy to ensure prompt reporting the interpreting radiologist is fully responsible for the content of the report. Transcribed Date/Time: 04/13/2024 3:47 AM
[2024-04-13] MEDS ORDERED: FUROSEMIDE 20 MG/ 2ML VIAL ONE (05:26)
--- NOTE | 2024-04-13 05:33 | EDPHYS ---
Physician Documentation [facility] Name: Patel Quezada Age: 74 yrs Sex: Male : 1950 Arrival Date: 04/13/2024 Time: 01:00 Bed 14 Private MD: ED Physician Jeremiah Lewis HPI: 04/13 05:06 This 74 yrs old Male presents to ER via Wheelchair with complaints of sp4 Shortness Of Breath. 05:22 Patient is a very pleasant 74-year-old male with history of hypertension, sp4 hyperlipidemia, coronary artery disease, COPD, sleep apnea, BPH, also history of prostate cancer. Patient was admitted here at 03/19/2024 through 03/28/2024 for community-acquired pneumonia with respiratory failure. Patient was found to have patchy bilateral airspace opacities on the x-ray. And was initiated on BiPAP. He was subsequently admitted to ICU for acute respiratory failure secondary to pneumonia with septic shock lactic acidosis BLAS and hypotension. Also peripheral edema and COPD exacerbation. Patient's respiratory status was stabilized on BiPAP IV antibiotics steroids and patient was evaluated by pulmonology and discharged home with home oxygen. Patient's medications at home include Abiraterone Acetate Zytiga, sorbic acid, Lipitor, vitamin D3, cholecalciferol, clopidogrel 75 mg daily, cyanocobalamin, furosemide, losartan, multivitamin, Naprosyn, spironolactone, tamsulosin, albuterol, metformin, Anoro Ellipta . Patient today presents with acute worsening dyspnea, wheezing, cough.. Historical: - Allergies: 01:14 No Known Allergies; al5 - Home Meds: 01:14 atorvastatin Oral [Active]; b12 [Active]; C [Active]; calcium 500 / Vitamin D 200 al5 [Active]; d3 [Active]; Furosemide Oral [Active]; losartan Oral [Active]; multivitamin Oral [Active]; Naproxen Oral [Active]; Plavix Oral [Active]; Prednisone Oral [Active]; proair [Active]; Spironolactone Oral [Active]; tamsulosin Oral [Active]; Trelegy Ellipta inhalation [Active]; turmeric (bulk) miscellaneous [Active]; trelstar [Active]; Zinc Sulfate Oral [Active]; Zytiga Oral [Active]; - PMHx: 01:14 COPD; Hypercholesterolemia; Hypertensive disorder; Prostate Cancer; al5 - PSHx: 01:14 Cholecystectomy; Heart Stents; Left kidney removed; Replacement of total knee joint; al5 Right and Left; - Immunization history:: Adult Immunizations up to date. - Infectious Disease History:: Denies. - Social history:: Smoking status: Patient denies any tobacco usage or history of. - Family history:: not pertinent. ROS: 05:22 Constitutional: Negative for fever, chills, and weight loss, positive shortness of sp4 breath, positive wheezing, positive cough Eyes: Negative for injury, pain, redness, and discharge, 05:22 All other systems are negative, Exam: 05:22 Constitutional: This is a well developed, well nourished patient who is awake, alert, sp4 and in no acute distress. Head/Face: Normocephalic, atraumatic. Eyes: Pupils equal round and reactive to light, extra-ocular motions intact. Lids and lashes normal. Conjunctiva and sclera are not injected. Cornea within normal limits. Periorbital areas with no swelling, redness, or edema. ENT: Nares patent. No nasal discharge, no septal abnormalities noted. Tympanic membranes are normal and external auditory canals are clear. Oropharynx with no redness, swelling, or masses, exudates, or evidence of obstruction, uvula midline. Mucous membranes moist. Neck: Trachea midline, no thyromegaly or masses palpated, and no cervical lymphadenopathy. Supple, full range of motion without nuchal rigidity, or vertebral point tenderness. Chest/axilla: Normal chest wall appearance and motion. Nontender with no deformity. No lesions are appreciated. Cardiovascular: Regular rate and rhythm with a normal S1 and S2. No gallops, murmurs, or rubs. Normal PMI, no JVD. No pulse deficits. Respiratory: Lungs have equal breath sounds bilaterally, positive diffuse bilateral expiratory wheezes in all lung cook. Positive dyspnea, positive tachypnea, positive retractions Abdomen/GI: Soft, with normal bowel sounds. No distension or tympany. No guarding or rebound. No evidence of tenderness throughout. Back: No spinal tenderness. No costovertebral tenderness. Skin: Warm, dry with normal turgor. Normal color with no rashes, no lesions, and no evidence of cellulitis. MS/ Extremity: Pulses equal, no cyanosis. Neurovascular intact. Full, normal range of motion. Neuro: Awake and alert, GCS 15, oriented to person, place, time, and situation. Cranial nerves II-XII grossly intact. Motor strength 5/5 in all extremities. Sensory grossly intact. Psych: Awake, alert, with orientation to person, place and time. Behavior, mood, and affect are within normal limits 05:22 ECG was reviewed by the Attending Physician. EKG at 0 124 normal sinus rhythm with fusion complexes rate 77. Vital Signs: 01:11 BP 154 / 79; Pulse 89; Resp 28; Temp 98; Pulse Ox 98% on 3 lpm NC; Weight 117.93 kg; al5 Height 5 ft. 11 in. ; 01:40 BP 139 / 56; Pulse 78; Resp 28; Pulse Ox 100% on 2 lpm NC; ay 01:40 BP 162 / 73; Pulse 80; Resp 27; Pulse Ox 100% ; ay 03:30 BP 134 / 67; Pulse 91; Resp 22; Pulse Ox 99% on 2 lpm NC; ay 05:47 BP 132 / 55; Pulse 76; Resp 20; Pulse Ox 98% on 2 lpm NC; ay 06:40 BP 132 / 65; Pulse 71; Resp 18; Temp 98.1; Pulse Ox 99% on 3 lpm NC; ay 01:11 Body Mass Index 36.26 (117.93 kg, 180.34 cm) al5 [place] Coma Score: 01:40 Eye Response: spontaneous(4). Motor Response: obeys commands(6). Verbal Response: ay oriented(5). Total: 15. 05:22 Eye Response: spontaneous(4). Motor Response: obeys commands(6). Verbal Response: sp4 oriented(5). Total: 15. MDM: 01:12 Medical Screening Exam initiated sp4 05:06 ED course: EXAM: CTAngiography Chest With Intravenous Contrast CLINICAL HISTORY: The sp4 patient is 74 years old and is Male; CHEST PAIN TECHNIQUE: Axial computed tomographic angiography images of the chest with intravenous contrast. Sagittal and coronal reformatted images were created and reviewed. This CT exam was performed using one or more of the following dose reduction techniques: automated exposure control, adjustment of the mA and/or kV according to patient size, and/or use of iterative reconstruction technique. MIP reconstructed images were created and reviewed. COMPARISON: No relevant prior studies available. FINDINGS: Pulmonary arteries: Unremarkable. No pulmonary embolism. Aorta: No acute findings. No thoracic aortic aneurysm. Lungs: Calcified granulomas in the lungs. Scarring/atelectasis in the right lung. No mass. Pleural space: Unremarkable. No significant effusion. No pneumothorax. Heart: Unremarkable. No cardiomegaly. No significant pericardial effusion. No evidence of RV dysfunction. Bones/joints: No acute fracture. No dislocation. Soft tissues: Unremarkable. Lymph nodes: Unremarkable. No enlarged lymph nodes. IMPRESSION: No acute finding in the chest. No evidence of pulmonary embolism. Electronically signed by: Martinez Calderon MD 04/13/2024 03:43 AM . 05:29 Differential diagnosis: Anxiety Reaction asthma, Bronchitis CHF exacerbation, Chronic sp4 Obstructive Pulmonary Disease pneumonia, Pneumothorax Psychogenic. Data reviewed: vital signs, nurses notes, lab test result(s), EKG, radiologic studies, CT scan. ED course: Patient improved but continues to wheeze significantly. Patient stable for admission for COPD exacerbation. . 04/13 01:11 Order name: BMP; Complete Time: 05:05 [facility] 04/13 01:11 Order name: Blood Culture Adult (2) [facility] 04/13 01:11 Order name: CBC with Diff; Complete Time: 05:05 [facility] 04/13 01:11 Order name: CPK; Complete Time: 05:05 [facility] 04/13 01:11 Order name: Hepatic Function; Complete Time: 05:05 [facility] 04/13 01:11 Order name: Lipase; Complete Time: 05:05 [facility] 04/13 01:11 Order name: Magnesium; Complete Time: 05:05 [facility] 04/13 01:12 Order name: NT PRO-BNP; Complete Time: 05:05 [facility] 04/13 01:12 Order name: PT-INR; Complete Time: 05:05 [facility] 04/13 01:12 Order name: Ptt, Activated; Complete Time: 05:05 [facility] 04/13 01:12 Order name: Troponin HS; Complete Time: 05:05 [facility] 04/13 01:55 Order name: SARS RAPID; Complete Time: 05:05 [facility] 04/13 01:55 Order name: Influenza Screen (a \T\ B); Complete Time: 05:05 [facility] 04/13 06:17 Order name: Urinalysis w/ reflexes [facility] 04/13 06:20 Order name: Basic Metabolic Panel [facility] 04/13 06:20 Order name: Basic Metabolic Panel [facility] 04/13 06:20 Order name: Basic Metabolic Panel [facility] 04/13 06:20 Order name: Basic Metabolic Panel [facility] 04/13 06:20 Order name: CBC with Automated Diff EDMS 04/13 06:20 Order name: CBC with Automated Diff EDMS 04/13 06:20 Order name: CBC with Automated Diff [facility]MS 04/13 06:20 Order name: CBC with Automated Diff EDMS 04/13 06:20 Order name: Magnesium [facility]MS 04/13 06:20 Order name: Magnesium [facility] 04/13 06:20 Order name: Magnesium [facility] 04/13 06:20 Order name: Magnesium [facility] 04/13 06:20 Order name: NT PRO-BNP [facility] 04/13 06:20 Order name: NT PRO-BNP [facility] 04/13 01:13 Order name: CT Chest For PE Angio [facility] 04/13 01:12 Order name: EKG; Complete Time: 01:12 sp4 04/13 06:11 Order name: CONS Physician Consult [facility] 04/13 01:12 Order name: Cardiac monitoring; Complete Time: 01:30 sp4 04/13 01:12 Order name: EKG - Nurse/Tech; Complete Time: 01:30 sp4 04/13 01:12 Order name: IV Saline Lock; Complete Time: 01:59 sp4 04/13 01:12 Order name: Labs collected and sent; Complete Time: 02:19 sp4 04/13 01:12 Order name: O2 Per Protocol; Complete Time: :59 sp4 04/13 01:12 Order name: O2 Sat Monitoring; Complete Time: :59 sp4 EC:22 Rate is 77 beats/min. Rhythm is regular, Normal Sinus Rhythm. QRS [place] is Normal. [place] sp4 interval is normal. QRS interval is normal. QT interval is normal. No Q waves. T waves are Normal. No ST changes noted. Clinical impression: No evidence of ischemia. Interpreted by me. Reviewed by me. Administered Medications: Drug: Albuterol Inhalation 2.5 mg Inhalation every 20 minutes x3 Route: Inhalation; ay Drug: Ipratropium Inhalation Aerosol 0.5 mg Inhalation once; Every 20 min for a total ay of 3 treatments x3 Route: Inhalation; 01:59 Drug: MethylPrednisoLONE IVP 125 mg IVP once Route: IVP; Site: right antecubital; ay 02:33 Follow up: Response: No adverse reaction ay 02:32 Drug: Albuterol Inhalation 2.5 mg Inhalation every 20 minutes x3 Route: Inhalation; ay 02:32 Drug: Rocephin - Rocephin (cefTRIAXone) IVPB 1 grams IVPB once over 30 mins; (mix in 50 ay mL NS) Route: IVPB; Infused Over: 30 mins; Site: right antecubital; 07:09 Follow up: Response: No adverse reaction; IV Status: Completed infusion; IV Intake: [id number] 02:33 Drug: Ipratropium Inhalation Aerosol 0.5 mg Inhalation once; Every 20 min for a total ay of 3 treatments x3 Route: Inhalation; 02:46 Drug: Dextromethorphan-Guaifenesin PO Liquid 10 mg-100 mg/5 mL 10 ml PO once Route: PO; bm8 04:27 Follow up: Response: No adverse reaction ay 02:52 Drug: Albuterol Inhalation 2.5 mg Inhalation every 20 minutes x3 Route: Inhalation; bm8 07:09 Follow up: Response: No adverse reaction bm8 02:52 Drug: Ipratropium Inhalation Aerosol 0.5 mg Inhalation once; Every 20 min for a total bm8 of 3 treatments x3 Route: Inhalation; 07:09 Follow up: Response: No adverse reaction bm8 03:45 Drug: Zithromax IVPB 500 mg IVPB once over 1 hrs; mix in 250 mL NS Route: IVPB; Infused ay Over: 1 hrs; Site: right antecubital; 07:08 Follow up: Response: No adverse reaction; IV Status: Completed infusion; IV Intake: bm8 250ml 05:41 Drug: Furosemide IVP 20 mg IVP once; give over 2 minutes Route: IVP; Site: right ay antecubital; 05:51 Follow up: Response: No adverse reaction ay 05:41 Drug: Albuterol Inhalation 2.5 mg Inhalation once Route: Inhalation; ay 05:50 Follow up: Response: No adverse reaction; No change in condition ay Disposition Summary: 04/13/24 05:32 Hospitalization Ordered Notes: Hospitalization Status: Inpatient Admission sp4 Provider: Laci Craig sp4 Location: Telemetry/MedSurg (Inpatient) sp4 Condition: Stable sp4 Problem: new sp4 Symptoms: have improved sp4 Bed/Room Type: Standard sp4 Room Assignment: 221(04/13/24 06:20) af3 Diagnosis - COPD/ Chronic obstructive pulmonary disease with (acute) exacerbation sp4 - Hypoxemia sp4 Forms: - Medication Reconciliation Form sp4 - SBAR form sp4 - Leadership Thank You Letter sp4 Signatures: Dispatcher [employer] EDMS Jeremiah Lewis MD MD sp4 Dylan Buckley RN RN bm8 Sendy Segovia RN RN al5 Jacque Gomes af3 Zeke Courtney RN RN ay Corrections: (The following items were deleted from the chart) 01:12 01:12 BASIC METABOLIC PANEL+C.LAB.BRZ ordered. EDMS EDMS 01:12 01:12 BLOOD CULTURE*+BA.LAB.BRZ ordered. EDMS EDMS 01:12 01:12 CBC+H.LAB.BRZ ordered. EDMS EDMS 01:12 01:12 CREATINE PHOSPHOKINASE+C.LAB.BRZ ordered. EDMS EDMS 01:12 01:12 HEPATIC FUNCTION+C.LAB.BRZ ordered. EDMS EDMS 01:12 01:12 LIPASE+C.LAB.BRZ ordered. EDMS EDMS 01:12 01:12 MAGNESIUM+C.LAB.BRZ ordered. EDMS EDMS 01:12 01:12 PROBNP+C.LAB.BRZ ordered. EDMS EDMS 01:12 01:12 PROTIME (+INR)+COAG.LAB.BRZ ordered. EDMS EDMS 01:12 01:12 PTT, ACTIVATED+COAG.LAB.BRZ ordered. EDMS EDMS 01:12 01:12 Troponin High Sensitivity+C.LAB.BRZ ordered. EDMS EDMS 06:20 05:32 sp4 af3
--- NOTE | 2024-04-13 05:33 | ER ---
[facility] Name[facility] Patel Que[facility] Age: 74 yrs Sex: Male : 1950 Arrival Date: 04/13/2024 Time: 01:00 Bed 14 Private MD: Diagnosis: COPD/ Chronic obstructive pulmonary disease with (acute) exacerbation;Hypoxemia Presentation: 04/13 01:11 Chief complaint: Patient states: patient was just here from mar 19- for bilateral al5 pneumonia. was dc home with home oxygen and nebulizer treatments. patient c/o shortness of breath and audible wheezing starting this afternoon. attempted to use his nebulizer treatments but states that they do not work as well as the ones here at the hospital, may be possibly due to the air unit per the patient. Coronavirus screen: shortness of breath. Ebola Screen: No symptoms or risks identified at this time. Initial Sepsis Screen: Does the patient meet any 2 criteria? RR > 20 per min. No. Patient's initial sepsis screen is negative. Does the patient have a suspected source of infection? No. Patient's initial sepsis screen is negative. Risk Assessment: Do you want to hurt yourself or someone else? Patient reports no desire to harm self or others. Onset of symptoms was April 12, 2024. 01:11 Method Of Arrival: Wheelchair al5 01:11 Acuity: JANET 3 al5 Triage Assessment: 01:19 General: Appears distressed, ill, well groomed, Behavior is calm, cooperative. Pain: al5 Denies pain. EENT: No signs and/or symptoms were reported regarding the EENT system. Neuro: Level of Consciousness is awake, alert, obeys commands, Oriented to person, place, time, situation. Cardiovascular: Capillary refill < 3 seconds Patient's skin is warm and dry. Respiratory: Reports shortness of breath at rest on exertion labored breathing Airway is patent Respiratory effort is even, labored, Respiratory pattern is regular, symmetrical, tachypnea Breath sounds with wheezes bilaterally. Onset: The symptoms/episode began/occurred yesterday, the patient has moderate shortness of breath. GI: Abdomen is round distended. : No signs and/or symptoms were reported regarding the genitourinary system. Derm: Skin is intact, is healthy with good turgor, Skin is pink, warm \T\ dry. normal. Musculoskeletal: No signs and/or symptoms reported regarding the musculoskeletal system. Historical: - Allergies: 01:14 No Known Allergies; al5 - Home Meds: 01:14 atorvastatin Oral [Active]; b12 [Active]; C [Active]; calcium 500 / Vitamin D 200 al5 [Active]; d3 [Active]; Furosemide Oral [Active]; losartan Oral [Active]; multivitamin Oral [Active]; Naproxen Oral [Active]; Plavix Oral [Active]; Prednisone Oral [Active]; proair [Active]; Spironolactone Oral [Active]; tamsulosin Oral [Active]; Trelegy Ellipta inhalation [Active]; turmeric (bulk) miscellaneous [Active]; trelstar [Active]; Zinc Sulfate Oral [Active]; Zytiga Oral [Active]; - PMHx: 01:14 COPD; Hypercholesterolemia; Hypertensive disorder; Prostate Cancer; al5 - PSHx: 01:14 Cholecystectomy; Heart Stents; Left kidney removed; Replacement of total knee joint; al5 Right and Left; - Immunization history:: Adult Immunizations up to date. - Infectious Disease History:: Denies. - Social history:: Smoking status: Patient denies any tobacco usage or history of. - Family history:: not pertinent. Screenin:[facility] ED Fall Risk Assessment (Adult) History of falling in the last 3 months, ay including since admission No falls in past 3 months (0 pts) Confusion or Disorientation No (0 pts) Intoxicated or Sedated No (0 pts) Impaired Gait No (0 pts) Mobility Assist Device Used No (0 pt) Altered Elimination No (0 pt) Score/Fall Risk Level 0 - 2 = Low Risk Oriented to surroundings, Maintained a safe environment, Educated pt \T\ family on fall prevention, incl call for assistance when getting out of bed, Assessed \T\ reinforced patient's understanding of fall precautions, Provided non-skid footwear. Abuse screen: Denies threats or abuse. Nutritional screening: No deficits noted. Tuberculosis screening: No symptoms or risk factors identified. Assessment: 01:40 Reassessment: Pt came in with a c/o SOB and labored breathing. Pt denies CP, N/V, and ay pain. Diminished bilateral lung sounds. Pt on coin counter and wrapper and 2L NC. 01:40 General: Appears distressed, obese, Behavior is calm, cooperative. Pain: Denies pain. ay Neuro: Level of Consciousness is awake, alert, obeys commands, Oriented to person, place, time, situation, Speech is normal. Cardiovascular: Heart tones S1 S2 Capillary refill < 3 seconds Patient's skin is warm and dry. Rhythm is regular. Respiratory: Airway is patent Respiratory effort is labored, gasping, Respiratory pattern is Breath sounds are diminished bilaterally. GI: Abdomen is obese, Bowel sounds present X 4 quads. : No signs and/or symptoms were reported regarding the genitourinary system. EENT: No signs and/or symptoms were reported regarding the EENT system. Derm: No signs and/or symptoms reported regarding the dermatologic system. Musculoskeletal: No signs and/or symptoms reported regarding the musculoskeletal system. 04:14 Reassessment: Patient appears in no apparent distress at this time. Patient states ay feeling better. 05:49 Reassessment: No changes from previously documented assessment. ay Vital Signs: 01:11 BP 154 / 79; Pulse 89; Resp 28; Temp 98; Pulse Ox 98% on 3 lpm NC; Weight 117.93 kg; al5 Height 5 ft. 11 in. ; 01:40 BP 139 / 56; Pulse 78; Resp 28; Pulse Ox 100% on 2 lpm NC; ay 01:40 BP 162 / 73; Pulse 80; Resp 27; Pulse Ox 100% ; ay 03:30 BP 134 / 67; Pulse 91; Resp 22; Pulse Ox 99% on 2 lpm NC; ay 05:47 BP 132 / 55; Pulse 76; Resp 20; Pulse Ox 98% on 2 lpm NC; ay 06:40 BP 132 / 65; Pulse 71; Resp 18; Temp 98.1; Pulse Ox 99% on 3 lpm NC; ay 01:11 Body Mass Index 36.26 (117.93 kg, 180.34 cm) al5 [place] Coma Score: 01:40 Eye Response: spontaneous(4). Motor Response: obeys commands(6). Verbal Response: ay oriented(5). Total: 15. 05:22 Eye Response: spontaneous(4). Motor Response: obeys commands(6). Verbal Response: sp4 oriented(5). Total: 15. ED Course: 01:10 Patient arrived in ED. gm2 01:11 Jeremiah Lewis MD is Attending Physician. al5 01:14 Triage completed. al5 01:21 Arm band placed on right wrist. Patient placed in the treatment room, on a stretcher, al5 on oxygen, on pulse oximetry. 01:30 EKG done, by blood bank laboratory technologist. af3 01:40 Patient has correct armband on for positive identification. Bed in low position. Call ay light in reach. Side rails up X2. Adult w/ patient. 01:40 Provided Education on: Procedure Consent. ay 01:40 No provider procedures requiring assistance completed. Inserted saline lock: 20 gauge ay in right antecubital area, using aseptic technique. 01:57 Zeke Courtney, RN is Primary Nurse. ay 03:22 CT Chest For PE Angio In Process Unspecified. EDMS 05:32 Laic Craig MD is Hospitalizing Provider. sp4 07:08 Patient admitted, IV remains in place. bm8 Administered Medications: 01:58 Drug: Albuterol Inhalation 2.5 mg Inhalation every 20 minutes x3 Route: Inhalation; ay 01:58 Drug: Ipratropium Inhalation Aerosol 0.5 mg Inhalation once; Every 20 min for a total ay of 3 treatments x3 Route: Inhalation; 01:59 Drug: MethylPrednisoLONE IVP 125 mg IVP once Route: IVP; Site: right antecubital; ay 02:33 Follow up: Response: No adverse reaction ay 02:32 Drug: Albuterol Inhalation 2.5 mg Inhalation every 20 minutes x3 Route: Inhalation; ay 02:32 Drug: Rocephin - Rocephin (cefTRIAXone) IVPB 1 grams IVPB once over 30 mins; (mix in 50 ay mL NS) Route: IVPB; Infused Over: 30 mins; Site: right antecubital; 07:09 Follow up: Response: No adverse reaction; IV Status: Completed infusion; IV Intake: [id number] 02:33 Drug: Ipratropium Inhalation Aerosol 0.5 mg Inhalation once; Every 20 min for a total ay of 3 treatments x3 Route: Inhalation; 02:46 Drug: Dextromethorphan-Guaifenesin PO Liquid 10 mg-100 mg/5 mL 10 ml PO once Route: PO; bm8 04:27 Follow up: Response: No adverse reaction ay 02:52 Drug: Albuterol Inhalation 2.5 mg Inhalation every 20 minutes x3 Route: Inhalation; bm8 07:09 Follow up: Response: No adverse reaction bm8 02:52 Drug: Ipratropium Inhalation Aerosol 0.5 mg Inhalation once; Every 20 min for a total bm8 of 3 treatments x3 Route: Inhalation; 07:09 Follow up: Response: No adverse reaction bm8 03:45 Drug: Zithromax IVPB 500 mg IVPB once over 1 hrs; mix in 250 mL NS Route: IVPB; Infused ay Over: 1 hrs; Site: right antecubital; 07:08 Follow up: Response: No adverse reaction; IV Status: Completed infusion; IV Intake: bm8 250ml 05:41 Drug: Furosemide IVP 20 mg IVP once; give over 2 minutes Route: IVP; Site: right ay antecubital; 05:51 Follow up: Response: No adverse reaction ay 05:41 Drug: Albuterol Inhalation 2.5 mg Inhalation once Route: Inhalation; ay 05:50 Follow up: Response: No adverse reaction; No change in condition ay Medication: 01:40 VIS not applicable for this client. ay Intake: 07:08 IV: 250ml; Total: 250ml. bm8 07:09 IV: 50ml; Total: 300ml. bm8 Outcome: 05:32 Decision to Hospitalize by Provider. sp4 07:07 Admitted to Med/surg accompanied by nurse, via wheelchair, room 221, with oxygen, with bm8 chart, 07:07 Condition: stable 07:07 Instructed on the need for admit, Demonstrated understanding of instructions, follow-up care, medications, 07:40 Patient left the ED. [id number] Signatures: Dispatcher [employer] EDMS Ugo Yanes RN RN [id number] Jeremiah Lewis MD MD sp4 Regine Mcginnis gm2 Dylan Buckley RN RN bm8 Sendy Segovia RN RN Jacque Mcmahon Zeke Banks RN RN ay
--- NOTE | 2024-04-13 06:02 | P.HP ---
Certification for Inpatient Patient admitted to: Inpatient Practitioner: I am a practitioner with admitting privileges, knowledge of patient current condition, hospital course, and medical plan of care. Services: Services provided to patient in accordance with Admission requirements found in Title 42 Section 412.3 of the Code of Federal Regulations Patient History Date of Service: 04/13/24 Reason for admission: COPD exacerbation History of Present Illness: Mr. Quezada is a 74-year-old male with a past medical history of hypertension, hyperlipidemia, coronary artery disease, COPD, sleep apnea, and BPH with prostate cancer presented to the emergency room with shortness of breath. He reports shortness of breath while cooking. He reports shortness of breath is worse with exertion, worse with laying flat. He reports occasional productive cough. He denies chest pain, abdominal pain, fever, nausea vomiting diarrhea. He reports recently admitted for pneumonia. Plan to admit for COPD exacerbation , with pulmonary to consult Allergies No Known Allergies Allergy (Verified 11/01/22 12:00) Home Medications: Ascorbic Acid [Vitamin C] 1,000 mg PO DAILY 10/29/21 Atorvastatin Calcium [Lipitor*] 10 mg PO BEDTIME 10/29/21 Calcium Carbonate/Vitamin D3 [Calcium 500-Vit D3 200 Caplet] 1 each PO BID 10/29/21 Cholecalciferol (Vitamin D3) [Vitamin D 5,000 IU Cap*] 5,000 unit PO BID 10/29/21 Clopidogrel Bisulfate [Plavix*] 75 mg PO DAILY 10/29/21 Cyanocobalamin (Vitamin B-12) [Vitamin B-12] 5,000 mcg PO EVERY 7TH DAY 10/29/21 Furosemide [Lasix*] 20 mg PO DAILY 10/29/21 Losartan Potassium [Cozaar*] 50 mg PO BID 10/29/21 Mv-Min/Folic/K1/Lycopen/Lutein [Men 50 Plus Multivitamin Tab] 1 each PO DAILY 10/29/21 Naproxen Sodium 220 mg PO BID 10/29/21 Spironolactone [Aldactone*] 25 mg PO DAILY 10/29/21 Tamsulosin [Flomax*] 0.4 mg PO BEDTIME 10/29/21 Albuterol Sulfate 1.25 mg IH Q6HP PRN 30 Days vial.neb 11/04/21 Metformin ER [Glucophage ER*] 500 mg PO DAILY 10/29/22 Umeclidinium Brm/Vilanterol Tr [Anoro Ellipta 62.5-25 Mcg INH] 1 each IH DAILY 30 Days #30 aero 03/25/24 - Past Medical/Surgical History Diabetic: No -: HLD -: HTN -: prostrate Cancer -: BPH -: Sleep Apnea -: COPD -: Immunity acquired pneumonia -: cardiac stents -: cholecystectomy -: donated left kidney Psychosocial/ Personal History: Lives at home. at bedside. - Social History Alcohol use: Yes CD- Drugs: No Caffeine use: Yes Review of Systems 10-point ROS is otherwise unremarkable General: As per HPI Physical Examination - Physical Exam General: Alert, Oriented x3, Mild distress HEENT: Atraumatic, Normocephalic Neck: Supple, 2+ carotid pulse no bruit Respiratory: Expiratory wheezes, Inspiratory wheezes Cardiovascular: Normal pulses, Regular rate/rhythm, Normal S1 S2 Capillary refill: <2 Seconds Gastrointestinal: Normal bowel sounds, Soft and benign Musculoskeletal: No clubbing, No swelling Integumentary: No breakdown, No significant lesion Neurological: Normal speech, Normal strength at 5/5 x4 extr, Cranial nerves 3-12 intact - Studies Laboratory Data (last 24 hrs) 04/13/24 04/13/24 04/13/24 01:20 01:20 01:20 WBC 5.60 Hgb 12.2 L Hct 38.1 L Plt Count 280 PT 11.0 INR 0.98 APTT 34.9 Sodium 141 Potassium 3.7 BUN 17 Creatinine 1.22 Glucose 157 H Magnesium 2.1 Total Bilirubin 0.2 AST 16 ALT 27 Alkaline Phosphatase 106 Lipase 112 H Microbiology Data (last 24 hrs): 04/13/24 02:08 Nasopharnyx Influenza Type A Antigen Screen - Final 04/13/24 02:08 Nasopharnyx Influenza Type B Antigen Screen - Final Assessment and Plan - Problems (Diagnosis) (1) Acute hypoxic respiratory failure Current Visit: Yes Status: Acute (2) COPD (chronic obstructive pulmonary disease) Current Visit: No Status: Acute Qualifiers: Emphysema type: unspecified - Plan Admit to MedSurg Pulmonary to consult, O2 2 L keep sats greater than 92 percent Nebs, steroids, IV antibiotics, Resume home meds, Trend electrolytes replace as needed Accu-Chek ACHS, sliding scale insulin for steroid use Full code DVT SCDs Diet diabetic Disposition Home independent Discharge Plan: Home - Advance Directives Does patient have a Living Will: No Does patient have a Durable POA for Healthcare: No - Code Status/Comfort Care Code Status: Full Code Critical Care: No Time Spent Managing Pts Care (In Minutes): 55
[2024-04-13] MEDS ORDERED: ONDANSETRON 4 MG/2 ML VIAL IV PRN (06:15)
[2024-04-13] MEDS ORDERED: ACETAMINOPHEN 500 MG TAB PO PRN (06:15)
[2024-04-13] MEDS: FUROSEMIDE 40 MG/4 ML VIAL IV ONE ×2 (06:20→15:52)
[2024-04-13] MEDS: ALBUTEROL 2.5 MG/3 ML NEB SOL NEB SCH (07:00)
[2024-04-13] MEDS: IPRATROPIUM BROM 0.5MG/2.5ML NEB SCH (07:53)
[2024-04-13] MEDS: BUDESONIDE 0.5 MG/2 ML NEB NEB SCH (07:53)
[2024-04-13] MEDS: Levofloxacin 750mg IV 750 MG/150 ML BAG IV SCH (09:29)
[2024-04-13] MEDS: CEFEPIME 2 GM in NA CHLORIDE 0.9% 100 ML IV SCH (09:30)
[2024-04-13] MEDS: METHYLPREDNISOLONE 125 MG INJ IV SCH (09:30)
--- NOTE | 2024-04-13 10:22 | P.CNS ---
Date of Consult: 04/13/24 Reason for Consult: OPD exacerbation Chief Complaint: Shortness of breath History of Present Illness: 74 years of age well-known to me has a history of severe COPD apparently was doing well while cooking Thanksgiving dinner he became more short of breath tico tomasz a nebulizer treatment did not really help in the hospital he still has some lower extremity edema denies any cough sputum fever or chills night with his medication does not take any steroids at home Allergies No Known Allergies Allergy (Verified 11/01/22 12:00) Home Medications: Abiraterone Acetate [Zytiga] 500 mg PO DAILY 10/29/21 Ascorbic Acid [Vitamin C] 1,000 mg PO DAILY 10/29/21 Atorvastatin Calcium [Lipitor*] 10 mg PO BEDTIME 10/29/21 Calcium Carbonate/Vitamin D3 [Calcium 500-Vit D3 200 Caplet] 1 each PO BID 10/29/21 Cholecalciferol (Vitamin D3) [Vitamin D 5,000 IU Cap*] 5,000 unit PO BID 10/29/21 Clopidogrel Bisulfate [Plavix*] 75 mg PO DAILY 10/29/21 Cyanocobalamin (Vitamin B-12) [Vitamin B-12] 5,000 mcg PO EVERY 7TH DAY 10/29/21 Furosemide [Lasix*] 20 mg PO DAILY 10/29/21 Losartan Potassium [Cozaar*] 50 mg PO BID 10/29/21 Mv-Min/Folic/K1/Lycopen/Lutein [Men 50 Plus Multivitamin Tab] 1 each PO DAILY 10/29/21 Naproxen Sodium 220 mg PO BID 10/29/21 Spironolactone [Aldactone*] 25 mg PO DAILY 10/29/21 Tamsulosin [Flomax*] 0.4 mg PO BEDTIME 10/29/21 Albuterol Sulfate 1.25 mg IH Q6HP PRN 30 Days vial.neb 11/04/21 Metformin ER [Glucophage ER*] 500 mg PO DAILY 10/29/22 Umeclidinium Brm/Vilanterol Tr [Anoro Ellipta 62.5-25 Mcg INH] 1 each IH DAILY 30 Days #30 aero 03/25/24 - Past Medical/Surgical History Diabetic: No -: HLD -: HTN -: prostrate Cancer -: BPH -: Sleep Apnea -: COPD -: cardiac stents -: cholecystectomy -: donated left kidney Psychosocial/ Personal History: Lives at home. at bedside. - Social History Smoking Status: Former smoker Alcohol use: Yes CD- Drugs: No Caffeine use: Yes Review of Systems General: Weakness Respiratory: Cough, Shortness of Breath Physical Examination Temp Pulse Resp BP Pulse Ox 97.2 F 84 16 131/63 93 04/13/24 08:00 04/13/24 08:00 04/13/24 08:00 04/13/24 08:00 04/13/24 08:00 General: Alert, In no apparent distress, Oriented x3 Respiratory: Clear to auscultation bilaterally, Diminished Cardiovascular: No edema, Regular rate/rhythm, Normal S1 S2 Gastrointestinal: Normal bowel sounds, Soft and benign Laboratory Data (last 24 hrs) 04/13/24 04/13/24 04/13/24 01:20 01:20 01:20 WBC 5.60 Hgb 12.2 L Hct 38.1 L Plt Count 280 PT 11.0 INR 0.98 APTT 34.9 Sodium 141 Potassium 3.7 BUN 17 Creatinine 1.22 Glucose 157 H Magnesium 2.1 Total Bilirubin 0.2 AST 16 ALT 27 Alkaline Phosphatase 106 Lipase 112 H - Problems (1) COPD with acute exacerbation Current Visit: No Status: Acute Plan: Patient is 74 years of age admitted with COPD exacerbation apparently he overdid it during when he went and cut out his grass started cooking became more short of breath currently back at his baseline complains of some lower extremity edema no change since prior discharge have some underlying diastolic dysfunction resume his spironolactone and Lasix reduce prednisone DC antibiotics CT scan of the chest is negative no pulmonary embolism or pneumonia signs oxygenation satisfactory plan to discharge home on low-dose prednisone 10 mg daily for 2 weeks patient to continue with his Lasix and and spironolactone discontinue oral antibiotic
[2024-04-13] MEDS: INSULIN REGULAR (HUMAN) 100 UNIT/ML SQ SCH (10:25)
[2024-04-13] MEDS: SPIRONOLACTONE 25 MG TABLET PO SCH (10:27)
[2024-04-13] MEDS: predniSONE 20 MG TAB PO SCH (10:28)
[2024-04-13 11:47] VITALS: BMI 36.2
[2024-04-13 17:35] LABS: Specific Gravity > 1.030 (1.005-1.030); Sqamous Epithelial <5 /HPF (None Seen); Urine Bacteria None Seen /HPF (<20); Urine Bilirubin NEGATIVE (Negative); Urine Blood Negative (Negative); Urine Clarity Clear (Clear); Urine Color Light-Yellow (Yellow); Urine Culture Reflex Order NOT NEEDED; Urine Glucose NEGATIVE (Negative); Urine Ketones TRACE (Negative); Urine Microscopic Reflex YN ORDER UMIC; Urine Mucus Slight /HPF (None Seen); Urine Nitrite NEGATIVE (Negative); Urine Protein TRACE (Negative); Urine RBC <5 /HPF (None Seen); Urine Urobilinogen Normal (Normal); Urine WBC <5 /HPF (<5); Urine pH 6.5 (5.0-7.0)
[2024-04-13] MEDS: MUCINEX DM 12HR.SR TAB PO ONE (21:45)
[2024-04-13] MEDS: ATORVASTATIN 10 MG TAB PO SCH (21:53)
[2024-04-13] MEDS: MUCINEX DM 12HR.SR TAB PO PRN (21:53)
[2024-04-13] MEDS: LOSARTAN POTASSIUM 50 MG TABLET PO SCH (21:54)
[2024-04-13] MEDS: TAMSULOSIN 0.4 MG SR CAP PO SCH (21:54)
[2024-04-14 06:53] LABS: Absolute Lymphocytes (CBC) 0.6 K/uL (0.7-4.9); Absolute Neutrophil 10.8 K/uL (1.8-8.0); Basophils % 0.1 % (0-1.3); Hematocrit 34.6 % (39.6-49.0); Hemoglobin 11.6 g/dL (13.6-17.9); Lymphocytes % 4.5 % (15.3-44.8); MCHC 33.4 g/dL (32.0-36.0); MCV 89.9 fL (80-100); MPV 7.6 fL (7.6-11.3); Monocytes % 7.8 % (3.3-12.3); Neutrophils % 87.6 % (41.7-73.7); Platelets 276 thou/uL (152-406); RBC Red Blood Cell Count 3.85 M/uL (4.33-5.43); Red Cell Distribution Width 15.9 % (12.1-15.2)
[2024-04-14 07:09] LABS: Anion Gap 8.6 mEq/L (5.0-15.0); Potassium 4.6 mEq/L (3.5-5.1)
[2024-04-14 07:10] LABS: Magnesium 2.2 mg/dL (1.6-2.4)
[2024-04-14] MEDS ORDERED: SPIRONOLACTONE 25 MG TABLET PO SCH (09:00)
--- NOTE | 2024-04-14 09:18 | P.DS ---
Admission Date: 04/13/24 Discharge Date: 04/16/24 Disposition: ROUTINE DISCHARGE Discharge Condition: GOOD Reason for Admission: COPD exacerbation - Problems (1) Acute hypoxic respiratory failure Status: Acute (2) COPD (chronic obstructive pulmonary disease) Status: Acute Qualifiers: Emphysema type: unspecified Brief History of Present Illness: Mr. Quezada is a 74-year-old male with a past medical history of hypertension, hyperlipidemia, coronary artery disease, COPD, sleep apnea, and BPH with prostate cancer presented to the emergency room with shortness of breath. He reports shortness of breath while cooking. He reports shortness of breath is worse with exertion, worse with laying flat. He reports occasional productive cough. He denies chest pain, abdominal pain, fever, nausea vomiting diarrhea. He reports recently admitted for pneumonia. Plan to admit for COPD exacerbation, with pulmonary to consult - Physical Exam General: Alert, Oriented x3, HEENT: Atraumatic, Normocephalic Neck: Supple, 2+ carotid pulse no bruit Respiratory: Equal unlabored Cardiovascular: Normal pulses, Regular rate/rhythm, Normal S1 S2 Capillary refill: <2 Seconds Gastrointestinal: Normal bowel sounds, Soft and benign Musculoskeletal: No clubbing, No swelling Integumentary: No breakdown, No significant lesion Neurological: Normal speech, Normal strength at 5/5 x4 extr, Cranial nerves 3-12 intact Hospital Course: Mr. Quezada is a 74-year-old male with a past medical history of hypertension, hyperlipidemia, coronary artery disease, COPD, sleep apnea, and BPH with prostate cancer presented to the emergency room with shortness of breath. He reports shortness of breath while cooking. He reports shortness of breath is worse with exertion, worse with laying flat. He reports occasional productive cough. He denies chest pain, abdominal pain, fever, nausea vomiting diarrhea. He reports recently admitted for pneumonia. Plan to admit for COPD exacerbation, with pulmonary to consulted. Started on IV antibiotics, IV steroids, nebulizers, transition to p.o. steroids, p.o. antibiotics, wean O2, stable to discharge home, follow-up with pulmonary after discharge Discharge home on albuterol Atrovent nebs, nebulizer, steroid Assessment Acute hypoxic respiratory failure secondary to COPD [id number] to room air Started on IV antibiotics IV steroids, nebs, transition to p.o. steroids, p.o. antibiotics, stable to discharge home, follow-up with pulmonary after discharge GOAL: Clear understanding of disease process INSTRUCTIONS: Physician Discharge Instructions: -Follow-up with pulmonary after -Follow-up with PCP in 1 to 2 weeks -Please call Dr. Magallon at [phone] if any questions regarding hospital stay -Please call nursing station at [phone] if any nursing or medication quest ions -Return to the emergency room if symptoms worsen Diet: ADA, low sodium Activity: Fall precautions Vital Signs/Physical Exam: Temp Pulse Resp BP Pulse Ox 97.3 F 59 16 118/54 L 96 04/14/24 08:00 04/14/24 08:00 04/14/24 08:00 04/14/24 08:00 04/14/24 08:00 Laboratory Data at Discharge: WBC 12.40 thou/uL (4.3-10.9) H 04/14/24 06:29 Hgb 11.6 g/dL (13.6-17.9) L 04/14/24 06:29 Hct 34.6 % (39.6-49.0) L 04/14/24 06:29 Plt Count 276 thou/uL (152-406) 04/14/24 06:29 PT 11.0 SECONDS (9.4-12.5) 04/13/24 01:20 INR 0.98 04/13/24 01:20 APTT 34.9 SECONDS (24.3-36.9) 04/13/24 01:20 Sodium 140 mEq/L (136-145) 04/14/24 06:29 Potassium 4.6 mEq/L (3.5-5.1) 04/14/24 06:29 BUN 22 mg/dL (7-18) H 04/14/24 06:29 Creatinine 1.07 mg/dL (0.70-1.30) 04/14/24 06:29 Glucose 153 mg/dL (74-106) H 04/14/24 06:29 Magnesium 2.2 mg/dL (1.6-2.4) 04/14/24 06:29 Total Bilirubin 0.2 mg/dL (0.2-1.0) 04/13/24 01:20 AST 16 U/L (15-37) 04/13/24 01:20 ALT 27 U/L (16-61) 04/13/24 01:20 Alkaline Phosphatase 106 U/L (45-117) 04/13/24 01:20 Lipase 112 U/L (13-75) H 04/13/24 01:20 Home Medications: Ascorbic Acid [Vitamin C] 1,000 mg PO DAILY 10/29/21 Atorvastatin Calcium [Lipitor*] 10 mg PO BEDTIME 10/29/21 Calcium Carbonate/Vitamin D3 [Calcium 500-Vit D3 200 Caplet] 1 each PO BID 10/29/21 Cholecalciferol (Vitamin D3) [Vitamin D 5,000 IU Cap*] 5,000 unit PO BID 10/29/21 Clopidogrel Bisulfate [Plavix*] 75 mg PO DAILY 10/29/21 Cyanocobalamin (Vitamin B-12) [Vitamin B-12] 5,000 mcg PO EVERY 7TH DAY 10/29/21 Furosemide [Lasix*] 20 mg PO DAILY 10/29/21 Losartan Potassium [Cozaar*] 50 mg PO BID 10/29/21 Mv-Min/Folic/K1/Lycopen/Lutein [Men 50 Plus Multivitamin Tab] 1 each PO DAILY 10/29/21 Naproxen Sodium 220 mg PO BID 10/29/21 Spironolactone [Aldactone*] 25 mg PO DAILY 10/29/21 Tamsulosin [Flomax*] 0.4 mg PO BEDTIME 10/29/21 Metformin ER [Glucophage ER*] 500 mg PO DAILY 10/29/22 Umeclidinium Brm/Vilanterol Tr [Anoro Ellipta 62.5-25 Mcg INH] 1 each IH DAILY 30 Days #30 aero 03/25/24 Albuterol Sulfate 1.25 mg IH Q6HP PRN 30 Days #1 box 04/16/24 Ipratropium Neb [Atrovent*] 0.5 mg NEB [id number] PRN 30 Days #1 box 04/16/24 Nebulizer and Compressor [[place] Choice Nebulizer] 1 each MC DAILY 30 Days #1 ea 04/16/24 predniSONE [Prednisone*] 20 mg PO BID 5 Days #30 tab 04/16/24 New Medications: Albuterol Sulfate 1.25 mg IH Q6HP PRN 30 Days #1 box PRN Reason: sob Ipratropium Neb [Atrovent*] 0.5 mg NEB [id number] PRN 30 Days #1 box PRN Reason: Shortness Of Breath Nebulizer and Compressor [[place] Choice Nebulizer] 1 each MC DAILY 30 Days #1 ea predniSONE [Prednisone*] 20 mg PO BID 5 Days #30 tab Physician Discharge Instructions: Mr. Quezada is a 74-year-old male with a past medical history of hypertension, hyperlipidemia, coronary artery disease, COPD, sleep apnea, and BPH with prostate cancer presented to the emergency room with shortness of breath. He reports shortness of breath while cooking. He reports shortness of breath is worse with exertion, worse with laying flat. He reports occasional productive cough. He denies chest pain, abdominal pain, fever, nausea vomiting diarrhea. He reports recently admitted for pneumonia. Plan to admit for COPD exacerbation, with pulmonary to consulted. Started on IV antibiotics, IV steroids, nebulizers, transition to p.o. steroids, p.o. antibiotics, wean O2, stable to discharge home, follow-up with pulmonary after discharge Assessment Acute hypoxic respiratory failure secondary to COPD exacerbation-improving- weaned to room air Started on IV antibiotics IV steroids, nebs, transition to p.o. steroids, p.o. antibiotics, stable to discharge home, follow-up with pulmonary after discharge GOAL: Clear understanding of disease process INSTRUCTIONS: Physician Discharge Instructions: -Follow-up with pulmonary after -Follow-up with PCP in 1 to 2 weeks -Please call Dr. Magallon at [phone] if any questions regarding hospital stay -Please call nursing station at [phone] if any nursing or medication questions -Return to the emergency room if symptoms worsen Diet: ADA, low sodium Activity: Fall precautions Followup: Archie Gonzales MD [ACTIVE - CAN ADMIT] - 1-2 Weeks [facility] [Primary Care Provider] - 1-2 Weeks Time spent managing pt's care (in minutes): 45
[2024-04-14 10:14] LABS: Platelet Estimate ADEQ; Platelets Clumped MANY; Platelets, Giant FEW; White Blood Cell Scan OK (OK)
[2024-04-14] MEDS: CLOPIDOGREL 75 MG TABLET PO SCH (10:14)
[2024-04-14] MEDS: METFORMIN ER 500 MG TAB PO SCH (10:14)
[2024-04-14 10:15] LABS: Basophilic Stippling 1+; Blood Morphology Comment NOTED (NOT SEEN)
[2024-04-14] MEDS: predniSONE 20 MG TAB PO SCH (17:56)
[2024-04-14] MEDS: GUAIFENESIN/CODEINE 5ML UCUP PO PRN (17:56)
[2024-04-15 06:44] LABS: Anion Gap 8.4 mEq/L (5.0-15.0); Magnesium 2.3 mg/dL (1.6-2.4); Potassium 4.4 mEq/L (3.5-5.1)
[2024-04-15 07:05] LABS: Absolute Lymphocytes (CBC) 0.6 K/uL (0.7-4.9); Absolute Monocytes 0.5 K/uL (0.1-1.3); Absolute Neutrophil 7.3 K/uL (1.8-8.0); Basophils % 0.2 % (0-1.3); Eosinophils % 0.3 % (0-4.4); Hematocrit 35.6 % (39.6-49.0); Hemoglobin 11.4 g/dL (13.6-17.9); Lymphocytes % 7.1 % (15.3-44.8); MCH 29.2 pg (27.0-35.0); MCV 91.2 fL (80-100); MPV 8.1 fL (7.6-11.3); Monocytes % 6.5 % (3.3-12.3); Neutrophils % 85.9 % (41.7-73.7); Platelets 249 thou/uL (152-406); RBC Red Blood Cell Count 3.91 M/uL (4.33-5.43); Red Cell Distribution Width 16.8 % (12.1-15.2)
[2024-04-15] MEDS ORDERED: predniSONE 20 MG TAB PO SCH (09:00)
--- NOTE | 2024-04-15 10:20 | P.PN ---
Date of Service: 04/14/24 subjective Moderate shortness of breath with exertion, 93% on 3 L Review of Systems 10-point ROS is otherwise unremarkable General: As per HPI Physical Examination - Physical Exam vital signs Reviewed General: Alert, Oriented x3, Mild distress, afebrile HEENT: Atraumatic, Normocephalic Neck: Supple, 2+ carotid pulse no bruit Respiratory: Expiratory wheezes, Inspiratory wheezes Cardiovascular: Normal pulses, Regular rate/rhythm, Normal S1 S2 Capillary refill: <2 Seconds Gastrointestinal: Normal bowel sounds, obese Musculoskeletal: No clubbing, No swelling Neurological: Normal speech, Normal strength at 5/5 x4 extr, Assessment and Plan - Problems (Diagnosis) (1) Acute hypoxic respiratory failure secondary to COPD exacerbation Current Visit: Yes Status: Acute (2) acute COPD exacerbation Current Visit: No Status: Acute Qualifiers: Emphysema type: unspecified - Plan Admit to [facility] Pulmonary to consult, O2 2 L keep sats greater than 92 percent Nebs, steroids, IV antibiotics, Resume home meds, Trend electrolytes replace as needed Accu-Chek ACHS, sliding scale insulin for steroid use Home O2 ordered through director social welfare patient request sent to the [place] Full code DVT SCDs Diet diabetic Disposition Home independent Discharge Plan: Home - Advance Directives Does patient have a Living Will: No Does patient have a Durable POA for Healthcare: No - Code Status/Comfort Care Code Status: Full Code Critical Care: No Time Spent Managing Pts Care (In Minutes): 35
--- NOTE | 2024-04-15 14:16 | EKG ---
Test Date: 2024-04-13 Test Time: 01:24:06 Cut Out Stitcher: AF MEASUREMENT RESULTS: Intervals: Rate: 80 OK: 174 QRSD: 68 QT: 364 QTc: 419 [place]: P: 73 OK: 174 QRS: 52 T: 77 INTERPRETIVE STATEMENTS: Sinus rhythm with fusion complexes Low voltage QRS Borderline ECG Compared to ECG 03/24/2024 15:59:23 Fusion complex(es) now present Atrial premature complex(es) no longer present Electronically Signed On 04-15-24 14:14:00 CAR GROOMER by Emeterio Fitzgerald
--- NOTE | 2024-04-15 15:33 | RAD REPORT ---
EXAMINATION: ONE VIEW CHEST XR CLINICAL INDICATION: pneumonia TECHNIQUE: Frontal chest projection is submitted. Examination is limited by patient positioning and t echnique. COMPARISON: 03/27/2024 FINDINGS: The lungs are diffusely emphysematous but grossly clear. The heart is moderately enlarged in size. No displaced fractures identified. IMPRESSION: COPD without an acute process suspected.
--- NOTE | 2024-04-16 01:38 | P.PN ---
Date of Service: 04/15/24 subjective reports breathing somewhat improved, SOB w exertion plan to order home 02 Review of Systems 10-point ROS is otherwise unremarkable General: As per HPI Physical Examination - Physical Exam vital signs Reviewed General: Alert, Oriented x3, no acute distess noted HEENT: Atraumatic, Normocephalic Neck: Supple, 2+ carotid pulse no bruit Respiratory: Expiratory wheezes, Cardiovascular: Normal pulses, Regular rate/rhythm, Normal S1 S2 Capillary refill: <2 Seconds Gastrointestinal: Normal bowel sounds, obese Musculoskeletal: No clubbing, No swelling Neurological: Normal speech, Normal strength, no focal deficits Assessment and Plan - Problems (Diagnosis) (1) Acute hypoxic respiratory failure secondary to COPD exacerbation improving Current Visit: Yes Status: Acute (2) acute COPD exacerbation improving Current Visit: No Status: Acute Qualifiers: Emphysema type: unspecified - Plan Admit to [facility] Pulmonary to consult, O2 2 L keep sats greater than 92 percent Nebs, steroids, IV antibiotics, Resume home meds, Trend electrolytes replace as needed Accu-Chek ACHS, sliding scale insulin for steroid use Home O2 ordered through social media marketing manager patient request sent to the [place] Full code DVT SCDs Diet diabetic Disposition Home independent Discharge Plan: Home - Advance Directives Does patient have a Living Will: No Does patient have a Durable POA for Healthcare: No - Code Status/Comfort Care Code Status: Full Code Critical Care: No Time Spent Managing Pts Care (In Minutes): 25
[2024-04-16 03:18] VITALS: O2SAT 96
[2024-04-16 05:22] LABS: Absolute Lymphocytes (CBC) 0.6 K/uL (0.7-4.9); Absolute Monocytes 0.6 K/uL (0.1-1.3); Absolute Neutrophil 6.3 K/uL (1.8-8.0); Basophils % 0.3 % (0-1.3); Eosinophils % 0.3 % (0-4.4); Hemoglobin 12.2 g/dL (13.6-17.9); Lymphocytes % 8.2 % (15.3-44.8); MCH 29.9 pg (27.0-35.0); MCHC 33.1 g/dL (32.0-36.0); MCV 90.6 fL (80-100); MPV 7.6 fL (7.6-11.3); Monocytes % 8.5 % (3.3-12.3); Neutrophils % 82.7 % (41.7-73.7); Nucleated Red Blood Cells % 0.2 % (0-0); Platelets 263 thou/uL (152-406); RBC Red Blood Cell Count 4.08 M/uL (4.33-5.43)
[2024-04-16 05:37] LABS: Magnesium 2.2 mg/dL (1.6-2.4)
[2024-04-16 09:08] VITALS: TEMP 98.9
--- NOTE | 2024-04-16 10:21 | EKG ---
Test Date: 2024-04-13 Test Time: 01:24:54 Sharepoint Net Developer: AF MEASUREMENT RESULTS: Intervals: Rate: 77 [place]: 170 QRSD: 68 QT: 370 QTc: 418 [place]: P: 75 WI: 170 QRS: 45 T: 65 INTERPRETIVE STATEMENTS: Sinus rhythm with fusion complexes Low voltage QRS Nonspecific ST and T wave abnormality Abnormal ECG Compared to ECG 04/13/2024 01:24:06 ST (T wave) deviation now present Electronically Signed On 04-16-24 10:20:17 BILLBOARD ERECTOR by Jaden Bueno
[2024-04-16 12:32] VITALS: BP 123/60
== END 2024-04-16 14:07 | disposition home or self-care (01) | DRG 189 ==
LOC: ER 01:00 → ERHOLD 06:07 → 2ND 06:35
PROVIDERS: ADMIT Hospitalist; ATTEND Internal Medicine
DX: J96.01 Acute respiratory failure with hypoxia (principal); J44.1 Chronic obstructive pulmonary disease with (acute) exacerbation; I10 Essential (primary) hypertension; E78.00 Pure hypercholesterolemia, unspecified; N40.0 Benign prostatic hyperplasia without lower urinary tract symptoms; I25.10 Atherosclerotic heart disease of native coronary artery without angina pectoris; Z90.5 Acquired absence of kidney; Z95.5 Presence of coronary angioplasty implant and graft; Z11.52 Encounter for screening for COVID-19; Z85.46 Personal history of malignant neoplasm of prostate; Z99.81 Dependence on supplemental oxygen; Z79.84 Long term (current) use of oral hypoglycemic drugs; Z79.02 Long term (current) use of antithrombotics/antiplatelets; Z79.52 Long term (current) use of systemic steroids; Z90.49 Acquired absence of other specified parts of digestive tract; Z79.899 Other long term (current) drug therapy; Z96.653 Presence of artificial knee joint, bilateral; Z87.891 Personal history of nicotine dependence
CPT/HCPCS: 36415; 71045; 71275; 80048; 80076; 81001; 82550; 82947; 83690; 83735; 83880; 84484; 85025; 85610; 85730; 87040; 87804; 87811; 93005; 94640; 94760; 96365; 96366; 96375; 99285; J0692; J0696; J1940; J2919; J7050; J7512; J7613; J7626; J7644; Q9967

== ENCOUNTER 2024-12-28 14:04 | Emergency (ER) | payer OTHER ==
[2024-12-28 14:34] LABS: Absolute Lymphocytes (CBC) 0.6 K/uL (0.7-4.9); Hematocrit 40.9 % (39.6-49.0); Hemoglobin 13.7 g/dL (13.6-17.9); MCH 28.7 pg (27.0-35.0); MCHC 33.5 g/dL (32.0-36.0); MCV 85.8 fL (80-100); MPV 7.7 fL (7.6-11.3); Nucleated RBC Absolute Count 0.0 (0-0); Nucleated Red Blood Cells % 0.1 % (0-0); RBC Red Blood Cell Count 4.77 M/uL (4.33-5.43); White Blood Count 11.70 thou/uL (4.3-10.9)
[2024-12-28 14:54] LABS: ALT/SGPT 24 U/L (16-61); Albumin 3.2 g/dL (3.4-5.0); Albumin/Globulin Ratio 0.8 (1.1-1.8); Alkaline Phosphatase 100 U/L (45-117); Anion Gap 21.0 mEq/L (5.0-15.0); BUN Blood Urea Nitrogen 68 mg/dL (7-18); Globulin 3.9 g/dL (2.3-3.5); Glucose Level 175 mg/dL (74-106); Lipase 28 U/L (13-75); Potassium 5.0 mEq/L (3.5-5.1)
[2024-12-28 14:55] LABS: AST/SGOT < 10 U/L (15-37)
[2024-12-28] MEDS ORDERED: NA CHLORIDE 0.9% 500 ML ONE ×2 (14:55→17:04)
[2024-12-28 15:41] LABS: PT Prothrombin Time 13.6 SECONDS (10-13.0); Protime INR 1.21
[2024-12-28 15:50] LABS: Magnesium 3.0 mg/dL (1.6-2.4); NT PRO-BNP 286.0 pg/mL (<450); Troponin High Sensitivity 6.4 pg/mL (<58.9)
[2024-12-28 15:57] LABS: Sqamous Epithelial <5 /HPF (None Seen); Urine Crystals Unidentified Few /HPF (None Seen); Urine Culture Reflex Order REFLEXED; Urine Microscopic Reflex YN ORDER UMIC; Urine WBC Clump Many /HPF (None Seen); Urine Yeast (Budding) Moderate /HPF (None Seen)
[2024-12-28 16:11] LABS: Blood Morphology Comment NOT SEEN (NOT SEEN); White Blood Cell Scan OK (OK)
[2024-12-28] MEDS ORDERED: ONDANSETRON 4 MG/2 ML VIAL ONE (16:59)
[2024-12-28] MEDS ORDERED: NA CHLORIDE 0.9% 1,000 ML ONE (17:04)
--- NOTE | 2024-12-28 17:06 | RAD REPORT ---
EXAMINATION: Stone Protocol CLINICAL INDICATION: Abdominal pain. Kidney failure TECHNIQUE: CT abdomen and pelvis was performed, without IV contrast, as per department protocol. Oral contrast not given. Axial, sagittal and coronal reconstructions were obtained. One or more of the following dose reduction techniques were used: Automated exposure control, adjustment of the mA and k V according to the patient size, and iterative reconstruction. Unless otherwise specified, incidental findings do not require dedicated imaging follow-up. COMPARISON: 2022 FINDINGS: The lack of intravenous and oral contrast limits the sensitivity of this exam for evaluation of solid visceral organs, vascular structures, and bowel Absent left kidney. Moderate right hydronephrosis. Right ureter dilated. 6 mm calculus proximal right ureter.. 4 mm calcu isma mid right ureter. Hammond catheter within the bladder. Ill-defined fluid is present within the right perirenal space extending inferiorly and superiorly. Minimal right pleural effusion. Small amou nt of ascites. Small amount of fluid left perirenal space extending inferiorly. Moderate to large left inguinal hernia contains a portion of proximal sigmoid colon. Large right fat filled inguinal hernia. No evidence of diverticulitis. 22 IMPRESSION: 2 calculi within the right ureter resulting in moderate right hydronephrosis and large amount of flui d in the right perirenal space. Moderate to large left inguinal hernia containing nonobstructed sigmoid colon. Large right inguinal hernia
--- NOTE | 2024-12-28 17:13 | RAD REPORT ---
Procedure: Chest Single View HISTORY: Abdominal pain COMPARISON: 2023 FINDINGS: A few areas of subsegmental atelectasis within the lung bases. No significant pleural effusion Borderline cardiomegaly
--- NOTE | 2024-12-28 17:20 | RAD REPORT ---
EXAMINATION: ULTRASOUND DUPLEX OF SCROTUM AND TESTICLES CLINICAL INDICATION: Testicular pain TECHNIQUE: Duplex scan of the scrotal contents was performed including real-time color and spectral D oppler ultrasonography with arterial inflow and venous outflow. COMPARISON: No prior exam. FINDINGS: Right testicle measures 2 x 2.4 x 1.7 cm with a normal echotexture. Borderline increased blood flow r ight testicle. Left testicle measures 4.5 x 3.1 x 2.3 cm with a normal echotexture. 3 mm cyst left testicle. Nor mal blood flow left testicle Mild bilateral varicoceles. Large right and moderate to large left inguinal hernias Neither epididymis clearly seen. IMPRESSION: Large right and moderate to large left inguinal hernias Borderline increased blood flow right testicle equivocal for a mild orchitis
--- NOTE | 2024-12-28 17:22 | EDPHYS ---
Physician Documentation [facility] Name: Patel Quezada Age: 74 yrs Sex: Male : 1950 Arrival Date: 12/28/2024 Time: 14:04 Bed 5 Private MD: ED Physician Ramos Fair HPI: 12/28 14:25 This 74 yrs old Male presents to ER via Wheelchair with complaints of Abdominal Pain. cp 14:25 The patient presents with abdominal pain abdominal distention that is diffuse. cp 14:25 Onset: The symptoms/episode began/occurred 2 day(s) ago. cp 14:25 Associated signs and symptoms: Pertinent positives: decreased urine output. cp 14:25 Severity of pain: in the emergency department the pain is unchanged despite home cp interventions. Historical: - Allergies: 14:15 No Known Allergies; ll1 - PMHx: 14:15 COPD; Hypertensive disorder; Hypercholesterolemia; Prostate Cancer; ll1 - PSHx: 14:15 Cholecystectomy; Heart Stents; Left kidney removed; Replacement of total knee joint; ll1 Right and Left; - Immunization history:: Adult Immunizations up to date. - Infectious Disease History:: Denies. - Social history:: Smoking status: Patient denies any tobacco usage or history of. ROS: 14:30 Constitutional: Positive for poor PO intake, Negative for body aches, chills, fever, cp 14:30 Eyes: Negative for injury, pain, redness, and discharge, cp 14:30 ENT: Negative for drainage from ear(s), ear pain, sore throat, difficulty swallowing, difficulty handling secretions, 14:30 Cardiovascular: Negative for chest pain, edema, 14:30 Respiratory: Negative for cough, shortness of breath, wheezing, 14:30 Abdomen/GI: Positive for abdominal pain, nausea and vomiting, Negative for diarrhea, constipation, 14:30 Neuro: Negative for altered mental status, 14:30 All other systems are negative, Exam: 14:33 Constitutional: The patient appears in no acute distress, alert, awake, cp non-diaphoretic, non-toxic, well developed, well nourished, uncomfortable, 14:33 Head/Face: Normocephalic, atraumatic. cp 14:33 Eyes: Periorbital structures: appear normal, Conjunctiva: normal, no exudate, no injection, Sclera: no appreciated abnormality, Lids and lashes: appear normal, bilaterally, 14:33 ENT: External ear(s): are unremarkable, Nose: is normal, Mouth: Lips: dry, Oral mucosa: dry, Posterior pharynx: Airway: no evidence of obstruction, patent, erythema, is not appreciated, exudate, is not appreciated, 14:33 Chest/axilla: Inspection: normal, Palpation: is normal, no crepitus, no tenderness, 14:33 Cardiovascular: Rate: normal, Rhythm: regular, Edema: ankle edema, that is very mild, JVD: is not appreciated, 14:33 Respiratory: the patient does not display signs of respiratory distress, Respirations: normal, no use of accessory muscles, no retractions, labored breathing, is not present, Breath sounds: are clear throughout, no decreased breath sounds, no stridor, no wheezing, 14:33 Abdomen/GI: Inspection: obese Bowel sounds: active, all quadrants, Palpation: soft, in all quadrants, mild abdominal tenderness, in all quadrants, rebound tenderness, is not appreciated, involuntary guarding, is not appreciated, 14:33 Back: vertebral tenderness, is not appreciated, 14:33 Skin: cellulitis, is not appreciated, no rash present. 14:33 Neuro: Orientation: to person, place \T\ time. Mentation: is normal, Motor: moves all fours, no focal deficits, Sensation: no obvious gross deficits, 15:25 ECG was reviewed by the Attending Physician. cp Vital Signs: 14:17 BP 144 / 67; Pulse 86; Resp 20; Temp 97.8; Pulse Ox 87% on R/A; Weight 113.4 kg; Height nh2 5 ft. 11 in. ; Pain 10/10; 14:23 BP 144 / 67; Pulse 86; Resp 20; Temp 97.8(TE); Pulse Ox 87% on R/A; Weight 113.4 kg; nh2 Height 5 ft. 11 in. ; 17:15 BP 159 / 75; Pulse 67; Resp 18 S; Pulse Ox 94% on R/A; aa5 20:30 BP 158 / 73; Pulse 61; Resp 18; Pulse Ox 93% ; vc1 14:23 Body Mass Index 34.87 (113.40 kg, 180.34 cm) nh2 14:17 Pain Scale: Adult nh2 MDM: 14:34 Medical Screening Exam initiated effie 15:00 Differential diagnosis: bowel obstruction, non-specific abd pain, pancreatitis, Peptic cp Ulcer Disease, Perf. Duodenal Ulcer, Perf. Gastric Ulcer, Pyelonephritis, Testicular Torsion, Ureterolithiasis, urinary tract infection, sepsis. 17:35 Data reviewed: vital signs, nurses notes, lab test result(s), EKG, radiologic studies, cp CT scan, plain films, ultrasound, I have discussed the patient's presentation/case with the attending Emergency Department Physician;. 17:35 I considered the following discharge prescriptions or medication management in the emergency department Medications were administered in the Emergency Department. See MAR. Independent interpretation of the following test(s) in the Emergency Department EKG: See my EKG interpretation above. Care significantly affected by the following chronic conditions: Hypertension, Chronic Obstructive Pulmonary Disease, Cancer. 19:20 ED course: consult with DR Irizarry, hospitalist at [facility], who will accept transfer after discussion. 12/28 14:21 Order name: CBC with Diff; Complete Time: 16:50 12/28 15:45 Interpretation: Normal except: WBC 11.70; RDW 15.4; JACKY% 85.7; LYM% 4.7; NEUT A 10.1; cp LYMA 0.6. 12/28 14:21 Order name: CMP; Complete Time: 14:58 12/28 14:58 Interpretation: Normal except: NA 135; ANION GAP 21.0; GLUC 175; BUN 68; CRE 10.60; GFR cp 5; AST < 10; CA 12.4; ALB 3.2; GLOB 3.9; A/G 0.8. 12/28 14:21 Order name: Lipase; Complete Time: 14:58 12/28 14:37 Order name: CBC Smear Scan; Complete Time: 16:50 EDMS 12/28 14:58 Order name: UA Rfx Edson Cult if indicated; Complete Time: 16:50 12/28 16:50 Interpretation: Reviewed. 12/28 15:05 Order name: Magnesium; Complete Time: 15:58 12/28 15:58 Interpretation: Abnormal: MG 3.0. 12/28 15:05 Order name: NT PRO-BNP; Complete Time: 15:58 12/28 15:05 Order name: PT-INR; Complete Time: 15:44 12/28 15:05 Order name: Troponin HS; Complete Time: 15:58 cp 12/28 18:10 Interpretation: Reviewed. cp 12/28 16:06 Order name: Urine Culture EDMS 12/28 17:21 Order name: Lactate w/ 2H reflex if indic.; Complete Time: 18:06 cp 12/28 14:47 Order name: XRAY Chest (1 view); Complete Time: 17:19 cp 12/28 15:05 Order name: CT Stone Protocol; Complete Time: 17:11 cp 12/28 16:09 Order name: US Scrotum Testicles; Complete Time: 17:34 cp 12/28 15:05 Order name: EKG; Complete Time: 15:05 cp 12/28 14:21 Order name: Bladder Scanner: pre and post void; Complete Time: 14:50 cp 12/28 14:21 Order name: IV Saline Lock; Complete Time: 14:50 cp 12/28 14:21 Order name: Labs collected and sent; Complete Time: 14:50 cp 12/28 15:05 Order name: Hammond; Complete Time: 15:45 cp 12/28 15:05 Order name: Cardiac monitoring; Complete Time: 15:24 cp 12/28 15:05 Order name: EKG - Nurse/Tech; Complete Time: 15:24 cp 12/28 15:05 Order name: O2 Per Protocol; Complete Time: 15:24 cp 12/28 15:05 Order name: O2 Sat Monitoring; Complete Time: 15:24 cp EC:25 Rate is 65 beats/min. Rhythm is regular. IA interval is normal. QRS interval is normal. cp QT interval is normal. T waves are Inverted in lead aVR. Interpreted by me. Reviewed by me. Administered Medications: 19:04 Discontinued: ns 0.9% 1000 ml IV at 1000 ml once; to be given as a bolus over 60 minutesaa5 17:57 Discontinued: ns 0.9% 500 ml 500 ml IV at 1 bolus once; give in combination 1 liter kb4 over 1 hour 15:06 Drug: NS 0.9% IV 500 ml IV at bolus once; to be given as a bolus over 60 minutes Route: aa5 IV; Rate: bolus; Site: right antecubital; 19:00 Follow up: IV Status: Completed infusion; IV Intake: 500ml vc1 17:13 Drug: NS 0.9% IV 1000 ml IV at 1000 ml once; to be given as a bolus over 60 minutes ap3 Route: IV; Rate: 1000 ml; Site: right antecubital; 17:30 Follow up: IV Status: Order to discontinue infusion aa5 17:57 Follow up: IV Status: Order to discontinue infusion kb4 17:13 Drug: NS 0.9% IV 500 ml 500 ml IV at 1 bolus once; give in combination 1 liter over 1 ap3 hour Volume: 500 ml; Route: IV; Rate: 1 bolus; Site: right antecubital; 17:30 Follow up: Infusion d/c'd aa5 17:35 Not Given (Physician Discretion): ondansetron 4 mg IVP once; over 2 minutes aa5 17:56 Drug: Cefepime IVPB 2 grams IVPB at 200 ml/hr once over 30 mins; (mix in NS 100 mL) kb4 Route: IVPB; Rate: 200 ml/hr; Infused Over: 30 mins; Site: right antecubital; 18:26 Follow up: Response: No adverse reaction; IV Status: Completed infusion aa5 Disposition Summary: 12/28/24 17:21 Transfer Ordered Notes: Reason: Higher level of care cp Condition: Stable cp Problem: new cp Symptoms: have improved cp Transfer Location: [facility](12/28/24 18:11) cp Accepting Physician: DR Irizarry(12/28/24 21:18) vc1 Diagnosis - Calculus of ureter - right cp - Hydronephrosis with renal and ureteral calculous obstruction cp - Acute kidney failure, unspecified cp - UTI/ Urinary tract infection, site not specified cp - Bilateral inguinal hernia, without obstruction or gangrene, not specified as cp recurrent Forms: - Medication Reconciliation Form cp - SBAR form cp Addendum: 01/01/2025 13:55 Co-signature as Attending Physician, Ramos Fair MD I agree with the assessment and c rodriguez plan of care. Signatures: Dispatcher [employer] Ramos Harp MD MD cha Calderon, Audri RN RN aa5 Ramos Rodriguez, PA-C PA-C cp Sendy Torres RN RN ap3 Lv Carrillo RN RN ll1 Alva Amos RN RN vc1 Jose A Lopez Jr, RN RN [facility] Roz Medel RN RN kb4 Corrections: (The following items were deleted from the chart) 12/28 14:58 14:58 UA Rfx Edson Cult if indicated+U.LAB.BRZ ordered. EDMS EDMS 17:48 17:21 doctor cp cp 18:11 17:21 [facility] cp cp 18:11 17:48 doctor cp cp 21:18 18:11 DR Irizarry cp vc1
--- NOTE | 2024-12-28 17:22 | ER ---
Nurse's Notes [facility] Name: Patel Quezada Age: 74 yrs Sex: Male : 1950 Arrival Date: 12/28/2024 Time: 14:04 Bed 5 Private MD: Diagnosis: Calculus of ureter-right;Hydronephrosis with renal and ureteral calculous obstruction;Acute kidney failure, unspecified;UTI/ Urinary tract infection, site not specified;Bilateral inguinal hernia, without obstruction or gangrene, not specified as recurrent Presentation: 12/28 14:17 Chief complaint: Patient states: back and abdominal pain x4 quadrants since Tuesday, nh2 N/V with 3 episodes of emesis in the last 24 hours, and R testicle swelling that has been ongoing for years. Coronavirus screen: At this time, the client does not indicate any symptoms associated with coronavirus-19. Ebola Screen: Patient denies travel to an Ebola-affected area in the 21 days before illness onset. No symptoms or risks identified at this time. Initial Sepsis Screen: Does the patient meet any 2 criteria? No. Patient's initial sepsis screen is negative. Does the patient have a suspected source of infection? No. Patient's initial sepsis screen is negative. Risk Assessment: Do you want to hurt yourself or someone else? Patient reports no desire to harm self or others. Onset of symptoms was December 26, 2024. 14:17 Method Of Arrival: Wheelchair nh2 14:17 Acuity: JANET 3 nh2 Triage Assessment: 14:17 General: Appears uncomfortable, well groomed, Behavior is cooperative, appropriate for nh2 age, restless. Pain: Complains of pain in abdomen Pain currently is 10 out of 10 on a pain scale. Quality of pain is described as aching, Pain began 2-3 days ago. Historical: - Allergies: 14:15 No Known Allergies; ll1 - PMHx: 14:15 COPD; Hypertensive disorder; Hypercholesterolemia; Prostate Cancer; ll1 - PSHx: 14:15 Cholecystectomy; Heart Stents; Left kidney removed; Replacement of total knee joint; ll1 Right and Left; - Immunization history:: Adult Immunizations up to date. - Infectious Disease History:: Denies. - Social history:: Smoking status: Patient denies any tobacco usage or history of. Screenin:45 [facility] ED Fall Risk Assessment (Adult) History of falling in the last 3 months, aa5 including since admission No falls in past 3 months (0 pts) Confusion or Disorientation No (0 pts) Intoxicated or Sedated No (0 pts) Impaired Gait No (0 pts) Mobility Assist Device Used No (0 pt) Altered Elimination No (0 pt) Score/Fall Risk Level 0 - 2 = Low Risk Oriented to surroundings, Maintained a safe environment, Educated pt \\T\\ family on fall prevention, incl call for assistance when getting out of bed, Assessed \\T\\ reinforced patient's understanding of fall precautions. Abuse screen: Denies threats or abuse. Nutritional screening: No deficits noted. Tuberculosis screening: No symptoms or risk factors identified. Assessment: 14:45 General: Appears comfortable, Behavior is calm, cooperative. Pain: Complains of pain in aa5 right upper quadrant, left upper quadrant, right lower quadrant and left lower quadrant Pain currently is 10 out of 10 on a pain scale. Quality of pain is described as aching, Pain began 2-3 days ago. Is continuous, Aggravated by palpation. Neuro: Level of Consciousness is awake, alert, obeys commands, Oriented to person, place, time, situation. Cardiovascular: Heart tones S1 S2 present Patient's skin is warm and dry. Rhythm is regular. Respiratory: Airway is patent Respiratory effort is even, unlabored, Respiratory pattern is regular, symmetrical. GI: Abdomen is round obese, Last BM was December 25, 2024. Bowel sounds present X 4 quads. Abd is soft X 4 quads Abdomen is tender to palpation X 4 quads. Reports nausea, vomiting, since yesterday. : Reports inability to void, reports last normal void was 12/24/24 and reports only "drops" since then. Pt also reports right testicular swelling and pain to both testicles since last night. EENT: No signs and/or symptoms were reported regarding the EENT system. Derm: Skin is pink, warm \\T\\ dry. Musculoskeletal: Range of motion: intact in all extremities. 14:47 Reassessment: Bladder scan completed, TV:14mls, PA notified. . aa5 15:50 Reassessment: Patient is alert, oriented x 3, equal unlabored respirations, skin aa5 warm/dry/pink. 17:15 Reassessment: Patient is alert, oriented x 3, equal unlabored respirations, skin aa5 warm/dry/pink. Vital Signs: 14:17 BP 144 / 67; Pulse 86; Resp 20; Temp 97.8; Pulse Ox 87% on R/A; Weight 113.4 kg; Height nh2 5 ft. 11 in. ; Pain 10/10; 14:23 BP 144 / 67; Pulse 86; Resp 20; Temp 97.8(TE); Pulse Ox 87% on R/A; Weight 113.4 kg; nh2 Height 5 ft. 11 in. ; 17:15 BP 159 / 75; Pulse 67; Resp 18 S; Pulse Ox 94% on R/A; aa5 20:30 BP 158 / 73; Pulse 61; Resp 18; Pulse Ox 93% ; vc1 14:23 Body Mass Index 34.87 (113.40 kg, 180.34 cm) nh2 14:17 Pain Scale: Adult nh2 ED Course: 14:08 Patient arrived in ED. im 14:10 Ramos Rodriguez PA is PHCP. cp 14:10 Ramos Fair MD is Attending Physician. cp 14:15 Arm band placed on Patient placed in an exam room, on a stretcher. ll1 14:19 Triage completed. nh2 14:22 Kellen Rodriguez, RN is Primary Nurse. aa5 14:45 Patient has correct armband on for positive identification. Placed in gown. Bed in low aa5 position. Call light in reach. Side rails up X2. 14:51 Inserted saline lock: 20 gauge in right antecubital area, using aseptic technique. aa5 Blood collected. Flushed with 10 mL NS. 14:59 XRAY Chest (1 view) In Process Unspecified. EDMS 15:25 No provider procedures requiring assistance completed. aa5 15:48 Hammond cath inserted, using sterile technique, [address], balloon inflated, to aa5 gravity drainage, urine specimen collected. 16:30 CT Stone Protocol In Process Unspecified. EDMS 16:57 US Scrotum Testicles In Process Unspecified. EDMS 17:22 initiated a transfer with Dale from the [facility]. eb 17:[address] Butts the urologist bi application developer for [facility] with Ramos Rodriguez for eb patient transfer consultation. 18:[address] Irizarry the hospitalist bi application developer for [facility] with Ramos masters for patient transfer consultation. 18:[address] [facility] \\T\\ 1905. Number for nurse to nurse report kmf [phone]. 19:00 Provided Education on: call light. vc1 19:02 Report given to LAURYN Calle and LAURYN Amezcua. aa5 20:35 [facility] \\T\\ 1905. [facility] to transfer pt. once nurse to nurse is kmf complete. 21:18 Patient transferred, IV remains in place. vc1 Administered Medications: 19:04 Discontinued: ns 0.9% 1000 ml IV at 1000 ml once; to be given as a bolus over 60 minutesaa5 17:57 Discontinued: ns 0.9% 500 ml 500 ml IV at 1 bolus once; give in combination 1 liter kb4 over 1 hour 15:06 Drug: NS 0.9% IV 500 ml IV at bolus once; to be given as a bolus over 60 minutes Route: aa5 IV; Rate: bolus; Site: right antecubital; 19:00 Follow up: IV Status: Completed infusion; IV Intake: 500ml vc1 17:13 Drug: NS 0.9% IV 1000 ml IV at 1000 ml once; to be given as a bolus over 60 minutes ap3 Route: IV; Rate: 1000 ml; Site: right antecubital; 17:30 Follow up: IV Status: Order to discontinue infusion aa5 17:57 Follow up: IV Status: Order to discontinue infusion kb4 17:13 Drug: NS 0.9% IV 500 ml 500 ml IV at 1 bolus once; give in combination 1 liter over 1 ap3 hour Volume: 500 ml; Route: IV; Rate: 1 bolus; Site: right antecubital; 17:30 Follow up: Infusion d/c'd aa5 17:35 Not Given (Physician Discretion): ondansetron 4 mg IVP once; over 2 minutes aa5 17:56 Drug: Cefepime IVPB 2 grams IVPB at 200 ml/hr once over 30 mins; (mix in NS 100 mL) kb4 Route: IVPB; Rate: 200 ml/hr; Infused Over: 30 mins; Site: right antecubital; 18:26 Follow up: Response: No adverse reaction; IV Status: Completed infusion aa5 Medication: 15:25 VIS not applicable for this client. aa5 Intake: 19:00 IV: 500ml; Total: 500ml. vc1 15:48 PA notified of output. aa5 Output: 15:48 Urine: 7ml (Hammond); Total: 7ml. aa5 15:48 PA notified of output. aa5 Outcome: 17:21 ER care complete, transfer ordered by MD. lynne 21:17 Transferred by ground EMS to [facility], to other acute care vc facility: [facility]. Transfer form completed. X-rays sent w/ patient. 21:17 Condition: stable 21:17 Instructed on the need for transfer, 21:18 Patient left the ED. vc1 Signatures: Dispatcher [employer] EDMS Kellen Rodriguez, RN RN aa5 Ramos Rodriguez PA-C PA-C Senyd Nesbitt RN RN ap3 Natalya Celestin Lynsay RN RN ll1 Alva Amos RN RN [facility] Lory Camarena Kelsey Maroul [facility] Jose A Lopez Jr RN RN [facility] Roz Medel RN RN kb4 Corrections: (The following items were deleted from the chart) 17:56 17:56 Cefepime IVPB 2 grams IVPB at 200 ml/hr in right forearm over 30 mins kb4 kb4 20:35 20:[address] [facility] \\T\\ 1905. Number for nurse to nurse report [facility] [phone] [facility] 21:17 20:30 BP 158 / 7; Pulse 61bpm; Resp 18bpm; Pulse Ox 93%; vc1 vc1
[2024-12-28] MEDS ORDERED: CEFEPIME 2 GM VIAL ONE (17:26)
[2024-12-28] MEDS ORDERED: NA CHLORIDE 0.9% 100 ML ONE (17:27)
[2024-12-29 01:51] VITALS: TEMP 97.8
[2024-12-29 01:56] VITALS: BP 158/73; O2SAT 93
== END 2024-12-28 21:18 | disposition short-term general hospital (02) ==
LOC: ER 14:04
DX: N13.2 Hydronephrosis with renal and ureteral calculous obstruction (principal); N17.9 Acute kidney failure, unspecified; N39.0 Urinary tract infection, site not specified; K40.20 Bilateral inguinal hernia, without obstruction or gangrene, not specified as recurrent; Z90.5 Acquired absence of kidney; Z95.818 Presence of other cardiac implants and grafts
CPT/HCPCS: 96365; 96361; 87088; 85025; 81001; 87086; 36415; 83735; 85610; 83605; 84484; 83690; 80053; 83880; 76377; 74176; 71045; 76870; 51702; 99285; J0692; J2405; J7040 ×2; J7030; 87040; 93005